=== PATIENT | male | born 1970 | race Caucasian/White ===

== ENCOUNTER 2016-10-22 16:24 | Inpatient (IN) | payer OTHER ==
[2016-10-22] MEDS ORDERED: ACETAMINOPHEN TAB 500 MG TAB PO STA (17:19)
[2016-10-22] MEDS ORDERED: ONDANSETRON 4 MG/2 ML VIAL IVP STA (17:50)
--- NOTE | 2016-10-22 17:52 | ED ---
General Adult HPI - General Source: patient, RN notes reviewed Mode of arrival: wheelchair Limitations: no limitations <Edelmira Short - Last Filed: 10/22/16 20:03> <Anderson Wiggins - Last Filed: 10/22/16 20:09> - General Chief complaint: Extremity Injury, Lower Stated complaint: Right Leg Swelling Time Seen by Provider: 10/22/16 17:19 - History of Present Illness Initial comments: Patient is a 46-year-old male since emergency room for evaluation of right fifth toe infection. Patient states he noticed a small white spot on the side of his toe a few days ago. Patient states about a week ago he noticed redness and swelling going up his right leg. Patient states yesterday like took off his shoes and noticed the entire top layer of skin had peeled off of his toe. Patient states that the pain has gotten worse today. Patient states he has swelling and redness radiating up his leg. Patient states he has been having on and off fevers. Patient denies taking anything for his fever. Patient does state he has diabetes type 2. Patient states he is having 5 out of 10 pain. Patient states he is nauseous but denies vomiting. Patient denies chest pain or shortness of breath. Patient denies abdominal pain. (Edelmira Short) - Related Data Home Medications Medication Instructions Recorded Confirmed Insulin Aspart [NovoLOG] 40 unit SQ BID 10/22/16 10/22/16 Insulin Glargine [Lantus] 50 unit SQ HS 10/22/16 10/22/16 Lisinopril [Zestril] 10 mg PO DAILY 10/22/16 10/22/16 oxyCODONE-APAP 10-325MG [Percocet 1 tab PO TID PRN 10/22/16 10/22/16 10-325 mg] traZODone HCL 150 mg PO HS 10/22/16 10/22/16 Previous Rx's Medication Instructions Recorded Pioglitazone [Actos] 45 mg PO DAILY 30 Days 02/28/14 Zolpidem [Ambien] 10 mg PO HS 30 Days 02/28/14 Allergies Allergy/AdvReac Type Severity Reaction Status Date / Time Penicillins Allergy Swelling Verified 10/22/16 17:32 Review of Systems ROS Other: All systems not noted in ROS Statement are negative. <Edelmira Short - Last Filed: 10/22/16 20:03> ROS Other: All systems not noted in ROS Statement are negative. <Anderson Wiggins - Last Filed: 10/22/16 20:09> ROS Statement: Those systems with pertinent positive or pertinent negative responses have been documented in the HPI. Past Medical History Past Medical History: Diabetes Mellitus, Hypertension History of Any Multi-Drug Resistant Organisms: None Reported Past Surgical History: Back Surgery Additional Past Surgical History / Comment(s): rt knee Past Psychological History: Anxiety, Bipolar, Depression Smoking Status: Never smoker Past Alcohol Use History: None Reported Past Drug Use History: None Reported <Edelmira Short - Last Filed: 10/22/16 20:03> General Exam Limitations: no limitations General appearance: alert, in no apparent distress Head exam: Present: atraumatic, normocephalic, normal inspection Eye exam: Present: normal appearance ENT exam: Present: normal exam Neck exam: Present: normal inspection Respiratory exam: Present: normal lung sounds bilaterally. Absent: respiratory distress Cardiovascular Exam: Present: normal rhythm, tachycardia, normal heart sounds Right Foot/Toe exam: Absent: normal inspection (Maceration of skin of fifth toe with erythema and edema radiating into the foot, upper leg. Slight lymphangitis on the medial portion of the leg.) Neurovascular tendon exam: Absent: pulse deficit ( 2+ dorsal pedal pulse) Back exam: Present: normal inspection Neurological exam: Present: alert, oriented X3, CN II-XII intact Psychiatric exam: Present: normal affect, normal mood Skin exam: Present: warm, dry <Edelmira Short - Last Filed: 10/22/16 20:03> <Anderson Wiggins - Last Filed: 10/22/16 20:09> - General Exam Comments Initial Comments: Sitting in exam room, no acute distress. (Edelmira Short) Medical Decision Making - Lab Data Result diagrams: 10/22/16 18:01 10/22/16 18:01 - Radiology Data Radiology results: report reviewed, image reviewed <Edelmira Short - Last Filed: 10/22/16 20:03> - Lab Data Result diagrams: 10/22/16 18:01 10/22/16 18:01 <Anderson Wiggins - Last Filed: 10/22/16 20:09> - Medical Decision Making Patient is a 46-year-old male presents to the emergency room for evaluation of right fifth toe infection and right leg cellulitis. WBC elevated. Patient will be started on vancomycin and Levaquin. Patient will be admitted. (Edelmira Short) The patient is seen and examined. All diagnostics are reviewed. It is felt as though he would require admission to the hospital and he is agreeable. The case is discussed with the PA and I agree with the findings as documented. Case will be discussed with medicine in the near future. (Anderson Wiggins) - Lab Data Lab Results 10/22/16 10/22/16 10/22/16 Range/Units 18:01 18:01 18:01 WBC 20.1 H (3.8-10.6) k/uL RBC 3.55 L (4.30-5.90) m/uL Hgb 10.5 L (13.0-17.5) gm/dL Hct 30.9 L (39.0-53.0) % MCV 87.0 (80.0-100.0) fL MCH 29.5 (25.0-35.0) pg MCHC 34.0 (31.0-37.0) g/dL RDW 13.4 (11.5-15.5) % Plt Count 225 (150-450) k/uL Neutrophils % 90 % Lymphocytes % 5 % Monocytes % 4 % Eosinophils % 0 % Basophils % 0 % Neutrophils # 18.0 H (1.3-7.7) k/uL Lymphocytes # 0.9 L (1.0-4.8) k/uL Monocytes # 0.8 (0-1.0) k/uL Eosinophils # 0.0 (0-0.7) k/uL Basophils # 0.0 (0-0.2) k/uL PT (9.0-12.0) sec INR (<1.2) APTT (22.0-30.0) sec Sodium 137 (137-145) mmol/L Potassium 4.2 (3.5-5.1) mmol/L Chloride 101 (98-107) mmol/L Carbon Dioxide 25 (22-30) mmol/L Anion Gap 11 mmol/L BUN 32 H (9-20) mg/dL Creatinine 1.40 H (0.66-1.25) mg/dL Est GFR (MDRD) Af Amer >60 (>60 ml/min/1.73 sqM) Est GFR (MDRD) Non-Af 55 (>60 ml/min/1.73 sqM) Glucose 89 (74-99) mg/dL Plasma Lactic Acid Pratik 0.9 (0.7-2.0) mmol/L Calcium 8.7 (8.4-10.2) mg/dL Total Bilirubin 1.3 (0.2-1.3) mg/dL AST 18 (17-59) U/L ALT 36 (21-72) U/L Alkaline Phosphatase 94 (38-126) U/L Total Protein 6.6 (6.3-8.2) g/dL Albumin 3.4 L (3.5-5.0) g/dL 10/22/16 Range/Units 18:01 WBC (3.8-10.6) k/uL RBC (4.30-5.90) m/uL Hgb (13.0-17.5) gm/dL Hct (39.0-53.0) % MCV (80.0-100.0) fL MCH (25.0-35.0) pg MCHC (31.0-37.0) g/dL RDW (11.5-15.5) % Plt Count (150-450) k/uL Neutrophils % % Lymphocytes % % Monocytes % % Eosinophils % % Basophils % % Neutrophils # (1.3-7.7) k/uL Lymphocytes # (1.0-4.8) k/uL Monocytes # (0-1.0) k/uL Eosinophils # (0-0.7) k/uL Basophils # (0-0.2) k/uL PT 11.8 (9.0-12.0) sec INR 1.2 H (<1.2) APTT 27.8 (22.0-30.0) sec Sodium (137-145) mmol/L Potassium (3.5-5.1) mmol/L Chloride (98-107) mmol/L Carbon Dioxide (22-30) mmol/L Anion Gap mmol/L BUN (9-20) mg/dL Creatinine (0.66-1.25) mg/dL Est GFR (MDRD) Af Amer (>60 ml/min/1.73 sqM) Est GFR (MDRD) Non-Af (>60 ml/min/1.73 sqM) Glucose (74-99) mg/dL Plasma Lactic Acid Pratik (0.7-2.0) mmol/L Calcium (8.4-10.2) mg/dL Total Bilirubin (0.2-1.3) mg/dL AST (17-59) U/L ALT (21-72) U/L Alkaline Phosphatase (38-126) U/L Total Protein (6.3-8.2) g/dL Albumin (3.5-5.0) g/dL Disposition Decision Date: 10/22/16 <Edelmira Short - Last Filed: 10/22/16 20:03> <Anderson Wiggins - Last Filed: 10/22/16 20:09> Clinical Impression: Cellulitis of right leg Disposition: ADMITTED IP TO THIS [facility] Condition: Stable Referrals: Alejandro Atwood Jr, [Primary Care Provider] - 1-2 days
[2016-10-22] MEDS ORDERED: IV VANCOMYCIN PER PHARMACY 1 EACH MISC MISCELLANE PRN (18:05)
[2016-10-22] MEDS ORDERED: VANCOMYCIN 2,000 MG in SODIUM CHLORIDE 0.9% 500 ML IVPB STA (18:08)
[2016-10-22] MEDS: SODIUM CHLORIDE 0.9% 500 ML IV SCH ×3 (18:13→22:31)
[2016-10-22 18:16] LABS: Basophils % (A) 0 %; CH 28.7; CHCM 33.1; Eosinophils % (A) 0 %; HCT 30.9 % (39.0-53.0); HDW 2.52; HGB 10.5 gm/dL (13.0-17.5); Luc # (Auto) 0.28; Luc % (Auto) 1; Lymphocytes # (A) 0.9 k/uL (1.0-4.8); Lymphocytes % (A) 5 %; MCH 29.5 pg (25.0-35.0); Mean Platelet Volume 7.8; Monocytes # (A) 0.8 k/uL (0-1.0); Monocytes % (A) 4 %; Neutrophils % (A) 90 %; RBC 3.55 m/uL (4.30-5.90); RDW 13.4 % (11.5-15.5); WBC 20.1 k/uL (3.8-10.6); WBC (Perox) 20.49
[2016-10-22 18:23] LABS: ALT 36 U/L (21-72); AST 18 U/L (17-59); Alkaline Phosphatase 94 U/L (38-126); Anion Gap 11 mmol/L; Blood Urea Nitrogen 32 mg/dL (9-20); Calcium 8.7 mg/dL (8.4-10.2); Carbon Dioxide 25 mmol/L (22-30); Chloride 101 mmol/L (98-107); Glucose 89 mg/dL (74-99); Non-African American GFR(MDRD) 55 (>60 ml/min/1.73 sqM); Potassium 4.2 mmol/L (3.5-5.1); Sodium 137 mmol/L (137-145); Total Bilirubin 1.3 mg/dL (0.2-1.3); Total Protein 6.6 g/dL (6.3-8.2)
[2016-10-22 18:38] LABS: INR 1.2 (<1.2); Partial Thromboplastin Time 27.8 sec (22.0-30.0); Prothrombin Time 11.8 sec (9.0-12.0)
--- NOTE | 2016-10-22 18:46 | XR ---
EXAMINATION TYPE: XR foot complete RT DATE OF EXAM: 10/22/2016 COMPARISON: 11/17/2011 HISTORY: Pain and swelling TECHNIQUE: 3 views FINDINGS: There is bandaging at the tip of the fifth toe with evidence of soft tissue volume loss rel ated to the distal phalanx of the fifth toe. The underlying skeletal structures appear intact. Examination of the remainder of the foot is negative for fracture or malalignment or radiopaque forei gn body. There is diffuse soft tissue swelling. There is no soft tissue emphysema. No focal bony oste openia. Multifocal mild and moderate osteoarthritis changes are appreciated. IMPRESSION: Soft tissue swelling noted.
[2016-10-22] MEDS ORDERED: LEVOFLOXACIN 750MG-D5W PMX 750 MG in DEXTROSE/WATER 1 150ML.BAG IVPB STA (19:28)
[2016-10-22] MEDS ORDERED: KETOROLAC 30 MG/ML 1 ML VIAL IVP STA (19:44)
[2016-10-22] MEDS ORDERED: MORPHINE SULFATE 4 MG/ML SYRINGE IV PRN (19:54)
[2016-10-22] MEDS ORDERED: NALOXONE 0.4 MG/ML 1 ML VIAL IV PRN (19:54)
[2016-10-22] MEDS ORDERED: HYDROcodone/APAP 5-325MG 1 EACH TAB PO PRN (19:54)
[2016-10-22] MEDS ORDERED: KETOROLAC 30 MG/ML 1 ML VIAL IVP PRN (19:54)
[2016-10-22 21:27] LABS: Appearance,Urine Clear (Clear); Bacteria,Urine Occasional /hpf; Bilirubin,Urine Negative (Negative); Glucose,Urine (UA) Negative (Negative); Granular Casts,Urine 4 /lpf (0); Ketones,Urine Negative (Negative); Leukocyte Esterase,Urine Trace (Negative); Nitrite,Urine Negative (Negative); PH, Urine 5.5 (5.0-8.0); Particle Count 8936; Protein,Urine 1+ (Negative); RBC,Urine <1 /hpf (0-5); Specific Gravity,Urine 1.017 (1.001-1.035); Squamous Epithelial Cell,Urine 1 /hpf (0-4); UA Billing (MACRO vs. MICRO) MICRO; Urobilinogen,Urine <2.0 mg/dL (<2.0); WBC,Urine 3 /hpf (0-5)
[2016-10-22 21:37] LABS: Glucose,Whole Blood 139 mg/dL (75-99)
[2016-10-22 22:04] LABS: Hemoglobin A1C 7.7 % (4.2-6.1)
[2016-10-22] MEDS: SODIUM CHLORIDE 0.9% 1,000 ML IV SCH (22:30)
[2016-10-22] MEDS: INSULIN LISPRO (humaLOG) 300 UNIT/3 ML VIAL SQ SCH (22:32)
[2016-10-22 22:50] VITALS: BMI 46.7
[2016-10-22] MEDS: ZOLPIDEM 10 MG TAB PO SCH (22:58)
[2016-10-22] MEDS: traZODone HCL 50 MG TAB PO SCH (22:58)
[2016-10-23] MEDS: SODIUM CHLORIDE 0.9% 1,000 ML IV SCH ×2 (07:15→14:17)
[2016-10-23 07:22] LABS: Glucose,Whole Blood 149 mg/dL (75-99)
[2016-10-23] MEDS: LISINOPRIL 10 MG TAB PO SCH (07:33)
[2016-10-23] MEDS: VANCOMYCIN 2,000 MG in SODIUM CHLORIDE 0.9% 500 ML IVPB SCH ×2 (07:33→23:07)
[2016-10-23] MEDS: INSULIN LISPRO (humaLOG) 300 UNIT/3 ML VIAL SQ SCH ×4 (07:33→21:33)
[2016-10-23] MEDS: PIOGLITAZONE 45 MG TAB PO SCH (07:33)
[2016-10-23 08:44] LABS: Basophils % (A) 0 %; CH 28.7; CHCM 31.9; Eosinophils # (A) 0.1 k/uL (0-0.7); Eosinophils % (A) 0 %; HCT 30.3 % (39.0-53.0); HDW 2.47; HGB 9.7 gm/dL (13.0-17.5); Luc # (Auto) 0.17; Luc % (Auto) 1; Lymphocytes # (A) 0.7 k/uL (1.0-4.8); Lymphocytes % (A) 4 %; MCV 90.6 fL (80.0-100.0); Mean Platelet Volume 7.8; Monocytes # (A) 0.5 k/uL (0-1.0); Monocytes % (A) 3 %; Neutrophils # (A) 16.2 k/uL (1.3-7.7); Neutrophils % (A) 92 %; RBC 3.35 m/uL (4.30-5.90); RDW 13.4 % (11.5-15.5); WBC 17.7 k/uL (3.8-10.6); WBC (Perox) 17.89
[2016-10-23 08:55] LABS: Chloride 105 mmol/L (98-107); Glucose 201 mg/dL (74-99); Potassium 4.2 mmol/L (3.5-5.1); Sodium 136 mmol/L (137-145); Total Protein 5.4 g/dL (6.3-8.2)
[2016-10-23 08:58] LABS: ALT 24 U/L (21-72); AST 14 U/L (17-59); Alkaline Phosphatase 83 U/L (38-126); Blood Urea Nitrogen 29 mg/dL (9-20); Calcium 7.9 mg/dL (8.4-10.2); Carbon Dioxide 24 mmol/L (22-30); Non-African American GFR(MDRD) >60 (>60 ml/min/1.73 sqM)
[2016-10-23] MEDS ORDERED: IV VANCOMYCIN PER PHARMACY 1 EACH MISC MISCELLANE SCH (09:00)
[2016-10-23 10:10] LABS: Anion Gap 7 mmol/L
[2016-10-23 12:30] LABS: Glucose,Whole Blood 273 mg/dL (75-99)
--- NOTE | 2016-10-23 13:52 | P.HPIM ---
History of Present Illness H&P Date: 10/23/16 Chief Complaint: Left toe infection Kvng is a pleasant 46-year-old white male well-known to me. He has type 2 diabetes, insulin-dependent. His sugars have not been well controlled. He reports that there is small white blister on his right number fifth toe. Indicates again worse when he took off his shoes yesterday was the entire top layer of skin and peeled off and his sock was wet indicates there was redness and the reading up his leg. To the emergency room physician he been having fevers off and on. He tells me that he's been also having some nausea as well. He denies any chest pains, pressures, shortness of breath, nausea, or vomiting. His MAXIMUM TEMPERATURE overnight was 101.7F at 1922 last night Review of Systems All systems: negative Past Medical History Past Medical History: Diabetes Mellitus, Hypertension History of Any Multi-Drug Resistant Organisms: None Reported Past Surgical History: Back Surgery Additional Past Surgical History / Comment(s): rt knee Past Psychological History: Anxiety, Bipolar, Depression Smoking Status: Never smoker Medications and Allergies Home Medications Medication Instructions Recorded Confirmed Type Insulin Aspart [NovoLOG] 40 unit SQ BID 10/22/16 10/22/16 History Insulin Glargine [Lantus] 50 unit SQ HS 10/22/16 10/22/16 History Lisinopril [Zestril] 10 mg PO DAILY 10/22/16 10/22/16 History oxyCODONE-APAP 10-325MG [Percocet 1 tab PO TID PRN 10/22/16 10/22/16 History 10-325 mg] traZODone HCL 150 mg PO HS 10/22/16 10/22/16 History Allergies Allergy/AdvReac Type Severity Reaction Status Date / Time Penicillins Allergy Swelling Verified 10/22/16 17:32 Physical Exam Vitals: Vital Signs Temp Pulse Pulse Resp BP BP Pulse Ox 10/23/16 07:00 99.8 F H 107 H 21 136/63 91 L 10/22/16 23:00 98.4 F 89 16 135/72 95 10/22/16 21:31 98.8 F 96 16 119/56 92 L 10/22/16 21:02 100.8 F H 94 18 132/57 93 L 10/22/16 19:22 101.7 F H 99 20 132/62 93 L 10/22/16 19:19 101 F H 98 20 145/66 93 L 10/22/16 16:49 101.3 F H 110 H 17 175/78 95 Intake and Output 10/22/16 10/23/16 10/23/16 22:59 06:59 14:59 Other: Voiding Method Toilet # Voids 1 1 Weight 139.5 kg GENERAL: Well-appearing, well-nourished and in no acute distress. HEAD: Atraumatic, normocephalic. EYES: Pupils equal round and reactive to light, extraocular movements intact, sclera anicteric, conjunctiva are normal. ENT:nares patent, oropharynx clear without exudates. Moist mucous membranes. NECK: Normal range of motion, supple without lymphadenopathy or JVD, no thyromegaly LUNGS: Breath sounds clear to auscultation bilaterally and equal. No wheezes rales or rhonchi. HEART: Regular rate and rhythm without murmurs, rubs or gallops.S1S2 Normal ABDOMEN: Soft, nontender, normoactive bowel sounds. No guarding, no rebound. No masses appreciated. Mild truncal obesity EXTREMITIES: To the right #5 digit, there is circumferential yellow fibrinous slough and macerated tissue. There is minimal erythema extending up his leg. NEUROLOGICAL: Cranial nerves II through XII grossly intact. Normal speech, normal gait. PSYCH: Normal mood, normal affect. Results CBC & Chem 7: 10/23/16 08:08 10/23/16 08:08 Labs: Abnormal Lab Results - Last 24 Hours (Table) 10/22/16 10/22/16 10/22/16 Range/Units 18:01 18:01 18:01 WBC 20.1 H (3.8-10.6) k/uL RBC 3.55 L (4.30-5.90) m/uL Hgb 10.5 L (13.0-17.5) gm/dL Hct 30.9 L (39.0-53.0) % Neutrophils # 18.0 H (1.3-7.7) k/uL Lymphocytes # 0.9 L (1.0-4.8) k/uL INR 1.2 H (<1.2) Sodium (137-145) mmol/L BUN 32 H (9-20) mg/dL Creatinine 1.40 H (0.66-1.25) mg/dL Glucose (74-99) mg/dL POC Glucose (mg/dL) (75-99) mg/dL Hemoglobin A1c (4.2-6.1) % Calcium (8.4-10.2) mg/dL AST (17-59) U/L Total Protein (6.3-8.2) g/dL Albumin 3.4 L (3.5-5.0) g/dL Urine Protein (Negative) Urine Blood (Negative) Ur Leukocyte Esterase (Negative) Urine Bacteria (None) /hpf 10/22/16 10/22/16 10/22/16 Range/Units 18:01 21:03 21:35 WBC (3.8-10.6) k/uL RBC (4.30-5.90) m/uL Hgb (13.0-17.5) gm/dL Hct (39.0-53.0) % Neutrophils # (1.3-7.7) k/uL Lymphocytes # (1.0-4.8) k/uL INR (<1.2) Sodium (137-145) mmol/L BUN (9-20) mg/dL Creatinine (0.66-1.25) mg/dL Glucose (74-99) mg/dL POC Glucose (mg/dL) 139 H (75-99) mg/dL Hemoglobin A1c 7.7 H (4.2-6.1) % Calcium (8.4-10.2) mg/dL AST (17-59) U/L Total Protein (6.3-8.2) g/dL Albumin (3.5-5.0) g/dL Urine Protein 1+ H (Negative) Urine Blood Trace H (Negative) Ur Leukocyte Esterase Trace H (Negative) Urine Bacteria Occasional H (None) /hpf 10/23/16 10/23/16 10/23/16 Range/Units 07:14 08:08 08:08 WBC 17.7 H (3.8-10.6) k/uL RBC 3.35 L (4.30-5.90) m/uL Hgb 9.7 L (13.0-17.5) gm/dL Hct 30.3 L (39.0-53.0) % Neutrophils # 16.2 H (1.3-7.7) k/uL Lymphocytes # 0.7 L (1.0-4.8) k/uL INR (<1.2) Sodium 136 L (137-145) mmol/L BUN 29 H (9-20) mg/dL Creatinine 1.26 H (0.66-1.25) mg/dL Glucose 201 H (74-99) mg/dL POC Glucose (mg/dL) 149 H (75-99) mg/dL Hemoglobin A1c (4.2-6.1) % Calcium 7.9 L (8.4-10.2) mg/dL AST 14 L (17-59) U/L Total Protein 5.4 L (6.3-8.2) g/dL Albumin 2.7 L (3.5-5.0) g/dL Urine Protein (Negative) Urine Blood (Negative) Ur Leukocyte Esterase (Negative) Urine Bacteria (None) /hpf 10/23/16 Range/Units 12:20 WBC (3.8-10.6) k/uL RBC (4.30-5.90) m/uL Hgb (13.0-17.5) gm/dL Hct (39.0-53.0) % Neutrophils # (1.3-7.7) k/uL Lymphocytes # (1.0-4.8) k/uL INR (<1.2) Sodium (137-145) mmol/L BUN (9-20) mg/dL Creatinine (0.66-1.25) mg/dL Glucose (74-99) mg/dL POC Glucose (mg/dL) 273 H (75-99) mg/dL Hemoglobin A1c (4.2-6.1) % Calcium (8.4-10.2) mg/dL AST (17-59) U/L Total Protein (6.3-8.2) g/dL Albumin (3.5-5.0) g/dL Urine Protein (Negative) Urine Blood (Negative) Ur Leukocyte Esterase (Negative) Urine Bacteria (None) /hpf Microbiology - Last 24 Hours (Table) 10/22/16 21:03 Urine Culture - Preliminary Urine,Voided Comments: Foot x-ray reviewed, no osteomyelitis Thrombosis Risk Factor Assmnt - DVT/VTE Prophylaxis DVT/VTE Prophylaxis: Pharmacologic Prophylaxis ordered - Choose All That Apply Any of the Below Risk Factors Present?: Yes Each Factor Represents 1 point: Age 41-60 years, Obesity (BMI >25), Swollen legs (current) Thrombosis Risk Factor Assessment Total Risk Factor Score: 3 Thrombosis Risk Factor Assessment Level: Moderate Risk Assessment and Plan Plan: Right #5 toe digit cellulitis with abscess/Leo grade 2 diabetic ulcer: He will continue on Levaquin and vancomycin, I will surgically debride the wound today. I'll obtain tissue cultures. We will obtain an MALORIE when available. Insulin dependent diabetes mellitus: He'll continue on his insulin scale, Accu- Cheks before meals and at bedtime, glargine 50 units at bedtime Hypertension: He'll continue on his lisinopril. Insomnia: He can continue on trazodone. GI Prophylaxis: We'll start him on Pepcid DVT prophylaxis: We'll start him on Lovenox 40 units subcutaneous I will surgically debride the wound, obtain tissue cultures, apply Aquacel silver to the wound, obtain an MALORIE, continue his antibiotics, and reevaluate him in the a.m. Once is afebrile 24 hours, plan on him going home on Bactrim, pending tissue cultures.
--- NOTE | 2016-10-23 13:54 | P.WCSRGD ---
Wound Ctr Surgical Debridement PREOPERATIVE DIAGNOSES: Leo grade 2 diabetic ulcer right #5 digit POSTOPERATIVE DIAGNOSES: same PROCEDURE: Excisional surgical debridement, tissue culture DESCRIPTION: The full-thickness ulcer to right #5 digit measuring 4 x 4 x 0.2 cm was debrided into the subcutaneous tissues today to remove yellow fibrinous slough and devitalized tissue from the wound. After debridement, small piece was obtained for tissue culture. For post debridement measurements see today's nursing note.There are obvious signs of infection today. There are no other materials in the wound that he would inhibit healing or promote adjacent tissue breakdown. EXTENT OF NECROTIC TISSUE: Large DEGREE OF EPITHELIALIZATION: sMall CHARACTER OF WOUND AFTER DEBRIDEMINT: bloody and granular INSTRUMENTATION: scalpel, pickups BLEEDING: Minimal and controlled with pressure ANESTHESIA: 2% lidocaine gel applied to the ulcer DRESSING: AQUACEL ag Patient tolerated today's procedure well. The patient will be reevaluated in 1 day
[2016-10-23] MEDS: FAMOTIDINE 20 MG TAB PO SCH (14:16)
[2016-10-23] MEDS: ENOXAPARIN 40 MG/0.4 ML SYRINGE SQ SCH (14:16)
[2016-10-23 17:41] LABS: Glucose,Whole Blood 279 mg/dL (75-99)
[2016-10-23 20:34] LABS: Glucose,Whole Blood 296 mg/dL (75-99)
[2016-10-23] MEDS ORDERED: LEVOFLOXACIN 750MG-D5W PMX 750 MG in DEXTROSE/WATER 1 150ML.BAG IVPB SCH (21:00)
[2016-10-23] MEDS: ZOLPIDEM 10 MG TAB PO SCH (21:32)
[2016-10-23] MEDS: traZODone HCL 50 MG TAB PO SCH (21:32)
[2016-10-23] MEDS: INSULIN GLARGINE 100 UNIT/ML 10 ML VIAL SQ SCH (21:33)
[2016-10-24] MEDS: SODIUM CHLORIDE 0.9% 1,000 ML IV SCH ×3 (03:21→21:35)
[2016-10-24] MEDS: ACETAMINOPHEN TAB 500 MG TAB PO PRN (05:14)
[2016-10-24 07:27] LABS: Glucose,Whole Blood 184 mg/dL (75-99)
[2016-10-24] MEDS: PIOGLITAZONE 45 MG TAB PO SCH (07:40)
[2016-10-24] MEDS: ENOXAPARIN 40 MG/0.4 ML SYRINGE SQ SCH (07:40)
[2016-10-24] MEDS: LISINOPRIL 10 MG TAB PO SCH (07:40)
[2016-10-24] MEDS: INSULIN LISPRO (humaLOG) 300 UNIT/3 ML VIAL SQ SCH ×4 (07:40→21:37)
[2016-10-24] MEDS: FAMOTIDINE 20 MG TAB PO SCH (07:40)
[2016-10-24 10:41] LABS: Basophils % (A) 0 %; CH 28.8; CHCM 31.8; Eosinophils # (A) 0.1 k/uL (0-0.7); Eosinophils % (A) 1 %; HCT 29.8 % (39.0-53.0); HDW 2.52; HGB 9.5 gm/dL (13.0-17.5); Luc # (Auto) 0.19; Luc % (Auto) 1; Lymphocytes % (A) 6 %; MCH 28.9 pg (25.0-35.0); MCHC 31.8 g/dL (31.0-37.0); MCV 91.1 fL (80.0-100.0); Monocytes # (A) 0.5 k/uL (0-1.0); Monocytes % (A) 3 %; Neutrophils % (A) 88 %; RBC 3.27 m/uL (4.30-5.90); RDW 13.6 % (11.5-15.5); WBC 15.8 k/uL (3.8-10.6); WBC (Perox) 15.73
[2016-10-24 11:01] LABS: Anion Gap 7 mmol/L; Blood Urea Nitrogen 22 mg/dL (9-20); Calcium 8.2 mg/dL (8.4-10.2); Carbon Dioxide 24 mmol/L (22-30); Chloride 109 mmol/L (98-107); Glucose 215 mg/dL (74-99); Non-African American GFR(MDRD) >60 (>60 ml/min/1.73 sqM); Potassium 4.4 mmol/L (3.5-5.1); Sodium 140 mmol/L (137-145)
--- NOTE | 2016-10-24 11:46 | P.PN ---
Subjective Kvng is a pleasant 46-year-old white male well-known to me. He has type 2 diabetes, insulin-dependent. His sugars have not been well controlled. He reports that there is small white blister on his right number fifth toe. Indicates again worse when he took off his shoes yesterday was the entire top layer of skin and peeled off and his sock was wet indicates there was redness and the reading up his leg. To the emergency room physician he been having fevers off and on. He tells me that he's been also having some nausea as well. He denies any chest pains, pressures, shortness of breath, nausea, or vomiting. His MAXIMUM TEMPERATURE overnight was 101.7F at 1922 last night 2016: Overnight Kvng spiked another fever. MAXIMUM TEMPERATURE is 100.8F at 2300 10/23/2016 he denies any chest pains, pressures, nausea, vomiting, pain in his extremities. He is currently on Levaquin and vancomycin. Objective - Vital Signs Vital signs: Vital Signs Temp 97.3 F L 10/24/16 07:00 Pulse 92 10/24/16 07:00 Resp 21 10/24/16 07:00 BP 134/80 10/24/16 07:00 Pulse Ox 94 L 10/24/16 07:00 Intake & Output 10/23/16 10/24/16 10/24/16 18:59 06:59 18:59 Intake Total 1758 Balance 1758 Intake: Intake, IV Titration 1638 Amount Levofloxacin 750Mg-D5w 150 Pmx 750 mg In Dextrose/ Water 1 150ml.bag @ 100 mls/hr IVPB Q24H [facility] Rx#: [id number] Sodium Chloride 0.9% 1, 988 000 ml @ 100 mls/hr IV . Q10H [facility] Rx#:[id number] Vancomycin 2,000 mg In 500 Sodium Chloride 0.9% 500 ml @ 167 mls/hr IVPB Q16H [facility] Rx#:[id number] Oral 120 Other: Voiding Method Toilet Toilet Toilet # Voids 1 3 - Exam GENERAL: Well-appearing, well-nourished and in no acute distress. NECK: Normal range of motion, supple without lymphadenopathy or JVD, no thyromegaly LUNGS: Breath sounds clear to auscultation bilaterally and equal. No wheezes rales or rhonchi. HEART: Regular rate and rhythm without murmurs, rubs or gallops.S1S2 Normal ABDOMEN: Soft, nontender, normoactive bowel sounds. No guarding, no rebound. No masses appreciated. Mild truncal obesity EXTREMITIES: Testing is intact. Nursing staff indicating Aquacel Silver's on the wound. Periwound erythema is now resolved. NEUROLOGICAL: Cranial nerves II through XII grossly intact. Normal speech, normal gait. PSYCH: Normal mood, normal affect. - Labs CBC & Chem 7: 10/24/16 10:29 10/24/16 10:29 Labs: Abnormal Lab Results - Last 24 Hours (Table) 10/23/16 10/23/16 10/23/16 Range/Units 12:20 17:32 20:20 WBC (3.8-10.6) k/uL RBC (4.30-5.90) m/uL Hgb (13.0-17.5) gm/dL Hct (39.0-53.0) % Neutrophils # (1.3-7.7) k/uL Chloride (98-107) mmol/L BUN (9-20) mg/dL Glucose (74-99) mg/dL POC Glucose (mg/dL) 273 H 279 H 296 H (75-99) mg/dL Calcium (8.4-10.2) mg/dL 10/24/16 10/24/16 10/24/16 Range/Units 07:05 10:29 10:29 WBC 15.8 H (3.8-10.6) k/uL RBC 3.27 L (4.30-5.90) m/uL Hgb 9.5 L (13.0-17.5) gm/dL Hct 29.8 L (39.0-53.0) % Neutrophils # 14.0 H (1.3-7.7) k/uL Chloride 109 H (98-107) mmol/L BUN 22 H (9-20) mg/dL Glucose 215 H (74-99) mg/dL POC Glucose (mg/dL) 184 H (75-99) mg/dL Calcium 8.2 L (8.4-10.2) mg/dL Microbiology - Last 24 Hours (Table) 10/23/16 13:05 Gram Stain - Preliminary Foot - Right Tissue Culture - Preliminary Strep agalactiae - (group b) 10/22/16 21:03 Urine Culture - Final Urine,Voided 10/22/16 18:01 Blood Culture - Preliminary Blood No Growth after 24 hours Assessment and Plan Plan: Right #5 toe digit cellulitis with abscess/Leo grade 2 diabetic ulcer: He will continue on Levaquin and vancomycin, and in a consult for Dr. Mckeon and weight is him afebrile 24 hours before discharge. xray showed cellulitis, no bony destruction. Insulin dependent diabetes mellitus: He'll continue on his insulin scale, Accu- Cheks before meals and at bedtime, glargine 50 units at bedtime Hypertension: He'll continue on his lisinopril. Insomnia: He can continue on trazodone. Bipolar disorder:: I will restart his Abilify and Lexapro. GI Prophylaxis: We'll start him on Pepcid DVT prophylaxis: We'll start him on Lovenox 40 units subcutaneous Aquacel silver, weight on tissue culture taken yesterday, weight on consult and recommendations, a possible vascular surgery consult may be needed..
[2016-10-24 11:58] LABS: Glucose,Whole Blood 259 mg/dL (75-99)
[2016-10-24] MEDS: ESCITALOPRAM 10 MG TAB PO SCH (12:21)
[2016-10-24] MEDS: VANCOMYCIN 2,000 MG in SODIUM CHLORIDE 0.9% 500 ML IVPB SCH (15:02)
[2016-10-24 17:26] LABS: Glucose,Whole Blood 257 mg/dL (75-99)
[2016-10-24 21:02] LABS: Glucose,Whole Blood 201 mg/dL (75-99)
[2016-10-24] MEDS: ARIPiprazole 5 MG TAB PO SCH (21:35)
[2016-10-24] MEDS: INSULIN GLARGINE 100 UNIT/ML 10 ML VIAL SQ SCH (21:35)
[2016-10-24] MEDS: ZOLPIDEM 10 MG TAB PO SCH (21:35)
[2016-10-24] MEDS: traZODone HCL 50 MG TAB PO SCH (21:55)
[2016-10-25 02:20] LABS: Glucose,Whole Blood 160 mg/dL (75-99)
[2016-10-25] MEDS: ACETAMINOPHEN TAB 500 MG TAB PO PRN ×2 (04:03→12:48)
[2016-10-25] MEDS ORDERED: VANCOMYCIN TROUGH DUE 1 EACH MISC MISCELLANE ONE (07:00)
[2016-10-25 07:18] LABS: Glucose,Whole Blood 132 mg/dL (75-99)
[2016-10-25 08:23] LABS: Basophils # (A) 0.1 k/uL (0-0.2); Basophils % (A) 1 %; CH 28.7; CHCM 32.1; Eosinophils # (A) 0.1 k/uL (0-0.7); Eosinophils % (A) 1 %; HCT 30.2 % (39.0-53.0); HDW 2.68; HGB 9.8 gm/dL (13.0-17.5); Luc # (Auto) 0.45; Luc % (Auto) 3; Lymphocytes # (A) 1.3 k/uL (1.0-4.8); Lymphocytes % (A) 9 %; MCH 29.2 pg (25.0-35.0); MCHC 32.5 g/dL (31.0-37.0); MCV 89.8 fL (80.0-100.0); Mean Platelet Volume 7.1; Monocytes # (A) 0.4 k/uL (0-1.0); Monocytes % (A) 3 %; Neutrophils # (A) 11.6 k/uL (1.3-7.7); Neutrophils % (A) 83 %; RBC 3.37 m/uL (4.30-5.90); RDW 13.3 % (11.5-15.5); WBC 13.9 k/uL (3.8-10.6); WBC (Perox) 13.98
[2016-10-25] MEDS: VANCOMYCIN 2,000 MG in SODIUM CHLORIDE 0.9% 500 ML IVPB SCH (08:24)
[2016-10-25] MEDS: PIOGLITAZONE 45 MG TAB PO SCH (08:25)
[2016-10-25] MEDS: ENOXAPARIN 40 MG/0.4 ML SYRINGE SQ SCH (08:25)
[2016-10-25] MEDS: FAMOTIDINE 20 MG TAB PO SCH (08:25)
[2016-10-25] MEDS: LISINOPRIL 10 MG TAB PO SCH (08:25)
[2016-10-25] MEDS: ESCITALOPRAM 10 MG TAB PO SCH (08:25)
[2016-10-25] MEDS: INSULIN LISPRO (humaLOG) 300 UNIT/3 ML VIAL SQ SCH ×4 (08:26→21:26)
[2016-10-25] MEDS: SODIUM CHLORIDE 0.9% 1,000 ML IV SCH ×2 (08:26→17:50)
[2016-10-25 08:33] LABS: Anion Gap 8 mmol/L; Blood Urea Nitrogen 16 mg/dL (9-20); Calcium 8.4 mg/dL (8.4-10.2); Carbon Dioxide 23 mmol/L (22-30); Chloride 111 mmol/L (98-107); Glucose 118 mg/dL (74-99); Non-African American GFR(MDRD) >60 (>60 ml/min/1.73 sqM); Potassium 4.3 mmol/L (3.5-5.1); Sodium 142 mmol/L (137-145)
[2016-10-25] MEDS ORDERED: ARIPiprazole 5 MG TAB PO SCH (09:00)
--- NOTE | 2016-10-25 09:24 | P.PN ---
Subjective Kvng is a pleasant 46-year-old white male well-known to me. He has type 2 diabetes, insulin-dependent. His sugars have not been well controlled. He reports that there is small white blister on his right number fifth toe. Indicates again worse when he took off his shoes yesterday was the entire top layer of skin and peeled off and his sock was wet indicates there was redness and the reading up his leg. To the emergency room physician he been having fevers off and on. He tells me that he's been also having some nausea as well. He denies any chest pains, pressures, shortness of breath, nausea, or vomiting. His MAXIMUM TEMPERATURE overnight was 101.7F at 1922 last night 10/24/2016: Overnight Kvng spiked another fever. MAXIMUM TEMPERATURE is 100.8 F at 2300 10/23/2016 he denies any chest pains, pressures, nausea, vomiting, pain in his extremities. He is currently on Levaquin and vancomycin. 10/25/2016: Kvng is been afebrile over the past 24 hours. He remains on vancomycin. He has no significant complaints today. His Levaquin was discontinued, as it interacted with most of his psych medications. His cultures prelim positive for group B strep. So with Dr. Mckeon, infectious disease, is pending. His MALORIE is pending. States now, he was clipping his toenails, several days before this started. Objective - Vital Signs Vital signs: Vital Signs Temp 99.1 F 10/25/16 07:00 Pulse 93 10/25/16 07:00 Resp 20 10/25/16 07:00 BP 138/63 10/25/16 07:00 Pulse Ox 93 L 10/25/16 07:45 Intake & Output 10/24/16 10/25/16 10/25/16 18:59 06:59 18:59 Output Total 800 Balance -800 Output: Urine 800 Other: Voiding Method Toilet Toilet # Voids 3 1 - Exam GENERAL: Well-appearing, well-nourished and in no acute distress. NECK: Normal range of motion, supple without lymphadenopathy or JVD, no thyromegaly LUNGS: Breath sounds clear to auscultation bilaterally and equal. No wheezes rales or rhonchi. HEART: Regular rate and rhythm without murmurs, rubs or gallops.S1S2 Normal ABDOMEN: Soft, nontender, normoactive bowel sounds. No guarding, no rebound. No masses appreciated. Mild truncal obesity EXTREMITIES: Right #5 toe shows erythematous with moderate amount of yellow fibrin slough and a moderate amount of red granulation tissue. Dressing type is Aquacel silver NEUROLOGICAL:. Cranial nerves II through XII grossly intact. Normal speech, normal gait. PSYCH: Normal mood, normal affect. - Labs CBC & Chem 7: 10/25/16 07:28 10/25/16 07:28 Labs: Abnormal Lab Results - Last 24 Hours (Table) 10/24/16 10/24/16 10/24/16 Range/Units 10:29 10:29 11:38 WBC 15.8 H (3.8-10.6) k/uL RBC 3.27 L (4.30-5.90) m/uL Hgb 9.5 L (13.0-17.5) gm/dL Hct 29.8 L (39.0-53.0) % Neutrophils # 14.0 H (1.3-7.7) k/uL Chloride 109 H (98-107) mmol/L BUN 22 H (9-20) mg/dL Glucose 215 H (74-99) mg/dL POC Glucose (mg/dL) 259 H (75-99) mg/dL Calcium 8.2 L (8.4-10.2) mg/dL 10/24/16 10/24/16 10/25/16 Range/Units 17:06 21:00 02:08 WBC (3.8-10.6) k/uL RBC (4.30-5.90) m/uL Hgb (13.0-17.5) gm/dL Hct (39.0-53.0) % Neutrophils # (1.3-7.7) k/uL Chloride (98-107) mmol/L BUN (9-20) mg/dL Glucose (74-99) mg/dL POC Glucose (mg/dL) 257 H 201 H 160 H (75-99) mg/dL Calcium (8.4-10.2) mg/dL 10/25/16 10/25/16 10/25/16 Range/Units 07:11 07:28 07:28 WBC 13.9 H (3.8-10.6) k/uL RBC 3.37 L (4.30-5.90) m/uL Hgb 9.8 L (13.0-17.5) gm/dL Hct 30.2 L (39.0-53.0) % Neutrophils # 11.6 H (1.3-7.7) k/uL Chloride 111 H (98-107) mmol/L BUN (9-20) mg/dL Glucose 118 H (74-99) mg/dL POC Glucose (mg/dL) 132 H (75-99) mg/dL Calcium (8.4-10.2) mg/dL Microbiology - Last 24 Hours (Table) 10/22/16 18:01 Blood Culture - Preliminary Blood No Growth after 48 hours 10/23/16 13:05 Gram Stain - Preliminary Foot - Right Tissue Culture - Preliminary Strep agalactiae - (group b) Assessment and Plan Plan: Right #5 toe digit cellulitis with abscess/Leo grade 2 diabetic ulcer: He will continue on vancomycin, consult for Dr. Mckeon pending. xray showed cellulitis, no bony destruction. Culture now showing Streptococcus agalactia Insulin dependent diabetes mellitus: He'll continue on his insulin scale, Accu- Cheks before meals and at bedtime, glargine 50 units at bedtime Hypertension: He'll continue on his lisinopril. Insomnia: He can continue on trazodone. Bipolar disorder: Abilify and Lexapro. GI Prophylaxis: cont Pepcid DVT prophylaxis: We'll start him on Lovenox 40 units subcutaneous continueAquacel silver,await malorie, consult recommendations, possibl;e d/c today
[2016-10-25] MEDS ORDERED: cefTRIAXone 2,000 MG in SODIUM CHLORIDE 0.9% 100 ML IVPB SCH (10:00)
[2016-10-25 12:40] LABS: Glucose,Whole Blood 157 mg/dL (75-99)
[2016-10-25] MEDS: ONDANSETRON 4 MG/2 ML VIAL IVP PRN (12:48)
[2016-10-25] MEDS ORDERED: DIPH,PERTUS(ACELL)TETVAC-LF 0.5 ML VIAL IM ONE (15:00)
--- NOTE | 2016-10-25 15:13 | P.CONS ---
History of Present Illness - Reason for Consult Consult date: 10/25/16 Right foot wound - History of Present Illness This is a 46-year-old male presented to [facility] emergency center on October 22 for a right foot infection. Patient states that he had redness and swelling on the top of his foot and ankle and [facility] up his calf for about one week and gradually orsening and becoming more sore. He does state that about one and half weeks prior to this, he was trimming his toenails and because of chronic back problems he was unable to see his toes well and may have cut her toe versus the nail. On of last week he went shopping with his mother and when he came home he pulled his sock off which was wet. He looked at his foot in the skin had from his toe. He was having chills on Tuesday night which continued into and night the patient went to work on night as normally scheduled anyways. He then came into [facility] emergency center on Tuesday. Patient diabetes mellitus type 2 with current hemoglobin A1c of 7.7 which is an improvement from 11 previously. On presentation, patient had temperature 101.3 and white count of 20.1. He was given Levaquin 1 dose and started on vancomycin [facility]. He has undergone a bedside debridement by Dr. Atwood. Right foot culture is showing Streptococcus agalactia. Patient is agreeable to follow with Dr. Atwood in the wound healing Center after discharge. Review of Systems All systems: negative Constitutional: Reports chills, Reports fever, Reports sweats Eyes: denies blurred vision, denies pain Ears, nose, mouth and throat: Denies headache, Denies sore throat Cardiovascular: Denies chest pain, Denies shortness of breath Respiratory: Denies cough Gastrointestinal: Denies abdominal pain, Denies diarrhea, Denies nausea, Denies vomiting Musculoskeletal: Denies myalgias Integumentary: Reports color changes, Reports darkening of skin, Reports wounds , Denies pruritus, Denies rash Neurological: Denies numbness, Denies weakness Psychiatric: Denies anxiety, Denies depression Endocrine: Denies fatigue, Denies weight change Past Medical History Past Medical History: Diabetes Mellitus, Hypertension History of Any Multi-Drug Resistant Organisms: None Reported Past Surgical History: Back Surgery Additional Past Surgical History / Comment(s): rt knee arthroscopic 2, L5/S1 surgery Past Psychological History: Anxiety, Bipolar, Depression Smoking Status: Never smoker Additional Past Alcohol Use History / Comment(s): Patient is a lifelong nonsmoker. He denies any medical marijuana, marijuana, street drug or alcohol use. He currently lives with his mother and there are 3 dogs and a cat in the home. 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 Medications and Allergies Home Medications Medication Instructions Recorded Confirmed Type Insulin Aspart [NovoLOG] 40 unit SQ BID 10/22/16 10/22/16 History Insulin Glargine [Lantus] 50 unit SQ HS 10/22/16 10/22/16 History Lisinopril [Zestril] 10 mg PO DAILY 10/22/16 10/22/16 History oxyCODONE-APAP 10-325MG [Percocet 1 tab PO TID PRN 10/22/16 10/22/16 History 10-325 mg] traZODone HCL 150 mg PO HS 10/22/16 10/22/16 History Allergies Allergy/AdvReac Type Severity Reaction Status Date / Time Penicillins Allergy Swelling Verified 10/22/16 17:32 Physical Exam Vitals: Vital Signs Temp Pulse Resp BP Pulse Ox 10/25/16 07:45 93 L 10/25/16 07:00 99.1 F 93 20 138/63 94 L 10/24/16 23:00 99.0 F 99 19 129/54 96 10/24/16 15:00 98.9 F 110 H 21 150/67 93 L Intake and Output 10/24/16 10/25/16 10/25/16 22:59 06:59 14:59 Output Total 800 Balance -800 Output: Urine 800 Other: Voiding Method Toilet Toilet # Voids 1 Gen: This is a morbidly obese 46-year-old male who was found sitting up in a chair with his foot in a dependent position. He is complaining of nausea for which she has been medicated at the time of evaluation. HEENT: Head is atraumatic, normocephalic. Pupils equal, round. Sclerae is anicteric. Conjunctiva pink. His members of the mouth are moist. NECK: Supple. No JVD. No lymphadenopathy. No thyromegaly. LUNGS: Clear to auscultation. No wheezes or rhonchi. No intercostal retractions. HEART: Regular rate and rhythm. No murmur. ABDOMEN: Soft. Bowel sounds are present. No masses. No tenderness. EXTREMITIES: Dressing in place to the right foot which was not removed for evaluation. NEUROLOGICAL: Patient is awake, alert and oriented x3. Cranial nerves 2 through 12 are grossly intact. Results Results: Laboratory Results WBC 13.9 k/uL (3.8-10.6) H 10/25/16 07:28 RBC 3.37 m/uL (4.30-5.90) L 10/25/16 07:28 Hgb 9.8 gm/dL (13.0-17.5) L 10/25/16 07:28 Hct 30.2 % (39.0-53.0) L 10/25/16 07:28 MCV 89.8 fL (80.0-100.0) 10/25/16 07:28 MCH 29.2 pg (25.0-35.0) 10/25/16 07:28 MCHC 32.5 g/dL (31.0-37.0) 10/25/16 07:28 RDW 13.3 % (11.5-15.5) 10/25/16 07:28 Plt Count 240 k/uL (150-450) 10/25/16 07:28 Neutrophils % 83 % 10/25/16 07:28 Lymphocytes % 9 % 10/25/16 07:28 Monocytes % 3 % 10/25/16 07:28 Eosinophils % 1 % 10/25/16 07:28 Basophils % 1 % 10/25/16 07:28 Neutrophils # 11.6 k/uL (1.3-7.7) H 10/25/16 07:28 Lymphocytes # 1.3 k/uL (1.0-4.8) 10/25/16 07:28 Monocytes # 0.4 k/uL (0-1.0) 10/25/16 07:28 Eosinophils # 0.1 k/uL (0-0.7) 10/25/16 07:28 Basophils # 0.1 k/uL (0-0.2) 10/25/16 07:28 PT 11.8 sec (9.0-12.0) 10/22/16 18:01 INR 1.2 (<1.2) H 10/22/16 18:01 APTT 27.8 sec (22.0-30.0) 10/22/16 18:01 Sodium 142 mmol/L (137-145) 10/25/16 07:28 Potassium 4.3 mmol/L (3.5-5.1) 10/25/16 07:28 Chloride 111 mmol/L (98-107) H 10/25/16 07:28 Carbon Dioxide 23 mmol/L (22-30) 10/25/16 07:28 Anion Gap 8 mmol/L 10/25/16 07:28 BUN 16 mg/dL (9-20) 10/25/16 07:28 Creatinine 1.06 mg/dL (0.66-1.25) 10/25/16 07:28 Est GFR (MDRD) Af Amer >60 (>60 ml/min/1.73 sqM) 10/25/16 07:28 Est GFR (MDRD) Non-Af >60 (>60 ml/min/1.73 sqM) 10/25/16 07:28 Glucose 118 mg/dL (74-99) H 10/25/16 07:28 POC Glucose (mg/dL) 157 mg/dL (75-99) H 10/25/16 12:15 POC Glu [employer] FIORDALIZA Mikala Sanderson 10/25/16 12:[address] Glu mg/dL 174 mg/dL 10/22/16 18:01 Hemoglobin A1c 7.7 % (4.2-6.1) H 10/22/16 18:01 Plasma Lactic Acid Pratik 0.9 mmol/L (0.7-2.0) 10/22/16 18:01 Calcium 8.4 mg/dL (8.4-10.2) 10/25/16 07:28 Total Bilirubin 1.0 mg/dL (0.2-1.3) 10/23/16 08:08 AST 14 U/L (17-59) L 10/23/16 08:08 ALT 24 U/L (21-72) 10/23/16 08:08 Alkaline Phosphatase 83 U/L (38-126) 10/23/16 08:08 Total Protein 5.4 g/dL (6.3-8.2) L 10/23/16 08:08 Albumin 2.7 g/dL (3.5-5.0) L 10/23/16 08:08 Urine Color Yellow 10/22/16 21:03 Urine Appearance Clear (Clear) 10/22/16 21:03 Urine pH 5.5 (5.0-8.0) 10/22/16 21:03 Ur Specific [place] 1.017 (1.001-1.035) 10/22/16 21:03 Urine Protein 1+ (Negative) H 10/22/16 21:03 Urine Glucose (UA) Negative (Negative) 10/22/16 21:03 Urine Ketones Negative (Negative) 10/22/16 21:03 Urine Blood Trace (Negative) H 10/22/16 21:03 Urine Nitrite Negative (Negative) 10/22/16 21:03 Urine Bilirubin Negative (Negative) 10/22/16 21:03 Urine Urobilinogen <2.0 mg/dL (<2.0) 10/22/16 21:03 Ur Leukocyte Esterase Trace (Negative) H 10/22/16 21:03 Urine RBC <1 /hpf (0-5) 10/22/16 21:03 Urine WBC 3 /hpf (0-5) 10/22/16 21:03 Ur Squamous Epith Cells 1 /hpf (0-4) 10/22/16 21:03 Urine Bacteria Occasional /hpf (None) H 10/22/16 21:03 Hyaline Casts 1 /lpf (0-2) 10/22/16 21:03 Granular Casts 4 /lpf (0) 10/22/16 21:03 Vancomycin Trough 14.2 ug/mL 10/25/16 07:28 CBC & Chem 7: 10/25/16 07:28 10/25/16 07:28 Labs: Abnormal Lab Results - Last 24 Hours (Table) 10/24/16 10/24/16 10/25/16 Range/Units 17:06 21:00 02:08 WBC (3.8-10.6) k/uL RBC (4.30-5.90) m/uL Hgb (13.0-17.5) gm/dL Hct (39.0-53.0) % Neutrophils # (1.3-7.7) k/uL Chloride (98-107) mmol/L Glucose (74-99) mg/dL POC Glucose (mg/dL) 257 H 201 H 160 H (75-99) mg/dL 10/25/16 10/25/16 10/25/16 Range/Units 07:11 07:28 07:28 WBC 13.9 H (3.8-10.6) k/uL RBC 3.37 L (4.30-5.90) m/uL Hgb 9.8 L (13.0-17.5) gm/dL Hct 30.2 L (39.0-53.0) % Neutrophils # 11.6 H (1.3-7.7) k/uL Chloride 111 H (98-107) mmol/L Glucose 118 H (74-99) mg/dL POC Glucose (mg/dL) 132 H (75-99) mg/dL 10/25/16 Range/Units 12:15 WBC (3.8-10.6) k/uL RBC (4.30-5.90) m/uL Hgb (13.0-17.5) gm/dL Hct (39.0-53.0) % Neutrophils # (1.3-7.7) k/uL Chloride (98-107) mmol/L Glucose (74-99) mg/dL POC Glucose (mg/dL) 157 H (75-99) mg/dL Microbiology - Last 24 Hours (Table) 10/22/16 18:01 Blood Culture - Preliminary Blood No Growth after 48 hours Assessment and Plan Plan: This is a 46-year-old male who presents to hospital with diabetic ulcer on the right foot status post debridement and wound care being managed by Dr. Atwood. Wound culture showing Streptococcus and galactorrhea. He has been on vancomycin which will be switched to ertapenem and his tetanus status will be updated. Patient will require tight glucose control for healing. Patient is planning to follow-up with Dr. Atwood in the wound healing Center. Further recommendations as patient progresses. The above dictated assessment and findings were discussed with Dr. Mckeon. The impression and plan of care have been directed as dictated. Chichi Diaz nurse practitioner acting as scribe for Dr. Mckeon.
[2016-10-25] MEDS: ERTAPENEM 1 GM in SODIUM CHLORIDE 0.9% 50 ML IVPB SCH (16:16)
[2016-10-25 17:17] LABS: Glucose,Whole Blood 125 mg/dL (75-99)
--- NOTE | 2016-10-25 19:49 | P.CON ---
Consult Note - . Consult date: 10/25/16 Assessment/Plan:: This is a 46-year-old male presented to [facility] emergency center on October 22 for a right foot infection. Patient states that he had redness and swelling on the top of his foot and ankle and group home up his calf for about one week and gradually orsening and becoming more sore. He does state that about one and half weeks prior to this, he was trimming his toenails and because of chronic back problems he was unable to see his toes well and may have cut her toe versus the nail. On of last week he went shopping with his mother and when he came home he pulled his sock off which was wet. He looked at his foot in the skin had from his toe. He was having chills on Tuesday night which continued into and night the patient went to work on night as normally scheduled anyways. He then came into [facility] emergency center on Tuesday. Patient diabetes mellitus type 2 with current hemoglobin A1c of 7.7 which is an improvement from 11 previously. On presentation, patient had temperature 101.3 and white count of 20.1. He was given Levaquin 1 dose and started on vancomycin and admitted to the [facility] floor. He has undergone a bedside debridement by Dr. Atwood. Right foot culture is showing Streptococcus agalactia. Patient is agreeable to follow with Dr. Atwood in the wound healing Center after discharge. Please see the consult note is dictated by nurse practitioner Mrs. Chichi Diaz. This pleasant 46-year-old gentleman who has a history of obesity is working quite hard in the outpatient setting to improve his diabetes care. Despite that he has had difficulty with the onset of a diabetic foot infection to the right foot fifth toe. Unclear if he had a distinct trauma but is developed a significant infectious process. He has had his bedside debridement as noted. Cultures are process. He bone scan has been requested to ensure there is not an underlying bony infection. It is related to the patient the significant difference between a skin and soft tissue infection and underlying osteomyelitis. For now local wound care, elevation, glucose control, adequate protein intake, multivitamin and offloading shall be done well above data is pending. Given that it is a diabetic foot infection antibiotic therapy was changed to Invanz which had also transitioned well to a course of outpatient therapy if needed. If osteomyelitis is found would plan a course of outpatient intravenous antibiotic therapy. He will follow the wound center. I agree with evaluation, assessment and plan as dictated by nurse practitioner Mrs. Chichi Diaz.
[2016-10-25] MEDS: ARIPiprazole 5 MG TAB PO SCH (20:32)
[2016-10-25] MEDS: traZODone HCL 50 MG TAB PO SCH (20:32)
[2016-10-25 21:17] LABS: Glucose,Whole Blood 179 mg/dL (75-99)
[2016-10-25] MEDS: INSULIN GLARGINE 100 UNIT/ML 10 ML VIAL SQ SCH (21:25)
[2016-10-25] MEDS: ZOLPIDEM 10 MG TAB PO SCH (21:29)
[2016-10-26 02:40] LABS: Glucose,Whole Blood 155 mg/dL (75-99)
[2016-10-26] MEDS: SODIUM CHLORIDE 0.9% 1,000 ML IV SCH ×3 (04:31→23:14)
[2016-10-26 07:41] LABS: Glucose,Whole Blood 124 mg/dL (75-99)
[2016-10-26 09:06] LABS: Anion Gap 7 mmol/L; Blood Urea Nitrogen 14 mg/dL (9-20); Calcium 8.2 mg/dL (8.4-10.2); Carbon Dioxide 25 mmol/L (22-30); Chloride 109 mmol/L (98-107); Glucose 129 mg/dL (74-99); Non-African American GFR(MDRD) >60 (>60 ml/min/1.73 sqM); Potassium 4.4 mmol/L (3.5-5.1); Sodium 141 mmol/L (137-145)
[2016-10-26] MEDS: INSULIN LISPRO (humaLOG) 300 UNIT/3 ML VIAL SQ SCH ×4 (09:17→21:10)
[2016-10-26] MEDS: LISINOPRIL 10 MG TAB PO SCH (09:19)
[2016-10-26] MEDS: ESCITALOPRAM 10 MG TAB PO SCH (09:19)
[2016-10-26] MEDS: PIOGLITAZONE 45 MG TAB PO SCH (09:19)
[2016-10-26] MEDS: ENOXAPARIN 40 MG/0.4 ML SYRINGE SQ SCH (09:19)
[2016-10-26] MEDS: FAMOTIDINE 20 MG TAB PO SCH (09:19)
--- NOTE | 2016-10-26 09:44 | P.PN ---
Subjective Kvng is a pleasant 46-year-old white male well-known to me. He has type 2 diabetes, insulin-dependent. His sugars have not been well controlled. He reports that there is small white blister on his right number fifth toe. Indicates again worse when he took off his shoes yesterday was the entire top layer of skin and peeled off and his sock was wet indicates there was redness and the reading up his leg. To the emergency room physician he been having fevers off and on. He tells me that he's been also having some nausea as well. He denies any chest pains, pressures, shortness of breath, nausea, or vomiting. His MAXIMUM TEMPERATURE overnight was 101.7F at 1922 last night 10/24/2016: Overnight Kvng spiked another fever. MAXIMUM TEMPERATURE is 100.8 F at 2300 10/23/2016 he denies any chest pains, pressures, nausea, vomiting, pain in his extremities. He is currently on Levaquin and vancomycin. 10/25/2016: Kvng is been afebrile over the past 24 hours. He remains on vancomycin. He has no significant complaints today. His Levaquin was discontinued, as it interacted with most of his psych medications. His cultures prelim positive for group B strep. So with Dr. Mckeon, infectious disease, is pending. His MALORIE is pending. States now, he was clipping his toenails, several days before this started. 10/26/2016: pt seen and examined. Consult noted reviewed. Pt still afebrile. Bone scan pending. MALORIE not done and reordered for today. Pt without c/o, but continues to have low pulse ox at night. is a LOUD snorer. Objective - Vital Signs Vital signs: Vital Signs Temp 98.5 F 10/26/16 07:00 Pulse 97 10/26/16 07:00 Resp 20 10/26/16 07:00 BP 140/71 10/26/16 07:00 Pulse Ox 95 10/26/16 07:00 Intake & Output 10/25/16 10/26/16 10/26/16 18:59 06:59 18:59 Intake Total 450 Output Total 400 Balance 50 Intake: Oral 450 Output: Urine 400 Other: # Voids 3 1 # Bowel Movements 1 - Exam GENERAL: Well-appearing, well-nourished and in no acute distress. NECK: Normal range of motion, supple without lymphadenopathy or JVD, no thyromegaly LUNGS: Breath sounds clear to auscultation bilaterally and equal. No wheezes rales or rhonchi. HEART: Regular rate and rhythm without murmurs, rubs or gallops.S1S2 Normal ABDOMEN: Soft, nontender, normoactive bowel sounds. No guarding, no rebound. No masses appreciated. Mild truncal obesity EXTREMITIES: Right #5 toe shows erythematous with moderate amount of yellow fibrin slough and a moderate amount of red granulation tissue. Dressing type is Aquacel silver, improved from one day ago NEUROLOGICAL:. Cranial nerves II through XII grossly intact. Normal speech, normal gait. PSYCH: Normal mood, normal affect. - Labs CBC & Chem 7: 10/25/16 07:28 10/26/16 08:09 Labs: Abnormal Lab Results - Last 24 Hours (Table) 10/25/16 10/25/16 10/25/16 Range/Units 12:15 17:16 21:08 Chloride (98-107) mmol/L Glucose (74-99) mg/dL POC Glucose (mg/dL) 157 H 125 H 179 H (75-99) mg/dL Calcium (8.4-10.2) mg/dL 10/26/16 10/26/16 10/26/16 Range/Units 02:31 07:25 08:09 Chloride 109 H (98-107) mmol/L Glucose 129 H (74-99) mg/dL POC Glucose (mg/dL) 155 H 124 H (75-99) mg/dL Calcium 8.2 L (8.4-10.2) mg/dL Microbiology - Last 24 Hours (Table) 10/22/16 18:01 Blood Culture - Preliminary Blood No Growth after 72 hours 10/23/16 13:05 Gram Stain - Preliminary Foot - Right Tissue Culture - Preliminary Strep agalactiae - (group b) Presumptive Staph aureus Diphtheroid species Diphtheroid species#2 Assessment and Plan Plan: Right #5 toe digit cellulitis with abscess/Leo grade 3 diabetic ulcer: He will continue on vancomycin,+ TISSUE CULTURE, wait on bone scan and MALORIE, ID recommendations for home abx Insulin dependent diabetes mellitus: He'll continue on his insulin scale, Accu- Cheks before meals and at bedtime, glargine 50 units at bedtime Hypertension: He'll continue on his lisinopril. Insomnia: He can continue on trazodone. Bipolar disorder: Abilify and Lexapro. GI Prophylaxis: cont Pepcid DVT prophylaxiscontinue Lovenox 40 units subcutaneous continue Aquacel silver,await MALORIE, Bone Scan, ID abx recommendations, D/C this PM?
[2016-10-26] MEDS: MULTIVITAMINS, THERA 1 EACH TAB PO SCH (12:47)
[2016-10-26 12:51] LABS: Glucose,Whole Blood 131 mg/dL (75-99)
--- NOTE | 2016-10-26 16:27 | NM ---
EXAMINATION TYPE: NM bone 3 phase DATE OF EXAM: 10/26/2016 COMPARISON: NONE HISTORY: Right foot pain and swelling rule out osteomyelitis. Triple phase bone scintigraphy was performed following the injection of25.9 mCi Tc 99m MDP. Immediat e images and 7 hours post injection images acquired. FINDINGS: There is increased radiotracer accumulation to the right foot predominantly laterally and along the m idline on the angiographic and blood pool phases of the study. On the delayed images there is increas ed uptake noted about the right mid foot with mild focal uptake noted at the base of the fifth proxim al phalanx and adjacent cuboid. Osteomyelitis is not excluded. There is intense uptake about the left ankle and left mid foot likely related to prior trauma or degenerative in nature. IMPRESSION: I cannot exclude osteomyelitis at the base of the proximal phalanx fifth right toe and adjacent cuboi d. Correlate clinically.
[2016-10-26] MEDS: ERTAPENEM 1 GM in SODIUM CHLORIDE 0.9% 50 ML IVPB SCH (16:39)
[2016-10-26 17:19] LABS: Glucose,Whole Blood 143 mg/dL (75-99)
[2016-10-26] MEDS: ONDANSETRON 4 MG/2 ML VIAL IVP PRN (18:18)
[2016-10-26] MEDS ORDERED: hydrALAZINE HCL 25 MG TAB PO PRN (19:37)
[2016-10-26] MEDS: ARIPiprazole 5 MG TAB PO SCH (20:18)
[2016-10-26] MEDS: traZODone HCL 50 MG TAB PO SCH (21:09)
[2016-10-26] MEDS: ZOLPIDEM 10 MG TAB PO SCH (21:09)
[2016-10-26 21:12] LABS: Glucose,Whole Blood 144 mg/dL (75-99)
[2016-10-26] MEDS: INSULIN GLARGINE 100 UNIT/ML 10 ML VIAL SQ SCH (21:28)
[2016-10-27 02:08] LABS: Glucose,Whole Blood 116 mg/dL (75-99)
[2016-10-27 07:27] LABS: Glucose,Whole Blood 100 mg/dL (75-99)
[2016-10-27] MEDS: INSULIN LISPRO (humaLOG) 300 UNIT/3 ML VIAL SQ SCH ×4 (08:19→21:18)
[2016-10-27] MEDS: ONDANSETRON 4 MG/2 ML VIAL IVP PRN (08:31)
[2016-10-27] MEDS: ACETAMINOPHEN TAB 500 MG TAB PO PRN ×2 (08:32→15:23)
[2016-10-27 09:04] LABS: Anion Gap 9 mmol/L; Blood Urea Nitrogen 13 mg/dL (9-20); Calcium 8.5 mg/dL (8.4-10.2); Carbon Dioxide 24 mmol/L (22-30); Chloride 110 mmol/L (98-107); Glucose 88 mg/dL (74-99); Non-African American GFR(MDRD) >60 (>60 ml/min/1.73 sqM); Potassium 4.6 mmol/L (3.5-5.1); Sodium 143 mmol/L (137-145)
[2016-10-27] MEDS ORDERED: LIDOCAINE 2% INJ 20 MG/ML SQ ONE (09:04)
--- NOTE | 2016-10-27 09:27 | IR ---
PICC LINE PLACEMENT: HISTORY: Infection requiring long-term antibiotic therapy PROCEDURE: Ultrasound and fluoroscopic guidance of PICC line placement. COMPLICATIONS: None ANESTHESIA: 1. 1% Lidocaine locally. FINDINGS/TECHNIQUE: The procedure was explained to the patient. The risks, complications, benefits and alternatives were discussed and any questions were answered. Informed consent was obtained. The patient was placed supine on the fluoroscopic table and prepped and draped in the usual sterile fash ion. Utilizing a 21 gauge needle and sonographic and fluoroscopic guidance, access in the left basi lic vein was achieved and there is placement of a 0.018 guidewire. The vein is patent. A 4-F sheath was placed over the guidewire. The guidewire and dilator were removed and a 4-F. PICC line was plac ed through the sheath with the tip at the level of the SVC. The sheath was removed, the catheter was flushed and sutured into position. The patient was stable throughout the procedure and remained sta ble upon discharge from the Department of Radiology. The vein puncture was patent under ultrasound. A huerta scale image was obtained to document patency of the vein punctured. All elements of the maximal barrier technique were utilized. FLUOROSCOPY TIME: 0.2 minute IMPRESSION: Successful PICC line placement under ultrasound and fluoroscopic guidance.
[2016-10-27] MEDS: PIOGLITAZONE 45 MG TAB PO SCH (09:37)
[2016-10-27] MEDS: FAMOTIDINE 20 MG TAB PO SCH (09:37)
[2016-10-27] MEDS: LISINOPRIL 10 MG TAB PO SCH (09:37)
[2016-10-27] MEDS: ESCITALOPRAM 10 MG TAB PO SCH (09:37)
[2016-10-27] MEDS: SODIUM CHLORIDE 0.9% 1,000 ML IV SCH ×2 (09:38→21:44)
[2016-10-27] MEDS: amLODIPine 5 MG TAB PO SCH (10:30)
[2016-10-27 11:56] LABS: Glucose,Whole Blood 108 mg/dL (75-99)
[2016-10-27] MEDS: MULTIVITAMINS, THERA 1 EACH TAB PO SCH (12:03)
--- NOTE | 2016-10-27 14:02 | P.DS ---
Providers Date of admission: 10/22/16 20:09 Expected date of discharge: 10/27/16 Attending physician: Alejandro Atwood Consults: 10/24/16 11:47 Consult Physician Routine Consulting Provider: Fernandez Mckeon Consult Reason/Comments: dm foot ulcer with cellulitis Do you want consulting provider notified?: Yes Primary care physician: [facility] Course: Kvng is a pleasant 46-year-old white male well-known to me. He has type 2 diabetes, insulin-dependent. His sugars have not been well controlled. He reports that there is small white blister on his right number fifth toe. Indicates again worse when he took off his shoes yesterday was the entire top layer of skin and peeled off and his sock was wet indicates there was redness and the reading up his leg. To the emergency room physician he been having fevers off and on. He tells me that he's been also having some nausea as well. He denies any chest pains, pressures, shortness of breath, nausea, or vomiting. His MAXIMUM TEMPERATURE overnight was 101.7F at 1922 last night 10/24/2016: Overnight Kvng spiked another fever. MAXIMUM TEMPERATURE is 100.8 F at 2300 10/23/2016 he denies any chest pains, pressures, nausea, vomiting, pain in his extremities. He is currently on Levaquin and vancomycin. 10/25/2016: Kvng is been afebrile over the past 24 hours. He remains on vancomycin. He has no significant complaints today. His Levaquin was discontinued, as it interacted with most of his psych medications. His cultures prelim positive for group B strep. Consult with Dr. Mckeon, infectious disease, is pending. His MALORIE is pending. States now, he was clipping his toenails, several days before this started. 10/26/2016: pt seen and examined. Consult noted reviewed. Pt still afebrile. Bone scan pending. MALORIE not done and reordered for today. Pt without c/o, but continues to have low pulse ox at night. is a LOUD snorer. 10/27/2016: MALORIE was done but not scanned into the computer. Normal results. Bone scan odered by Dr Mckeon was + and a PICC line was placed. He is to receive INVANZ. His BP was still elevated today and Amlodipine was added. Patient Condition at Discharge: Stable Plan - Discharge Summary New Discharge Prescriptions: New Ertapenem [INVanz] 1 gm IVPB Q24H #42 bag amLODIPine [Norvasc] 5 mg PO DAILY #90 tab ARIPiprazole [Abilify] 5 mg PO HS tab Escitalopram [Lexapro] 10 mg PO DAILY tab Lisinopril [Zestril] 10 mg PO DAILY #90 tab Continue Pioglitazone [Actos] 45 mg PO DAILY 30 Days Zolpidem [Ambien] 10 mg PO HS 30 Days Insulin Glargine [Lantus] 50 unit SQ HS traZODone HCL 150 mg PO HS oxyCODONE-APAP 10-325MG [Percocet 10-325 mg] 1 tab PO TID PRN PRN Reason: Pain Lisinopril [Zestril] 10 mg PO DAILY Insulin Aspart [NovoLOG] 40 unit SQ BID Discharge Medication List Pioglitazone [Actos] 45 mg PO DAILY 30 Days 02/28/14 [Rx] Zolpidem [Ambien] 10 mg PO HS 30 Days 02/28/14 [Rx] Insulin Aspart [NovoLOG] 40 unit SQ BID 10/22/16 [History] Insulin Glargine [Lantus] 50 unit SQ HS 10/22/16 [History] Lisinopril [Zestril] 10 mg PO DAILY 10/22/16 [History] oxyCODONE-APAP 10-325MG [Percocet 10-325 mg] 1 tab PO TID PRN 10/22/16 [History] traZODone HCL 150 mg PO HS 10/22/16 [History] Ertapenem [INVanz] 1 gm IVPB Q24H #42 bag 10/26/16 [Rx] ARIPiprazole [Abilify] 5 mg PO HS tab 10/27/16 [Rx] Escitalopram [Lexapro] 10 mg PO DAILY tab 10/27/16 [Rx] Lisinopril [Zestril] 10 mg PO DAILY #90 tab 10/27/16 [Rx] amLODIPine [Norvasc] 5 mg PO DAILY #90 tab 10/27/16 [Rx] Follow up Appointment(s)/Referral(s): Alejandro Atwood Jr, [Primary Care Provider] - 1-2 days [facility] [NON-STAFF] - 1 Week Ambulatory/Diagnostic Orders: Basic Metabolic Panel [LAB.AMB] Location: Determined By Patient Complete Blood Count w/diff [LAB.AMB] Location: Determined By Patient Miscellaneous Lab Order [LAB.AMB] Location: Determined By Patient Patient Instructions/Handouts: Type 2 Diabetes in Adults (DC) Activity/Diet/Wound Care/Special Instructions: Home IV infusion Invanz 1 GM IV daily to start 10/28/2016. To be provided by [facility] [phone]. Discharge Disposition: HOME WITH HOME HEALTH SERVICES
[2016-10-27] MEDS: ERTAPENEM 1 GM in SODIUM CHLORIDE 0.9% 50 ML IVPB SCH (15:23)
[2016-10-27 16:52] LABS: Glucose,Whole Blood 129 mg/dL (75-99)
[2016-10-27] MEDS: INSULIN GLARGINE 100 UNIT/ML 10 ML VIAL SQ SCH (21:17)
[2016-10-27] MEDS: ARIPiprazole 5 MG TAB PO SCH (21:18)
[2016-10-27] MEDS: traZODone HCL 50 MG TAB PO SCH (21:18)
[2016-10-27] MEDS: ZOLPIDEM 10 MG TAB PO SCH (21:18)
[2016-10-27 21:22] LABS: Glucose,Whole Blood 180 mg/dL (75-99)
--- NOTE | 2016-10-27 22:54 | P.PN ---
Subjective Principal diagnosis: Right diabetic foot infection This is a 46-year-old male presented to [facility] emergency center on October 22 for a right foot infection. Patient states that he had redness and swelling on the top of his foot and ankle and residential up his calf for about one week and gradually orsening and becoming more sore. He does state that about one and half weeks prior to this, he was trimming his toenails and because of chronic back problems he was unable to see his toes well and may have cut her toe versus the nail. On of last week he went shopping with his mother and when he came home he pulled his sock off which was wet. He looked at his foot in the skin had from his toe. He was having chills on Tuesday night which continued into and night the patient went to work on night as normally scheduled anyways. He then came into [facility] emergency center on Tuesday. Patient diabetes mellitus type 2 with current hemoglobin A1c of 7.7 which is an improvement from 11 previously. On presentation, patient had temperature 101.3 and white count of 20.1. He was given Levaquin 1 dose and started on vancomycin [facility]. He has undergone a bedside debridement by Dr. Atwood. Right foot culture is showing Streptococcus agalactia. Patient is agreeable to follow with Dr. Atwood in the wound healing Center after discharge. The bone scan has come back as positive for osteomyelitis. PICC line has been requested. Outpatient intravenous antibiotic therapy arranged with [facility].. Objective - Vital Signs Vital signs: Vital Signs Temp 97.6 F 10/27/16 15:00 Pulse 97 10/27/16 15:00 Resp 20 10/27/16 16:00 BP 147/67 10/27/16 15:00 Pulse Ox 94 L 10/27/16 15:00 Intake & Output 10/27/16 10/27/16 10/28/16 06:59 18:59 06:59 Intake Total 400 440 Balance 400 440 Weight 139.5 kg Intake: Oral 400 440 Other: Voiding Method Toilet # Voids 2 2 1 # Bowel Movements 0 - Exam Gen: This is a morbidly obese 46-year-old male who was found sitting up in a chair with his foot in a dependent position. He is complaining of nausea for which she has been medicated at the time of evaluation. HEENT: Head is atraumatic, normocephalic. Pupils equal, round. Sclerae is anicteric. Conjunctiva pink. His members of the mouth are moist. NECK: Supple. No JVD. No lymphadenopathy. No thyromegaly. LUNGS: Clear to auscultation. No wheezes or rhonchi. No intercostal retractions. HEART: Regular rate and rhythm. No murmur. ABDOMEN: Soft. Bowel sounds are present. No masses. No tenderness. EXTREMITIES: Right fifth toe shows evidence of ulceration and infection and swelling. Erythema on the dorsum of the foot is present and improved NEUROLOGICAL: Patient is awake, alert and oriented x3. - Labs CBC & Chem 7: 10/25/16 07:28 10/27/16 07:47 Labs: Abnormal Lab Results - Last 24 Hours (Table) 10/27/16 10/27/16 10/27/16 Range/Units 02:07 07:15 07:47 Chloride 110 H (98-107) mmol/L POC Glucose (mg/dL) 116 H 100 H (75-99) mg/dL 10/27/16 10/27/16 10/27/16 Range/Units 11:55 16:51 21:17 Chloride (98-107) mmol/L POC Glucose (mg/dL) 108 H 129 H 180 H (75-99) mg/dL Microbiology - Last 24 Hours (Table) 10/22/16 18:01 Blood Culture - Preliminary Blood No Growth after 120 hours Laboratory Results WBC 13.9 k/uL (3.8-10.6) H 10/25/16 07:28 RBC 3.37 m/uL (4.30-5.90) L 10/25/16 07:28 Hgb 9.8 gm/dL (13.0-17.5) L 10/25/16 07:28 Hct 30.2 % (39.0-53.0) L 10/25/16 07:28 MCV 89.8 fL (80.0-100.0) 10/25/16 07:28 MCH 29.2 pg (25.0-35.0) 10/25/16 07:28 MCHC 32.5 g/dL (31.0-37.0) 10/25/16 07:28 RDW 13.3 % (11.5-15.5) 10/25/16 07:28 Plt Count 240 k/uL (150-450) 10/25/16 07:28 Neutrophils % 83 % 10/25/16 07:28 Lymphocytes % 9 % 10/25/16 07:28 Monocytes % 3 % 10/25/16 07:28 Eosinophils % 1 % 10/25/16 07:28 Basophils % 1 % 10/25/16 07:28 Neutrophils # 11.6 k/uL (1.3-7.7) H 10/25/16 07:28 Lymphocytes # 1.3 k/uL (1.0-4.8) 10/25/16 07:28 Monocytes # 0.4 k/uL (0-1.0) 10/25/16 07:28 Eosinophils # 0.1 k/uL (0-0.7) 10/25/16 07:28 Basophils # 0.1 k/uL (0-0.2) 10/25/16 07:28 PT 11.8 sec (9.0-12.0) 10/22/16 18:01 INR 1.2 (<1.2) H 10/22/16 18:01 APTT 27.8 sec (22.0-30.0) 10/22/16 18:01 Sodium 143 mmol/L (137-145) 10/27/16 07:47 Potassium 4.6 mmol/L (3.5-5.1) 10/27/16 07:47 Chloride 110 mmol/L (98-107) H 10/27/16 07:47 Carbon Dioxide 24 mmol/L (22-30) 10/27/16 07:47 Anion Gap 9 mmol/L 10/27/16 07:47 BUN 13 mg/dL (9-20) 10/27/16 07:47 Creatinine 1.05 mg/dL (0.66-1.25) 10/27/16 07:47 Est GFR (MDRD) Af Amer >60 (>60 ml/min/1.73 sqM) 10/27/16 07:47 Est GFR (MDRD) Non-Af >60 (>60 ml/min/1.73 sqM) 10/27/16 07:47 Glucose 88 mg/dL (74-99) 10/27/16 07:47 POC Glucose (mg/dL) 180 mg/dL (75-99) H 10/27/16 21:17 POC Glu Microbiology Laboratory Manager ID Ramona Elias 10/27/16 21:[address] Glu mg/dL 174 mg/dL 10/22/16 18:01 Hemoglobin A1c 7.7 % (4.2-6.1) H 10/22/16 18:01 Plasma Lactic Acid Pratik 0.9 mmol/L (0.7-2.0) 10/22/16 18:01 Calcium 8.5 mg/dL (8.4-10.2) 10/27/16 07:47 Total Bilirubin 1.0 mg/dL (0.2-1.3) 10/23/16 08:08 AST 14 U/L (17-59) L 10/23/16 08:08 ALT 24 U/L (21-72) 10/23/16 08:08 Alkaline Phosphatase 83 U/L (38-126) 10/23/16 08:08 Total Protein 5.4 g/dL (6.3-8.2) L 10/23/16 08:08 Albumin 2.7 g/dL (3.5-5.0) L 10/23/16 08:08 Urine Color Yellow 10/22/16 21:03 Urine Appearance Clear (Clear) 10/22/16 21:03 Urine pH 5.5 (5.0-8.0) 10/22/16 21:03 Ur Specific [place] 1.017 (1.001-1.035) 10/22/16 21:03 Urine Protein 1+ (Negative) H 10/22/16 21:03 Urine Glucose (UA) Negative (Negative) 10/22/16 21:03 Urine Ketones Negative (Negative) 10/22/16 21:03 Urine Blood Trace (Negative) H 10/22/16 21:03 Urine Nitrite Negative (Negative) 10/22/16 21:03 Urine Bilirubin Negative (Negative) 10/22/16 21:03 Urine Urobilinogen <2.0 mg/dL (<2.0) 10/22/16 21:03 Ur Leukocyte Esterase Trace (Negative) H 10/22/16 21:03 Urine RBC <1 /hpf (0-5) 10/22/16 21:03 Urine WBC 3 /hpf (0-5) 10/22/16 21:03 Ur Squamous Epith Cells 1 /hpf (0-4) 10/22/16 21:03 Urine Bacteria Occasional /hpf (None) H 10/22/16 21:03 Hyaline Casts 1 /lpf (0-2) 10/22/16 21:03 Granular Casts 4 /lpf (0) 10/22/16 21:03 Vancomycin Trough 14.2 ug/mL 10/25/16 07:28 Microbiology 10/22/16 18:01 Blood Blood Culture - Preliminary No Growth after 120 hours 10/23/16 13:05 Foot - Right Gram Stain - Final 10/23/16 13:05 Foot - Right Tissue Culture - Final Strep agalactiae - (group b) Staphylococcus aureus Diphtheroid species Diphtheroid species#2 10/22/16 21:03 Urine,Voided Urine Culture - Final Assessment and Plan (1) Diabetic ulcer of right foot associated with diabetes mellitus due to underlying condition, with necrosis of bone Narrative/Plan: This pleasant 46-year-old gentleman who has a history of obesity is working quite hard in the outpatient setting to improve his diabetes care. Despite that he has had difficulty with the onset of a diabetic foot infection to the right foot fifth toe. Unclear if he had a distinct trauma but is developed a significant infectious process. He has had his bedside debridement as noted. Cultures are process. He bone scan has been requested to ensure there is not an underlying bony infection. It is related to the patient the significant difference between a skin and soft tissue infection and underlying osteomyelitis. For now local wound care, elevation, glucose control, adequate protein intake, multivitamin and offloading shall be done well above data is pending. Given that it is a diabetic foot infection antibiotic therapy was changed to Invanz which had also transitioned well to a course of outpatient therapy Bone scan is positive for osteomyelitis. We'll plan outpatient intravenous antibiotic therapy with Invanz PICC line has been requested. Home tomorrow. Local wound care as of the silver dressing every Tuesday. Is in need of an offloading boot. Status: Acute
[2016-10-28] MEDS: SODIUM CHLORIDE 0.9% 1,000 ML IV SCH ×2 (06:09→15:27)
[2016-10-28 07:25] LABS: Glucose,Whole Blood 171 mg/dL (75-99)
[2016-10-28] MEDS: amLODIPine 5 MG TAB PO SCH (07:34)
[2016-10-28] MEDS: ENOXAPARIN 40 MG/0.4 ML SYRINGE SQ SCH (07:34)
[2016-10-28] MEDS: FAMOTIDINE 20 MG TAB PO SCH (07:34)
[2016-10-28] MEDS: PIOGLITAZONE 45 MG TAB PO SCH (07:34)
[2016-10-28] MEDS: INSULIN LISPRO (humaLOG) 300 UNIT/3 ML VIAL SQ SCH ×4 (07:34→20:48)
[2016-10-28] MEDS: LISINOPRIL 10 MG TAB PO SCH (07:34)
[2016-10-28] MEDS: ESCITALOPRAM 10 MG TAB PO SCH (07:34)
[2016-10-28] MEDS: MULTIVITAMINS, THERA 1 EACH TAB PO SCH (11:46)
[2016-10-28 12:26] LABS: Glucose,Whole Blood 161 mg/dL (75-99)
[2016-10-28] MEDS: ERTAPENEM 1 GM in SODIUM CHLORIDE 0.9% 50 ML IVPB SCH (15:27)
--- NOTE | 2016-10-28 15:50 | CDI ---
In responding to this query, please exercise your independent professional judgment. The [employer] Coding Staff and Clinical Documentation Specialists appreciate your assistance in clarifying documentation, maintaining compliance with coding guidelines, accurately documenting patients condition and capturing severity of illness. The fact that a question is asked does not imply that any particular answer is desired or expected. Communication forms are a method of clarifying documentation and are not made part of the Legal Health Record. Thank you in advance for your clarification. Last Revision, June 2015 Aure Lambert [address] [place] [address] Documentation Clarification Form Date: 10/28/2016 3:42:00 PM From: Alyssia Medina CCS, CCDS Admit Date: 10/22/2016 8:09:00 PM Patient Name: Kvng Knox Visit Number: [id number] Discharge Date: Dr. Fernandez Mckeon: Osteomyelitis has been documented in the 10/27 infectious disease progress note and also on the 10/26 bone scan. Labs: WBC 20.1, neut 18.0^ X-Ray Results: Bone Scan: postive for osteomyelitis at the proximal phalanx fifth right toe & adjacent cuboid. Treatment: Excisional debridement of subcutaneous tissue & necrotic bone of right fifth toe. IV antibiotics. Clinical Indicators: 46 yo male, IDDM II uncontrolled, obesity, hypertension. In your professional opinion, please specify the following: Acuity: o Acute o Chronic o Subacute o Unable to Determine Cause: o Viral (specify organism if know) o Bacterial (specify organism if know) o Other (please specify) o Unable to Determine Please document in your progress notes and discharge summary in order to capture severity of illness and risk of mortality. Include clinical findings that support your diagnosis. FYI: Press F11 to launch patient chart MTDD
[2016-10-28 17:04] LABS: Glucose,Whole Blood 187 mg/dL (75-99)
[2016-10-28] MEDS: traZODone HCL 50 MG TAB PO SCH (20:48)
[2016-10-28] MEDS: ARIPiprazole 5 MG TAB PO SCH (20:48)
[2016-10-28] MEDS: INSULIN GLARGINE 100 UNIT/ML 10 ML VIAL SQ SCH (20:52)
[2016-10-28] MEDS: ZOLPIDEM 10 MG TAB PO SCH (20:53)
[2016-10-28 20:57] LABS: Glucose,Whole Blood 149 mg/dL (75-99)
--- NOTE | 2016-10-28 21:17 | P.PN ---
Subjective Principal diagnosis: Right diabetic foot infection This is a 46-year-old male presented to [facility] emergency center on October 22 for a right foot infection. Patient states that he had redness and swelling on the top of his foot and ankle and group home up his calf for about one week and gradually orsening and becoming more sore. He does state that about one and half weeks prior to this, he was trimming his toenails and because of chronic back problems he was unable to see his toes well and may have cut her toe versus the nail. On of last week he went shopping with his mother and when he came home he pulled his sock off which was wet. He looked at his foot in the skin had from his toe. He was having chills on Tuesday night which continued into and night the patient went to work on night as normally scheduled anyways. He then came into [facility] emergency center on Tuesday. Patient diabetes mellitus type 2 with current hemoglobin A1c of 7.7 which is an improvement from 11 previously. On presentation, patient had temperature 101.3 and white count of 20.1. He was given Levaquin 1 dose and started on vancomycin [facility] He has undergone a bedside debridement by Dr. Atwood. Right foot culture is showing Streptococcus agalactia. Patient is agreeable to follow with Dr. Atwood in the wound healing Center after discharge. The bone scan has come back as positive for osteomyelitis. PICC line has been placed. Outpatient intravenous antibiotic therapy arranged with [facility].. Objective - Vital Signs Vital signs: Vital Signs Temp 97.9 F 10/28/16 15:00 Pulse 89 10/28/16 15:00 Resp 18 10/28/16 15:00 BP 166/89 10/28/16 15:00 Pulse Ox 96 10/28/16 15:00 Intake & Output 10/28/16 10/28/16 10/29/16 06:59 18:59 06:59 Other: Voiding Method Toilet Toilet # Voids 1 5 - Exam Gen: This is a morbidly obese 46-year-old male who was found sitting up in a chair with his foot in a dependent position. He is complaining of nausea for which she has been medicated at the time of evaluation. HEENT: Head is atraumatic, normocephalic. Pupils equal, round. Sclerae is anicteric. Conjunctiva pink. His members of the mouth are moist. NECK: Supple. No JVD. No lymphadenopathy. No thyromegaly. LUNGS: Clear to auscultation. No wheezes or rhonchi. No intercostal retractions. HEART: Regular rate and rhythm. No murmur. ABDOMEN: Soft. Bowel sounds are present. No masses. No tenderness. EXTREMITIES: Right fifth toe shows evidence of ulceration and infection and swelling. Erythema on the dorsum of the foot is present and improved NEUROLOGICAL: Patient is awake, alert and oriented x3. - Labs CBC & Chem 7: 10/25/16 07:28 10/27/16 07:47 Labs: Abnormal Lab Results - Last 24 Hours (Table) 10/27/16 10/28/16 10/28/16 Range/Units 21:17 07:10 12:22 POC Glucose (mg/dL) 180 H 171 H 161 H (75-99) mg/dL 10/28/16 10/28/16 Range/Units 17:02 20:40 POC Glucose (mg/dL) 187 H 149 H (75-99) mg/dL Microbiology - Last 24 Hours (Table) 10/22/16 18:01 Blood Culture - Final Blood No Growth after 144 hours Laboratory Results WBC 13.9 k/uL (3.8-10.6) H 10/25/16 07:28 RBC 3.37 m/uL (4.30-5.90) L 10/25/16 07:28 Hgb 9.8 gm/dL (13.0-17.5) L 10/25/16 07:28 Hct 30.2 % (39.0-53.0) L 10/25/16 07:28 MCV 89.8 fL (80.0-100.0) 10/25/16 07:28 MCH 29.2 pg (25.0-35.0) 10/25/16 07:28 MCHC 32.5 g/dL (31.0-37.0) 10/25/16 07:28 RDW 13.3 % (11.5-15.5) 10/25/16 07:28 Plt Count 240 k/uL (150-450) 10/25/16 07:28 Neutrophils % 83 % 10/25/16 07:28 Lymphocytes % 9 % 10/25/16 07:28 Monocytes % 3 % 10/25/16 07:28 Eosinophils % 1 % 10/25/16 07:28 Basophils % 1 % 10/25/16 07:28 Neutrophils # 11.6 k/uL (1.3-7.7) H 10/25/16 07:28 Lymphocytes # 1.3 k/uL (1.0-4.8) 10/25/16 07:28 Monocytes # 0.4 k/uL (0-1.0) 10/25/16 07:28 Eosinophils # 0.1 k/uL (0-0.7) 10/25/16 07:28 Basophils # 0.1 k/uL (0-0.2) 10/25/16 07:28 PT 11.8 sec (9.0-12.0) 10/22/16 18:01 INR 1.2 (<1.2) H 10/22/16 18:01 APTT 27.8 sec (22.0-30.0) 10/22/16 18:01 Sodium 143 mmol/L (137-145) 10/27/16 07:47 Potassium 4.6 mmol/L (3.5-5.1) 10/27/16 07:47 Chloride 110 mmol/L (98-107) H 10/27/16 07:47 Carbon Dioxide 24 mmol/L (22-30) 10/27/16 07:47 Anion Gap 9 mmol/L 10/27/16 07:47 BUN 13 mg/dL (9-20) 10/27/16 07:47 Creatinine 1.05 mg/dL (0.66-1.25) 10/27/16 07:47 Est GFR (MDRD) Af Amer >60 (>60 ml/min/1.73 sqM) 10/27/16 07:47 Est GFR (MDRD) Non-Af >60 (>60 ml/min/1.73 sqM) 10/27/16 07:47 Glucose 88 mg/dL (74-99) 10/27/16 07:47 POC Glucose (mg/dL) 149 mg/dL (75-99) H 10/28/16 20:40 POC Glu Multifocal Lens Assembler ID Rosa Wlofe 10/28/16 20:[address] Glu mg/dL 174 mg/dL 10/22/16 18:01 Hemoglobin A1c 7.7 % (4.2-6.1) H 10/22/16 18:01 Plasma Lactic Acid Pratik 0.9 mmol/L (0.7-2.0) 10/22/16 18:01 Calcium 8.5 mg/dL (8.4-10.2) 10/27/16 07:47 Total Bilirubin 1.0 mg/dL (0.2-1.3) 10/23/16 08:08 AST 14 U/L (17-59) L 10/23/16 08:08 ALT 24 U/L (21-72) 10/23/16 08:08 Alkaline Phosphatase 83 U/L (38-126) 10/23/16 08:08 Total Protein 5.4 g/dL (6.3-8.2) L 10/23/16 08:08 Albumin 2.7 g/dL (3.5-5.0) L 10/23/16 08:08 Urine Color Yellow 10/22/16 21:03 Urine Appearance Clear (Clear) 10/22/16 21:03 Urine pH 5.5 (5.0-8.0) 10/22/16 21:03 Ur Specific [place] 1.017 (1.001-1.035) 10/22/16 21:03 Urine Protein 1+ (Negative) H 10/22/16 21:03 Urine Glucose (UA) Negative (Negative) 10/22/16 21:03 Urine Ketones Negative (Negative) 10/22/16 21:03 Urine Blood Trace (Negative) H 10/22/16 21:03 Urine Nitrite Negative (Negative) 10/22/16 21:03 Urine Bilirubin Negative (Negative) 10/22/16 21:03 Urine Urobilinogen <2.0 mg/dL (<2.0) 10/22/16 21:03 Ur Leukocyte Esterase Trace (Negative) H 10/22/16 21:03 Urine RBC <1 /hpf (0-5) 10/22/16 21:03 Urine WBC 3 /hpf (0-5) 10/22/16 21:03 Ur Squamous Epith Cells 1 /hpf (0-4) 10/22/16 21:03 Urine Bacteria Occasional /hpf (None) H 10/22/16 21:03 Hyaline Casts 1 /lpf (0-2) 10/22/16 21:03 Granular Casts 4 /lpf (0) 10/22/16 21:03 Vancomycin Trough 14.2 ug/mL 10/25/16 07:28 Microbiology 10/22/16 18:01 Blood Blood Culture - Final No Growth after 144 hours 10/23/16 13:05 Foot - Right Gram Stain - Final 10/23/16 13:05 Foot - Right Tissue Culture - Final Strep agalactiae - (group b) Staphylococcus aureus Diphtheroid species Diphtheroid species#2 10/22/16 21:03 Urine,Voided Urine Culture - Final Assessment and Plan (1) Diabetic ulcer of right foot associated with diabetes mellitus due to underlying condition, with necrosis of bone Narrative/Plan: This pleasant 46-year-old gentleman who has a history of obesity is working quite hard in the outpatient setting to improve his diabetes care. Despite that he has had difficulty with the onset of a diabetic foot infection to the right foot fifth toe. Unclear if he had a distinct trauma but is developed a significant infectious process. He has had his bedside debridement as noted. Cultures are process. He bone scan has been requested to ensure there is not an underlying bony infection. It is related to the patient the significant difference between a skin and soft tissue infection and underlying osteomyelitis. For now local wound care, elevation, glucose control, adequate protein intake, multivitamin and offloading shall be done well above data is pending. Given that it is a diabetic foot infection antibiotic therapy was changed to Invanz which had also transitioned well to a course of outpatient therapy Bone scan is positive for osteomyelitis. plan outpatient intravenous antibiotic therapy with Invanz PICC line has been requested. Home once arrangements complete. Local wound care as of the silver dressing every Tuesday. Is in need of an offloading boot. Follow upin [facility] next week. Status: Acute
[2016-10-29] MEDS: SODIUM CHLORIDE 0.9% 1,000 ML IV SCH (04:47)
[2016-10-29 07:06] LABS: Glucose,Whole Blood 126 mg/dL (75-99)
[2016-10-29] MEDS: INSULIN LISPRO (humaLOG) 300 UNIT/3 ML VIAL SQ SCH ×3 (07:20→17:01)
[2016-10-29] MEDS: MULTIVITAMINS, THERA 1 EACH TAB PO SCH (07:36)
[2016-10-29] MEDS: LISINOPRIL 10 MG TAB PO SCH (07:36)
[2016-10-29] MEDS: ESCITALOPRAM 10 MG TAB PO SCH (07:36)
[2016-10-29] MEDS: FAMOTIDINE 20 MG TAB PO SCH (07:36)
[2016-10-29] MEDS: PIOGLITAZONE 45 MG TAB PO SCH (07:36)
[2016-10-29] MEDS: amLODIPine 5 MG TAB PO SCH (07:37)
[2016-10-29] MEDS: ENOXAPARIN 40 MG/0.4 ML SYRINGE SQ SCH (07:37)
[2016-10-29 11:46] LABS: Glucose,Whole Blood 186 mg/dL (75-99)
[2016-10-29 15:02] VITALS: BP 165/84; PULSE 93; RESP 16; TEMP 97.2
[2016-10-29] MEDS: ERTAPENEM 1 GM in SODIUM CHLORIDE 0.9% 50 ML IVPB SCH (15:08)
--- NOTE | 2016-11-03 11:27 | P.ARTDOP ---
Arterial Doppler LOWER EXTREMITY ARTERIAL DOPPLER: DATE OF SERVICE: 10/26/2016 Reason for study: Right foot ulcer. Doppler waveforms: Multiphasic bilaterally throughout. Pulse volume recording: Normal configuration. Pressure gradients: None. Ankle-brachial indices: Greater than 1 bilaterally. Toe pressures: [] on the right, [] on the left Impression: Normal study.
== END 2016-10-29 17:01 | disposition home health service (06) | DRG 623 ==
LOC: EC 16:24 → 4MS4W 20:09
PROVIDERS: ADMIT Family Medicine; ATTEND Family Medicine
PROC: B548ZZA Ultrasonography of Superior Vena Cava, Guidance (ICD-10-PCS; principal; 2016-10-22)
PROC: B5181ZA Fluoroscopy of Superior Vena Cava using Low Osmolar Contrast, Guidance (ICD-10-PCS; principal; 2016-10-22)
PROC: 02HV33Z Insertion of Infusion Device into Superior Vena Cava, Percutaneous Approach (ICD-10-PCS; principal; 2016-10-22)
PROC: 0HBMXZZ Excision of Right Foot Skin, External Approach (ICD-10-PCS; 2016-10-23)
DX: E11.621 Type 2 diabetes mellitus with foot ulcer (principal); L03.115 Cellulitis of right lower limb; M86.9 Osteomyelitis, unspecified; L97.514 Non-pressure chronic ulcer of other part of right foot with necrosis of bone; I10 Essential (primary) hypertension; G47.00 Insomnia, unspecified; E11.69 Type 2 diabetes mellitus with other specified complication; Z79.4 Long term (current) use of insulin; Z79.899 Other long term (current) drug therapy; B95.1 Streptococcus, group B, as the cause of diseases classified elsewhere; F31.9 Bipolar disorder, unspecified
CPT/HCPCS: 36415; 36569; 76937; 77001; 78315; 80048; 80053; 80202; 81001; 83036; 83605; 85025; 85610; 85730; 87040; 87070; 87077; 87086; 87186; 87205; 90715; 93923; 96361; 96365; 96366; 96375; 99285

== ENCOUNTER 2017-06-17 15:14 | Inpatient (IN) | payer OTHER ==
[2017-06-17 16:56] LABS: Albumin 3.2 g/dL (3.5-5.0); Calcium 9.1 mg/dL (8.4-10.2); Potassium 5.1 mmol/L (3.5-5.1); Total Bilirubin 0.9 mg/dL (0.2-1.3); Total Protein 6.7 g/dL (6.3-8.2)
[2017-06-17 16:57] LABS: Basophils % (A) 0 %; Eosinophils # (A) 0.1 k/uL (0-0.7); Eosinophils % (A) 1 %; HCT 31.2 % (39.0-53.0); HGB 10.4 gm/dL (13.0-17.5); Lymphocytes # (A) 1.4 k/uL (1.0-4.8); Lymphocytes % (A) 7 %; MCH 28.5 pg (25.0-35.0); MCHC 33.2 g/dL (31.0-37.0); MCV 85.9 fL (80.0-100.0); Mean Platelet Volume 8.3; Monocytes # (A) 0.9 k/uL (0-1.0); Monocytes % (A) 5 %; Neutrophils % (A) 87 %; Platelet Count 295 k/uL (150-450); RBC 3.64 m/uL (4.30-5.90); WBC 20.7 k/uL (3.8-10.6)
[2017-06-17] MEDS ORDERED: LEVOFLOXACIN 750MG-D5W PMX 750 MG in DEXTROSE/WATER 1 150ML.BAG IVPB STA (17:00)
[2017-06-17] MEDS ORDERED: VANCOMYCIN IV PER PHARMACY 1 EACH MISC MISCELLANE PRN (17:00)
[2017-06-17] MEDS ORDERED: VANCOMYCIN 2,250 MG in SODIUM CHLORIDE 0.9% 500 ML IVPB STA (17:10)
[2017-06-17] MEDS ORDERED: SODIUM CHLORIDE 0.9% 2,000 ML IV ONE (17:33)
--- NOTE | 2017-06-17 17:40 | ED ---
Lower Extremity Injury HPI - General Chief Complaint: Extremity Injury, Lower Stated Complaint: Foot pain Time Seen by Provider: 06/17/17 16:12 Source: patient, RN notes reviewed, old records reviewed Mode of arrival: wheelchair Limitations: no limitations - History of Present Illness Initial Comments: This patient is a 47-year-old male presents emergency department today chief complaint of left foot pain, swelling, and infection between the third fourth and fifth toes. He reports that he started no subcu weeks ago when his sock got "bunched up in a shoe". Patient reports that he has noticed a foul odor from the foot for the past few days. Patient reports he has a history of diabetes, he does not check his blood sugar. Patient reports that he hasn't neuropathy. He had an infection previously on the right toes and had to follow- up with Dr. Mckeon and received IV antibiotics through PICC line. Patient reports that his entire left leg is starting to swell and become red and warm. He denies any fever or chills. Denies any chest pain, shortness of breath, abdominal pain. - Related Data Home Medications Medication Instructions Recorded Confirmed oxyCODONE-APAP 10-325MG [Percocet 1 tab PO TID PRN 10/22/16 06/17/17 10-325 mg] ARIPiprazole [Abilify] 5 mg PO DAILY 06/17/17 06/17/17 Ascorbic Acid [Vitamin C] 1,000 mg PO DAILY 06/17/17 06/17/17 Cholecalciferol [Vitamin D3] 1,000 unit PO DAILY 06/17/17 06/17/17 Insulin Detemir [Levemir] 60 unit SQ HS 06/17/17 06/17/17 Multivitamins, Thera [Multivitamin 1 tab PO DAILY 06/17/17 06/17/17 (formulary)] Vitamin B Complex 1 cap PO DAILY 06/17/17 06/17/17 Vitamin E 100 unit PO DAILY 06/17/17 06/17/17 metFORMIN HCL [Glucophage] 500 mg PO BID 06/17/17 06/17/17 Previous Rx's Medication Instructions Recorded Zolpidem [Ambien] 10 mg PO HS 30 Days tablet 02/28/14 Escitalopram [Lexapro] 10 mg PO DAILY tab 10/27/16 Lisinopril [Zestril] 10 mg PO DAILY #90 tab 10/27/16 amLODIPine [Norvasc] 5 mg PO DAILY #90 tab 10/27/16 Allergies Allergy/AdvReac Type Severity Reaction Status Date / Time Penicillins Allergy Swelling Verified 06/17/17 16:38 Review of Systems ROS Statement: Those systems with pertinent positive or pertinent negative responses have been documented in the HPI. ROS Other: All systems not noted in ROS Statement are negative. Past Medical History Past Medical History: Diabetes Mellitus, Hypertension History of Any Multi-Drug Resistant Organisms: None Reported Past Surgical History: Back Surgery Additional Past Surgical History / Comment(s): rt knee arthroscopic 2, L5/S1 surgery Past Psychological History: Anxiety, Bipolar, Depression Smoking Status: Never smoker Past Alcohol Use History: None Reported Past Drug Use History: None Reported - Past Family History Mother Family Medical History: Coronary Artery Disease (CAD), Diabetes Mellitus, Hypertension Father History Unknown: Yes Son(s) Family Medical History: No Reported History General Exam - General Exam Comments Initial Comments: This patient is a 47-year-old male. Patient does not appear to be in any acute distress. Limitations: no limitations General appearance: alert, in no apparent distress Head exam: Present: atraumatic, normocephalic, normal inspection Eye exam: Present: normal appearance ENT exam: Present: normal exam, mucous membranes moist Neck exam: Present: normal inspection. Absent: tenderness, meningismus, lymphadenopathy Respiratory exam: Present: normal lung sounds bilaterally. Absent: respiratory distress, wheezes, rales, rhonchi, stridor Cardiovascular Exam: Present: regular rate, normal rhythm, normal heart sounds. Absent: systolic murmur, diastolic murmur, rubs, gallop, clicks Extremities exam: Present: full ROM, normal capillary refill. Absent: normal inspection, tenderness, pedal edema, joint swelling, calf tenderness Left Knee exam: Present: normal inspection, full ROM Lower Leg exam: Present: tenderness, swelling, erythema. Absent: normal inspection Ankle exam: Present: tenderness, swelling, erythema. Absent: normal inspection Foot/Toe exam: Present: full ROM, swelling, erythema. Absent: normal inspection (Patient has significant abscess and erythema surrounding the toes 2 through 5. Evidence of what appears to be an abscess over the dorsum of the foot between toes 4 and 5. Culture obtained.) Neurovascular tendon exam: Present: no vascular compromise Gait: observed and normal Back exam: Present: normal inspection Neurological exam: Present: alert, oriented X3, CN II-XII intact Psychiatric exam: Present: normal affect, normal mood Skin exam: Present: warm, dry, intact, normal color. Absent: rash Course Vital Signs 06/17/17 06/17/17 15:29 19:07 Temperature 98.1 F 98.5 F Pulse Rate 104 H 110 H Respiratory 18 18 Rate Blood Pressure 141/67 117/56 O2 Sat by Pulse 97 96 Oximetry - Reevaluation(s) Reevaluation #1: 06/17/17 17:40 Patient is sepsis criteria with elevated heart rate, evidence of infection white blood count of 20,000. Levaquin was started and vancomycin will be obtained. Lactic acid obtained, and started on saline bolus. Medical Decision Making - Medical Decision Making This patient is a 47-year-old male presents emergency department today chief complaint of left foot pain has been worse with swelling over the past week. Patient reports that the pain started a few weeks ago when he noticed some irritation over his toes. Between his toes 4 and 5 patient does have significant swelling and what appears to be an abscess. I did obtain a culture. Patient meet sepsis criteria with a heart rate of over 100 bpm, white blood cell count of 20,000 and source of infection. Patient has significant swelling and cellulitis extending over the foot and the leg. Patient was started on IV Levaquin and vancomycin. X-ray of the foot is evidence of osteomyelitis between the fourth and fifth toes. Patient reports he is in significant pain but does report neuropathy in bilateral lower extremities. He denies any other symptoms such as chest pain shortness of breath. At this time patient was informed that he will be admitted for IV antibiotics, consult to vascular surgeon and infectious disease. Dr. Salvador discussed this with Dr. Gonzalez. - Lab Data Result diagrams: 06/17/17 16:25 06/17/17 16:25 Lab Results 06/17/17 06/17/17 06/17/17 Range/Units 16:25 16:25 16:28 WBC 20.7 H (3.8-10.6) k/uL RBC 3.64 L (4.30-5.90) m/uL Hgb 10.4 L (13.0-17.5) gm/dL Hct 31.2 L (39.0-53.0) % MCV 85.9 (80.0-100.0) fL MCH 28.5 (25.0-35.0) pg MCHC 33.2 (31.0-37.0) g/dL RDW 13.0 (11.5-15.5) % Plt Count 295 (150-450) k/uL Neutrophils % 87 % Lymphocytes % 7 % Monocytes % 5 % Eosinophils % 1 % Basophils % 0 % Neutrophils # 18.0 H (1.3-7.7) k/uL Lymphocytes # 1.4 (1.0-4.8) k/uL Monocytes # 0.9 (0-1.0) k/uL Eosinophils # 0.1 (0-0.7) k/uL Basophils # 0.0 (0-0.2) k/uL Sodium 135 L (137-145) mmol/L Potassium 5.1 (3.5-5.1) mmol/L Chloride 98 (98-107) mmol/L Carbon Dioxide 25 (22-30) mmol/L Anion Gap 12 mmol/L BUN 35 H (9-20) mg/dL Creatinine 1.30 H (0.66-1.25) mg/dL Est GFR (CKD-EPI)AfAm 76 (>60 ml/min/1.73 sqM) Est GFR (CKD-EPI)NonAf 66 (>60 ml/min/1.73 sqM) Glucose 250 H (74-99) mg/dL Plasma Lactic Acid Pratik 1.1 (0.7-2.0) mmol/L Calcium 9.1 (8.4-10.2) mg/dL Total Bilirubin 0.9 (0.2-1.3) mg/dL AST 23 (17-59) U/L ALT 26 (21-72) U/L Alkaline Phosphatase 95 (38-126) U/L Total Protein 6.7 (6.3-8.2) g/dL Albumin 3.2 L (3.5-5.0) g/dL 06/17/17 18:52 EKG shows normal sinus rhythm, possible congenital heart. No jugular 100 bpm. GA interval 150 ms. QRS duration 78 ms. QT QTc is 3:30/425 ms. - Radiology Data Radiology results: report reviewed No evidence of DVT within the left leg. There are prominent left inguinal lymph nodes noted. Destructive changes within the third and fourth toes consistent with osteomyelitis. This is a change compared old exams. Sclerotic changes and spur formation within the mid foot consistent with neuropathy pathic arthropathy. Disposition Clinical Impression: Cellulitis of left foot, Toe osteomyelitis, left, Diabetes, Hypertension, Sepsis Disposition: ADMITTED IP TO THIS HOSP Condition: Stable Referrals: Alejandro Atwood Jr, [Primary Care Provider] - 1-2 days Time of Disposition: 19:39
--- NOTE | 2017-06-17 18:32 | US ---
EXAMINATION TYPE: US venous doppler duplex LE LT DATE OF EXAM: 06/17/2017 5:52 PM COMPARISON: NONE CLINICAL HISTORY: Swelling and redness left leg. SIDE PERFORMED: Left TECHNIQUE: The lower extremity deep venous system is examined utilizing real time linear array sonog yolis with graded compression, doppler sonography and color-flow sonography. VESSELS IMAGED: External Iliac Vein (EIV) Common Femoral Vein Deep Femoral Vein Greater Saphenous Vein * Femoral Vein Popliteal Vein Small Saphenous Vein * Proximal Calf Veins (* superficial vessels) Left Leg: Appears negative for DVT. Within the left groin, there is two hypoechoic areas visualized, largest measuring 3.4 x 1.6 x 3.4 cm- probable lymph node. IMPRESSION: No evidence of deep venous thrombosis in the left leg. There are prominent left inguinal lymph nodes.
--- NOTE | 2017-06-17 18:55 | XR ---
EXAMINATION TYPE: XR foot complete LT DATE OF EXAM: 06/17/2017 COMPARISON: 11/17/2011 HISTORY: Foot wounds. Pain. TECHNIQUE: 3 views FINDINGS: There are plantar and Achilles calcaneal spurs. There is extensive sclerosis and spurring i n the mid foot involving multiple tarsal bones. The metatarsals are intact. There is destructive change involving the middle and distal phalanx of the middle toe. There is simil ar change in the fourth toe. IMPRESSION: Destructive changes in the third and fourth toes consistent with osteomyelitis. This is a change compared to old exam. Sclerotic changes and spur formation in the mid foot consistent with neuropathic arthropathy.
[2017-06-17] MEDS ORDERED: NALOXONE 0.4 MG/ML 1 ML VIAL IV PRN (19:42)
[2017-06-17] MEDS ORDERED: MORPHINE SULFATE 4 MG/ML SYRINGE IV PRN (19:42)
[2017-06-17] MEDS ORDERED: ONDANSETRON 4 MG/2 ML VIAL IVP PRN (19:42)
[2017-06-17] MEDS ORDERED: HYDROcodone/APAP 5-325MG 1 EACH TAB PO PRN (19:42)
[2017-06-17] MEDS ORDERED: IBUPROFEN 400 MG TAB PO PRN (19:42)
[2017-06-17] MEDS ORDERED: KETOROLAC 30 MG/ML 1 ML VIAL IVP PRN (19:42)
[2017-06-17] MEDS ORDERED: ACETAMINOPHEN TAB 325 MG TAB PO PRN (19:42)
[2017-06-17] MEDS ORDERED: INSULIN ASPART 100 UNIT/ML 1 ML 10 ML VIAL SQ STA (20:17)
[2017-06-17 20:46] VITALS: BMI 45.7
[2017-06-17 21:44] LABS: Glucose,Whole Blood 301 mg/dL (75-99)
[2017-06-17] MEDS: metFORMIN 500 MG TAB PO SCH (22:43)
[2017-06-17] MEDS ORDERED: INSULIN REGULAR 100 UNIT in SODIUM CHLORIDE 0.9% 100 ML IV SCH (22:45)
[2017-06-17] MEDS: ZOLPIDEM 10 MG TAB PO SCH (22:53)
[2017-06-17] MEDS: SODIUM CHLORIDE 0.9% 1,000 ML IV SCH (22:53)
[2017-06-17 23:13] LABS: Glucose,Whole Blood 321 mg/dL (75-99)
[2017-06-17 23:52] LABS: Glucose,Whole Blood 305 mg/dL (75-99)
[2017-06-18 00:15] LABS: Glucose,Whole Blood 304 mg/dL (75-99)
[2017-06-18 00:48] LABS: Glucose,Whole Blood 245 mg/dL (75-99)
[2017-06-18 02:40] LABS: Glucose,Whole Blood 164 mg/dL (75-99)
[2017-06-18] MEDS: INSULIN REGULAR 100 UNIT in SODIUM CHLORIDE 0.9% 100 ML IV SCH (02:40)
[2017-06-18 04:50] LABS: Glucose,Whole Blood 111 mg/dL (75-99)
[2017-06-18 05:30] LABS: Hemoglobin A1C 8.7 % (4.0-6.0)
[2017-06-18 05:37] LABS: Glucose,Whole Blood 132 mg/dL (75-99)
[2017-06-18] MEDS: VANCOMYCIN 2,000 MG in SODIUM CHLORIDE 0.9% 500 ML IVPB SCH ×2 (05:57→18:03)
[2017-06-18] MEDS: SODIUM CHLORIDE 0.9% 1,000 ML IV SCH ×3 (06:04→20:34)
[2017-06-18 07:32] LABS: Glucose,Whole Blood 139 mg/dL (75-99)
[2017-06-18] MEDS: B COMPLEX-VIT C-VIT E-ZINC 1 EACH TAB PO SCH (08:08)
[2017-06-18] MEDS: ESCITALOPRAM 10 MG TAB PO SCH (08:08)
[2017-06-18] MEDS: amLODIPine 5 MG TAB PO SCH (08:08)
[2017-06-18] MEDS: ARIPiprazole 5 MG TAB PO SCH (08:08)
[2017-06-18] MEDS: LISINOPRIL 10 MG TAB PO SCH (08:09)
[2017-06-18] MEDS: VITAMIN E (DL,TOCOPHERYL ACET) 400 UNIT CAP PO SCH (08:09)
[2017-06-18] MEDS: metFORMIN 500 MG TAB PO SCH ×2 (08:09→20:33)
[2017-06-18 08:11] LABS: Basophils % (A) 0 %; Eosinophils # (A) 0.2 k/uL (0-0.7); Eosinophils % (A) 1 %; HCT 28.3 % (39.0-53.0); HGB 9.3 gm/dL (13.0-17.5); Lymphocytes # (A) 1.1 k/uL (1.0-4.8); Lymphocytes % (A) 8 %; MCH 28.3 pg (25.0-35.0); MCHC 32.7 g/dL (31.0-37.0); MCV 86.4 fL (80.0-100.0); Mean Platelet Volume 7.1; Monocytes # (A) 0.5 k/uL (0-1.0); Monocytes % (A) 4 %; Neutrophils # (A) 11.5 k/uL (1.3-7.7); Neutrophils % (A) 85 %; Platelet Count 279 k/uL (150-450); RBC 3.28 m/uL (4.30-5.90); RDW 13.1 % (11.5-15.5); WBC 13.5 k/uL (3.8-10.6)
[2017-06-18 08:34] LABS: Anion Gap 8 mmol/L; Blood Urea Nitrogen 23 mg/dL (9-20); Calcium 8.2 mg/dL (8.4-10.2); Carbon Dioxide 26 mmol/L (22-30); Chloride 105 mmol/L (98-107); Glucose 130 mg/dL (74-99); Potassium 5.1 mmol/L (3.5-5.1); Sodium 139 mmol/L (137-145)
[2017-06-18] MEDS: INSULIN ASPART 100 UNIT/ML 1 ML 10 ML VIAL SQ SCH ×3 (09:00→18:05)
[2017-06-18] MEDS: oxyCODONE-APAP 10-325MG 1 EACH TAB PO PRN (09:32)
[2017-06-18 09:42] LABS: Glucose,Whole Blood 165 mg/dL (75-99)
[2017-06-18] MEDS: CHOLECALCIFEROL 1,000 UNIT TAB PO SCH (11:25)
[2017-06-18] MEDS: ASCORBIC ACID 500 MG TAB PO SCH (11:25)
[2017-06-18] MEDS: MULTIVITAMINS, THERA 1 EACH TAB PO SCH (11:25)
[2017-06-18 11:32] LABS: Glucose,Whole Blood 150 mg/dL (75-99)
--- NOTE | 2017-06-18 11:55 | CONS ---
DATE OF CONSULTATION: 06/18/2017 This patient is a 47-year-old gentleman. He came last night to the emergency room with history of left foot pain, swelling and foul smell. He had these symptoms for the last 2 weeks. He did not go to the hospital or to any physician. Patient has no history of trauma. Patient had a similar infection in the right foot which was treated with IV antibiotic. He has been admitted and we are consulted for vascular evaluation. MEDICAL HISTORY: Patient has history of diabetes and hypertension. PHYSICAL EXAMINATION: NECK: Supple. Trachea is central. CHEST: Clear on auscultation. First and second sounds normal. ABDOMEN: Soft. Brachial, radial and femoral pulses are present. Dorsal pedis is palpable. Left foot has swelling on the dorsal aspect of the foot, and on the plantar aspect of the foot there is infection involving the base of the third and fourth toes. The fourth toe has a tendon exposed and there is a foul odor noted. On the third toe , on the distal phalanx the nail bed is exposed with swelling and redness. The patient had a venous ultrasound which was negative for DVT. An x-ray of the foot showed destruction changes in the third and fourth toes consistent with osteomyelitis. There is change compared to the previous exam. ASSESSMENT AND PLAN: Infected gangrene, left foot, involving the third and fourth toes. Fourth has exposed tendon. Third toe has an infected nail bed exposed. This also involves the plantar aspect of the foot. I have discussed this with the patient. Definitely patient will need fourth toe amputation because of exposed tendon and there is a possibility of the third toe. I talked to him in detail. Patient will need some debridement on the plantar aspect of the foot. Risks and complications were discussed, including nonhealing infection. The patient understands. I will discuss with Dr. Mckeon. TRICIA / LELEN: [id number] / FERMIN
[2017-06-18 15:37] LABS: Glucose,Whole Blood 172 mg/dL (75-99)
[2017-06-18] MEDS: MEROPENEM 1 GM in SODIUM CHLORIDE 0.9% 100 ML IVPB SCH ×2 (16:46→23:43)
[2017-06-18 17:27] LABS: Glucose,Whole Blood 131 mg/dL (75-99)
--- NOTE | 2017-06-18 18:38 | P.HPIM ---
History of Present Illness H&P Date: 06/18/17 Chief Complaint: Diabetic ulcer with osteomyelitis fourth and fifth toe left foot This patient is a 47-year-old male well-known to our practice, who is significantly noncompliant who commonly takes his mother's insulin so he doesn' t have to come into the office. This patient developed a sore which quickly developed into a foul smelling purulent ulcer on the fifth digit which quickly spread to the fourth digit Patient hemoglobin A1c is commonly in the area of 11-12 regular basis, as of late is it is actually been somewhat improved and last A1c was 10, Patient has been placed on Lantus in the evening with NovoLog coverage. Patient also has hypertension that has been fairly well controlled on lisinopril hydrochlorothiazide and Norvasc Review of Systems Constitutional: Reports chills Cardiovascular: Reports decreased exercise tolerance Respiratory: Reports as per HPI Gastrointestinal: Reports abdominal pain (Consistent with intermittent gastroparesis) Integumentary: Reports foot/leg ulcers (Fourth and fifth digits of left foot), Reports sores Neurological: Reports paresthesias (Diabetic neuropathy bilateral lower extremes ) Past Medical History Past Medical History: Diabetes Mellitus, Hypertension History of Any Multi-Drug Resistant Organisms: None Reported Past Surgical History: Back Surgery Additional Past Surgical History / Comment(s): rt knee arthroscopic 2, L5/S1 surgery Past Psychological History: Anxiety, Bipolar, Depression Smoking Status: Never smoker Past Alcohol Use History: None Reported Additional Past Alcohol Use History / Comment(s): Patient is a lifelong nonsmoker. He denies any medical marijuana, marijuana, street drug or alcohol use. He currently lives with his mother and there are 3 dogs and a cat in the home. 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 Past Drug Use History: None Reported - Past Family History Mother Family Medical History: Coronary Artery Disease (CAD), Diabetes Mellitus, Hypertension Father History Unknown: Yes Son(s) Family Medical History: No Reported History Medications and Allergies Home Medications Medication Instructions Recorded Confirmed Type RX: Zolpidem [Ambien] 10 mg PO HS 30 Days tablet 02/28/14 06/17/17 Rx RX: oxyCODONE-APAP 10-325MG 1 tab PO TID PRN 10/22/16 06/17/17 History [Percocet 10-325 mg] RX: Escitalopram [Lexapro] 10 mg PO DAILY tab 10/27/16 06/17/17 Rx RX: Lisinopril [Zestril] 10 mg PO DAILY #90 tab 10/27/16 06/17/17 Rx RX: amLODIPine [Norvasc] 5 mg PO DAILY #90 tab 10/27/16 06/17/17 Rx Ascorbic Acid [Vitamin C] 1,000 mg PO DAILY 06/17/17 06/17/17 History Cholecalciferol [Vitamin D3] 1,000 unit PO DAILY 06/17/17 06/17/17 History Insulin Aspart [NovoLOG] 40 units SQ BID 06/17/17 06/17/17 History Insulin Detemir [Levemir] 60 unit SQ BID 06/17/17 06/17/17 History Multivitamins, Thera [Multivitamin 1 tab PO DAILY 06/17/17 06/17/17 History (formulary)] RX: ARIPiprazole [Abilify] 5 mg PO DAILY 06/17/17 06/17/17 History RX: Vitamin B Complex 1 cap PO DAILY 06/17/17 06/17/17 History RX: Vitamin E 100 unit PO DAILY 06/17/17 06/17/17 History metFORMIN HCL [Glucophage] 500 mg PO HS 06/17/17 06/17/17 History Allergies Allergy/AdvReac Type Severity Reaction Status Date / Time Penicillins Allergy Swelling Verified 06/17/17 16:38 Physical Exam Osteopathic Statement: *. No significant issues noted on an osteopathic structural exam other than those noted in the History and Physical/Consult. Vitals: Vital Signs Temp Pulse Pulse Resp BP BP Pulse Ox 06/18/17 15:00 97.5 F L 90 20 109/59 94 L 06/18/17 07:00 98.6 F 94 20 102/48 93 L 06/17/17 21:00 99.0 F 99 18 134/81 95 06/17/17 20:10 100.2 F H 94 18 124/58 100 06/17/17 19:07 98.5 F 110 H 18 117/56 96 Intake and Output 06/18/17 06/18/17 06/18/17 06:59 14:59 22:59 Intake Total 332.183 11.851 20.0 Balance 332.183 11.851 20.0 Intake: Intake, IV Titration 32.183 11.851 20.0 Amount Insulin Regular 100 unit 22.958 In Sodium Chloride 0.9% 100 ml @ Titrate IV .Q0M KAYCE Rx#:[id number] Insulin Regular 100 unit 9.225 11.851 20.0 In Sodium Chloride 0.9% 100 ml @ Titrate IV .Q0M KAYCE Rx#:[id number] Oral 300 Other: # Voids 2 2 Weight 136.5 kg 136.5 kg Patient Weight 06/19/17 07:59 Weight 136.5 kg General: [Patient awake, alert and oriented times 3. Patient in no acute distress.] HEENT: [PERRL. EOMI. No pharyngeal erythema or exudate.] Neck: [No adenopathy.] Cardiac: [Heart regular in rate and rhythm. No S3. No S4. No clicks, rubs. No murmur.] Lungs: [Clear to auscultation bilaterally.] Abdomen: [No mass. No organomegaly. Bowel sounds presnt and normoactive in all 4 quadrants.] Extremes: Significant edema left foot with significant cyanosis of the left fifth and fourth digits wounds or ulcers are exudative foul smelling : [] Musculoskeletal: [No joint erythema, edema or tenderness.] Skin: [No rash.] Neurologic: [No lateralizing deficits. CN II - XII grossly intact.] Lymphatic: [No adenopathy.] Results CBC & Chem 7: 06/18/17 07:53 06/18/17 07:53 Labs: Abnormal Lab Results - Last 24 Hours (Table) 06/17/17 06/17/17 06/17/17 Range/Units 21:07 23:00 23:32 WBC (3.8-10.6) k/uL RBC (4.30-5.90) m/uL Hgb (13.0-17.5) gm/dL Hct (39.0-53.0) % Neutrophils # (1.3-7.7) k/uL BUN (9-20) mg/dL Glucose (74-99) mg/dL POC Glucose (mg/dL) 301 H 321 H 305 H (75-99) mg/dL Calcium (8.4-10.2) mg/dL 06/18/17 06/18/17 06/18/17 Range/Units 00:02 00:27 02:30 WBC (3.8-10.6) k/uL RBC (4.30-5.90) m/uL Hgb (13.0-17.5) gm/dL Hct (39.0-53.0) % Neutrophils # (1.3-7.7) k/uL BUN (9-20) mg/dL Glucose (74-99) mg/dL POC Glucose (mg/dL) 304 H 245 H 164 H (75-99) mg/dL Calcium (8.4-10.2) mg/dL 06/18/17 06/18/17 06/18/17 Range/Units 04:38 05:33 07:31 WBC (3.8-10.6) k/uL RBC (4.30-5.90) m/uL Hgb (13.0-17.5) gm/dL Hct (39.0-53.0) % Neutrophils # (1.3-7.7) k/uL BUN (9-20) mg/dL Glucose (74-99) mg/dL POC Glucose (mg/dL) 111 H 132 H 139 H (75-99) mg/dL Calcium (8.4-10.2) mg/dL 06/18/17 06/18/17 06/18/17 Range/Units 07:53 07:53 09:29 WBC 13.5 H (3.8-10.6) k/uL RBC 3.28 L (4.30-5.90) m/uL Hgb 9.3 L (13.0-17.5) gm/dL Hct 28.3 L (39.0-53.0) % Neutrophils # 11.5 H (1.3-7.7) k/uL BUN 23 H (9-20) mg/dL Glucose 130 H (74-99) mg/dL POC Glucose (mg/dL) 165 H (75-99) mg/dL Calcium 8.2 L (8.4-10.2) mg/dL 06/18/17 06/18/17 06/18/17 Range/Units 11:30 15:29 17:25 WBC (3.8-10.6) k/uL RBC (4.30-5.90) m/uL Hgb (13.0-17.5) gm/dL Hct (39.0-53.0) % Neutrophils # (1.3-7.7) k/uL BUN (9-20) mg/dL Glucose (74-99) mg/dL POC Glucose (mg/dL) 150 H 172 H 131 H (75-99) mg/dL Calcium (8.4-10.2) mg/dL Microbiology - Last 24 Hours (Table) 06/17/17 17:20 Gram Stain - Preliminary Toe - Left Fourth Wound Culture - Preliminary Thrombosis Risk Factor Assmnt - Choose All That Apply Any of the Below Risk Factors Present?: Yes Each Factor Represents 1 point: Age 41-60 years, Obesity (BMI >25) Other Risk Factors: No Other congenital or acquired thrombophilia - If yes, enter type in comment: No Thrombosis Risk Factor Assessment Total Risk Factor Score: 2 Thrombosis Risk Factor Assessment Level: Low Risk Assessment and Plan (1) Cellulitis of left foot Current Visit: Yes Status: Acute Code(s): L03.116 - CELLULITIS OF LEFT LOWER LIMB SNOMED Code(s): 231679097 (2) Sepsis Current Visit: Yes Status: Acute Code(s): A41.9 - SEPSIS, UNSPECIFIED ORGANISM SNOMED Code(s): 25420351 (3) Toe osteomyelitis, left Current Visit: Yes Status: Acute Code(s): M86.9 - OSTEOMYELITIS, UNSPECIFIED SNOMED Code(s): 96856877 (4) Diabetes Current Visit: Yes Status: Chronic Code(s): E11.9 - TYPE 2 DIABETES MELLITUS WITHOUT COMPLICATIONS SNOMED Code(s): 21396533 (5) Hypertension Current Visit: Yes Status: Chronic Code(s): I10 - ESSENTIAL (PRIMARY) HYPERTENSION SNOMED Code(s): 52239742 (6) Diabetic ulcer of right foot associated with diabetes mellitus due to underlying condition, with necrosis of bone Current Visit: No Status: Acute Code(s): E08.621 - DIABETES MELLITUS DUE TO UNDERLYING CONDITION W FOOT ULCER; L97.514 - NON-PRS CHRONIC ULCER OTH PRT RIGHT FOOT W NECROSIS OF BONE SNOMED Code(s): 677973785 Plan: Patient placed on Lantus in the evening and then a sliding scale Patient is currently nothing by mouth after midnight OB undergoing amputation of the fifth and possibly the fourth digit by Dr. Ho vascular surgery We'll reevaluate patient in the morning Time with Patient: Greater than 30
[2017-06-18 19:49] LABS: Glucose,Whole Blood 210 mg/dL (75-99)
[2017-06-18] MEDS: ZOLPIDEM 10 MG TAB PO SCH (20:36)
[2017-06-18] MEDS ORDERED: INSULIN ASPART 40 UNIT SQ SCH (21:00)
[2017-06-18 21:34] LABS: Glucose,Whole Blood 225 mg/dL (75-99)
--- NOTE | 2017-06-18 23:21 | P.CONS ---
History of Present Illness - Reason for Consult Consult date: 06/18/17 - Chief Complaint Wound left foot - History of Present Illness 47-year-old male who is a known history of prior right diabetic foot infection was cared for in the wound center in the past presents to Hospital with the relatively sudden onset of significant swelling drainage which is followed odor to his left foot. The patient believes that he may have inadvertently placed a folded up sock into his shoe, and then unknowingly was wearing the shoe for several days before the onset of the wounds to the third and fourth toes which then developed into draining wounds. Despite some local care at home they were not improving. He has a dense neuropathy in the does not have much pain. He now presents to the emergency center with evidence of the gangrenous changes to the foot and required admission. He is denying high- grade fevers chills or rigors but does feel poorly and blood sugars are elevated Review of Systems HEENT:Denies headache or acute visual change. Denies sinus or mouth discomforts. Denies neck stiffness or pain. Denies significant oral cavity pain. Denies difficulty on swallowing. Lungs: Denies significant shortness of breath, cough, sputum production, or hemoptysis. Cardiovascular: Denies significant shortness of breath, chest pain, chest wall pain, orthopnea, dyspnea on exertion, syncope Gastrointestinal:Denies nausea, vomiting, diarrhea, constipation, hematemesis, melena, hematochezia. No no significant change of bowel habit noticed. Musculoskeletal: denies significant myalgias or arthralgias. Denies new back pain. Skin: As per the HPI is evidence of the ulcerations to the left foot Neuro: Denies headache or visual change. Denies any new onset weakness or difficulty with ambulation. Denies falls or seizures. Psychiatric:Denies anxiety or depression. Endocrine: Denies significant fatigue, denies significant weight loss or weight gain. Past Medical History Past Medical History: Diabetes Mellitus, Hypertension History of Any Multi-Drug Resistant Organisms: None Reported Past Surgical History: Back Surgery Additional Past Surgical History / Comment(s): rt knee arthroscopic 2, L5/S1 surgery Past Psychological History: Anxiety, Bipolar, Depression Additional Psychological History / Comment(s): Patient is a lifelong nonsmoker. He denies any medical marijuana, marijuana, street drug or alcohol use. He currently lives with his mother and there are 3 dogs and a cat in the home. 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 Has adult children. Smoking Status: Never smoker Past Alcohol Use History: None Reported Additional Past Alcohol Use History / Comment(s): Patient is a lifelong nonsmoker. He denies any medical marijuana, marijuana, street drug or alcohol use. He currently lives with his mother and there are 3 dogs and a cat in the home. 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 Past Drug Use History: None Reported - Past Family History Mother Family Medical History: Coronary Artery Disease (CAD), Diabetes Mellitus, Hypertension Father History Unknown: Yes Son(s) Family Medical History: No Reported History Medications and Allergies Home Medications and Allergies Comment(s): Current Medications Acetaminophen (Tylenol Tab) 650 mg PO Q6HR PRN PRN Reason: Mild Pain or Fever > 100.5 Last Admin: 06/17/17 20:12 Dose: 650 mg Hydrocodone Bitart/Acetaminophen (Davis 5-325) 1 each PO Q4HR PRN PRN Reason: Moderate Pain Amlodipine Besylate (Norvasc) 5 mg PO DAILY [facility] Last Admin: 06/18/17 08:08 Dose: 5 mg Aripiprazole (Abilify) 5 mg PO DAILY [facility] Last Admin: 06/18/17 08:08 Dose: 5 mg Ascorbic Acid (Vitamin C) 1,000 mg PO DAILY@1200 [facility] Last Admin: 06/18/17 11:25 Dose: 1,000 mg Cholecalciferol (Vitamin D3) 1,000 unit PO DAILY@1200 [facility] Last Admin: 06/18/17 11:25 Dose: 1,000 unit Escitalopram Oxalate (Lexapro) 10 mg PO DAILY [facility] Last Admin: 06/18/17 08:08 Dose: 10 mg Vancomycin HCl 2,000 mg/ (Sodium Chloride) 500 mls @ 167 mls/hr IVPB Q12H [facility] Last Admin: 06/18/17 18:03 Dose: 167 mls/hr Sodium Chloride (Saline 0.9%) 1,000 mls @ 120 mls/hr IV .Q8H20M [facility] Last Admin: 06/18/17 20:34 Dose: 120 mls/hr Insulin Human Regular 100 unit (/ Sodium Chloride) 101 mls @ 0 mls/hr IV .Q0M [facility]; Titrate PRN Reason: Protocol Last Titration: 06/18/17 21:22 Dose: 6.5 mls/hr, 6.5 mls/hr Meropenem 1 gm/ Sodium (Chloride) 100 mls @ 100 mls/hr IVPB Q8HR [facility] Last Admin: 06/18/17 16:46 Dose: 100 mls/hr Ibuprofen (Motrin) 400 mg PO Q6HR PRN PRN Reason: Mild Pain or Fever > 100.5 Insulin Aspart (Novolog) 18 unit 0.13 unit/kg (18 unit) SQ AC-TID [facility] Last Admin: 06/18/17 18:05 Dose: Not Given Ketorolac Tromethamine (Toradol) 30 mg IVP Q6HR PRN PRN Reason: Moderate Pain Stop: 06/22/17 19:43 Lisinopril (Zestril) 10 mg PO DAILY [facility] Last Admin: 06/18/17 08:09 Dose: 10 mg Metformin HCl (Glucophage) 500 mg PO BID [facility] Last Admin: 06/18/17 20:33 Dose: 500 mg Morphine Sulfate (Morphine Sulfate (Inj)) 4 mg IV Q4HR PRN PRN Reason: Severe Pain Multivitamins (Theragran) 1 each PO DAILY@1200 [facility] Last Admin: 06/18/17 11:25 Dose: 1 each Naloxone HCl (Narcan) 0.2 mg IV Q2M PRN PRN Reason: Opioid Reversal Ondansetron HCl (Zofran) 4 mg IVP Q8HR PRN PRN Reason: Nausea And Vomiting Oxycodone/Acetaminophen (Percocet 10-325) 1 each PO TID PRN PRN Reason: Pain SEVERE Last Admin: 06/18/17 09:32 Dose: 1 each Vitamin B Complex/Vit C/Vit E/Zinc (Z-Bec) 1 each PO DAILY [facility] Last Admin: 06/18/17 08:08 Dose: 1 each Vitamin E (Vitamin E) 400 unit PO DAILY [facility] Last Admin: 06/18/17 08:09 Dose: 400 unit Zolpidem Tartrate (Ambien) 10 mg PO HS [facility] Last Admin: 06/18/17 20:36 Dose: 10 mg Home Medications Medication Instructions Recorded Confirmed Type Zolpidem [Ambien] 10 mg PO HS 30 Days tablet 02/28/14 06/17/17 Rx oxyCODONE-APAP 10-325MG [Percocet 1 tab PO TID PRN 10/22/16 06/17/17 History 10-325 mg] Escitalopram [Lexapro] 10 mg PO DAILY tab 10/27/16 06/17/17 Rx Lisinopril [Zestril] 10 mg PO DAILY #90 tab 10/27/16 06/17/17 Rx amLODIPine [Norvasc] 5 mg PO DAILY #90 tab 10/27/16 06/17/17 Rx ARIPiprazole [Abilify] 5 mg PO DAILY 06/17/17 06/17/17 History Ascorbic Acid [Vitamin C] 1,000 mg PO DAILY 06/17/17 06/17/17 History Cholecalciferol [Vitamin D3] 1,000 unit PO DAILY 06/17/17 06/17/17 History Insulin Aspart [NovoLOG] 40 units SQ BID 06/17/17 06/17/17 History Insulin Detemir [Levemir] 60 unit SQ BID 06/17/17 06/17/17 History Multivitamins, Thera [Multivitamin 1 tab PO DAILY 06/17/17 06/17/17 History (formulary)] Vitamin B Complex 1 cap PO DAILY 06/17/17 06/17/17 History Vitamin E 100 unit PO DAILY 06/17/17 06/17/17 History metFORMIN HCL [Glucophage] 500 mg PO HS 06/17/17 06/17/17 History Allergies Allergy/AdvReac Type Severity Reaction Status Date / Time Penicillins Allergy Swelling Verified 06/17/17 16:38 Physical Exam Vitals: Vital Signs Temp Pulse Resp BP Pulse Ox 06/18/17 15:00 97.5 F L 90 20 109/59 94 L 06/18/17 07:00 98.6 F 94 20 102/48 93 L Intake and Output 06/18/17 06/18/17 06/19/17 14:59 22:59 07:59 Intake Total .85 32.267 Balance 11.851 32.267 Intake: Intake, IV Titration 11.85 32.267 Amount Insulin Regular 100 unit 11.851 32.267 In Sodium Chloride 0.9% 100 ml @ Titrate IV .Q0M [facility] Rx#:[id number] Other: # Voids 2 Weight 136.5 kg Patient Weight 06/19/17 07:59 Weight 136.5 kg 47-year-old male who suffers from obesity but is comfortable at this time HEENT: Anicteric conjunctiva are pink and moist nasal mucosa grossly intact without significant lesions, there is no thrush. Poor dentition for age Neck: The neck is supple without significant lymphadenopathy or thyromegaly. Lungs: Good bilateral air entry without significant crackles or wheezing. There is no significant bronchial sounds. There is no egophony or dullness. Heart: Regular rate and rhythm with an audible S1-S2, no S3 no S4. There is no significant murmur click or rub, PMI was nondisplaced. Abdomen: Positive bowel sounds soft and nontender without palpable masses or organomegaly. There was no guarding or rebound. Extremities: The upper extremities have excellent pulses they are symmetric, no significant petechiae or telangiectasia. No splinter hemorrhages were noted. Lower extremities have evidence of some chronic venous stasis and chronic changes from his diabetes. No open ulcerations to the right foot are seen Left foot has evidence of the significant changes with the diabetic foot ulcerations involving the third and fourth toes with necrosis exposed tendon possibly exposed bone gangrenous change with foul odor. It does penetrate into the foot itself especially at the third and fourth metatarsal head area on the plantar surface. Fifth toe to has some swelling. The foot itself is swollen compared to the right and there some mild erythematous symptoms the left leg also. There is no significant lymphadenopathy to the left inguinal area and no other abnormal lymph nodes are noted Neuro: Awake alert oriented to person place and time. There are no acute new gross focal sensory motor deficits except he does have dense neuropathy to the bilateral feet. Results CBC & Chem 7: 06/18/17 07:53 06/18/17 07:53 Labs: Abnormal Lab Results - Last 24 Hours (Table) 06/17/17 06/17/17 06/17/17 Range/Units 16:25 23:00 23:32 WBC (3.8-10.6) k/uL RBC (4.30-5.90) m/uL Hgb (13.0-17.5) gm/dL Hct (39.0-53.0) % Neutrophils # (1.3-7.7) k/uL BUN (9-20) mg/dL Glucose (74-99) mg/dL POC Glucose (mg/dL) 321 H 305 H (75-99) mg/dL Hemoglobin A1c 8.7 H (4.0-6.0) % Calcium (8.4-10.2) mg/dL 06/18/17 06/18/17 06/18/17 Range/Units 00:02 00:27 02:30 WBC (3.8-10.6) k/uL RBC (4.30-5.90) m/uL Hgb (13.0-17.5) gm/dL Hct (39.0-53.0) % Neutrophils # (1.3-7.7) k/uL BUN (9-20) mg/dL Glucose (74-99) mg/dL POC Glucose (mg/dL) 304 H 245 H 164 H (75-99) mg/dL Hemoglobin A1c (4.0-6.0) % Calcium (8.4-10.2) mg/dL 06/18/17 06/18/17 06/18/17 Range/Units 04:38 05:33 07:31 WBC (3.8-10.6) k/uL RBC (4.30-5.90) m/uL Hgb (13.0-17.5) gm/dL Hct (39.0-53.0) % Neutrophils # (1.3-7.7) k/uL BUN (9-20) mg/dL Glucose (74-99) mg/dL POC Glucose (mg/dL) 111 H 132 H 139 H (75-99) mg/dL Hemoglobin A1c (4.0-6.0) % Calcium (8.4-10.2) mg/dL 06/18/17 06/18/17 06/18/17 Range/Units 07:53 07:53 09:29 WBC 13.5 H (3.8-10.6) k/uL RBC 3.28 L (4.30-5.90) m/uL Hgb 9.3 L (13.0-17.5) gm/dL Hct 28.3 L (39.0-53.0) % Neutrophils # 11.5 H (1.3-7.7) k/uL BUN 23 H (9-20) mg/dL Glucose 130 H (74-99) mg/dL POC Glucose (mg/dL) 165 H (75-99) mg/dL Hemoglobin A1c (4.0-6.0) % Calcium 8.2 L (8.4-10.2) mg/dL 06/18/17 06/18/17 06/18/17 Range/Units 11:30 15:29 17:25 WBC (3.8-10.6) k/uL RBC (4.30-5.90) m/uL Hgb (13.0-17.5) gm/dL Hct (39.0-53.0) % Neutrophils # (1.3-7.7) k/uL BUN (9-20) mg/dL Glucose (74-99) mg/dL POC Glucose (mg/dL) 150 H 172 H 131 H (75-99) mg/dL Hemoglobin A1c (4.0-6.0) % Calcium (8.4-10.2) mg/dL 06/18/17 06/18/17 Range/Units 19:39 21:21 WBC (3.8-10.6) k/uL RBC (4.30-5.90) m/uL Hgb (13.0-17.5) gm/dL Hct (39.0-53.0) % Neutrophils # (1.3-7.7) k/uL BUN (9-20) mg/dL Glucose (74-99) mg/dL POC Glucose (mg/dL) 210 H 225 H (75-99) mg/dL Hemoglobin A1c (4.0-6.0) % Calcium (8.4-10.2) mg/dL Microbiology - Last 24 Hours (Table) 06/17/17 17:20 Gram Stain - Preliminary Toe - Left Fourth Wound Culture - Preliminary Strep agalactiae - (group b) 06/17/17 16:25 Blood Culture - Preliminary Blood No Growth after 24 hours Laboratory Results WBC 13.5 k/uL (3.8-10.6) H 06/18/17 07:53 RBC 3.28 m/uL (4.30-5.90) L 06/18/17 07:53 Hgb 9.3 gm/dL (13.0-17.5) L 06/18/17 07:53 Hct 28.3 % (39.0-53.0) L 06/18/17 07:53 MCV 86.4 fL (80.0-100.0) 06/18/17 07:53 MCH 28.3 pg (25.0-35.0) 06/18/17 07:53 MCHC 32.7 g/dL (31.0-37.0) 06/18/17 07:53 RDW 13.1 % (11.5-15.5) 06/18/17 07:53 Plt Count 279 k/uL (150-450) 06/18/17 07:53 Neutrophils % 85 % 06/18/17 07:53 Lymphocytes % 8 % 06/18/17 07:53 Monocytes % 4 % 06/18/17 07:53 Eosinophils % 1 % 06/18/17 07:53 Basophils % 0 % 06/18/17 07:53 Neutrophils # 11.5 k/uL (1.3-7.7) H 06/18/17 07:53 Lymphocytes # 1.1 k/uL (1.0-4.8) 06/18/17 07:53 Monocytes # 0.5 k/uL (0-1.0) 06/18/17 07:53 Eosinophils # 0.2 k/uL (0-0.7) 06/18/17 07:53 Basophils # 0.0 k/uL (0-0.2) 06/18/17 07:53 Sodium 139 mmol/L (137-145) 06/18/17 07:53 Potassium 5.1 mmol/L (3.5-5.1) 06/18/17 07:53 Chloride 105 mmol/L (98-107) 06/18/17 07:53 Carbon Dioxide 26 mmol/L (22-30) 06/18/17 07:53 Anion Gap 8 mmol/L 06/18/17 07:53 BUN 23 mg/dL (9-20) H 06/18/17 07:53 Creatinine 0.99 mg/dL (0.66-1.25) 06/18/17 07:53 Est GFR (CKD-EPI)AfAm >90 (>60 ml/min/1.73 sqM) 06/18/17 07:53 Est GFR (CKD-EPI)NonAf >90 (>60 ml/min/1.73 sqM) 06/18/17 07:53 Glucose 130 mg/dL (74-99) H 06/18/17 07:53 POC Glucose (mg/dL) 225 mg/dL (75-99) H 06/18/17 21:21 POC Glu [employer] Advisor ID Madelin Salas 06/18/17 21:[address] Glu mg/dL 203 06/17/17 16:25 Hemoglobin A1c 8.7 % (4.0-6.0) H 06/17/17 16:25 Plasma Lactic Acid Pratik 1.1 mmol/L (0.7-2.0) 06/17/17 16:28 Calcium 8.2 mg/dL (8.4-10.2) L 06/18/17 07:53 Total Bilirubin 0.9 mg/dL (0.2-1.3) 06/17/17 16:25 AST 23 U/L (17-59) 06/17/17 16:25 ALT 26 U/L (21-72) 06/17/17 16:25 Alkaline Phosphatase 95 U/L (38-126) 06/17/17 16:25 Total Protein 6.7 g/dL (6.3-8.2) 06/17/17 16:25 Albumin 3.2 g/dL (3.5-5.0) L 06/17/17 16:25 Microbiology 06/17/17 17:20 Toe - Left Fourth Gram Stain - Preliminary 06/17/17 17:20 Toe - Left Fourth Wound Culture - Preliminary Strep agalactiae - (group b) 06/17/17 16:25 Blood Blood Culture - Preliminary No Growth after 24 hours Assessment and Plan (1) Cellulitis of left foot Narrative/Plan: 47-year-old male who suffers from obesity and diabetes mellitus type 2 that is not well controlled presents with significant swelling of the left foot at the third and fourth toes with open ulcerations exposed tendons gangrenous change with foul odor. The patient has been seen by surgery nurse plans for the surgical debridement and amputation in the morning for the gangrenous toes, at this time unclear the extensive debridement that was required on the plantar surface given the findings. Likely will have open ulcerations that will require wound care possibly wound VAC. It will require outpatient intravenous antibiotic therapy. Blood cultures pending meropenem has been added given his known penicillin ALLERGY. He is up-to-date on his tetanus vaccine. We'll take a multivitamin and have him enhance protein intake. We'll have offloading to the foot for quite some time which will impact his ability to work. Fortunately he is comfortable this time but is so because of his neuropathy. The significant leukocytosis at admission is partially on the basis of his significant sepsis from the gangrenous change to his foot. Current Visit: Yes Status: Acute Code(s): L03.116 - CELLULITIS OF LEFT LOWER LIMB SNOMED Code(s): 160560344 (2) Toe osteomyelitis, left Current Visit: Yes Status: Acute Code(s): M86.9 - OSTEOMYELITIS, UNSPECIFIED SNOMED Code(s): 14521304 (3) Sepsis Current Visit: Yes Status: Acute Code(s): A41.9 - SEPSIS, UNSPECIFIED ORGANISM SNOMED Code(s): 92364022
[2017-06-19 00:09] LABS: Glucose,Whole Blood 126 mg/dL (75-99)
[2017-06-19 00:34] LABS: Glucose,Whole Blood 131 mg/dL (75-99)
[2017-06-19 03:30] LABS: Glucose,Whole Blood 148 mg/dL (75-99)
[2017-06-19 05:10] LABS: Glucose,Whole Blood 148 mg/dL (75-99)
[2017-06-19] MEDS: SODIUM CHLORIDE 0.9% 1,000 ML IV SCH ×3 (05:34→21:30)
[2017-06-19] MEDS: VANCOMYCIN 2,000 MG in SODIUM CHLORIDE 0.9% 500 ML IVPB SCH ×2 (05:36→17:54)
[2017-06-19 06:33] LABS: Glucose,Whole Blood 140 mg/dL (75-99)
[2017-06-19] MEDS: INSULIN ASPART 100 UNIT/ML 1 ML 10 ML VIAL SQ SCH ×4 (07:39→21:27)
[2017-06-19] MEDS: MEROPENEM 1 GM in SODIUM CHLORIDE 0.9% 100 ML IVPB SCH ×3 (08:35→23:31)
[2017-06-19] MEDS: ESCITALOPRAM 10 MG TAB PO SCH (08:37)
[2017-06-19] MEDS: LISINOPRIL 10 MG TAB PO SCH (08:37)
[2017-06-19] MEDS: B COMPLEX-VIT C-VIT E-ZINC 1 EACH TAB PO SCH (08:37)
[2017-06-19] MEDS: VITAMIN E (DL,TOCOPHERYL ACET) 400 UNIT CAP PO SCH (08:37)
[2017-06-19] MEDS: ARIPiprazole 5 MG TAB PO SCH (08:37)
[2017-06-19] MEDS: amLODIPine 5 MG TAB PO SCH (08:37)
[2017-06-19] MEDS: metFORMIN 500 MG TAB PO SCH ×2 (08:37→21:26)
[2017-06-19] MEDS ORDERED: PROPOFOL 10 MG/ML 20 ML VIAL IV ONE (09:15)
[2017-06-19] MEDS ORDERED: KETAMINE 10 MG/ML 20 ML VIAL ONE (09:15)
[2017-06-19] MEDS ORDERED: GLYCOPYRROLATE 0.2 MG/ML 2 ML VIAL ONE (09:15)
[2017-06-19] MEDS ORDERED: HYDROmorphone (PF) 1 MG/ML ONE (09:15)
[2017-06-19] MEDS ORDERED: MIDAZOLAM 2 MG/2 ML VIAL ONE (09:15)
[2017-06-19] MEDS ORDERED: SODIUM CHLORIDE 0.9% 1,000 ML IV ONE (09:15)
[2017-06-19] MEDS ORDERED: LIDOCAINE 1% INJ 10MG/ML (20 ML MDV) SQ ONE (09:15)
[2017-06-19 10:15] LABS: Glucose,Whole Blood 122 mg/dL (75-99)
[2017-06-19] MEDS: INSULIN REGULAR 100 UNIT in SODIUM CHLORIDE 0.9% 100 ML IV SCH (10:25)
[2017-06-19 11:21] LABS: Glucose,Whole Blood 120 mg/dL (75-99)
--- NOTE | 2017-06-19 11:43 | OP ---
OPERATIVE REPORT PREOP DIAGNOSIS: Wet gangrene of the 3rd and 4th toe involving the plantar and dorsal aspect of the foot. OPERATION: Amputation of the left foot involving the 3rd and 4th toe with the wound debridement on the plantar and dorsal aspect of the foot. ANESTHESIA: Local anesthesia with IV sedation. This patient has history of infection to the left foot for the last 2 weeks. The patient came to the emergency room and found to have tendons exposed of the 4th toe and also there is a deep ulcer noted at the inner involving the 3rd distal phalanx and there is no infection noted on the plantar aspect of the left foot. Left foot was prepped and draped per usual sterile manner. Incision made on the dorsal aspect of the foot that went circumferentially around the 3rd and 4th toe and incision was extended to the plantar aspect of the foot, deepened through skin, fat, fascia and tendons were divided. The periosteum elevator was used to elevate the periosteum from the proximal phalanx. There also noted some necrotic tissue on the plantar aspect which was also include along with the specimen. Using bone cutter we divided the proximal phalanx and specimens were removed. After that, at the base of the wound there was some unhealthy tissue which was also excised by sharp knife. Bleeding points were controlled and also we used 4-0 Prolene to control the bleeding. Hemostasis was well controlled and the wound was copiously irrigated with saline and Betadine and hydrogen peroxide. No active bleeding was noted. Half-inch gauze was packed to the wound and dressing applied. The patient was transferred to recovery room in satisfactory condition. MMODL / IJN: [id number] /
[2017-06-19] MEDS: ASCORBIC ACID 500 MG TAB PO SCH (11:48)
[2017-06-19] MEDS: MULTIVITAMINS, THERA 1 EACH TAB PO SCH (11:48)
[2017-06-19] MEDS: CHOLECALCIFEROL 1,000 UNIT TAB PO SCH (11:48)
[2017-06-19 12:09] LABS: Anion Gap 8 mmol/L; Blood Urea Nitrogen 15 mg/dL (9-20); Calcium 8.6 mg/dL (8.4-10.2); Carbon Dioxide 28 mmol/L (22-30); Chloride 105 mmol/L (98-107); Glucose 122 mg/dL (74-99); Potassium 4.6 mmol/L (3.5-5.1); Sodium 141 mmol/L (137-145)
--- NOTE | 2017-06-19 15:25 | P.PN ---
Subjective Progress Note Date: 06/19/17 Principal diagnosis: There is a 47-year-old male known diabetic noncompliant patient who developed sepsis secondary to diabetic ulcers formed on the left fourth and fifth toe Underwent successful amputation of the fourth and fifth toe per Dr. Wilman Ho this morning Objective - Vital Signs Vital signs: Vital Signs Temp 97.7 F 06/19/17 10:06 Pulse 98 06/19/17 10:37 Resp 20 06/19/17 10:37 BP 158/73 06/19/17 10:30 Pulse Ox 94 L 06/19/17 10:37 Intake & Output 06/18/17 06/19/17 06/19/17 17:59 06:59 18:59 Intake Total 450 Output Total 50 Balance 400 Weight Intake: IV 450 Intake, IV Titration Amount Insulin Regular 100 unit In Sodium Chloride 0.9% 100 ml @ Titrate IV .Q0M [facility] Rx#:[id number] Oral Output: Estimated Blood Loss 50 Other: # Voids - Exam General: [Patient awake, alert and oriented times 3. Patient in no acute distress.] HEENT: [PERRL. EOMI. No pharyngeal erythema or exudate.] Neck: [No adenopathy.] Cardiac: [Heart regular in rate and rhythm. No S3. No S4. No clicks, rubs. No murmur.] Lungs: [Clear to auscultation bilaterally.] Abdomen: [No mass. No organomegaly. Bowel sounds presnt and normoactive in all 4 quadrants.] Extremes: Swelling with post op amputation of fourth and fifth digits of the left foot patient tolerated well afebrile currently on IV antibiotics and consultation with infectious disease : [] Musculoskeletal: [No joint erythema, edema or tenderness.] Skin: [No rash.] Neurologic: [No lateralizing deficits. CN II - XII grossly intact.] Lymphatic: [No adenopathy.] - Labs CBC & Chem 7: 06/18/17 07:53 06/19/17 11:32 Labs: Abnormal Lab Results - Last 24 Hours (Table) 06/17/17 06/18/17 06/18/17 Range/Units 16:25 15:29 17:25 Glucose (74-99) mg/dL POC Glucose (mg/dL) 172 H 131 H (75-99) mg/dL Hemoglobin A1c 8.7 H (4.0-6.0) % 06/18/17 06/18/17 06/18/17 Range/Units 19:39 21:21 23:46 Glucose (74-99) mg/dL POC Glucose (mg/dL) 210 H 225 H 126 H (75-99) mg/dL Hemoglobin A1c (4.0-6.0) % 06/19/17 06/19/17 06/19/17 Range/Units 00:25 03:18 04:38 Glucose (74-99) mg/dL POC Glucose (mg/dL) 131 H 148 H 148 H (75-99) mg/dL Hemoglobin A1c (4.0-6.0) % 06/19/17 06/19/17 06/19/17 Range/Units 06:22 10:10 11:18 Glucose (74-99) mg/dL POC Glucose (mg/dL) 140 H 122 H 120 H (75-99) mg/dL Hemoglobin A1c (4.0-6.0) % 06/19/17 Range/Units 11:32 Glucose 122 H (74-99) mg/dL POC Glucose (mg/dL) (75-99) mg/dL Hemoglobin A1c (4.0-6.0) % Microbiology - Last 24 Hours (Table) 06/17/17 17:20 Gram Stain - Preliminary Toe - Left Fourth Wound Culture - Preliminary Strep agalactiae - (group b) 06/17/17 16:25 Blood Culture - Preliminary Blood No Growth after 24 hours Assessment and Plan (1) Cellulitis of left foot Current Visit: Yes Status: Acute Code(s): L03.116 - CELLULITIS OF LEFT LOWER LIMB SNOMED Code(s): 549778891 (2) Sepsis Current Visit: Yes Status: Acute Code(s): A41.9 - SEPSIS, UNSPECIFIED ORGANISM SNOMED Code(s): 92481678 (3) Toe osteomyelitis, left Current Visit: Yes Status: Acute Code(s): M86.9 - OSTEOMYELITIS, UNSPECIFIED SNOMED Code(s): 75631517 (4) Diabetes Current Visit: Yes Status: Chronic Code(s): E11.9 - TYPE 2 DIABETES MELLITUS WITHOUT COMPLICATIONS SNOMED Code(s): 55264355 (5) Hypertension Current Visit: Yes Status: Chronic Code(s): I10 - ESSENTIAL (PRIMARY) HYPERTENSION SNOMED Code(s): 25645962 (6) Diabetic ulcer of right foot associated with diabetes mellitus due to underlying condition, with necrosis of bone Current Visit: No Status: Acute Code(s): E08.621 - DIABETES MELLITUS DUE TO UNDERLYING CONDITION W FOOT ULCER; L97.514 - NON-PRS CHRONIC ULCER OTH PRT RIGHT FOOT W NECROSIS OF BONE SNOMED Code(s): 972982290 Plan: Patient placed on Lantus in the evening and then a sliding scale Patient is status post amputation of the fourth and fifth digit of the left foot tolerated procedure well is significantly improved from yesterday We'll reevaluate patient in the morning Time with Patient: Greater than 30
[2017-06-19] MEDS: oxyCODONE-APAP 10-325MG 1 EACH TAB PO PRN (16:31)
[2017-06-19 17:23] LABS: Glucose,Whole Blood 270 mg/dL (75-99)
[2017-06-19 20:56] LABS: Glucose,Whole Blood 317 mg/dL (75-99)
[2017-06-19] MEDS ORDERED: INSULIN DETEMIR 100 UNIT/ML 10 ML VIAL SQ SCH (21:00)
[2017-06-19] MEDS: ZOLPIDEM 10 MG TAB PO SCH (21:26)
[2017-06-20] MEDS ORDERED: VANCOMYCIN TROUGH DUE 1 EACH MISC MISCELLANE ONE (05:00)
[2017-06-20 05:49] LABS: Anion Gap 6 mmol/L; Blood Urea Nitrogen 17 mg/dL (9-20); Calcium 8.5 mg/dL (8.4-10.2); Carbon Dioxide 28 mmol/L (22-30); Chloride 104 mmol/L (98-107); Glucose 203 mg/dL (74-99); Potassium 5.6 mmol/L (3.5-5.1); Sodium 138 mmol/L (137-145)
[2017-06-20] MEDS: VANCOMYCIN 2,000 MG in SODIUM CHLORIDE 0.9% 500 ML IVPB SCH (06:09)
[2017-06-20] MEDS: SODIUM CHLORIDE 0.9% 1,000 ML IV SCH ×3 (06:09→22:06)
[2017-06-20] MEDS: LISINOPRIL 10 MG TAB PO SCH (07:49)
[2017-06-20] MEDS: VITAMIN E (DL,TOCOPHERYL ACET) 400 UNIT CAP PO SCH (07:49)
[2017-06-20] MEDS: ARIPiprazole 5 MG TAB PO SCH (07:49)
[2017-06-20] MEDS: amLODIPine 5 MG TAB PO SCH (07:50)
[2017-06-20] MEDS: ESCITALOPRAM 10 MG TAB PO SCH (07:50)
[2017-06-20] MEDS: INSULIN ASPART 100 UNIT/ML 1 ML 10 ML VIAL SQ SCH ×4 (07:50→22:00)
[2017-06-20] MEDS: metFORMIN 500 MG TAB PO SCH ×2 (07:50→22:01)
[2017-06-20] MEDS: B COMPLEX-VIT C-VIT E-ZINC 1 EACH TAB PO SCH (07:50)
[2017-06-20 07:57] LABS: Glucose,Whole Blood 210 mg/dL (75-99)
[2017-06-20] MEDS: MEROPENEM 1 GM in SODIUM CHLORIDE 0.9% 100 ML IVPB SCH ×3 (09:19→23:42)
[2017-06-20] MEDS: MULTIVITAMINS, THERA 1 EACH TAB PO SCH (11:04)
[2017-06-20] MEDS: ASCORBIC ACID 500 MG TAB PO SCH (11:04)
[2017-06-20] MEDS: CHOLECALCIFEROL 1,000 UNIT TAB PO SCH (11:04)
[2017-06-20 11:50] LABS: Glucose,Whole Blood 156 mg/dL (75-99)
--- NOTE | 2017-06-20 13:24 | P.PN ---
Subjective Progress Note Date: 06/20/17 06/18/2017-Note per Dr. Atwood This patient is a 47-year-old male well-known to our practice, who is significantly noncompliant who commonly takes his mother's insulin so he doesn' t have to come into the office. This patient developed a sore which quickly developed into a foul smelling purulent ulcer on the fifth digit which quickly spread to the fourth digit Patient hemoglobin A1c is commonly in the area of 11-12 regular basis, as of late is it is actually been somewhat improved and last A1c was 10, Patient has been placed on Lantus in the evening with NovoLog coverage. Patient also has hypertension that has been fairly well controlled on lisinopril hydrochlorothiazide and Norvasc 06/19/2017-Note per Dr. Atwood There is a 47-year-old male known diabetic noncompliant patient who developed sepsis secondary to diabetic ulcers formed on the left fourth and fifth toe Underwent successful amputation of the fourth and fifth toe per Dr. Wilman Ho this morning 06/20/2017 Patient seen and examined at the bedside with Dr. Atwood. patient originally presented to the emergency room on 06/17/2017 with a chief complaint of left foot pain, swelling, and followed her. Patient stated the symptoms lasted for approximately 2 weeks. on 06/19/2017, patient underwent amputation of the left third and fourth toe with wound debridement of the plantar and dorsal aspect of the foot with Dr. Davis. Dr. Mckeon remains on consult. Blood cultures are negative at the 48 hour isaiah. Wound culture is positive for Strep agalactiae ( group b). Patient remains on Vanco q12 hours and meropenem 1 gram every 8 hours. Anticipate need for PICC line for IV antibiotics. Potassium is elevated at 5.6 this morning. Blood sugars are elevated and ranging from 203-270. Objective - Vital Signs Vital signs: Vital Signs Temp 98.0 F 06/20/17 06:43 Pulse 95 06/20/17 06:43 Resp 20 06/20/17 06:43 BP 148/71 06/20/17 06:43 Pulse Ox 93 L 06/20/17 06:43 Intake & Output 06/19/17 06/20/17 06/20/17 18:59 06:59 18:59 Intake Total 450 Output Total 50 Balance 400 Intake: IV 450 Output: Estimated Blood Loss 50 Other: # Voids 2 1 # Bowel Movements 1 - Exam GENERAL: This is a 47-year-old male in no apparent distress at the time of examination. Pleasant and cooperative. HEENT: Head is atraumatic, normocephalic. Pupils are equal, round, and reactive to light. Sclerae anicteric. Conjunctivae are clear. Mucus membranes of the mouth are moist. Neck is supple. RESPIRATORY: Clear to ausculation. No wheezes, rales, or rhonchi. No use of accessory muscles. Patient maintaining oxygen saturation greater than 92%. No chest wall tenderness is noted on palpation or with deep breathing. CARDIOVASCULAR: Regular rate and rhythm. S1 and S2 noted. No systolic or diastolic murmur auscultated. No JVD noted. No S3 or S4 noted. GASTROINTESTINAL: No distention noted. Abdomen soft and round. Normal active bowel sounds auscultated x 4 quadrants. No pain or tenderness noted upon palpation. INTEGUMENTARY: dressing to left foot clean dry and intact.No cyanosis. No jaundice. No rashes noted. No cellulitis noted. EXTREMITIES: 1+ peripheral pulses. No evidence of peripheral edema. No calf tenderness noted. NEUROLOGIC: Cranial nerves II-XII intact. PSYCHIATRIC: Awake, alert, and oriented X 3. Appropriate affect. Intact judgement and insight. - Labs CBC & Chem 7: 06/18/17 07:53 06/20/17 05:13 Labs: Abnormal Lab Results - Last 24 Hours (Table) 06/19/17 06/19/17 06/19/17 Range/Units 11:18 11:32 17:21 Potassium (3.5-5.1) mmol/L Glucose 122 H (74-99) mg/dL POC Glucose (mg/dL) 120 H 270 H (75-99) mg/dL 06/19/17 06/20/17 06/20/17 Range/Units 20:48 05:13 07:23 Potassium 5.6 H (3.5-5.1) mmol/L Glucose 203 H (74-99) mg/dL POC Glucose (mg/dL) 317 H 210 H (75-99) mg/dL Microbiology - Last 24 Hours (Table) 06/19/17 10:00 Gram Stain - Preliminary Foot - Left Tissue Culture - Preliminary Strep agalactiae - (group b) 06/17/17 17:20 Gram Stain - Final Toe - Left Fourth Wound Culture - Final Strep agalactiae - (group b) 06/17/17 16:25 Blood Culture - Preliminary Blood No Growth after 48 hours 06/19/17 10:00 Anaerobic Culture - Preliminary Foot - Left Assessment and Plan Plan: ASSESSMENT: Infected gangrene of left foot, involving third and fourth toes, wound cultures positive for strep agalactiae (group b), s/p amputation 06/19/2017 Sepsis, present on admission, secondary to above Diabetes mellitus, type II, hemoglobin A1c 8.7% Essential hypertension Chronic back pain Morbid obesity: BMI 45.8 Hyperkalemia PLAN: Vascular surgery on consult. Appreciate recommendations and input Infectious disease on consult. Appreciate recommendations and input Antibiotic regimen per Dr. Mckeon: Currently on vancomycin and meropenem Anticipate need for PICC line insertion Monitor blood glucose. Increase levemir to 45units at HS Monitor potassium. Recheck labs tomorrow AM Home meds as appropriate Monitor labs GI prophylaxis: Protonix 40 mg PO Daily DVT prophylaxis: Heparin 5000 units subcu every 12 hours Monitor vital signs and address as appropriate Discharge planning: Patient to return home when stable Further recommendations pending patient's course Nurse practitioner note has been reviewed by physician. Signing provider agrees with the documented findings, assessment, and plan of care.
[2017-06-20 16:59] LABS: Glucose,Whole Blood 220 mg/dL (75-99)
[2017-06-20] MEDS: VANCOMYCIN 1,750 MG in SODIUM CHLORIDE 0.9% 250 ML IVPB SCH (18:18)
[2017-06-20] MEDS ORDERED: INSULIN DETEMIR 100 UNIT/ML 10 ML VIAL SQ SCH (21:00)
[2017-06-20 21:05] LABS: Glucose,Whole Blood 253 mg/dL (75-99)
[2017-06-20] MEDS: ZOLPIDEM 10 MG TAB PO SCH (22:01)
[2017-06-20] MEDS: HEPARIN SODIUM,PORCINE 5,000 UNIT/ML 1 ML VIAL SQ SCH (22:03)
--- NOTE | 2017-06-20 23:49 | P.PN ---
Subjective Progress Note Date: 06/20/17 Principal diagnosis: Diabetic foot 47-year-old male who is a known history of prior right diabetic foot infection was cared for in the wound center in the past presents to Hospital with the relatively sudden onset of significant swelling drainage which is followed odor to his left foot. The patient believes that he may have inadvertently placed a folded up sock into his shoe, and then unknowingly was wearing the shoe for several days before the onset of the wounds to the third and fourth toes which then developed into draining wounds. Despite some local care at home they were not improving. He has a dense neuropathy in the does not have much pain. He now presents to the emergency center with evidence of the gangrenous changes to the foot and required admission. He is denying high- grade fevers chills or rigors but does feel poorly and blood sugars are elevated 06/20/2017 the patient is now status post surgical intervention which involve amputation of the third and fourth toes as well as the metatarsal heads, open wound is present now after the debridement. The postoperative dressing was changed by the surgeon without excessive bleeding being noted Objective - Vital Signs Vital signs: Vital Signs Temp 97.2 F L 06/20/17 23:00 Pulse 92 06/20/17 23:00 Resp 18 06/20/17 23:11 BP 180/79 06/20/17 23:00 Pulse Ox 94 L 06/20/17 23:00 Intake & Output 06/20/17 06/20/17 06/21/17 06:59 18:59 06:59 Other: # Voids 1 1 - Exam 47-year-old male who suffers from obesity but is comfortable at this time HEENT: Anicteric conjunctiva are pink and moist nasal mucosa grossly intact without significant lesions, there is no thrush. Poor dentition for age Neck: The neck is supple without significant lymphadenopathy or thyromegaly. Lungs: Good bilateral air entry without significant crackles or wheezing. There is no significant bronchial sounds. There is no egophony or dullness. Heart: Regular rate and rhythm with an audible S1-S2, no S3 no S4. There is no significant murmur click or rub, PMI was nondisplaced. Abdomen: Positive bowel sounds soft and nontender without palpable masses or organomegaly. There was no guarding or rebound. Extremities: The upper extremities have excellent pulses they are symmetric, no significant petechiae or telangiectasia. No splinter hemorrhages were noted. Lower extremities have evidence of some chronic venous stasis and chronic changes from his diabetes. No open ulcerations to the right foot are seen Left foot has evidence of the significant changes with the diabetic foot with no evidence of the amputation of toes 3 and 4, foot swelling seems to be improved ascending erythema is improved There is no significant lymphadenopathy to the left inguinal area and no other abnormal lymph nodes are noted Neuro: Awake alert oriented to person place and time. There are no acute new gross focal sensory motor deficits except he does have dense neuropathy to the bilateral feet. - Labs CBC & Chem 7: 06/18/17 07:53 06/20/17 05:13 Labs: Abnormal Lab Results - Last 24 Hours (Table) 06/20/17 06/20/17 06/20/17 Range/Units 05:13 07:23 11:46 Potassium 5.6 H (3.5-5.1) mmol/L Glucose 203 H (74-99) mg/dL POC Glucose (mg/dL) 210 H 156 H (75-99) mg/dL 06/20/17 06/20/17 Range/Units 16:57 21:03 Potassium (3.5-5.1) mmol/L Glucose (74-99) mg/dL POC Glucose (mg/dL) 220 H 253 H (75-99) mg/dL Microbiology - Last 24 Hours (Table) 06/17/17 16:25 Blood Culture - Preliminary Blood No Growth after 72 hours 06/19/17 10:00 Gram Stain - Preliminary Foot - Left Tissue Culture - Preliminary Strep agalactiae - (group b) 06/17/17 17:20 Gram Stain - Final Toe - Left Fourth Wound Culture - Final Strep agalactiae - (group b) Laboratory Results WBC 13.5 k/uL (3.8-10.6) H 06/18/17 07:53 RBC 3.28 m/uL (4.30-5.90) L 06/18/17 07:53 Hgb 9.3 gm/dL (13.0-17.5) L 06/18/17 07:53 Hct 28.3 % (39.0-53.0) L 06/18/17 07:53 MCV 86.4 fL (80.0-100.0) 06/18/17 07:53 MCH 28.3 pg (25.0-35.0) 06/18/17 07:53 MCHC 32.7 g/dL (31.0-37.0) 06/18/17 07:53 RDW 13.1 % (11.5-15.5) 06/18/17 07:53 Plt Count 279 k/uL (150-450) 06/18/17 07:53 Neutrophils % 85 % 06/18/17 07:53 Lymphocytes % 8 % 06/18/17 07:53 Monocytes % 4 % 06/18/17 07:53 Eosinophils % 1 % 06/18/17 07:53 Basophils % 0 % 06/18/17 07:53 Neutrophils # 11.5 k/uL (1.3-7.7) H 06/18/17 07:53 Lymphocytes # 1.1 k/uL (1.0-4.8) 06/18/17 07:53 Monocytes # 0.5 k/uL (0-1.0) 06/18/17 07:53 Eosinophils # 0.2 k/uL (0-0.7) 06/18/17 07:53 Basophils # 0.0 k/uL (0-0.2) 06/18/17 07:53 Sodium 138 mmol/L (137-145) 06/20/17 05:13 Potassium 5.6 mmol/L (3.5-5.1) H 06/20/17 05:13 Chloride 104 mmol/L (98-107) 06/20/17 05:13 Carbon Dioxide 28 mmol/L (22-30) 06/20/17 05:13 Anion Gap 6 mmol/L 06/20/17 05:13 BUN 17 mg/dL (9-20) 06/20/17 05:13 Creatinine 0.87 mg/dL (0.66-1.25) 06/20/17 05:13 Est GFR (CKD-EPI)AfAm >90 (>60 ml/min/1.73 sqM) 06/20/17 05:13 Est GFR (CKD-EPI)NonAf >90 (>60 ml/min/1.73 sqM) 06/20/17 05:13 Glucose 203 mg/dL (74-99) H 06/20/17 05:13 POC Glucose (mg/dL) 253 mg/dL (75-99) H 06/20/17 21:03 POC Glu Environmental Remed[employer] Consultant Charmaine Navarro 06/20/17 21:[address] Glu mg/dL 203 06/17/17 16:25 Hemoglobin A1c 8.7 % (4.0-6.0) H 06/17/17 16:25 Plasma Lactic Acid Pratik 1.1 mmol/L (0.7-2.0) 06/17/17 16:28 Calcium 8.5 mg/dL (8.4-10.2) 06/20/17 05:13 Total Bilirubin 0.9 mg/dL (0.2-1.3) 06/17/17 16:25 AST 23 U/L (17-59) 06/17/17 16:25 ALT 26 U/L (21-72) 06/17/17 16:25 Alkaline Phosphatase 95 U/L (38-126) 06/17/17 16:25 Total Protein 6.7 g/dL (6.3-8.2) 06/17/17 16:25 Albumin 3.2 g/dL (3.5-5.0) L 06/17/17 16:25 Vancomycin Trough 23.1 ug/mL 06/20/17 05:13 Microbiology 06/17/17 16:25 Blood Blood Culture - Preliminary No Growth after 72 hours 06/19/17 10:00 Foot - Left Gram Stain - Preliminary 06/19/17 10:00 Foot - Left Tissue Culture - Preliminary Strep agalactiae - (group b) 06/17/17 17:20 Toe - Left Fourth Gram Stain - Final 06/17/17 17:20 Toe - Left Fourth Wound Culture - Final Strep agalactiae - (group b) 06/19/17 10:00 Foot - Left Anaerobic Culture - Preliminary Assessment and Plan (1) Cellulitis of left foot Narrative/Plan: 47-year-old male who suffers from obesity and diabetes mellitus type 2 that is not well controlled presents with significant swelling of the left foot at the third and fourth toes with open ulcerations exposed tendons gangrenous change with foul odor. The patient has been seen by surgery nurse plans for the surgical debridement and amputation in the morning for the gangrenous toes, at this time unclear the extensive debridement that was required on the plantar surface given the findings. Likely will have open ulcerations that will require wound care possibly wound VAC. It will require outpatient intravenous antibiotic therapy. Blood cultures pending meropenem has been added given his known penicillin ALLERGY. He is up-to-date on his tetanus vaccine. We'll take a multivitamin and have him enhance protein intake. We'll have offloading to the foot for quite some time which will impact his ability to work. Fortunately he is comfortable this time but is so because of his neuropathy. The significant leukocytosis at admission is partially on the basis of his significant sepsis from the gangrenous change to his foot. 06/20/2017 reveals the 47 year old gentleman who has a history of diabetes is developed gangrene to the third and fourth toes to the left foot. Now status post amputation and debridement of the foot. Local wound care is in process. We'll likely be a good candidate for negative pressure therapy that is the wound VAC. Request a PICC line to be placed and will start to work on and by therapy discharge likely with Invanz given the group B streptococcus isolated in the diabetes. Patient is willing to come in the outpatient clinic if needed. Current Visit: Yes Status: Acute Code(s): L03.116 - CELLULITIS OF LEFT LOWER LIMB SNOMED Code(s): 995390527 (2) Toe osteomyelitis, left Current Visit: Yes Status: Acute Code(s): M86.9 - OSTEOMYELITIS, UNSPECIFIED SNOMED Code(s): 54900276 (3) Sepsis Current Visit: Yes Status: Acute Code(s): A41.9 - SEPSIS, UNSPECIFIED ORGANISM SNOMED Code(s): 87468634
[2017-06-21] MEDS: SODIUM CHLORIDE 0.9% 1,000 ML IV SCH ×3 (06:29→22:53)
[2017-06-21] MEDS: VANCOMYCIN 1,750 MG in SODIUM CHLORIDE 0.9% 250 ML IVPB SCH ×2 (06:29→18:33)
[2017-06-21 07:13] LABS: Glucose,Whole Blood 227 mg/dL (75-99)
[2017-06-21] MEDS: INSULIN ASPART 100 UNIT/ML 1 ML 10 ML VIAL SQ SCH ×4 (07:55→21:31)
[2017-06-21] MEDS: HEPARIN SODIUM,PORCINE 5,000 UNIT/ML 1 ML VIAL SQ SCH ×2 (07:55→21:32)
[2017-06-21] MEDS: VITAMIN E (DL,TOCOPHERYL ACET) 400 UNIT CAP PO SCH (07:56)
[2017-06-21] MEDS: PANTOPRAZOLE 40 MG TABLET PO SCH (07:56)
[2017-06-21] MEDS: ESCITALOPRAM 10 MG TAB PO SCH (07:56)
[2017-06-21] MEDS: B COMPLEX-VIT C-VIT E-ZINC 1 EACH TAB PO SCH (07:56)
[2017-06-21] MEDS: amLODIPine 5 MG TAB PO SCH (07:57)
[2017-06-21] MEDS: ARIPiprazole 5 MG TAB PO SCH (07:57)
[2017-06-21] MEDS: metFORMIN 500 MG TAB PO SCH ×2 (07:57→21:31)
[2017-06-21] MEDS: LISINOPRIL 10 MG TAB PO SCH (07:57)
[2017-06-21 09:05] LABS: ALT 24 U/L (21-72); AST 18 U/L (17-59); Alkaline Phosphatase 91 U/L (38-126); Anion Gap 9 mmol/L; Blood Urea Nitrogen 15 mg/dL (9-20); Calcium 9.1 mg/dL (8.4-10.2); Carbon Dioxide 32 mmol/L (22-30); Chloride 100 mmol/L (98-107); Glucose 188 mg/dL (74-99); Potassium 5.1 mmol/L (3.5-5.1); Sodium 141 mmol/L (137-145); Total Bilirubin 0.4 mg/dL (0.2-1.3); Total Protein 6.4 g/dL (6.3-8.2)
[2017-06-21] MEDS: MEROPENEM 1 GM in SODIUM CHLORIDE 0.9% 100 ML IVPB SCH ×3 (09:16→23:22)
[2017-06-21 10:14] LABS: Basophils % (A) 0 %; Eosinophils # (A) 0.2 k/uL (0-0.7); Eosinophils % (A) 2 %; HCT 31.1 % (39.0-53.0); HGB 10.2 gm/dL (13.0-17.5); Hypochromasia Slight; Lymphocytes # (A) 1.4 k/uL (1.0-4.8); Lymphocytes % (A) 14 %; MCH 28.5 pg (25.0-35.0); MCHC 32.8 g/dL (31.0-37.0); MCV 86.9 fL (80.0-100.0); Mean Platelet Volume 7.3; Monocytes # (A) 0.4 k/uL (0-1.0); Monocytes % (A) 3 %; Neutrophils # (A) 8.2 k/uL (1.3-7.7); Neutrophils % (A) 79 %; Platelet Count 316 k/uL (150-450); RBC 3.58 m/uL (4.30-5.90); RDW 13.5 % (11.5-15.5); WBC 10.3 k/uL (3.8-10.6)
[2017-06-21] MEDS: oxyCODONE-APAP 10-325MG 1 EACH TAB PO PRN (11:12)
[2017-06-21] MEDS: CHOLECALCIFEROL 1,000 UNIT TAB PO SCH (11:13)
[2017-06-21] MEDS: MULTIVITAMINS, THERA 1 EACH TAB PO SCH (11:13)
[2017-06-21] MEDS: ASCORBIC ACID 500 MG TAB PO SCH (11:13)
[2017-06-21] MEDS ORDERED: LIDOCAINE 2% INJ 20 MG/ML SQ ONE (12:30)
--- NOTE | 2017-06-21 12:53 | IR ---
PICC LINE PLACEMENT: HISTORY: Infection requiring long-term antibiotic therapy PROCEDURE: Ultrasound and fluoroscopic guidance of PICC line placement. COMPLICATIONS: None ANESTHESIA: 1. 1% Lidocaine locally. FINDINGS/TECHNIQUE: The procedure was explained to the patient. The risks, complications, benefits and alternatives were discussed and any questions were answered. Informed consent was obtained. The patient was placed supine on the fluoroscopic table and prepped and draped in the usual sterile critical access hospital ion. Utilizing a 21 gauge needle and sonographic and fluoroscopic guidance, access in the vein was achieved and there is placement of a 0.018 guidewire. The vein is patent. A 4-F sheath was placed o jody the guidewire. The guidewire and dilator were removed and a 4-F. PICC line was placed through th e sheath with the tip at the level of the SVC. The sheath was removed, the catheter was flushed and sutured into position. The patient was stable throughout the procedure and remained stable upon disc harge from the Department of Radiology. The vein puncture was patent under ultrasound. A huerta scale image was obtained to document patency of the vein punctured. All elements of the maximal barrier technique were utilized. FLUOROSCOPY TIME: 0.2 minute, one image submitted IMPRESSION: Successful PICC line placement under ultrasound and fluoroscopic guidance.
[2017-06-21 13:32] LABS: Glucose,Whole Blood 150 mg/dL (75-99)
--- NOTE | 2017-06-21 14:19 | P.PN ---
Subjective Progress Note Date: 06/21/17 06/18/2017-Note per Dr. Atwood This patient is a 47-year-old male well-known to our practice, who is significantly noncompliant who commonly takes his mother's insulin so he doesn' t have to come into the office. This patient developed a sore which quickly developed into a foul smelling purulent ulcer on the fifth digit which quickly spread to the fourth digit Patient hemoglobin A1c is commonly in the area of 11-12 regular basis, as of late is it is actually been somewhat improved and last A1c was 10, Patient has been placed on Lantus in the evening with NovoLog coverage. Patient also has hypertension that has been fairly well controlled on lisinopril hydrochlorothiazide and Norvasc 06/19/2017-Note per Dr. Atwood There is a 47-year-old male known diabetic noncompliant patient who developed sepsis secondary to diabetic ulcers formed on the left fourth and fifth toe Underwent successful amputation of the fourth and fifth toe per Dr. Wilman Ho this morning 06/20/2017 Patient seen and examined at the bedside with Dr. Atwood. patient originally presented to the emergency room on 06/17/2017 with a chief complaint of left foot pain, swelling, and followed her. Patient stated the symptoms lasted for approximately 2 weeks. on 06/19/2017, patient underwent amputation of the left third and fourth toe with wound debridement of the plantar and dorsal aspect of the foot with Dr. Davis. Dr. Mckeon remains on consult. Blood cultures are negative at the 48 hour isaiah. Wound culture is positive for Strep agalactiae ( group b). Patient remains on Vanco q12 hours and meropenem 1 gram every 8 hours. Anticipate need for PICC line for IV antibiotics. Potassium is elevated at 5.6 this morning. Blood sugars are elevated and ranging from 203-270. 06/21/2017 Patient seen and examined at the bedside. Patient is postop day #2 amputation of left third and fourth toe. Patient is scheduled for PICC line insertion today. Dr. Mckeon is on consult. Patient to be discharged on Invanz 1 g every 24 hours for 42 days. Wound VAC has been ordered to patient's left foot. Patient's blood sugars remain elevated and ranging from 156-253. Potassium is slightly elevated at 5.1, but down from 5.6 yesterday. Patient is afebrile. Blood pressure this morning is elevated at 155/71 but has not consistently been elevated. Previous reading of 180/79 and 122/50. Objective - Vital Signs Vital signs: Vital Signs Temp 97.9 F 06/21/17 07:00 Pulse 93 06/21/17 07:00 Resp 18 06/21/17 07:00 BP 155/71 06/21/17 07:00 Pulse Ox 96 06/21/17 07:00 Intake & Output 06/20/17 06/21/17 06/21/17 18:59 06:59 18:59 Other: # Voids 1 2 - Exam GENERAL: This is a 47-year-old male in no apparent distress at the time of examination. Pleasant and cooperative. HEENT: Head is atraumatic, normocephalic. Pupils are equal, round, and reactive to light. Sclerae anicteric. Conjunctivae are clear. Mucus membranes of the mouth are moist. Neck is supple. RESPIRATORY: Clear to ausculation. No wheezes, rales, or rhonchi. No use of accessory muscles. Patient maintaining oxygen saturation greater than 92%. No chest wall tenderness is noted on palpation or with deep breathing. CARDIOVASCULAR: Regular rate and rhythm. S1 and S2 noted. No systolic or diastolic murmur auscultated. No JVD noted. No S3 or S4 noted. GASTROINTESTINAL: No distention noted. Abdomen soft and round. Normal active bowel sounds auscultated x 4 quadrants. No pain or tenderness noted upon palpation. INTEGUMENTARY: dressing to left foot clean dry and intact.No cyanosis. No jaundice. No rashes noted. No cellulitis noted. EXTREMITIES: 1+ peripheral pulses. No evidence of peripheral edema. No calf tenderness noted. NEUROLOGIC: Cranial nerves II-XII intact. PSYCHIATRIC: Awake, alert, and oriented X 3. Appropriate affect. Intact judgement and insight. - Labs CBC & Chem 7: 06/21/17 08:14 06/21/17 08:14 Labs: Abnormal Lab Results - Last 24 Hours (Table) 06/20/17 06/20/17 06/21/17 Range/Units 16:57 21:03 07:11 RBC (4.30-5.90) m/uL Hgb (13.0-17.5) gm/dL Hct (39.0-53.0) % Neutrophils # (1.3-7.7) k/uL Carbon Dioxide (22-30) mmol/L Glucose (74-99) mg/dL POC Glucose (mg/dL) 220 H 253 H 227 H (75-99) mg/dL Albumin (3.5-5.0) g/dL 06/21/17 06/21/17 Range/Units 08:14 08:14 RBC 3.58 L (4.30-5.90) m/uL Hgb 10.2 L (13.0-17.5) gm/dL Hct 31.1 L (39.0-53.0) % Neutrophils # 8.2 H (1.3-7.7) k/uL Carbon Dioxide 32 H (22-30) mmol/L Glucose 188 H (74-99) mg/dL POC Glucose (mg/dL) (75-99) mg/dL Albumin 3.0 L (3.5-5.0) g/dL Microbiology - Last 24 Hours (Table) 06/17/17 16:25 Blood Culture - Preliminary Blood No Growth after 72 hours 06/19/17 10:00 Gram Stain - Preliminary Foot - Left Tissue Culture - Preliminary Strep agalactiae - (group b) Assessment and Plan Plan: ASSESSMENT: Infected gangrene of left foot, involving third and fourth toes, wound cultures positive for strep agalactiae (group b), s/p amputation 06/19/2017 Sepsis, present on admission, secondary to above Diabetes mellitus, type II, hemoglobin A1c 8.7% Essential hypertension Chronic back pain Morbid obesity: BMI 45.8 Hyperkalemia PLAN: Vascular surgery on consult. Appreciate recommendations and input Infectious disease on consult. Appreciate recommendations and input Antibiotic regimen per Dr. Mckeon: Currently on vancomycin and meropenem Patient scheduled for PICC line insertion today Wound VAC ordered per vascular surgery Monitor blood glucose. Resume patient's home dose of Levemir 60 units twice a day Monitor potassium. Recheck labs tomorrow AM Home meds as appropriate Monitor labs GI prophylaxis: Protonix 40 mg PO Daily DVT prophylaxis: Heparin 5000 units subcu every 12 hours Monitor vital signs and address as appropriate Discharge planning: Patient to return home when stable Further recommendations pending patient's course Possible discharge within the next 24-48 hours Nurse practitioner note has been reviewed by physician. Signing provider agrees with the documented findings, assessment, and plan of care.
[2017-06-21 17:49] LABS: Glucose,Whole Blood 186 mg/dL (75-99)
[2017-06-21 20:55] LABS: Glucose,Whole Blood 250 mg/dL (75-99)
[2017-06-21] MEDS: ZOLPIDEM 10 MG TAB PO SCH (21:31)
[2017-06-21] MEDS: INSULIN DETEMIR 100 UNIT/ML 10 ML VIAL SQ SCH (22:52)
[2017-06-22] MEDS: VANCOMYCIN 1,750 MG in SODIUM CHLORIDE 0.9% 250 ML IVPB SCH ×2 (06:04→18:17)
[2017-06-22] MEDS: SODIUM CHLORIDE 0.9% 1,000 ML IV SCH (06:04)
[2017-06-22 07:40] LABS: Glucose,Whole Blood 172 mg/dL (75-99)
[2017-06-22] MEDS: INSULIN ASPART 100 UNIT/ML 1 ML 10 ML VIAL SQ SCH ×5 (08:23→22:24)
[2017-06-22] MEDS: HEPARIN SODIUM,PORCINE 5,000 UNIT/ML 1 ML VIAL SQ SCH ×2 (08:24→22:38)
[2017-06-22] MEDS: VITAMIN E (DL,TOCOPHERYL ACET) 400 UNIT CAP PO SCH (08:24)
[2017-06-22] MEDS: INSULIN DETEMIR 100 UNIT/ML 10 ML VIAL SQ SCH ×2 (08:24→22:37)
[2017-06-22] MEDS: metFORMIN 500 MG TAB PO SCH ×2 (08:25→22:37)
[2017-06-22] MEDS: B COMPLEX-VIT C-VIT E-ZINC 1 EACH TAB PO SCH (08:25)
[2017-06-22] MEDS: ESCITALOPRAM 10 MG TAB PO SCH (08:25)
[2017-06-22] MEDS: amLODIPine 5 MG TAB PO SCH (08:25)
[2017-06-22] MEDS: PANTOPRAZOLE 40 MG TABLET PO SCH (08:25)
[2017-06-22] MEDS: ARIPiprazole 5 MG TAB PO SCH (08:25)
[2017-06-22] MEDS: LISINOPRIL 10 MG TAB PO SCH (08:25)
[2017-06-22] MEDS: MEROPENEM 1 GM in SODIUM CHLORIDE 0.9% 100 ML IVPB SCH ×2 (09:02→15:38)
[2017-06-22 09:40] LABS: Basophils % (A) 0 %; Eosinophils # (A) 0.2 k/uL (0-0.7); Eosinophils % (A) 2 %; HCT 32.2 % (39.0-53.0); HGB 10.3 gm/dL (13.0-17.5); Lymphocytes # (A) 1.4 k/uL (1.0-4.8); Lymphocytes % (A) 12 %; MCH 27.7 pg (25.0-35.0); MCV 86.4 fL (80.0-100.0); Mean Platelet Volume 7.1; Monocytes # (A) 0.4 k/uL (0-1.0); Monocytes % (A) 3 %; Neutrophils % (A) 81 %; Platelet Count 333 k/uL (150-450); RBC 3.72 m/uL (4.30-5.90); WBC 12.3 k/uL (3.8-10.6)
--- NOTE | 2017-06-22 09:44 | PN ---
PROGRESS NOTE This is a 47-year-old gentleman who came with wet gangrene of the left foot 3rd and 4th toes. The patient went with ray amputation. We kept the wound opened. Patient is getting IV antibiotic under care of Dr. Mckeon. We have been using Aquacel Silver. Today I have changed the dressing. There is still some slough present. We will change to Santyl cream daily and continue with IV antibiotic. Patient will go home if it is okay with Infectious Disease. Then, I will follow in the wound clinic on Tuesday. We will continue with Santyl cream and IV antibiotic. MMODL / IJN: [id number] /
[2017-06-22] MEDS: COLLAGENASE 250 UNIT/GM OINTMENT 30 GM TUBE TOPICAL SCH (09:58)
[2017-06-22 10:08] LABS: ALT 26 U/L (21-72); AST 20 U/L (17-59); Alkaline Phosphatase 82 U/L (38-126); Anion Gap 7 mmol/L; Blood Urea Nitrogen 17 mg/dL (9-20); Calcium 9.1 mg/dL (8.4-10.2); Carbon Dioxide 32 mmol/L (22-30); Chloride 101 mmol/L (98-107); Glucose 226 mg/dL (74-99); Sodium 140 mmol/L (137-145); Total Bilirubin 0.4 mg/dL (0.2-1.3); Total Protein 6.2 g/dL (6.3-8.2)
[2017-06-22] MEDS ORDERED: amLODIPine 5 MG TAB PO STA (10:45)
[2017-06-22] MEDS ORDERED: SODIUM POLYSTYRENE SULFONATE 15 GM/60 ML BOTTLE PO STA (10:50)
--- NOTE | 2017-06-22 10:52 | P.PN ---
Subjective Progress Note Date: 06/22/17 06/18/2017-Note per Dr. Atwood This patient is a 47-year-old male well-known to our practice, who is significantly noncompliant who commonly takes his mother's insulin so he doesn' t have to come into the office. This patient developed a sore which quickly developed into a foul smelling purulent ulcer on the fifth digit which quickly spread to the fourth digit Patient hemoglobin A1c is commonly in the area of 11-12 regular basis, as of late is it is actually been somewhat improved and last A1c was 10, Patient has been placed on Lantus in the evening with NovoLog coverage. Patient also has hypertension that has been fairly well controlled on lisinopril hydrochlorothiazide and Norvasc 06/19/2017-Note per Dr. Atwood There is a 47-year-old male known diabetic noncompliant patient who developed sepsis secondary to diabetic ulcers formed on the left fourth and fifth toe Underwent successful amputation of the fourth and fifth toe per Dr. Wilman Ho this morning 06/20/2017 Patient seen and examined at the bedside with Dr. Atwood. patient originally presented to the emergency room on 06/17/2017 with a chief complaint of left foot pain, swelling, and followed her. Patient stated the symptoms lasted for approximately 2 weeks. on 06/19/2017, patient underwent amputation of the left third and fourth toe with wound debridement of the plantar and dorsal aspect of the foot with Dr. Davis. Dr. Mckeon remains on consult. Blood cultures are negative at the 48 hour isaiah. Wound culture is positive for Strep agalactiae ( group b). Patient remains on Vanco q12 hours and meropenem 1 gram every 8 hours. Anticipate need for PICC line for IV antibiotics. Potassium is elevated at 5.6 this morning. Blood sugars are elevated and ranging from 203-270. 06/21/2017 Patient seen and examined at the bedside. Patient is postop day #2 amputation of left third and fourth toe. Patient is scheduled for PICC line insertion today. Dr. Mckeon is on consult. Patient to be discharged on Invanz 1 g every 24 hours for 42 days. Wound VAC has been ordered to patient's left foot. Patient's blood sugars remain elevated and ranging from 156-253. Potassium is slightly elevated at 5.1, but down from 5.6 yesterday. Patient is afebrile. Blood pressure this morning is elevated at 155/71 but has not consistently been elevated. Previous reading of 180/79 and 122/50. 06/22/2017 Patient seen and examined at the bedside. Patient underwent PICC line insertion yesterday. Patient is to be discharged on Invanz 1 g every 24 hours for 42 days. Case management is working on [employer]. Patient was originally supposed to have a wound VAC placed to his left foot. However, his wound is been reevaluated and he is to apply Santyl daily. The patient is to follow-up with Dr. Ho on Tuesday and he will reevaluate the patient's wound and determine if a wound VAC is appropriate at that time. Patients blood sugars have remained elevated ranging from 172 to 250. He is on a NovoLog sliding scale. His Levemir was increased to 60 units twice a day yesterday which is the patients home dose. Objective - Vital Signs Vital signs: Vital Signs Temp 97.0 F L 06/22/17 06:07 Pulse 98 06/22/17 06:07 Resp 18 06/22/17 06:07 BP 140/63 06/22/17 06:07 Pulse Ox 93 L 06/22/17 06:07 Intake & Output 06/21/17 06/22/17 06/22/17 18:59 06:59 18:59 Intake Total 350 300 100 Balance 350 300 100 Intake: Intake, IV Titration 350 100 Amount Meropenem 1 gm In Sodium 100 100 Chloride 0.9% 100 ml @ 100 mls/hr IVPB Q8HR [facility] Rx#:[id number] Vancomycin 1,750 mg In 250 Sodium Chloride 0.9% 250 ml @ 125 mls/hr IVPB Q12H [facility] Rx#:[id number] Oral 300 Other: Voiding Method Toilet # Voids 1 - Exam GENERAL: This is a 47-year-old male in no apparent distress at the time of examination. Pleasant and cooperative. HEENT: Head is atraumatic, normocephalic. Pupils are equal, round, and reactive to light. Sclerae anicteric. Conjunctivae are clear. Mucus membranes of the mouth are moist. Neck is supple. RESPIRATORY: Clear to ausculation. No wheezes, rales, or rhonchi. No use of accessory muscles. Patient maintaining oxygen saturation greater than 92%. No chest wall tenderness is noted on palpation or with deep breathing. CARDIOVASCULAR: Regular rate and rhythm. S1 and S2 noted. No systolic or diastolic murmur auscultated. No JVD noted. No S3 or S4 noted. GASTROINTESTINAL: No distention noted. Abdomen soft and round. Normal active bowel sounds auscultated x 4 quadrants. No pain or tenderness noted upon palpation. INTEGUMENTARY: dressing to left foot clean dry and intact. No cyanosis. No jaundice. No rashes noted. No cellulitis noted. EXTREMITIES: 1+ peripheral pulses. +1-2 lower extremity edema. No calf tenderness noted. NEUROLOGIC: Cranial nerves II-XII intact. PSYCHIATRIC: Awake, alert, and oriented X 3. Appropriate affect. Intact judgement and insight. - Labs CBC & Chem 7: 06/22/17 09:11 06/22/17 09:11 Labs: Abnormal Lab Results - Last 24 Hours (Table) 06/21/17 06/21/17 06/21/17 Range/Units 12:55 17:33 20:52 WBC (3.8-10.6) k/uL RBC (4.30-5.90) m/uL Hgb (13.0-17.5) gm/dL Hct (39.0-53.0) % Neutrophils # (1.3-7.7) k/uL Potassium (3.5-5.1) mmol/L Carbon Dioxide (22-30) mmol/L Glucose (74-99) mg/dL POC Glucose (mg/dL) 150 H 186 H 250 H (75-99) mg/dL Total Protein (6.3-8.2) g/dL Albumin (3.5-5.0) g/dL 06/22/17 06/22/17 06/22/17 Range/Units 07:36 09:11 09:11 WBC 12.3 H (3.8-10.6) k/uL RBC 3.72 L (4.30-5.90) m/uL Hgb 10.3 L (13.0-17.5) gm/dL Hct 32.2 L (39.0-53.0) % Neutrophils # 10.0 H (1.3-7.7) k/uL Potassium 6.0 H (3.5-5.1) mmol/L Carbon Dioxide 32 H (22-30) mmol/L Glucose 226 H (74-99) mg/dL POC Glucose (mg/dL) 172 H (75-99) mg/dL Total Protein 6.2 L (6.3-8.2) g/dL Albumin 3.0 L (3.5-5.0) g/dL Microbiology - Last 24 Hours (Table) 06/17/17 16:25 Blood Culture - Preliminary Blood No Growth after 96 hours 06/19/17 10:00 Gram Stain - Preliminary Foot - Left Tissue Culture - Preliminary Strep agalactiae - (group b) Alpha Hemolytic Streptococcus Diphtheroid species Assessment and Plan Plan: ASSESSMENT: Infected gangrene of left foot, involving third and fourth toes, wound cultures positive for strep agalactiae (group b), s/p amputation 06/19/2017 Sepsis, present on admission, secondary to above, improving Diabetes mellitus, type II, hemoglobin A1c 8.7% Essential hypertension Chronic back pain Morbid obesity: BMI 45.8 Hyperkalemia, likely secondary to hyperglycemia with possible component from CONSUELO inhibitor PLAN: Vascular surgery on consult. Appreciate recommendations and input Rob daily to surgical site. Patient to see Dr. Ho on Tuesday to reevaluate wound and determine if wound VAC as appropriate Infectious disease on consult. Appreciate recommendations and input Antibiotic regimen per Dr. Mckeon: Currently on vancomycin and meropenem Patient to be discharged home on Invanz 1 g daily for 42 days Monitor blood glucose Continue NovoLog sliding scale Continue patient's home dose of Levemir 60 units twice a day Resume patient's home dose of NovoLog 40 units BID Hold lisinopril Increase Norvasc to 10 mg daily Kayexalate 30 g by mouth 1 dose Repeat potassium tomorrow morning Home meds as appropriate Monitor labs GI prophylaxis: Protonix 40 mg PO Daily DVT prophylaxis: Heparin 5000 units subcu every 12 hours Monitor vital signs and address as appropriate Discharge planning: Patient to return home when stable Further recommendations pending patient's course Possible discharge within the next 24-48 hours Nurse practitioner note has been reviewed by physician. Signing provider agrees with the documented findings, assessment, and plan of care.
[2017-06-22] MEDS: ASCORBIC ACID 500 MG TAB PO SCH (11:11)
[2017-06-22] MEDS: CHOLECALCIFEROL 1,000 UNIT TAB PO SCH (11:11)
[2017-06-22] MEDS: MULTIVITAMINS, THERA 1 EACH TAB PO SCH (11:12)
[2017-06-22 12:28] LABS: Glucose,Whole Blood 306 mg/dL (75-99)
[2017-06-22 17:26] LABS: Glucose,Whole Blood 188 mg/dL (75-99)
[2017-06-22 20:49] LABS: Glucose,Whole Blood 88 mg/dL (75-99)
[2017-06-22] MEDS: ZOLPIDEM 10 MG TAB PO SCH (22:37)
[2017-06-22 23:34] VITALS: RESP 18
[2017-06-23] MEDS: MEROPENEM 1 GM in SODIUM CHLORIDE 0.9% 100 ML IVPB SCH ×2 (00:01→08:09)
--- NOTE | 2017-06-23 00:15 | P.PN ---
Subjective Progress Note Date: 06/22/17 Principal diagnosis: Diabetic foot 47-year-old male who is a known history of prior right diabetic foot infection was cared for in the wound center in the past presents to Hospital with the relatively sudden onset of significant swelling drainage which is followed odor to his left foot. The patient believes that he may have inadvertently placed a folded up sock into his shoe, and then unknowingly was wearing the shoe for several days before the onset of the wounds to the third and fourth toes which then developed into draining wounds. Despite some local care at home they were not improving. He has a dense neuropathy in the does not have much pain. He now presents to the emergency center with evidence of the gangrenous changes to the foot and required admission. He is denying high- grade fevers chills or rigors but does feel poorly and blood sugars are elevated 06/20/2017 the patient is now status post surgical intervention which involve amputation of the third and fourth toes as well as the metatarsal heads, open wound is present now after the debridement. The postoperative dressing was changed by the surgeon without excessive bleeding being noted 06/22/2017 patient has had further improvement. PICC line has been placed for his outpatient intravenous antibiotic therapy. Vascular surgery history is dressing and Santyl was applied. The patient is comfortable and looks forward to discharge home likely tomorrow to complete his course of antibiotic therapy. Objective - Vital Signs Vital signs: Vital Signs Temp 97.3 F L 06/22/17 23:00 Pulse 98 06/22/17 23:00 Resp 18 06/22/17 23:00 BP 148/87 06/22/17 23:00 Pulse Ox 98 06/22/17 23:00 Intake & Output 06/22/17 06/22/17 06/23/17 06:59 18:59 06:59 Intake Total 300 1400 500 Balance 300 1400 500 Intake: Intake, IV Titration 200 Amount Meropenem 1 gm In Sodium 200 Chloride 0.9% 100 ml @ 100 mls/hr IVPB Q8HR [facility] Rx#:[id number] Oral 300 1200 500 Other: Voiding Method Toilet Toilet # Voids 1 2 2 - Exam 47-year-old male who suffers from obesity but is comfortable at this time HEENT: Anicteric conjunctiva are pink and moist nasal mucosa grossly intact without significant lesions, there is no thrush. Poor dentition for age Neck: The neck is supple without significant lymphadenopathy or thyromegaly. Lungs: Good bilateral air entry without significant crackles or wheezing. There is no significant bronchial sounds. There is no egophony or dullness. Heart: Regular rate and rhythm with an audible S1-S2, no S3 no S4. There is no significant murmur click or rub, PMI was nondisplaced. Abdomen: Positive bowel sounds soft and nontender without palpable masses or organomegaly. There was no guarding or rebound. Extremities: The upper extremities have excellent pulses they are symmetric, no significant petechiae or telangiectasia. No splinter hemorrhages were noted. Lower extremities have evidence of some chronic venous stasis and chronic changes from his diabetes. No open ulcerations to the right foot are seen Left foot has evidence of the significant changes with the diabetic foot with evidence of the amputation of toes 3 and 4, foot swelling seems to be improved ascending erythema is improved There is no significant lymphadenopathy to the left inguinal area and no other abnormal lymph nodes are noted Neuro: Awake alert oriented to person place and time. There are no acute new gross focal sensory motor deficits except he does have dense neuropathy to the bilateral feet. - Labs CBC & Chem 7: 06/22/17 09:11 06/22/17 09:11 Labs: Abnormal Lab Results - Last 24 Hours (Table) 06/22/17 06/22/17 06/22/17 Range/Units 07:36 09:11 09:11 WBC 12.3 H (3.8-10.6) k/uL RBC 3.72 L (4.30-5.90) m/uL Hgb 10.3 L (13.0-17.5) gm/dL Hct 32.2 L (39.0-53.0) % Neutrophils # 10.0 H (1.3-7.7) k/uL Potassium 6.0 H (3.5-5.1) mmol/L Carbon Dioxide 32 H (22-30) mmol/L Glucose 226 H (74-99) mg/dL POC Glucose (mg/dL) 172 H (75-99) mg/dL Total Protein 6.2 L (6.3-8.2) g/dL Albumin 3.0 L (3.5-5.0) g/dL 06/22/17 06/22/17 Range/Units 12:21 17:24 WBC (3.8-10.6) k/uL RBC (4.30-5.90) m/uL Hgb (13.0-17.5) gm/dL Hct (39.0-53.0) % Neutrophils # (1.3-7.7) k/uL Potassium (3.5-5.1) mmol/L Carbon Dioxide (22-30) mmol/L Glucose (74-99) mg/dL POC Glucose (mg/dL) 306 H 188 H (75-99) mg/dL Total Protein (6.3-8.2) g/dL Albumin (3.5-5.0) g/dL Microbiology - Last 24 Hours (Table) 06/17/17 16:25 Blood Culture - Preliminary Blood No Growth after 120 hours 06/19/17 10:00 Gram Stain - Final Foot - Left Tissue Culture - Final Strep agalactiae - (group b) Alpha Hemolytic Streptococcus Coagulase Negative Staph Diphtheroid species Laboratory Results WBC 12.3 k/uL (3.8-10.6) H 06/22/17 09:11 RBC 3.72 m/uL (4.30-5.90) L 06/22/17 09:11 Hgb 10.3 gm/dL (13.0-17.5) L 06/22/17 09:11 Hct 32.2 % (39.0-53.0) L 06/22/17 09:11 MCV 86.4 fL (80.0-100.0) 06/22/17 09:11 MCH 27.7 pg (25.0-35.0) 06/22/17 09:11 MCHC 32.0 g/dL (31.0-37.0) 06/22/17 09:11 RDW 13.0 % (11.5-15.5) 06/22/17 09:11 Plt Count 333 k/uL (150-450) 06/22/17 09:11 Neutrophils % 81 % 06/22/17 09:11 Lymphocytes % 12 % 06/22/17 09:11 Monocytes % 3 % 06/22/17 09:11 Eosinophils % 2 % 06/22/17 09:11 Basophils % 0 % 06/22/17 09:11 Neutrophils # 10.0 k/uL (1.3-7.7) H 06/22/17 09:11 Lymphocytes # 1.4 k/uL (1.0-4.8) 06/22/17 09:11 Monocytes # 0.4 k/uL (0-1.0) 06/22/17 09:11 Eosinophils # 0.2 k/uL (0-0.7) 06/22/17 09:11 Basophils # 0.0 k/uL (0-0.2) 06/22/17 09:11 Hypochromasia Slight 06/21/17 08:14 Sodium 140 mmol/L (137-145) 06/22/17 09:11 Potassium 6.0 mmol/L (3.5-5.1) H 06/22/17 09:11 Chloride 101 mmol/L (98-107) 06/22/17 09:11 Carbon Dioxide 32 mmol/L (22-30) H 06/22/17 09:11 Anion Gap 7 mmol/L 06/22/17 09:11 BUN 17 mg/dL (9-20) 06/22/17 09:11 Creatinine 0.89 mg/dL (0.66-1.25) 06/22/17 09:11 Est GFR (CKD-EPI)AfAm >90 (>60 ml/min/1.73 sqM) 06/22/17 09:11 Est GFR (CKD-EPI)NonAf >90 (>60 ml/min/1.73 sqM) 06/22/17 09:11 Glucose 226 mg/dL (74-99) H 06/22/17 09:11 POC Glucose (mg/dL) 88 mg/dL (75-99) 06/22/17 20:44 POC Glu Punching Machine Operator ID Beba Kingston 06/22/17 20:[address] Glu mg/dL 203 06/17/17 16:25 Hemoglobin A1c 8.7 % (4.0-6.0) H 06/17/17 16:25 Plasma Lactic Acid Pratik 1.1 mmol/L (0.7-2.0) 06/17/17 16:28 Calcium 9.1 mg/dL (8.4-10.2) 06/22/17 09:11 Total Bilirubin 0.4 mg/dL (0.2-1.3) 06/22/17 09:11 AST 20 U/L (17-59) 06/22/17 09:11 ALT 26 U/L (21-72) 06/22/17 09:11 Alkaline Phosphatase 82 U/L (38-126) 06/22/17 09:11 Total Protein 6.2 g/dL (6.3-8.2) L 06/22/17 09:11 Albumin 3.0 g/dL (3.5-5.0) L 06/22/17 09:11 Vancomycin Trough 23.1 ug/mL 06/20/17 05:13 Microbiology 06/17/17 16:25 Blood Blood Culture - Preliminary No Growth after 120 hours 06/19/17 10:00 Foot - Left Gram Stain - Final 06/19/17 10:00 Foot - Left Tissue Culture - Final Strep agalactiae - (group b) Alpha Hemolytic Streptococcus Coagulase Negative Staph Diphtheroid species 06/17/17 17:20 Toe - Left Fourth Gram Stain - Final 06/17/17 17:20 Toe - Left Fourth Wound Culture - Final Strep agalactiae - (group b) 06/19/17 10:00 Foot - Left Anaerobic Culture - Preliminary Assessment and Plan (1) Cellulitis of left foot Narrative/Plan: 47-year-old male who suffers from obesity and diabetes mellitus type 2 that is not well controlled presents with significant swelling of the left foot at the third and fourth toes with open ulcerations exposed tendons gangrenous change with foul odor. The patient has been seen by surgery nurse plans for the surgical debridement and amputation in the morning for the gangrenous toes, at this time unclear the extensive debridement that was required on the plantar surface given the findings. Likely will have open ulcerations that will require wound care possibly wound VAC. It will require outpatient intravenous antibiotic therapy. Blood cultures pending meropenem has been added given his known penicillin ALLERGY. He is up-to-date on his tetanus vaccine. We'll take a multivitamin and have him enhance protein intake. We'll have offloading to the foot for quite some time which will impact his ability to work. Fortunately he is comfortable this time but is so because of his neuropathy. The significant leukocytosis at admission is partially on the basis of his significant sepsis from the gangrenous change to his foot. 06/20/2017 reveals the 47 year old gentleman who has a history of diabetes is developed gangrene to the third and fourth toes to the left foot. Now status post amputation and debridement of the foot. Local wound care is in process. We'll likely be a good candidate for negative pressure therapy that is the wound VAC. Request a PICC line to be placed and will start to work on and by therapy discharge likely with Invanz given the group B streptococcus isolated in the diabetes. Patient is willing to come in the outpatient clinic if needed. 06/22/2017 reveals the patient have further improvement. The amputation of the gangrenous toes has occurred and the patient is having improvement. PICC line has been placed and plans are for Invanz for his outpatient intravenous antibiotic therapy they will receive at home. Local wound care will be with Rob for now. He'll follow the wound center on Tuesday which point likely negative therapy pressure will be initiated. He'll also be followed in the wound center by infectious disease for his local wound care and antibiotic therapy. Weekly blood work has been requested. Likely discharge tomorrow. Current Visit: Yes Status: Acute Code(s): L03.116 - CELLULITIS OF LEFT LOWER LIMB SNOMED Code(s): 430273559 (2) Toe osteomyelitis, left Current Visit: Yes Status: Acute Code(s): M86.9 - OSTEOMYELITIS, UNSPECIFIED SNOMED Code(s): 13278488 (3) Sepsis Current Visit: Yes Status: Acute Code(s): A41.9 - SEPSIS, UNSPECIFIED ORGANISM SNOMED Code(s): 50807174
[2017-06-23 02:29] LABS: Glucose,Whole Blood 185 mg/dL (75-99)
[2017-06-23] MEDS ORDERED: VANCOMYCIN TROUGH DUE 1 EACH MISC MISCELLANE ONE (05:00)
[2017-06-23] MEDS: VANCOMYCIN 1,750 MG in SODIUM CHLORIDE 0.9% 250 ML IVPB SCH (05:21)
[2017-06-23 06:26] VITALS: BP 148/93; PULSE 99; TEMP 97.9
[2017-06-23 06:29] LABS: Basophils # (A) 0.1 k/uL (0-0.2); Basophils % (A) 0 %; Eosinophils # (A) 0.2 k/uL (0-0.7); Eosinophils % (A) 2 %; HCT 33.7 % (39.0-53.0); HGB 10.6 gm/dL (13.0-17.5); Lymphocytes # (A) 1.5 k/uL (1.0-4.8); Lymphocytes % (A) 13 %; MCH 26.9 pg (25.0-35.0); MCHC 31.5 g/dL (31.0-37.0); MCV 85.4 fL (80.0-100.0); Monocytes # (A) 0.4 k/uL (0-1.0); Monocytes % (A) 3 %; Neutrophils # (A) 9.3 k/uL (1.3-7.7); Neutrophils % (A) 81 %; Platelet Count 343 k/uL (150-450); RBC 3.94 m/uL (4.30-5.90); RDW 13.1 % (11.5-15.5); WBC 11.6 k/uL (3.8-10.6)
[2017-06-23 06:40] LABS: ALT 30 U/L (21-72); AST 25 U/L (17-59); Albumin 3.1 g/dL (3.5-5.0); Alkaline Phosphatase 81 U/L (38-126); Anion Gap 9 mmol/L; Blood Urea Nitrogen 24 mg/dL (9-20); Calcium 8.9 mg/dL (8.4-10.2); Carbon Dioxide 31 mmol/L (22-30); Chloride 100 mmol/L (98-107); Glucose 167 mg/dL (74-99); Potassium 5.3 mmol/L (3.5-5.1); Sodium 140 mmol/L (137-145); Total Bilirubin 0.4 mg/dL (0.2-1.3); Total Protein 6.4 g/dL (6.3-8.2)
[2017-06-23 08:00] LABS: Glucose,Whole Blood 149 mg/dL (75-99)
[2017-06-23] MEDS: INSULIN ASPART 100 UNIT/ML 1 ML 10 ML VIAL SQ SCH ×3 (08:09→11:52)
[2017-06-23] MEDS: HEPARIN SODIUM,PORCINE 5,000 UNIT/ML 1 ML VIAL SQ SCH (08:10)
[2017-06-23] MEDS: PANTOPRAZOLE 40 MG TABLET PO SCH (08:10)
[2017-06-23] MEDS: INSULIN DETEMIR 100 UNIT/ML 10 ML VIAL SQ SCH (08:10)
[2017-06-23] MEDS: ARIPiprazole 5 MG TAB PO SCH (08:11)
[2017-06-23] MEDS: metFORMIN 500 MG TAB PO SCH (08:11)
[2017-06-23] MEDS: ESCITALOPRAM 10 MG TAB PO SCH (08:11)
[2017-06-23] MEDS: B COMPLEX-VIT C-VIT E-ZINC 1 EACH TAB PO SCH (08:11)
[2017-06-23] MEDS: VITAMIN E (DL,TOCOPHERYL ACET) 400 UNIT CAP PO SCH (08:11)
[2017-06-23] MEDS ORDERED: amLODIPine 10 MG TAB PO SCH (09:00)
--- NOTE | 2017-06-23 11:05 | P.DS ---
Providers Date of admission: 06/17/17 19:37 Expected date of discharge: 06/23/17 Attending physician: Alejandro Atwood Consults: 06/17/17 19:42 Consult Physician Stat Consulting Provider: Fernandez Mckeon Consult Reason/Comments: Left foot osteomyelitis, Cellulitis Do you want consulting provider notified?: Yes, Notify in am Consult Physician Stat Consulting Provider: Gerry Ho Consult Reason/Comments: Left Toes Osteomyleitis, DM Do you want consulting provider notified?: Yes, Notify in am Primary care physician: [facility] Course: 47-year-old male who presented to the emergency room with a chief complaint of left foot pain, edema, and foul-smelling odor. an x-ray of the left foot was completed revealing destructive changes in the third and fourth toes consistent with osteomyelitis. The patient was admitted to the hospital under the care of Dr. Atwood. consultations were placed to vascular surgery and infectious disease. the patient has a history of diabetes mellitus type 2. He is noncompliant and has admitted to using his mother's insulin so he does not have to come to the office and see his primary care physician. He also has a history of hypertension and obesity. The patient underwent amputation of left third and fourth toe with wound debridement of the plantar and dorsal aspect of the foot with Dr. Ho on 06/19/2017. blood cultures have remained negative. Wound culture is positive for Strep agalactiae (group b). Patient was receiving Vanco q12 hours and meropenem 1 gram every [address] Mckeon recommends Invanz 1 g daily at the time of discharge for 42 days.the patient had a PICC line inserted to the left upper extremity. home care and infusion company's have been set up per case management. The patient was originally going to have a wound VAC placed to his left foot but some sloughing was noted. He was started on Santyl daily per Dr. Davis. He is to follow up with Dr. Davis on tuesday to have his wound re-evaluated and determine if wound vac is appropriate at that time. the patient was found to be hyperkalemic during hospitalization with a peak potassium of 6.0. His CONSUELO inhibitor was discontinued. he did receive a dose of Kayexalate. his potassium is down to 5.3. He is to repeat his potassium next week at his follow-up appointment with Dr. Atwood. His Norvasc was increased to 10 mg daily due to his CONSUELO inhibitor been discontinued. the patient was deemed stable for discharge. He is to follow up on an outpatient basis with Dr. Atwood, Dr. Mckeon, and Dr. Ho. DISCHARGE DIAGNOSIS: Infected gangrene of left foot, involving third and fourth toes, wound cultures positive for strep agalactiae (group b), s/p amputation 06/19/2017 Sepsis, present on admission, secondary to above, improved at the time of discharge Diabetes mellitus, type II, hemoglobin A1c 8.7% Medical noncompliance Essential hypertension Chronic back pain Morbid obesity: BMI 45.8 Hyperkalemia, likely secondary to hyperglycemia with possible component from CONSUELO inhibitor, improved at the time of discharge Nurse practitioner note has been reviewed by physician. Signing provider agrees with the documented findings, assessment, and plan of care. Patient Condition at Discharge: Stable Plan - Discharge Summary Discharge Rx Participant: Yes New Discharge Prescriptions: New Ertapenem [INVanz] 1 gm IVPB Q24H #42 bag amLODIPine [Norvasc] 10 mg PO DAILY #30 tab Collagenase [Santyl] 1 applic TOPICAL DAILY #1 tube Continue Zolpidem [Ambien] 10 mg PO HS 30 Days tablet oxyCODONE-APAP 10-325MG [Percocet 10-325 mg] 1 tab PO TID PRN PRN Reason: Pain Escitalopram [Lexapro] 10 mg PO DAILY tab Vitamin B Complex 1 cap PO DAILY Insulin Detemir [Levemir] 60 unit SQ BID ARIPiprazole [Abilify] 5 mg PO DAILY metFORMIN HCL [Glucophage] 500 mg PO HS Cholecalciferol [Vitamin D3] 1,000 unit PO DAILY Ascorbic Acid [Vitamin C] 1,000 mg PO DAILY Vitamin E 100 unit PO DAILY Multivitamins, Thera [Multivitamin (formulary)] 1 tab PO DAILY Insulin Aspart [NovoLOG] 40 units SQ BID Discontinued amLODIPine [Norvasc] 5 mg PO DAILY #90 tab Lisinopril [Zestril] 10 mg PO DAILY #90 tab Discharge Medication List Zolpidem [Ambien] 10 mg PO HS 30 Days tablet 02/28/14 [Rx] oxyCODONE-APAP 10-325MG [Percocet 10-325 mg] 1 tab PO TID PRN 10/22/16 [History] Escitalopram [Lexapro] 10 mg PO DAILY tab 10/27/16 [Rx] ARIPiprazole [Abilify] 5 mg PO DAILY 06/17/17 [History] Ascorbic Acid [Vitamin C] 1,000 mg PO DAILY 06/17/17 [History] Cholecalciferol [Vitamin D3] 1,000 unit PO DAILY 06/17/17 [History] Insulin Aspart [NovoLOG] 40 units SQ BID 06/17/17 [History] Insulin Detemir [Levemir] 60 unit SQ BID 06/17/17 [History] Multivitamins, Thera [Multivitamin (formulary)] 1 tab PO DAILY 06/17/17 [History ] Vitamin B Complex 1 cap PO DAILY 06/17/17 [History] Vitamin E 100 unit PO DAILY 06/17/17 [History] metFORMIN HCL [Glucophage] 500 mg PO HS 06/17/17 [History] Ertapenem [INVanz] 1 gm IVPB Q24H #42 bag 06/20/17 [Rx] Collagenase [Santyl] 1 applic TOPICAL DAILY #1 tube 06/23/17 [Rx] amLODIPine [Norvasc] 10 mg PO DAILY #30 tab 06/23/17 [Rx] Follow up Appointment(s)/Referral(s): Alejandro Atwood Jr, DO [Primary Care Provider] - 1-2 days Gerry Ho MD [STAFF PHYSICIAN] - 06/27/17 (f/u on Tuesday in wound care clinic, keep wound vac off for now) Fernandez Mckeon MD [STAFF PHYSICIAN] - 2 Weeks Ambulatory/Diagnostic Orders: C Reactive Protein [LAB.AMB] Location: Determined By Patient Complete Blood Count w/diff [LAB.AMB] Location: Determined By Patient Comprehensive Metabolic Panel [LAB.AMB] Location: Determined By Patient Erythrocyte Sedimentation Rate [LAB.AMB] Location: Determined By Patient Patient Instructions/Handouts: Osteomyelitis (DC), Type 2 Diabetes in Adults ( DC), Potassium Content of Foods List (DC) Activity/Diet/Wound Care/Special Instructions: [facility] can be reached at . They will be sending antibiotics out and should be received withing 24hrs of discharge for daily antibiotics. Santyl to left incision daily Repeat potassium at follow up appointment with Dr. Atwood next week Discharge Disposition: HOME WITH HOME HEALTH SERVICES
[2017-06-23] MEDS: CHOLECALCIFEROL 1,000 UNIT TAB PO SCH (11:39)
[2017-06-23] MEDS: MULTIVITAMINS, THERA 1 EACH TAB PO SCH (11:39)
[2017-06-23] MEDS: COLLAGENASE 250 UNIT/GM OINTMENT 30 GM TUBE TOPICAL SCH (11:39)
[2017-06-23] MEDS: ASCORBIC ACID 500 MG TAB PO SCH (11:39)
[2017-06-23 11:47] LABS: Glucose,Whole Blood 67 mg/dL (75-99)
[2017-06-23 12:01] LABS: Glucose,Whole Blood 78 mg/dL (75-99)
[2017-06-23] MEDS ORDERED: ERTAPENEM 1 GM in SODIUM CHLORIDE 0.9% 50 ML IVPB SCH (13:00)
[2017-06-23] MEDS ORDERED: VANCOMYCIN 1,750 MG in SODIUM CHLORIDE 0.9% 250 ML IVPB SCH (22:00)
== END 2017-06-23 16:46 | disposition home health service (06) | DRG 854 ==
LOC: EC 15:14 → 4MS4W 19:37
PROVIDERS: ADMIT Family Medicine; ATTEND Family Medicine
PROC: 0Y6U0Z1 Detachment at Left 3rd Toe, High, Open Approach (ICD-10-PCS; principal; 2017-06-20)
PROC: 0Y6W0Z1 Detachment at Left 4th Toe, High, Open Approach (ICD-10-PCS; principal; 2017-06-20)
PROC: 02HV33Z Insertion of Infusion Device into Superior Vena Cava, Percutaneous Approach (ICD-10-PCS; 2017-06-21 07:30)
DX: A41.9 Sepsis, unspecified organism (principal); I96 Gangrene, not elsewhere classified; E11.621 Type 2 diabetes mellitus with foot ulcer; K31.84 Gastroparesis; E11.65 Type 2 diabetes mellitus with hyperglycemia; E66.01 Morbid (severe) obesity due to excess calories; E11.40 Type 2 diabetes mellitus with diabetic neuropathy, unspecified; E11.52 Type 2 diabetes mellitus with diabetic peripheral angiopathy with gangrene; L03.116 Cellulitis of left lower limb; M86.9 Osteomyelitis, unspecified; Z68.42 Body mass index [BMI] 45.0-49.9, adult; F41.9 Anxiety disorder, unspecified; G89.29 Other chronic pain; M54.9 Dorsalgia, unspecified; E11.69 Type 2 diabetes mellitus with other specified complication; L97.524 Non-pressure chronic ulcer of other part of left foot with necrosis of bone; B95.1 Streptococcus, group B, as the cause of diseases classified elsewhere; E11.43 Type 2 diabetes mellitus with diabetic autonomic (poly)neuropathy; I10 Essential (primary) hypertension; F32.9 Major depressive disorder, single episode, unspecified; Z79.84 Long term (current) use of oral hypoglycemic drugs; Z79.899 Other long term (current) drug therapy; Z79.4 Long term (current) use of insulin; Z88.0 Allergy status to penicillin; Z82.49 Family history of ischemic heart disease and other diseases of the circulatory system; Z83.3 Family history of diabetes mellitus; Z91.19 Patient's noncompliance with other medical treatment and regimen
CPT/HCPCS: 36415; 36569; 76937; 77001; 80048; 80053; 80202; 83036; 83605; 85025; 87040; 87070; 87075; 87205; 88305; 88311; 93005; 96365; 96366; 96368; 99285

== ENCOUNTER → 2017-07-15 | Outpatient (CLI) | payer OTHER | END | disposition home or self-care (01) | LOC: LABWHC1 16:48 | PROVIDERS: ATTEND Family Medicine | DX: E11.621 Type 2 diabetes mellitus with foot ulcer (principal); F31.9 Bipolar disorder, unspecified; I10 Essential (primary) hypertension; Z79.4 Long term (current) use of insulin | CPT/HCPCS: 36415; 84132 ==

== ENCOUNTER → 2017-07-17 | Outpatient (CLI) | payer OTHER ==
[2017-07-17 13:15] LABS: Potassium 6.1 mmol/L (3.5-5.1)
== END | disposition home or self-care (01) ==
LOC: LABMAIN 12:22
PROVIDERS: ATTEND Family Medicine
DX: E11.621 Type 2 diabetes mellitus with foot ulcer (principal); I10 Essential (primary) hypertension; F31.9 Bipolar disorder, unspecified; Z79.4 Long term (current) use of insulin
CPT/HCPCS: 36415; 80051

== ENCOUNTER → 2017-07-19 | Outpatient (CLI) | payer OTHER | END | disposition home or self-care (01) | LOC: LABWHC1 13:00 | PROVIDERS: ATTEND Internal Medicine Infectious Disease | DX: E87.5 Hyperkalemia (principal) | CPT/HCPCS: 36415; 84132 ==

== ENCOUNTER 2023-11-04 09:40 | Inpatient (IN) | payer OTHER ==
--- NOTE | 2023-11-04 09:48 | ED ---
General Adult HPI - General Stated complaint: SOB Time Seen by Provider: 11/04/23 09:41 Source: patient, RN/MD, EMS, RN notes reviewed, old records reviewed Mode of arrival: EMS Limitations: no limitations - History of Present Illness Initial comments: Patient is a 53-year-old male present to the emergency department with weakness and fatigue. Onset of symptoms was 4 to 5 days ago. Patient did have a fever at the onset. Patient has been having a cough. Patient complains of mild shortness of breath. At the office patient had low oxygen at 78% and was sent to emergency department by EMS. Patient denies any history of lung disease. Patient has chronic leg swelling that is unchanged. - Related Data Home Medications Medication Instructions Recorded Confirmed oxyCODONE-APAP 10-325MG [Percocet 1 tab PO Q6H PRN 10/22/16 11/04/23 10-325 mg] ARIPiprazole [Abilify] 2 mg PO DAILY 11/04/23 11/04/23 Insulin Glargine-Yfgn 74 units SQ BID 11/04/23 11/04/23 Insulin Lispro 30 units SQ BID 11/04/23 11/04/23 Sertraline [Zoloft] 50 mg PO DAILY 11/04/23 11/04/23 Tirzepatide [Mounjaro] 10 mg SQ TU 11/04/23 11/04/23 hydrALAZINE HCL [Apresoline] 50 mg PO TID 11/04/23 11/04/23 hydroCHLOROthiazide [Hydrodiuril] 25 mg PO DAILY 11/04/23 11/04/23 lisinopriL [Zestril] 5 mg PO DAILY 11/04/23 11/04/23 traZODone HCL 100 mg PO HS 11/04/23 11/04/23 Previous Rx's Medication Instructions Recorded amLODIPine [Norvasc] 10 mg PO DAILY #30 tab 06/23/17 Allergies Allergy/AdvReac Type Severity Reaction Status Date / Time Penicillins Allergy Swelling Verified 11/04/23 11:19 Review of Systems ROS Statement: Those systems with pertinent positive or pertinent negative responses have been documented in the HPI. ROS Other: All systems not noted in ROS Statement are negative. Constitutional: Denies: fever Eyes: Denies: eye pain ENT: Denies: ear pain Respiratory: Reports: as per HPI Cardiovascular: Denies: chest pain Endocrine: Reports: fatigue Gastrointestinal: Denies: abdominal pain Musculoskeletal: Denies: back pain Neurological: Reports: as per HPI. Denies: headache, confusion Past Medical History Past Medical History: Diabetes Mellitus, Hypertension History of Any Multi-Drug Resistant Organisms: None Reported Past Surgical History: Back Surgery Additional Past Surgical History / Comment(s): rt knee arthroscopic 2, L5/S1 surgery. Left 3rd and 4th toe amputation Past Psychological History: Anxiety, Bipolar, Depression Additional Psychological History / Comment(s): Patient is a lifelong nonsmoker. He denies any medical marijuana, marijuana, street drug or alcohol use. He currently lives with his mother and there are 3 dogs and a cat in the home. 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 Has adult children. Past Alcohol Use History: None Reported Additional Past Alcohol Use History / Comment(s): Patient is a lifelong nonsmoker. He denies any medical marijuana, marijuana, street drug or alcohol use. He currently lives with his mother and there are 3 dogs and a cat in the home. 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 Past Drug Use History: None Reported - Past Family History Mother Family Medical History: Coronary Artery Disease (CAD), Diabetes Mellitus, Hypertension Father History Unknown: Yes Son(s) Family Medical History: No Reported History General Exam Limitations: no limitations General appearance: alert Head exam: Present: normocephalic Eye exam: Present: normal appearance Neck exam: Present: normal inspection Respiratory exam: Present: normal lung sounds bilaterally Cardiovascular Exam: Present: regular rate, normal rhythm GI/Abdominal exam: Present: soft. Absent: tenderness Extremities exam: Present: pedal edema Neurological exam: Present: alert Psychiatric exam: Present: normal affect, normal mood Skin exam: Present: pallor Course Vital Signs 11/04/23 11/04/23 11/04/23 09:46 09:48 10:06 Temperature 99.3 F Pulse Rate 99 Respiratory 20 18 18 Rate Blood Pressure 137/45 O2 Sat by Pulse 75 L 87 L 92 L Oximetry Fraction of Inspired Oxygen (FIO2) 11/04/23 11/04/23 10:14 11:00 Temperature Pulse Rate 99 Respiratory 20 18 Rate Blood Pressure 138/47 O2 Sat by Pulse 94 L Oximetry Fraction of 50 Inspired Oxygen (FIO2) EKG Findings - EKG Results: EKG: interpreted by ERMD, sinus rhythm, normal axis, normal QRS, normal ST/T Medical Decision Making - Medical Decision Making Was pt. sent in by a medical professional or institution (ROBERT Holloway, SPLITTING MACHINE OPERATOR, urgent care, hospital, or retirement...) When possible be specific @ -Patient was sent in by Dr. Gonzalez office Did you speak to anyone other than the patient for history (EMS, parent, family, police, friend...)? What history was obtained from this source @ -I did speak with Dr. Atwood prior to patient arrival Did you review nursing and triage notes (agree or disagree)? Why? @ -I reviewed and agree with nursing and triage notes Were old charts reviewed (outside hosp., previous admission, EMS record, old EKG, old radiological studies, urgent care reports/EKG's, retirement records)? Report findings @ -No old charts were reviewed Differential Diagnosis (chest pain, altered mental status, abdominal pain women, abdominal pain men, vaginal bleeding, weakness, fever, dyspnea, syncope, headache, dizziness, GI bleed, back pain, seizure, CVA, palpatations, mental health, musculoskeletal)? @ -Differential Dyspnea: Coronary syndrome, arrhythmia, tamponade, asthma, COPD, pulmonary embolism, pneumonia, pneumothorax, pulmonary effusion, anaphylaxis, diabetic ketoacidosis, flailed chest, pulmonary contusion, diaphragmatic rupture, anemia, wesly romuscular, this is not meant to be an all-inclusive list. EKG interpreted by me (3pts min.). @ -As above X-rays interpreted by me (1pt min.). @ -Chest x-ray shows large right-sided infiltrate with some interstitial changes CT interpreted by me (1pt min.). @ -CT scan of the chest shows diffuse interstitial infiltrates and lymphadenopathy U/S interpreted by me (1pt. min.). @ -None done What testing was considered but not performed or refused? (CT, X-rays, U/S, labs)? Why? @ -None What meds were considered but not given or refused? Why? @ -None Did you discuss the management of the patient with other professionals (professionals i.e. ROBERT Holloway, SPLITTING MACHINE OPERATOR, lab, RT, psych nurse, sr. social media & mobile manager, optical advisor, teacher, alumni relations officer, social work case manager)? Give summary @ -Case again discussed with Dr. Atwood who will admit his patient. Case also discussed with Dr. Eller who will consult for pulmonary Was smoking cessation discussed for >3mins.? @ -No Was critical care preformed (if so, how long)? @ -31 minutes critical care time Were there social determinants of health that impacted care today? How? (Homelessness, low income, unemployed, alcoholism, drug addiction, transportation, low edu. Level, literacy, decrease access to med. care, long-term, rehab)? @ -No Was there de-escalation of care discussed even if they declined (Discuss DNR or withdrawal of care, Hospice)? DNR status @ -No What co-morbidities impacted this encounter? (DM, HTN, Smoking, COPD, CAD, Cancer, CVA, ARF, Chemo, Hep., AIDS, mental health diagnosis, sleep apnea, morbid obesity)? @ -None Was patient admitted / discharged? Hospital course, mention meds given and route, prescriptions, significant lab abnormalities, going to OR and other pertinent info. @ -Patient presents from the clinic with hypoxia. CT scan with diffuse infiltrates. Patient will be admitted. IV antibiotics will be started. Patient is on Ventimask requiring oxygen. Admission orders written. Undiagnosed new problem with uncertain prognosis? @ -No Drug Therapy requiring intensive monitoring for toxicity (Heparin, Nitro, Insulin, Cardizem)? @ -No Were any procedures done? @ -No Diagnosis/symptom? @ -Hypoxia, multifocal pneumonia Acute, or Chronic, or Acute on Chronic? @ -Acute, acute Uncomplicated (without systemic symptoms) or Complicated (systemic symptoms)? @ -Complicated with hypoxia Side effects of treatment? @ -No Exacerbation, Progression, or Severe Exacerbation? @ -No Poses a threat to life or bodily function? How? (Chest pain, USA, OR, pneumonia, PE, COPD, DKA, ARF, appy, cholecystitis, CVA, Diverticulitis, Homicidal, Suicidal, threat to staff... and all critical care pts) @ -Threat to pulmonary function There is concern for possible sepsis diagnosed at 1400. Blood culture and lactic acid and IV antibiotics have all been ordered. - Lab Data Result diagrams: 11/04/23 09:50 11/04/23 09:50 Lab Results 11/04/23 11/04/23 11/04/23 Range/Units 09:50 09:50 09:50 WBC 18.2 H (3.8-10.6) k/uL RBC 3.48 L (4.30-5.90) m/uL Hgb 9.5 L (13.0-17.5) gm/dL Hct 29.9 L (39.0-53.0) % MCV 85.8 (80.0-100.0) fL MCH 27.2 (25.0-35.0) pg MCHC 31.7 (31.0-37.0) g/dL RDW 15.7 H (11.5-15.5) % Plt Count 208 (150-450) k/uL MPV 8.1 Neutrophils % 91 % Lymphocytes % 4 % Monocytes % 3 % Eosinophils % 1 % Basophils % 0 % Neutrophils # 16.5 H (1.3-7.7) k/uL Lymphocytes # 0.8 L (1.0-4.8) k/uL Monocytes # 0.5 (0-1.0) k/uL Eosinophils # 0.2 (0-0.7) k/uL Basophils # 0.0 (0-0.2) k/uL Hypochromasia Slight PT 11.7 (10.0-12.5) sec INR 1.1 (<1.2) APTT 23.4 (22.0-30.0) sec D-Dimer 7.68 H (<0.60) mg/L FEU Sodium 132 L (137-145) mmol/L Potassium 4.1 (3.5-5.1) mmol/L Chloride 102 (98-107) mmol/L Carbon Dioxide 20 L (22-30) mmol/L Anion Gap 10 mmol/L BUN 41 H (9-20) mg/dL Creatinine 1.44 H (0.66-1.25) mg/dL Est GFR (CKD-EPI)AfAm 64 (>60 ml/min/1.73 sqM) Est GFR (CKD-EPI)NonAf 55 (>60 ml/min/1.73 sqM) Glucose 282 H (74-99) mg/dL Plasma Lactic Acid Pratik (0.7-2.0) mmol/L Calcium 8.2 L (8.4-10.2) mg/dL Magnesium 1.8 (1.6-2.3) mg/dL Total Bilirubin 1.2 (0.2-1.3) mg/dL AST 28 (17-59) U/L ALT 22 (4-49) U/L Alkaline Phosphatase 96 (38-126) U/L Troponin I (0.000-0.034) ng/mL NT-Pro-B Natriuret Pep 891 pg/mL Total Protein 5.7 L (6.3-8.2) g/dL Albumin 3.1 L (3.5-5.0) g/dL Influenza Type A (PCR) (Not Detectd) Influenza Type B (PCR) (Not Detectd) RSV (PCR) (Not Detectd) SARS-CoV-2 (PCR) (Not Detectd) 11/04/23 11/04/23 11/04/23 Range/Units 09:50 09:50 09:50 WBC (3.8-10.6) k/uL RBC (4.30-5.90) m/uL Hgb (13.0-17.5) gm/dL Hct (39.0-53.0) % MCV (80.0-100.0) fL MCH (25.0-35.0) pg MCHC (31.0-37.0) g/dL RDW (11.5-15.5) % Plt Count (150-450) k/uL MPV Neutrophils % % Lymphocytes % % Monocytes % % Eosinophils % % Basophils % % Neutrophils # (1.3-7.7) k/uL Lymphocytes # (1.0-4.8) k/uL Monocytes # (0-1.0) k/uL Eosinophils # (0-0.7) k/uL Basophils # (0-0.2) k/uL Hypochromasia PT (10.0-12.5) sec INR (<1.2) APTT (22.0-30.0) sec D-Dimer (<0.60) mg/L FEU Sodium (137-145) mmol/L Potassium (3.5-5.1) mmol/L Chloride (98-107) mmol/L Carbon Dioxide (22-30) mmol/L Anion Gap mmol/L BUN (9-20) mg/dL Creatinine (0.66-1.25) mg/dL Est GFR (CKD-EPI)AfAm (>60 ml/min/1.73 sqM) Est GFR (CKD-EPI)NonAf (>60 ml/min/1.73 sqM) Glucose (74-99) mg/dL Plasma Lactic Acid Pratik 1.1 (0.7-2.0) mmol/L Calcium (8.4-10.2) mg/dL Magnesium (1.6-2.3) mg/dL Total Bilirubin (0.2-1.3) mg/dL AST (17-59) U/L ALT (4-49) U/L Alkaline Phosphatase (38-126) U/L Troponin I 0.129 H* (0.000-0.034) ng/mL NT-Pro-B Natriuret Pep pg/mL Total Protein (6.3-8.2) g/dL Albumin (3.5-5.0) g/dL Influenza Type A (PCR) Not Detected (Not Detectd) Influenza Type B (PCR) Not Detected (Not Detectd) RSV (PCR) Not Detected (Not Detectd) SARS-CoV-2 (PCR) Not Detected (Not Detectd) Disposition Clinical Impression: Sepsis, Multifocal pneumonia Disposition: ADMITTED IP TO THIS HOSP Condition: Serious Is patient prescribed a controlled substance at d/c from ED?: No Referrals: Alejandro Atwood Jr, [Primary Care Provider] - 1-2 days Time of Disposition: 14:08
[2023-11-04 10:17] LABS: Basophils % (A) 0 %; Eosinophils # (A) 0.2 k/uL (0-0.7); Eosinophils % (A) 1 %; HCT 29.9 % (39.0-53.0); HGB 9.5 gm/dL (13.0-17.5); Hypochromasia Slight; Lymphocytes # (A) 0.8 k/uL (1.0-4.8); Lymphocytes % (A) 4 %; MCH 27.2 pg (25.0-35.0); MCHC 31.7 g/dL (31.0-37.0); MCV 85.8 fL (80.0-100.0); Mean Platelet Volume 8.1; Monocytes # (A) 0.5 k/uL (0-1.0); Monocytes % (A) 3 %; Neutrophils # (A) 16.5 k/uL (1.3-7.7); Neutrophils % (A) 91 %; Platelet Count 208 k/uL (150-450); RBC 3.48 m/uL (4.30-5.90); RDW 15.7 % (11.5-15.5); WBC 18.2 k/uL (3.8-10.6)
[2023-11-04 10:36] LABS: INR 1.1 (<1.2); Partial Thromboplastin Time 23.4 sec (22.0-30.0); Prothrombin Time 11.7 sec (10.0-12.5)
--- NOTE | 2023-11-04 10:37 | XR ---
EXAMINATION TYPE: XR chest 2V DATE OF EXAM: 11/04/2023 COMPARISON: 02/05/2013 HISTORY: Shortness of breath TECHNIQUE: Frontal and lateral views of the chest are obtained. FINDINGS: Scattered senescent parenchymal changes noted. Hyperinflation compatible with COPD. Patchy infiltrate right upper lobe infiltrate compatible with pneumonia. Heart size is stable. Mediastinal structures are stable and grossly unremarkable. No evidence for hilar prominence. Degenerative changes dorsal spine. IMPRESSION: 1. Patchy infiltrate right upper lobe infiltrate compatible with pneumonia.
[2023-11-04 11:40] LABS: NT-Pro-B-Type Natriuretic Pept 891 pg/mL
[2023-11-04 12:14] LABS: ALT 22 U/L (4-49); AST 28 U/L (17-59); African American GFR (CKD) 64 (>60 ml/min/1.73 sqM); Albumin 3.1 g/dL (3.5-5.0); Alkaline Phosphatase 96 U/L (38-126); Anion Gap 10 mmol/L; Blood Urea Nitrogen 41 mg/dL (9-20); Calcium 8.2 mg/dL (8.4-10.2); Carbon Dioxide 20 mmol/L (22-30); Chloride 102 mmol/L (98-107); Glucose 282 mg/dL (74-99); Magnesium 1.8 mg/dL (1.6-2.3); Non-African American GFR(CKD) 55 (>60 ml/min/1.73 sqM); Potassium 4.1 mmol/L (3.5-5.1); Sodium 132 mmol/L (137-145); Total Bilirubin 1.2 mg/dL (0.2-1.3); Total Protein 5.7 g/dL (6.3-8.2)
--- NOTE | 2023-11-04 13:13 | CT ---
EXAMINATION TYPE: CT angio chest CT DLP: 1306.4 mGycm, Automated exposure control for dose reduction was used. DATE OF EXAM: 11/04/2023 12:51 PM COMPARISON: Chest radiograph from same day. Multiple CTs of the chest with most recent on . CLINICAL INDICATION:Male, 53 years old with history of dyspnea; SOB AND BRITNEY. ELEVATED D-DIMER TECHNIQUE/CONTRAST: CTA scan of the thorax is performed with IV Contrast, patient injected with 85ml mL of Isovue 370, PR P images are created and reviewed these are created on a separate workstation.. FINDINGS: Pulmonary Artery: There is no evidence for a filling defect within the pulmonary vasculature to sugge st acute pulmonary embolism. The pulmonary artery is of normal size. Lungs/Pleura: Multi focal airspace disease is seen. Some of this groundglass and some of more conflue nt. Covid can have this appearance, but farooq can either pathogens. Airway: Large airways are patent. Heart: The heart is mildly enlarged. Vasculature: No evidence of aortic aneurysm. Mediastinum: No gross evidence of adenopathy. Musculoskeletal: No acute osseous abnormalities Soft Tissues: Unremarkable. Lower neck: No significant findings. Upper Abdomen: No significant findings. IMPRESSION: 1. No evidence of pulmonary embolism. 2. Peripheral groundglass and more confluent bilateral pulmonary opacities consistent with atypical p ulmonary infection such as COVID-19. Other pathogens can result in this appearance. 3. Reactive mediastinal lymphadenopathy likely secondary to #2.
[2023-11-04] MEDS ORDERED: PNEUMONIA PROTOCOL UTILIZED 1 EACH MISC PO PRN (14:09)
[2023-11-04] MEDS: AZITHROMYCIN 500 MG in SODIUM CHLORIDE 0.9% 250 ML IVPB STA (14:37)
[2023-11-04] MEDS: SODIUM CHLORIDE 0.9% 1,000 ML IV SCH (14:39)
--- NOTE | 2023-11-04 14:49 | P.CNPUL ---
History of Present Illness Consult date: 11/04/23 Requesting physician: Alejandro Atwood Jr Reason for consult: dyspnea Chief complaint: Shortness of breath. History of present illness: Pulmonary consult dated November 04, 2023. 53-year-old male sent in by Dr. Alejandro Atwood, to be evaluated for shortness of breath. He said shortness of breath since Tuesday, or about 5 days. The patient has a history of obesity, chronic kidney disease, and diabetes. Currently, he is seen in the emergency department, room 17. He is on a 40% Venturi mask. He is not receiving any supplemental IV fluids. The patient apparently has no history of lung disease, and denies tobacco history. Denies any fever or chills. He denies any cough or phlegm production. He denies any chest pain or chest discomfort. Current laboratory data includes a white count 18.2, hemoglobin 9.5, hematocrit 29.9, and a platelet count of 208,000. D-dimer was 7.68. Sodium 132, potassium 4.1, chlorides 102, CO2 20, BUN 41, and creatinine 1.44. Glucose 282. Troponin 0.129. N-terminal proBNP is 891. He tested negative for influenza AMB, RSV, coronavirus. Chest x-ray shows a patchy infiltrate, in the right upper lobe. CTA was negative for pulmonary embolism. CT scan was consistent with bilateral patchy opacities, consistent with pneumonia. Review of Systems REVIEW OF SYSTEMS: CONSTITUTIONAL: [Negative.] NEUROLOGIC: [ Negative.] HEENT: [ Negative.] CARDIAC: [Negative.] PULMONARY: Shortness of breath. GI: [Negative.] : [Negative.] RHEUMATOLOGIC: [ Negative.] IMMUNOLOGIC: [ Negative.] ENDOCRINE: [Negative. ] DERMATOLOGIC: [Negative.] Past Medical History Past Medical History: Diabetes Mellitus, Hypertension History of Any Multi-Drug Resistant Organisms: None Reported Past Surgical History: Back Surgery Additional Past Surgical History / Comment(s): rt knee arthroscopic 2, L5/S1 surgery. Left 3rd and 4th toe amputation Past Psychological History: Anxiety, Bipolar, Depression Additional Psychological History / Comment(s): Patient is a lifelong nonsmoker. He denies any medical marijuana, marijuana, street drug or alcohol use. He currently lives with his mother and there are 3 dogs and a cat in the home. 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 Has adult children. Past Alcohol Use History: None Reported Additional Past Alcohol Use History / Comment(s): Patient is a lifelong nonsmoker. He denies any medical marijuana, marijuana, street drug or alcohol use. He currently lives with his mother and there are 3 dogs and a cat in the home. 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 Past Drug Use History: None Reported - Past Family History Mother Family Medical History: Coronary Artery Disease (CAD), Diabetes Mellitus, Hypertension Father History Unknown: Yes Son(s) Family Medical History: No Reported History Medications and Allergies Home Medications Medication Instructions Recorded Confirmed Type oxyCODONE-APAP 10-325MG [Percocet 1 tab PO Q6H PRN 10/22/16 11/04/23 History 10-325 mg] amLODIPine [Norvasc] 10 mg PO DAILY #30 tab 06/23/17 11/04/23 Rx ARIPiprazole [Abilify] 2 mg PO DAILY 11/04/23 11/04/23 History Insulin Glargine-Yfgn 74 units SQ BID 11/04/23 11/04/23 History Insulin Lispro 30 units SQ BID 11/04/23 11/04/23 History Sertraline [Zoloft] 50 mg PO DAILY 11/04/23 11/04/23 History Tirzepatide [Mounjaro] 10 mg SQ TU 11/04/23 11/04/23 History hydrALAZINE HCL [Apresoline] 50 mg PO TID 11/04/23 11/04/23 History hydroCHLOROthiazide [Hydrodiuril] 25 mg PO DAILY 11/04/23 11/04/23 History lisinopriL [Zestril] 5 mg PO DAILY 11/04/23 11/04/23 History traZODone HCL 100 mg PO HS 11/04/23 11/04/23 History Allergies Allergy/AdvReac Type Severity Reaction Status Date / Time Penicillins Allergy Swelling Verified 11/04/23 11:19 Physical Exam Osteopathic Statement: *. No significant issues noted on an osteopathic structural exam other than those noted in the History and Physical/Consult. Vitals: Vital Signs Temp Pulse Resp BP Pulse Ox FiO2 11/04/23 11:00 99 18 138/47 94 L 50 11/04/23 10:14 20 11/04/23 10:06 18 92 L 11/04/23 09:48 18 87 L 11/04/23 09:46 99.3 F 99 20 137/45 75 L Intake and Output 11/03/23 11/04/23 11/04/23 22:59 06:59 14:59 Other: Weight 153.768 kg No acute distress, oriented 3. 40% mask is noted. No conversational dyspnea, or use of accessory muscles. No audible wheezing. HEENT examination is grossly unremarkable. Mucous membranes are moist. No oral lesions. Neck supple. Full range of motion. No adenopathy thyromegaly or neck vein distention. Cardiovascular examination reveals regular rhythm rate. S1-S2 normal. No S3 or S4. No discernible murmur noted. Heart sounds are distant. Heart rate 90 bpm. Lungs reveal scattered rhonchi. No wheezes or crackles. Breath sounds equal. Saturations are 94% on a 40% Venturi mask. Abdomen obese, without tenderness. No masses. Extremities are intact. No cyanosis or clubbing. Significant lower extremity edema. Skin reveals chronic skin changes to the lower extremities. Neurologic examination is brief but nonfocal. Results - Laboratory Findings CBC and BMP: 11/04/23 09:50 11/04/23 09:50 PT/INR, D-dimer PT 11.7 sec (10.0-12.5) 11/04/23 09:50 INR 1.1 (<1.2) 11/04/23 09:50 D-Dimer 7.68 mg/L FEU (<0.60) H 11/04/23 09:50 Abnormal lab findings: Abnormal Labs 11/04/23 11/04/23 11/04/23 09:50 09:50 09:50 WBC 18.2 H RBC 3.48 L Hgb 9.5 L Hct 29.9 L RDW 15.7 H Neutrophils # 16.5 H Lymphocytes # 0.8 L D-Dimer 7.68 H Sodium 132 L Carbon Dioxide 20 L BUN 41 H Creatinine 1.44 H Glucose 282 H Calcium 8.2 L Troponin I Total Protein 5.7 L Albumin 3.1 L 11/04/23 09:50 WBC RBC Hgb Hct RDW Neutrophils # Lymphocytes # D-Dimer Sodium Carbon Dioxide BUN Creatinine Glucose Calcium Troponin I 0.129 H* Total Protein Albumin - Diagnostic Findings Chest x-ray: image reviewed CT scan - chest: image reviewed Assessment and Plan Assessment: Bilateral community-acquired pneumonia. Acute hypoxemic respiratory failure secondary to bilateral pneumonia. History of diabetes mellitus. History of chronic kidney disease. Morbid obesity. Lifelong non-smoker. Plan: Plan dated November 04, 2023. The patient is seen in the emergency department, room 17. He is on 40% Venturi mask. He has a history of obesity, diabetes, chronic kidney disease. The patient complains of 5 days worth of increasing shortness of breath, and his chest x-ray and CAT scan are abnormal. The chest x-ray shows a patchy opacity in the right upper lobe. The CT scan shows more detailed abnormalities bilaterally. He has bilateral multifocal pneumonia. The patient will be given antibiotics in the form of azithromycin, and Rocephin. The patient will need a procalcitonin level. Will also give the patient some breathing treatments. Time with Patient: Greater than 30
[2023-11-04] MEDS ORDERED: DEXTROSE 50% SYRINGE 50 ML IVP PRN ×2 (15:04)
[2023-11-04] MEDS: PANTOPRAZOLE 40 MG/10 ML VIAL IVP SCH (15:26)
[2023-11-04] MEDS: hydrALAZINE HCL 50 MG TAB PO SCH ×2 (15:27→17:34)
[2023-11-04] MEDS: IPRATROPIUM-ALBUTEROL 3 ML NEB INHALATION SCH (15:36)
--- NOTE | 2023-11-04 15:42 | P.HPIM ---
History of Present Illness H&P Date: 11/04/23 Chief Complaint: Progressive shortness of breath This a 53-year-old gentleman with past medical history significant for morbid obesity, diabetes mellitus, hypertension, chronic back pain, anxiety, bipolar, depression, chronic kidney disease, presented initially to PCPs office with progressive shortness of breath over the last 3 days. In the office, O2 sat was 78%, patient extremely pale and short of breath.He was transferred to the ER. Denies cough. denies fever or chills. denies chest pain, or palpitations. Troponin elevated, 0.129. afebrile, WBC 18.2, hemoglobin 9.5, platelets 208, elevated D-dimer 7.68. CTA reported negative for pulmonary embolism, peripheral groundglass, bilateral pulmonary opacities, reactive mediastinal lymphadenopathy .Viral studies negative. proBNP 891. sodium 132, potassium 4.1, bicarb 20, BUN 41 and creatinine 1.44. Glucose 282. Review of Systems ROS Statement: Those systems with pertinent positive or pertinent negative responses have been documented in the HPI. ROS Other: All systems not noted in ROS Statement are negative. Past Medical History Past Medical History: Diabetes Mellitus, Hypertension History of Any Multi-Drug Resistant Organisms: None Reported Past Surgical History: Back Surgery Additional Past Surgical History / Comment(s): rt knee arthroscopic 2, L5/S1 surgery. Left 3rd and 4th toe amputation Past Psychological History: Anxiety, Bipolar, Depression Additional Psychological History / Comment(s): Patient is a lifelong nonsmoker. He denies any medical marijuana, marijuana, street drug or alcohol use. He currently lives with his mother and there are 3 dogs and a cat in the home. 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 Has adult children. Past Alcohol Use History: None Reported Additional Past Alcohol Use History / Comment(s): Patient is a lifelong nonsmoker. He denies any medical marijuana, marijuana, street drug or alcohol use. He currently lives with his mother and there are 3 dogs and a cat in the home. 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 Past Drug Use History: None Reported - Past Family History Mother Family Medical History: Coronary Artery Disease (CAD), Diabetes Mellitus, Hypertension Father History Unknown: Yes Son(s) Family Medical History: No Reported History Medications and Allergies Home Medications Medication Instructions Recorded Confirmed Type oxyCODONE-APAP 10-325MG [Percocet 1 tab PO Q6H PRN 10/22/16 11/04/23 History 10-325 mg] amLODIPine [Norvasc] 10 mg PO DAILY #30 tab 06/23/17 11/04/23 Rx ARIPiprazole [Abilify] 2 mg PO DAILY 11/04/23 11/04/23 History Insulin Glargine-Yfgn 74 units SQ BID 11/04/23 11/04/23 History Insulin Lispro 30 units SQ BID 11/04/23 11/04/23 History Sertraline [Zoloft] 50 mg PO DAILY 11/04/23 11/04/23 History Tirzepatide [Mounjaro] 10 mg SQ TU 11/04/23 11/04/23 History hydrALAZINE HCL [Apresoline] 50 mg PO TID 11/04/23 11/04/23 History hydroCHLOROthiazide [Hydrodiuril] 25 mg PO DAILY 11/04/23 11/04/23 History lisinopriL [Zestril] 5 mg PO DAILY 11/04/23 11/04/23 History traZODone HCL 100 mg PO HS 11/04/23 11/04/23 History Allergies Allergy/AdvReac Type Severity Reaction Status Date / Time Penicillins Allergy Swelling Verified 11/04/23 11:19 Physical Exam Vitals: Vital Signs Temp Pulse Resp BP Pulse Ox FiO2 11/04/23 11:00 99 18 138/47 94 L 50 11/04/23 10:14 20 11/04/23 10:06 18 92 L 11/04/23 09:48 18 87 L 11/04/23 09:46 99.3 F 99 20 137/45 75 L Intake and Output 11/04/23 11/04/23 11/04/23 06:59 14:59 22:59 Other: Weight 153.768 kg General: [Patient awake, alert and oriented times 3, sitting up on stretcher,no acute distress.] HEENT: [PERRL. EOMI. No pharyngeal erythema or exudate. Pale. Neck: [No adenopathy.] Cardiac: [Heart regular in rate and rhythm. No S3. No S4. No clicks, rubs. No murmur.] Lungs: [equal air entry, coarse, scattered rhonchi Abdomen: [No mass. No organomegaly. Bowel sounds presnt and normoactive in all 4 quadrants.] Extremes: Bilateral lower extremity brawny edema Skin: [Warm and dry Neurologic: [No lateralizing deficits. CN II - XII grossly intact.] Lymphatic: [No adenopathy.] Results CBC & Chem 7: 11/04/23 09:50 11/04/23 09:50 Labs: Abnormal Lab Results - Last 24 Hours (Table) 11/04/23 11/04/23 11/04/23 Range/Units 09:50 09:50 09:50 WBC 18.2 H (3.8-10.6) k/uL RBC 3.48 L (4.30-5.90) m/uL Hgb 9.5 L (13.0-17.5) gm/dL Hct 29.9 L (39.0-53.0) % RDW 15.7 H (11.5-15.5) % Neutrophils # 16.5 H (1.3-7.7) k/uL Lymphocytes # 0.8 L (1.0-4.8) k/uL D-Dimer 7.68 H (<0.60) mg/L FEU Sodium 132 L (137-145) mmol/L Carbon Dioxide 20 L (22-30) mmol/L BUN 41 H (9-20) mg/dL Creatinine 1.44 H (0.66-1.25) mg/dL Glucose 282 H (74-99) mg/dL Calcium 8.2 L (8.4-10.2) mg/dL Troponin I (0.000-0.034) ng/mL Total Protein 5.7 L (6.3-8.2) g/dL Albumin 3.1 L (3.5-5.0) g/dL 11/04/23 Range/Units 09:50 WBC (3.8-10.6) k/uL RBC (4.30-5.90) m/uL Hgb (13.0-17.5) gm/dL Hct (39.0-53.0) % RDW (11.5-15.5) % Neutrophils # (1.3-7.7) k/uL Lymphocytes # (1.0-4.8) k/uL D-Dimer (<0.60) mg/L FEU Sodium (137-145) mmol/L Carbon Dioxide (22-30) mmol/L BUN (9-20) mg/dL Creatinine (0.66-1.25) mg/dL Glucose (74-99) mg/dL Calcium (8.4-10.2) mg/dL Troponin I 0.129 H* (0.000-0.034) ng/mL Total Protein (6.3-8.2) g/dL Albumin (3.5-5.0) g/dL Assessment and Plan Assessment: Bilateral multifocal pneumonia, community-acquired Acute hypoxic respiratory failure secondary to the above Acute on chronic kidney disease, stage III, baseline creatinine in 2018, no newer labs available at this time Elevated troponin, possibly NSTEMI Essential hypertension Diabetes mellitus type 2, A1c pending Chronic back pain Morbid obesity, BMI 52, patient on Mounjaro, reports weight loss of 60 pounds over the last 3 to 4 months. Plan: Continue on current medication regimen ,monitoring and symptomatic treatment. Pulmonary and cardiology consults in place, recommendations pending. Continue ceftriaxone and azithromycin. Aggressive pulmonary toileting with nebulized bronchodilators. Troponin series and echo ordered. The impression and plan of care has been dictated as directed. : I performed a history and examination of this patient, discussed the same with the dictator. I agree with the dictator's note ,documented as a scribe. Any additional findings or plans will be noted.
[2023-11-04] MEDS: CLOTRIMAZOLE 1% CREAM 30 GM TUBE TOPICAL SCH (15:46)
[2023-11-04] MEDS: TRIAMCINOLONE 0.1% CREAM 80 GM TUBE TOPICAL SCH (15:46)
[2023-11-04 16:47] LABS: Glucose,Whole Blood 275 mg/dL (70-110)
[2023-11-04 17:17] LABS: HCT 30.8 % (39.0-53.0); HGB 9.7 gm/dL (13.0-17.5); Hypochromasia Marked; MCH 27.5 pg (25.0-35.0); MCHC 31.6 g/dL (31.0-37.0); Mean Platelet Volume 8.1; Platelet Count 215 k/uL (150-450); RBC 3.54 m/uL (4.30-5.90); RDW 15.6 % (11.5-15.5); WBC 20.6 k/uL (3.8-10.6)
--- NOTE | 2023-11-04 17:23 | CA ---
Transthoracic Echo Report Name: Kvng Knox Age: 53 Gender: M : 1970 Exam Date: 11/04/2023 15:01 Exam Location: [facility] Ht (in): 68 Wt (lb): 338 Ordering Physician: Elda Henry Attending/Referring Phys: Psychiatric Assistant Carli Miller RDCS Procedure CPT: Indications: elevated troponin Cardiac Hx: Technical Quality: Poor, Very technically difficult study Contrast 1: Total Dose (mL): Contrast 2: Total Dose (mL): MEASUREMENTS (Male / Female) Normal Values 2D ECHO LV Diastolic Diameter PLAX 5.4 cm 4.2 - 5.9 / 3.9 - 5.3 cm LV Systolic Diameter PLAX 3.9 cm IVS Diastolic Thickness 1.2 cm 0.6 - 1.0 / 0.6 - 0.9 cm LVPW Diastolic Thickness 1.4 cm 0.6 - 1.0 / 0.6 - 0.9 cm LV Relative Wall Thickness 0.5 RV Internal Dim ED PLAX 2.1 cm LA Systolic Diameter LX 4.9 cm 3.0 - 4.0 / 2.7 - 3.8 cm M-MODE Aortic Root Diameter MM 3.3 cm LA Systolic Diameter MM 4.3 cm LA Ao Ratio MM 1.3 AV Cusp Separation MM 1.8 cm DOPPLER Mitral E Point Velocity 107.8 cm/s Mitral A Point Velocity 119.6 cm/s Mitral E to A Ratio 0.9 MV Deceleration Time 338.3 ms MV E' Velocity 9.1 cm/s Mitral E to MV E' Ratio 11.9 FINDINGS Left Ventricle Left ventricular ejection fraction is estimated at 50-55 %. Mildly increased septal wall thickness. Left ventricular cavity size normal. No obvious regional wall motion abnormalities. Right Ventricle Right ventricle not well visualized. Right Atrium Right atrium not well visualized. Left Atrium Moderately increased left atrial diameter. Mitral Valve Mitral valve not well visualized. Trace mitral regurgitation. Aortic Valve Aortic valve not well visualized. Trileaflet aortic valve. No aortic stenosis. Tricuspid Valve Tricuspid valve not well visualized. Structurally normal tricuspid valve. No tricuspid stenosis. Pulmonic Valve Pulmonic valve not well visualized. No pulmonic stenosis. Pericardium No pericardial or pleural effusion. Aorta Normal size aortic root and proximal ascending aorta. CONCLUSIONS Normal LV function Previewed by: Dr. Ghassan Roberts MD (Electronically Signed) Final Date: 04 November 2023 17:22
[2023-11-04] MEDS: INSULIN ASPART (NovoLOG) 100 UNIT/ML VIAL SQ SCH (17:34)
[2023-11-04 20:23] LABS: Glucose,Whole Blood 244 mg/dL (70-110)
[2023-11-04] MEDS: traZODone HCL 100 MG TAB PO SCH (20:33)
[2023-11-04] MEDS: INSULIN DETEMIR (LEVEMIR) 100 UNIT/ML SYR SQ SCH (20:33)
[2023-11-05 06:12] LABS: Glucose,Whole Blood 172 mg/dL (70-110)
[2023-11-05 06:32] LABS: Basophils % (A) 0 %; Eosinophils # (A) 0.2 k/uL (0-0.7); Eosinophils % (A) 1 %; HCT 28.7 % (39.0-53.0); HGB 8.8 gm/dL (13.0-17.5); Hypochromasia Marked; Lymphocytes # (A) 0.9 k/uL (1.0-4.8); Lymphocytes % (A) 6 %; MCH 26.9 pg (25.0-35.0); MCHC 30.7 g/dL (31.0-37.0); MCV 87.6 fL (80.0-100.0); Monocytes # (A) 1.1 k/uL (0-1.0); Monocytes % (A) 6 %; Neutrophils # (A) 14.6 k/uL (1.3-7.7); Neutrophils % (A) 86 %; Platelet Count 186 k/uL (150-450); RBC 3.28 m/uL (4.30-5.90); RDW 15.9 % (11.5-15.5)
[2023-11-05 07:07] LABS: African American GFR (CKD) 75 (>60 ml/min/1.73 sqM); Anion Gap 4 mmol/L; Blood Urea Nitrogen 31 mg/dL (9-20); Calcium 8.1 mg/dL (8.4-10.2); Carbon Dioxide 27 mmol/L (22-30); Chloride 106 mmol/L (98-107); Glucose 148 mg/dL (74-99); Non-African American GFR(CKD) 65 (>60 ml/min/1.73 sqM); Sodium 137 mmol/L (137-145)
--- NOTE | 2023-11-05 07:19 | XR ---
EXAMINATION TYPE: XR chest 1V portable DATE OF EXAM: 11/05/2023 COMPARISON: 11/04/2023 HISTORY: Pneumonia TECHNIQUE: Single frontal view of the chest is obtained. FINDINGS: There is no change in the partially consolidative opacities present diffusely throughout the right catarino ng. The left lung remains clear. There is no large pleural effusion and no pneumothorax. IMPRESSION: No change in the acute cardiopulmonary disease affecting the right lung.
[2023-11-05] MEDS: AZITHROMYCIN 500 MG TAB PO SCH (07:50)
[2023-11-05] MEDS: SERTRALINE 50 MG TAB PO SCH (07:51)
[2023-11-05] MEDS: ARIPiprazole 2 MG TAB PO SCH (07:51)
[2023-11-05] MEDS: PANTOPRAZOLE 40 MG TABLET PO SCH (07:51)
[2023-11-05] MEDS: amLODIPine 10 MG TAB PO SCH (07:51)
[2023-11-05] MEDS ORDERED: lisinopriL 5 MG TAB PO SCH (09:00)
[2023-11-05] MEDS ORDERED: hydroCHLOROthiazide 25 MG TAB PO SCH (09:00)
--- NOTE | 2023-11-05 10:20 | P.CRDCN ---
History of Present Illness Consult date: 11/05/23 History of present illness: This is a 53-year-old gentleman with a past medical history significant for morbid obesity as well as diabetes and hypertension and dyslipidemia and chronic kidney disease and chronic anemia and significant family history of cardiovascular disease involving a mother who had an open heart surgery in the 40s was referred from his primary care physician to the hospital for further evaluation of shortness of breath. The patient was seen yesterday by Dr. Gonzalez where he was found to be short of breath and he was hypoxic. He was referred to the emergency department where he was found to be hypoxic. No symptoms of chest pain or chest discomfort and no dizziness or lightheadedness and no feeling of heart racing or fluttering and no presyncope or syncope. The shortness of breath started about a week ago with no associated fever or chills. He does have bilateral lower extremity edema which is a chronic according to him. Further investigation was performed including a chest x-ray and that showed possible pneumonia and currently he is on antibiotic. Beside that he underwent an EKG which showed sinus mechanism with no significant ST or T wave abnormalities. The echo showed normal biventricular dimension and systolic function with no evidence of wall motion abnormalities concerning for ischemia. His creatinine is elevated but his GFR is above 60. Hemoglobin is low above 8 and he is known to have chronic kidney disease. Currently he is not experiencing any symptoms of chest pain or chest discomfort. His shortness of breath is slightly better. The examination is remarkable for regular rhythm with a systolic murmur at the right upper sternal border with diminished breathing sounds bilaterally and bilateral lower extremities edema as well noted which is chronic. Assessment Acute hypoxic respiratory failure likely to be multifactorial Pneumonia currently the patient is on antibiotic Evidence of myocardial injury with no evidence of ischemia at this point Preserved LV systolic function on recent echocardiogram Multiple comorbid conditions including diabetes and hypertension and dyslipidemia and obesity Significant family history of cardiovascular disease as described above Plan Consider medical treatment for the abnormal troponin at this point Start the patient on heparin IV Add aspirin to the current medical regimen Add statin to the current medical regimen Increase the dose of beta-raymon with metoprolol Add CONSUELO inhibitor with lisinopril as well The patient might benefit from coronary angiogram as well for definitive diagnosis Follow-up with the patient Past Medical History Past Medical History: Diabetes Mellitus, Hypertension History of Any Multi-Drug Resistant Organisms: None Reported Past Surgical History: Back Surgery Additional Past Surgical History / Comment(s): rt knee arthroscopic 2, L5/S1 surgery. 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 He denies any medical marijuana, marijuana, street drug or alcohol use. He currently lives with his mother and there are 3 dogs and a cat in the home. 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 Has adult children. Smoking Status: Never smoker Past Alcohol Use History: None Reported Additional Past Alcohol Use History / Comment(s): Patient is a lifelong nonsmoker. He denies any medical marijuana, marijuana, street drug or alcohol use. He currently lives with his mother and there are 3 dogs and a cat in the home. 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 Past Drug Use History: None Reported - Past Family History Mother History Unknown: Yes Family Medical History: Coronary Artery Disease (CAD), Diabetes Mellitus, Hypertension Father History Unknown: Yes Son(s) History Unknown: Yes Family Medical History: No Reported History Medications and Allergies Home Medications Medication Instructions Recorded Confirmed Type oxyCODONE-APAP 10-325MG [Percocet 1 tab PO Q6H PRN 10/22/16 11/04/23 History 10-325 mg] amLODIPine [Norvasc] 10 mg PO DAILY #30 tab 06/23/17 11/04/23 Rx ARIPiprazole [Abilify] 2 mg PO DAILY 11/04/23 11/04/23 History Insulin Glargine-Yfgn 74 units SQ BID 11/04/23 11/04/23 History Insulin Lispro 30 units SQ BID 11/04/23 11/04/23 History Sertraline [Zoloft] 50 mg PO DAILY 11/04/23 11/04/23 History Tirzepatide [Mounjaro] 10 mg SQ TU 11/04/23 11/04/23 History hydrALAZINE HCL [Apresoline] 50 mg PO TID 11/04/23 11/04/23 History hydroCHLOROthiazide [Hydrodiuril] 25 mg PO DAILY 11/04/23 11/04/23 History lisinopriL [Zestril] 5 mg PO DAILY 11/04/23 11/04/23 History traZODone HCL 100 mg PO HS 11/04/23 11/04/23 History Allergies Allergy/AdvReac Type Severity Reaction Status Date / Time Penicillins Allergy Swelling Verified 11/04/23 11:19 Physical Exam Vitals: Vital Signs Temp Pulse Pulse Resp BP BP Pulse Ox 11/05/23 09:33 96 11/05/23 09:21 96 11/05/23 07:40 18 11/05/23 07:39 97.8 F 100 18 145/73 93 L 11/05/23 04:46 92 18 130/70 95 11/05/23 00:05 98.5 F 99 18 146/78 95 11/04/23 21:00 95 11/04/23 20:44 97 11/04/23 20:32 99.1 F 98 19 137/77 95 11/04/23 16:09 97.9 F 92 19 126/77 96 11/04/23 15:48 95 20 11/04/23 15:41 94 L 11/04/23 15:37 97 20 11/04/23 15:24 99.3 F 92 18 128/64 90 L 11/04/23 11:00 99 18 138/47 94 L FiO2 11/05/23 09:33 11/05/23 09:21 11/05/23 07:40 11/05/23 07:39 11/05/23 04:46 11/05/23 00:05 11/04/23 21:00 11/04/23 20:44 11/04/23 20:32 50 11/04/23 16:09 50 11/04/23 15:48 11/04/23 15:41 50 11/04/23 15:37 11/04/23 15:24 11/04/23 11:00 50 Intake and Output 11/04/23 11/05/23 11/05/23 22:59 06:59 14:59 Intake Total 128 118 Output Total 700 Balance -572 118 Intake: IV 10 Invasive Line 1 10 Oral 118 118 Output: Urine 700 Other: Voiding Method Urinal Urinal Urinal # Voids 1 # Bowel Movements 1 Weight 153.768 kg 156.4 kg Results 11/05/23 06:15 11/05/23 06:15 Cardiac Enzymes 11/04/23 11/04/23 11/04/23 Range/Units 09:50 09:50 14:44 AST 28 (17-59) U/L Troponin I 0.129 H* 0.119 H* (0.000-0.034) ng/mL 11/04/23 Range/Units 16:56 AST (17-59) U/L Troponin I 0.117 H* (0.000-0.034) ng/mL Coagulation 11/04/23 Range/Units 09:50 PT 11.7 (10.0-12.5) sec APTT 23.4 (22.0-30.0) sec CBC 11/04/23 11/04/23 11/05/23 Range/Units 09:50 16:56 06:15 WBC 18.2 H 20.6 H 17.0 H (3.8-10.6) k/uL RBC 3.48 L 3.54 L 3.28 L (4.30-5.90) m/uL Hgb 9.5 L 9.7 L 8.8 L (13.0-17.5) gm/dL Hct 29.9 L 30.8 L 28.7 L (39.0-53.0) % Plt Count 208 215 186 (150-450) k/uL Comprehensive Metabolic Panel 11/04/23 11/05/23 Range/Units 09:50 06:15 Sodium 132 L 137 (137-145) mmol/L Potassium 4.1 4.0 (3.5-5.1) mmol/L Chloride 102 106 (98-107) mmol/L Carbon Dioxide 20 L 27 (22-30) mmol/L BUN 41 H 31 H (9-20) mg/dL Creatinine 1.44 H 1.26 H (0.66-1.25) mg/dL Glucose 282 H 148 H (74-99) mg/dL Calcium 8.2 L 8.1 L (8.4-10.2) mg/dL AST 28 (17-59) U/L ALT 22 (4-49) U/L Alkaline Phosphatase 96 (38-126) U/L Total Protein 5.7 L (6.3-8.2) g/dL Albumin 3.1 L (3.5-5.0) g/dL Current Medications Generic Name Dose Route Start Last Admin Trade Name Freq PRN Reason Stop Dose Admin Albuterol/Ipratropium 3 ml 11/04/23 16:00 11/05/23 09:20 Ipratropium-Albuterol 3 Ml Neb INHALATION 3 ml RT-QID KAYCE Administration Amlodipine Besylate 10 mg 11/05/23 09:00 11/05/23 07:51 Amlodipine 10 Mg Tab PO 10 mg DAILY KAYCE Administration Aripiprazole 2 mg 11/05/23 09:00 11/05/23 07:51 Aripiprazole 2 Mg Tab PO 2 mg DAILY KAYCE Administration Azithromycin 500 mg 11/05/23 09:00 11/05/23 07:50 Azithromycin 500 Mg Tab PO 11/06/23 09:01 500 mg DAILY KAYCE Administration Protocol Clotrimazole 1 applic 11/04/23 15:30 11/05/23 07:52 Clotrimazole 1% Cream 30 Gm Tube TOPICAL 1 applic BID KAYCE Administration Protocol Dextrose/Water 25 ml 11/04/23 15:04 Dextrose 50% Syringe 50 Ml IVP PER PROTOCOL PRN Hypoglycemia Protocol Dextrose/Water 50 ml 11/04/23 15:04 Dextrose 50% Syringe 50 Ml IVP PER PROTOCOL PRN Hypoglycemia Protocol Hydralazine HCl 50 mg 11/04/23 18:00 11/05/23 07:50 Hydralazine Hcl 50 Mg Tab PO 50 mg QID KAYCE Administration Ceftriaxone Sodium 2 gm/ 50 mls @ 100 mls/hr 11/05/23 09:00 11/05/23 07:51 Sodium Chloride IVPB 100 mls/hr Q24HR KAYCE Administration Protocol Sodium Chloride 1,000 mls @ 100 mls/hr 11/04/23 14:15 11/05/23 07:51 Saline 0.9% IV 100 mls/hr .Q10H KAYCE Administration Insulin Aspart 0 unit 11/04/23 17:30 11/05/23 06:22 Insulin Aspart (Novolog) 100 Unit/Ml Vial SQ 3 unit ACHS KAYCE Administration Protocol Insulin Detemir 74 unit 11/04/23 21:00 11/05/23 06:22 Insulin Detemir (Levemir) 100 Unit/Ml Syr SQ 74 unit BID@0700,2100 KAYCE Administration Miscellaneous Information 1 each 11/04/23 14:09 Pneumonia Protocol Utilized 1 Each Misc PO ONCE PRN Per Protocol Oxycodone/Acetaminophen 1 each 11/04/23 14:11 Oxycodone-Apap 10-325mg 1 Each Tab PO Q6H PRN Pain Pantoprazole Sodium 40 mg 11/05/23 09:00 11/05/23 07:51 Pantoprazole 40 Mg Tablet PO 40 mg DAILY KAYCE Administration Sertraline HCl 50 mg 11/05/23 09:00 11/05/23 07:51 Sertraline 50 Mg Tab PO 50 mg DAILY KAYCE Administration Trazodone HCl 100 mg 11/04/23 21:00 11/04/23 20:33 Trazodone Hcl 100 Mg Tab PO 100 mg HS KAYCE Administration Triamcinolone Acetonide 1 applic 11/04/23 15:30 11/05/23 07:52 Triamcinolone 0.1% Cream 80 Gm Tube TOPICAL 1 applic BID KAYCE Administration Protocol Intake and Output 11/04/23 11/05/23 11/05/23 22:59 06:59 14:59 Intake Total 128 118 Output Total 700 Balance -572 118 Intake: IV 10 Invasive Line 1 10 Oral 118 118 Output: Urine 700 Other: Voiding Method Urinal Urinal Urinal # Voids 1 # Bowel Movements 1 Weight 153.768 kg 156.4 kg 11/05/23 06:15 11/05/23 06:15
--- NOTE | 2023-11-05 10:35 | P.PN ---
Subjective Progress Note Date: 11/05/23 Principal diagnosis: perihilar pneumonia, hypoxia patient is awake alert, vital signs are stable patient is afebrile and O2 sats 93% on high flow cannula at 10 L Objective - Vital Signs Vital signs: Vital Signs Temp 97.8 F 11/05/23 07:39 Pulse 96 11/05/23 09:33 Resp 18 11/05/23 07:40 BP 145/73 11/05/23 07:39 Pulse Ox 93 L 11/05/23 07:39 FiO2 50 11/04/23 20:32 Intake & Output 11/04/23 11/05/23 11/05/23 18:59 06:59 18:59 Intake Total 128 118 Output Total 700 Balance 128 -700 118 Weight 153.768 kg 156.4 kg Intake: IV 10 Invasive Line 1 10 Oral 118 118 Output: Urine 700 Other: Voiding Method Urinal Urinal Urinal # Voids 1 # Bowel Movements 1 - Exam General: [Patient awake, alert and oriented times 3. Patient in no acute distress. morbidly obese HEENT: [PERRL. EOMI. No pharyngeal erythema or exudate.] Neck: [No adenopathy.] Cardiac: [Heart regular in rate and rhythm. No S3. No S4. No clicks, rubs. No murmur.] Lungs: scattered rhonchi Abdomen: [No mass. No organomegaly. Bowel sounds presnt and normoactive in all 4 quadrants.] Extremes: 2+ brawny edema bilaterally, chronic venous stasis dermatitis bilaterally : normal male genitalia Musculoskeletal: [No joint erythema, edema or tenderness.] Skin: bilateral lower extreme edema with venous stasis dermatitis bilaterally Neurologic: [No lateralizing deficits. CN II - XII grossly intact.] diabetic neuropathy bilateral lower extremes Lymphatic: [No adenopathy.] - Labs CBC & Chem 7: 11/05/23 06:15 11/05/23 06:15 Labs: Abnormal Lab Results - Last 24 Hours (Table) 11/04/23 11/04/23 11/04/23 Range/Units 09:50 09:50 09:50 WBC (3.8-10.6) k/uL RBC (4.30-5.90) m/uL Hgb (13.0-17.5) gm/dL Hct (39.0-53.0) % MCHC (31.0-37.0) g/dL RDW (11.5-15.5) % Neutrophils # (1.3-7.7) k/uL Lymphocytes # (1.0-4.8) k/uL Monocytes # (0-1.0) k/uL D-Dimer 7.68 H (<0.60) mg/L FEU Sodium 132 L (137-145) mmol/L Carbon Dioxide 20 L (22-30) mmol/L BUN 41 H (9-20) mg/dL Creatinine 1.44 H (0.66-1.25) mg/dL Glucose 282 H (74-99) mg/dL POC Glucose (mg/dL) (70-110) mg/dL Calcium 8.2 L (8.4-10.2) mg/dL Troponin I 0.129 H* (0.000-0.034) ng/mL Total Protein 5.7 L (6.3-8.2) g/dL Albumin 3.1 L (3.5-5.0) g/dL Procalcitonin (0.02-0.50) ng/mL 11/04/23 11/04/23 11/04/23 Range/Units 09:50 14:44 16:45 WBC (3.8-10.6) k/uL RBC (4.30-5.90) m/uL Hgb (13.0-17.5) gm/dL Hct (39.0-53.0) % MCHC (31.0-37.0) g/dL RDW (11.5-15.5) % Neutrophils # (1.3-7.7) k/uL Lymphocytes # (1.0-4.8) k/uL Monocytes # (0-1.0) k/uL D-Dimer (<0.60) mg/L FEU Sodium (137-145) mmol/L Carbon Dioxide (22-30) mmol/L BUN (9-20) mg/dL Creatinine (0.66-1.25) mg/dL Glucose (74-99) mg/dL POC Glucose (mg/dL) 275 H (70-110) mg/dL Calcium (8.4-10.2) mg/dL Troponin I 0.119 H* (0.000-0.034) ng/mL Total Protein (6.3-8.2) g/dL Albumin (3.5-5.0) g/dL Procalcitonin 2.57 H (0.02-0.50) ng/mL 11/04/23 11/04/23 11/04/23 Range/Units 16:56 16:56 20:12 WBC 20.6 H (3.8-10.6) k/uL RBC 3.54 L (4.30-5.90) m/uL Hgb 9.7 L (13.0-17.5) gm/dL Hct 30.8 L (39.0-53.0) % MCHC (31.0-37.0) g/dL RDW 15.6 H (11.5-15.5) % Neutrophils # (1.3-7.7) k/uL Lymphocytes # (1.0-4.8) k/uL Monocytes # (0-1.0) k/uL D-Dimer (<0.60) mg/L FEU Sodium (137-145) mmol/L Carbon Dioxide (22-30) mmol/L BUN (9-20) mg/dL Creatinine (0.66-1.25) mg/dL Glucose (74-99) mg/dL POC Glucose (mg/dL) 244 H (70-110) mg/dL Calcium (8.4-10.2) mg/dL Troponin I 0.117 H* (0.000-0.034) ng/mL Total Protein (6.3-8.2) g/dL Albumin (3.5-5.0) g/dL Procalcitonin (0.02-0.50) ng/mL 11/05/23 11/05/23 11/05/23 Range/Units 06:03 06:15 06:15 WBC 17.0 H (3.8-10.6) k/uL RBC 3.28 L (4.30-5.90) m/uL Hgb 8.8 L (13.0-17.5) gm/dL Hct 28.7 L (39.0-53.0) % MCHC 30.7 L (31.0-37.0) g/dL RDW 15.9 H (11.5-15.5) % Neutrophils # 14.6 H (1.3-7.7) k/uL Lymphocytes # 0.9 L (1.0-4.8) k/uL Monocytes # 1.1 H (0-1.0) k/uL D-Dimer (<0.60) mg/L FEU Sodium (137-145) mmol/L Carbon Dioxide (22-30) mmol/L BUN 31 H (9-20) mg/dL Creatinine 1.26 H (0.66-1.25) mg/dL Glucose 148 H (74-99) mg/dL POC Glucose (mg/dL) 172 H (70-110) mg/dL Calcium 8.1 L (8.4-10.2) mg/dL Troponin I (0.000-0.034) ng/mL Total Protein (6.3-8.2) g/dL Albumin (3.5-5.0) g/dL Procalcitonin (0.02-0.50) ng/mL Assessment and Plan Assessment: bilateral community-acquired pneumonia Acute hypoxemic respiratory failure secondary to pneumonia Acute on chronic kidney disease stage III Elevated troponin Essential hypertension Type 2 diabetes last A1c in the office was 7. Morbid obesity BMI currently 52, patient is currently on Mounjaro reported weight loss of 60 pounds over the last 3-4 months IV antibiotic therapy including Rocephin and azithromycin Plan: consultation with pulmonary medicine Consultation with cardiology Continue IV antibiotics Continue oxygen support Echo pending Time with Patient: Greater than 30
[2023-11-05] MEDS: HEPARIN SODIUM 1,000 UN/ML (10ML VL) IV ONE (10:55)
[2023-11-05] MEDS: HEPARIN SOD,PORK IN 0.45% NACL 25,000 UNIT in 0.45% NACL 1 250ML.BAG IV SCH (10:55)
[2023-11-05] MEDS: METOPROLOL TARTRATE 25 MG TAB PO SCH (10:56)
[2023-11-05] MEDS: oxyCODONE-APAP 10-325MG 1 EACH TAB PO PRN (10:56)
--- NOTE | 2023-11-05 10:57 | P.PN ---
Subjective Progress Note Date: 11/05/23 53-year-old male sent in by Dr. Alejandro Atwood, to be evaluated for shortness of breath. He said shortness of breath since Tuesday, or about 5 days. The patient has a history of obesity, chronic kidney disease, and diabetes. Currently, he is seen in the emergency department, room 17. He is on a 40% Venturi mask. He is not receiving any supplemental IV fluids. The patient apparently has no history of lung disease, and denies tobacco history. Denies any fever or chills. He denies any cough or phlegm production. He denies any chest pain or chest discomfort. Current laboratory data includes a white count 18.2, hemoglobin 9.5, hematocrit 29.9, and a platelet count of 208,000. D-dimer was 7.68. Sodium 132, potassium 4.1, chlorides 102, CO2 20, BUN 41, and creatinine 1.44. Glucose 282. Troponin 0.129. N-terminal proBNP is 891. He tested negative for influenza AMB, RSV, coronavirus. Chest x-ray shows a patchy infiltrate, in the right upper lobe. CTA was negative for pulmonary embolism. CT scan was consistent with bilateral patchy opacities, consistent with pneumonia. The patient is seen today November 05, 2023 in follow-up on the selective care unit. He is currently sitting up at the bedside. Awake and alert in no acute distress. He is feeling a bit better today compared to yesterday. He is maintaining O2 saturations in the 90s on 10 L high flow nasal cannula. His procalcitonin was 2.57. He is being treated for community-acquired pneumonia with Rocephin and azithromycin. Rest x-ray continues to show patchy consolidation in the right lung base. Left lung is clear. Echocardiogram revealed normal left ventricular systolic function. No significant valvular abnormalities. Count 17.0. Hemoglobin 8.8. Platelets 186. Sodium 137. Potassium 4.0. Bicarb 27. BUN 31. Creatinine 1.26. Glucose 148. Troponins were 0.119, 0.117. Heparin drip initiated. Objective - Vital Signs Vital signs: Vital Signs Temp 97.8 F 11/05/23 07:39 Pulse 96 11/05/23 09:33 Resp 18 11/05/23 07:40 BP 145/73 11/05/23 07:39 Pulse Ox 93 L 11/05/23 07:39 FiO2 50 11/04/23 20:32 Intake & Output 11/04/23 11/05/23 11/05/23 18:59 06:59 18:59 Intake Total 128 118 Output Total 700 Balance 128 -700 118 Weight 153.768 kg 156.4 kg Intake: IV 10 Invasive Line 1 10 Oral 118 118 Output: Urine 700 Other: Voiding Method Urinal Urinal Urinal # Voids 1 # Bowel Movements 1 - Exam GENERAL EXAM: Alert, sent, morbidly obese 53-year-old male patient, on 10 L high flow nasal cannula, fairly comfortable in no apparent distress. HEAD: Normocephalic. EYES: Normal reaction of pupils, equal size. NOSE: Clear with pink turbinates. THROAT: No erythema or exudates. NECK: No masses, no JVD. CHEST: No chest wall deformity. LUNGS: Equal air entry with crackles in the right lung base, diminished. CVS: S1 and S2 normal with no audible murmur, regular rhythm. ABDOMEN: Obese, unable to appreciate organomegaly, normal bowel sounds, no guarding or rigidity. SPINE: No scoliosis or deformity SKIN: No rashes CENTRAL NERVOUS SYSTEM: No focal deficits, tone is normal in all 4 extremities. EXTREMITIES: Changes of chronic venous stasis. Levar wraps to the bilateral lower extremities. No clubbing, no cyanosis. Peripheral pulses are intact. - Labs CBC & Chem 7: 11/05/23 06:15 11/05/23 06:15 Labs: Abnormal Lab Results - Last 24 Hours (Table) 11/04/23 11/04/23 11/04/23 Range/Units 09:50 09:50 09:50 WBC (3.8-10.6) k/uL RBC (4.30-5.90) m/uL Hgb (13.0-17.5) gm/dL Hct (39.0-53.0) % MCHC (31.0-37.0) g/dL RDW (11.5-15.5) % Neutrophils # (1.3-7.7) k/uL Lymphocytes # (1.0-4.8) k/uL Monocytes # (0-1.0) k/uL Sodium 132 L (137-145) mmol/L Carbon Dioxide 20 L (22-30) mmol/L BUN 41 H (9-20) mg/dL Creatinine 1.44 H (0.66-1.25) mg/dL Glucose 282 H (74-99) mg/dL POC Glucose (mg/dL) (70-110) mg/dL Hemoglobin A1c (<=6.0) % Calcium 8.2 L (8.4-10.2) mg/dL Troponin I 0.129 H* (0.000-0.034) ng/mL Total Protein 5.7 L (6.3-8.2) g/dL Albumin 3.1 L (3.5-5.0) g/dL Procalcitonin 2.57 H (0.02-0.50) ng/mL 11/04/23 11/04/23 11/04/23 Range/Units 14:44 16:45 16:56 WBC (3.8-10.6) k/uL RBC (4.30-5.90) m/uL Hgb (13.0-17.5) gm/dL Hct (39.0-53.0) % MCHC (31.0-37.0) g/dL RDW (11.5-15.5) % Neutrophils # (1.3-7.7) k/uL Lymphocytes # (1.0-4.8) k/uL Monocytes # (0-1.0) k/uL Sodium (137-145) mmol/L Carbon Dioxide (22-30) mmol/L BUN (9-20) mg/dL Creatinine (0.66-1.25) mg/dL Glucose (74-99) mg/dL POC Glucose (mg/dL) 275 H (70-110) mg/dL Hemoglobin A1c (<=6.0) % Calcium (8.4-10.2) mg/dL Troponin I 0.119 H* 0.117 H* (0.000-0.034) ng/mL Total Protein (6.3-8.2) g/dL Albumin (3.5-5.0) g/dL Procalcitonin (0.02-0.50) ng/mL 11/04/23 11/04/23 11/05/23 Range/Units 16:56 20:12 06:03 WBC 20.6 H (3.8-10.6) k/uL RBC 3.54 L (4.30-5.90) m/uL Hgb 9.7 L (13.0-17.5) gm/dL Hct 30.8 L (39.0-53.0) % MCHC (31.0-37.0) g/dL RDW 15.6 H (11.5-15.5) % Neutrophils # (1.3-7.7) k/uL Lymphocytes # (1.0-4.8) k/uL Monocytes # (0-1.0) k/uL Sodium (137-145) mmol/L Carbon Dioxide (22-30) mmol/L BUN (9-20) mg/dL Creatinine (0.66-1.25) mg/dL Glucose (74-99) mg/dL POC Glucose (mg/dL) 244 H 172 H (70-110) mg/dL Hemoglobin A1c (<=6.0) % Calcium (8.4-10.2) mg/dL Troponin I (0.000-0.034) ng/mL Total Protein (6.3-8.2) g/dL Albumin (3.5-5.0) g/dL Procalcitonin (0.02-0.50) ng/mL 11/05/23 11/05/23 11/05/23 Range/Units 06:15 06:15 06:15 WBC 17.0 H (3.8-10.6) k/uL RBC 3.28 L (4.30-5.90) m/uL Hgb 8.8 L (13.0-17.5) gm/dL Hct 28.7 L (39.0-53.0) % MCHC 30.7 L (31.0-37.0) g/dL RDW 15.9 H (11.5-15.5) % Neutrophils # 14.6 H (1.3-7.7) k/uL Lymphocytes # 0.9 L (1.0-4.8) k/uL Monocytes # 1.1 H (0-1.0) k/uL Sodium (137-145) mmol/L Carbon Dioxide (22-30) mmol/L BUN 31 H (9-20) mg/dL Creatinine 1.26 H (0.66-1.25) mg/dL Glucose 148 H (74-99) mg/dL POC Glucose (mg/dL) (70-110) mg/dL Hemoglobin A1c 6.4 H (<=6.0) % Calcium 8.1 L (8.4-10.2) mg/dL Troponin I (0.000-0.034) ng/mL Total Protein (6.3-8.2) g/dL Albumin (3.5-5.0) g/dL Procalcitonin (0.02-0.50) ng/mL Assessment and Plan Assessment: Bilateral community-acquired pneumonia. Currently on ceftriaxone and azithromycin Acute hypoxemic respiratory failure secondary to bilateral pneumonia. Currently on 10 L high flow nasal cannula Troponin leak, initiated on heparin drip. Echocardiogram revealed preserved left ventricular systolic function History of diabetes mellitus History of chronic kidney disease Morbid obesity. BMI 52.4 kg/m, maintained on Mounjaro Lifelong non-smoker Plan: The patient was seen and evaluated Chest x-ray, labs and medications reviewed Continue antibiotics, bronchodilators Continue on heparin drip Cardiology consulted Titrate down the FiO2 as tolerated We will continue to follow I have personally seen and examined the patient, performed the documentation and the assessment and plan as written. Number of minutes spent on the visit: 10.
[2023-11-05 11:33] LABS: Glucose,Whole Blood 111 mg/dL (70-110)
[2023-11-05 16:55] LABS: Glucose,Whole Blood 140 mg/dL (70-110)
[2023-11-05 20:10] LABS: Glucose,Whole Blood 187 mg/dL (70-110)
--- NOTE | 2023-11-05 22:21 | P.CONS ---
History of Present Illness - Reason for Consult Consult date: 11/05/23 Pneumonia Requesting physician: Alejandro Atwood Jr - Chief Complaint Increasing shortness of breath x few days - History of Present Illness Patient is a 53-year-old male with a past medical history significant for diabetes mellitus hypertension patient presenting to the hospital for evaluation of weakness and fatigue and this patient symptom has been going on fo r about 4 to 5 days before presentation to the hospital patient did have a fever at the beginning of his symptoms and he also have a cough which has been mild to moderate intensity mostly dry in nature also complaining of increasing shortness of breath that has been progressively getting worse patient was noted to be hypoxic with O2 sat of 70% at his physician office for the patient was sent to the ER on presentation to the hospital patient did have a low-grade fever of 99.3 F patient was tachycardic at 1 point he is not hypotensive or hypoxic currently on a 10 L high flow oxygen patient did have a white count of 20,000 repeat is down to 17,000 BUN and creatinine has been mildly elevated liver enzymes are normal procalcitonin is elevated 2.57 influenza RSV COVID testing was negative urine for Legionella antigen is negative patient did have a chest x-ray patchy infiltrate right upper lobe compatible with pneumonia patient also have a CT angiogram of the chest no evidence of PE reactive adenopathy and also have peripheral groundglass and confluent bilateral opacities consistent with atypical pneumonia, infectious disease was consulted for further management of antibiotic therapy Review of Systems Positive point and negatives has been mentioned in the HPI, complete review of systems was performed and all other systems are negative Past Medical History Past Medical History: Diabetes Mellitus, Hypertension History of Any Multi-Drug Resistant Organisms: None Reported Past Surgical History: Back Surgery Additional Past Surgical History / Comment(s): rt knee arthroscopic 2, L5/S1 surgery. 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 He denies any medical marijuana, marijuana, street drug or alcohol use. He currently lives with his mother and there are 3 dogs and a cat in the home. 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 Has adult children. Smoking Status: Never smoker Past Alcohol Use History: None Reported Additional Past Alcohol Use History / Comment(s): Patient is a lifelong nonsm oker. He denies any medical marijuana, marijuana, street drug or alcohol use. He currently lives with his mother and there are 3 dogs and a cat in the home. 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 Past Drug Use History: None Reported - Past Family History Mother History Unknown: Yes Family Medical History: Coronary Artery Disease (CAD), Diabetes Mellitus, Hypertension Father History Unknown: Yes Son(s) History Unknown: Yes Family Medical History: No Reported History Medications and Allergies Home Medications Medication Instructions Recorded Confirmed Type oxyCODONE-APAP 10-325MG [Percocet 1 tab PO Q6H PRN 10/22/16 11/04/23 History 10-325 mg] amLODIPine [Norvasc] 10 mg PO DAILY #30 tab 06/23/17 11/04/23 Rx ARIPiprazole [Abilify] 2 mg PO DAILY 11/04/23 11/04/23 History Insulin Glargine-Yfgn 74 units SQ BID 11/04/23 11/04/23 History Insulin Lispro 30 units SQ BID 11/04/23 11/04/23 History Sertraline [Zoloft] 50 mg PO DAILY 11/04/23 11/04/23 History Tirzepatide [Mounjaro] 10 mg SQ TU 11/04/23 11/04/23 History hydrALAZINE HCL [Apresoline] 50 mg PO TID 11/04/23 11/04/23 History hydroCHLOROthiazide [Hydrodiuril] 25 mg PO DAILY 11/04/23 11/04/23 History lisinopriL [Zestril] 5 mg PO DAILY 11/04/23 11/04/23 History traZODone HCL 100 mg PO HS 11/04/23 11/04/23 History Allergies Allergy/AdvReac Type Severity Reaction Status Date / Time Penicillins Allergy Swelling Verified 11/04/23 11:19 Physical Exam Vitals: Vital Signs Temp Pulse Pulse Resp BP BP Pulse Ox 11/05/23 09:33 96 11/05/23 09:21 96 11/05/23 07:40 18 11/05/23 07:39 97.8 F 100 18 145/73 93 L 11/05/23 04:46 92 18 130/70 95 11/05/23 00:05 98.5 F 99 18 146/78 95 07/26/24 21:00 95 11/04/23 20:44 97 11/04/23 20:32 99.1 F 98 19 137/77 95 11/04/23 16:09 97.9 F 92 19 126/77 96 11/04/23 15:48 95 20 11/04/23 15:41 94 L 11/04/23 15:37 97 20 11/04/23 15:24 99.3 F 92 18 128/64 90 L FiO2 11/05/23 09:33 11/05/23 09:21 11/05/23 07:40 11/05/23 07:39 11/05/23 04:46 11/05/23 00:05 11/04/23 21:00 11/04/23 20:44 11/04/23 20:32 50 11/04/23 16:09 50 11/04/23 15:48 11/04/23 15:41 50 11/04/23 15:37 11/04/23 15:24 Intake and Output 11/04/23 11/05/23 11/05/23 22:59 06:59 14:59 Intake Total 128 118 Output Total 700 Balance -572 118 Intake: IV 10 Invasive Line 1 10 Oral 118 118 Output: Urine 700 Other: Voiding Method Urinal Urinal Urinal # Voids 1 # Bowel Movements 1 Weight 153.768 kg 156.4 kg GENERAL DESCRIPTION: Middle-aged male up in bed, no distress. No tachypnea or ac cessory muscle of respiration use. HEENT: Shows Pallor , no scleral icterus. Oral mucous membrane is dry. No pharyngeal erythema or thrush NECK: Trachea central, no thyromegaly. LUNGS: Unlabored breathing. Clear to auscultation anteriorly. No wheeze or crackle. HEART: S1, S2, regular rate and rhythm. No loud murmur ABDOMEN: Soft, no tenderness , guarding or rigidity, no organomegaly EXTREMITIES: Diffuse swelling to the leg with dry scaly skin no redness. SKIN: No rash, no masses palpable. NEUROLOGICAL: The patient is awake, alert, oriented x3, mood and affect normal. Results CBC & Chem 7: 11/05/23 06:15 11/05/23 06:15 Labs: Abnormal Lab Results - Last 24 Hours (Table) 11/04/23 11/04/23 11/04/23 Range/Units 09:50 09:50 09:50 WBC (3.8-10.6) k/uL RBC (4.30-5.90) m/uL Hgb (13.0-17.5) gm/dL Hct (39.0-53.0) % MCHC (31.0-37.0) g/dL RDW (11.5-15.5) % Neutrophils # (1.3-7.7) k/uL Lymphocytes # (1.0-4.8) k/uL Monocytes # (0-1.0) k/uL Sodium 132 L (137-145) mmol/L Carbon Dioxide 20 L (22-30) mmol/L BUN 41 H (9-20) mg/dL Creatinine 1.44 H (0.66-1.25) mg/dL Glucose 282 H (74-99) mg/dL POC Glucose (mg/dL) (70-110) mg/dL Hemoglobin A1c (<=6.0) % Calcium 8.2 L (8.4-10.2) mg/dL Troponin I 0.129 H* (0.000-0.034) ng/mL Total Protein 5.7 L (6.3-8.2) g/dL Albumin 3.1 L (3.5-5.0) g/dL Procalcitonin 2.57 H (0.02-0.50) ng/mL 11/04/23 11/04/23 11/04/23 Range/Units 14:44 16:45 16:56 WBC (3.8-10.6) k/uL RBC (4.30-5.90) m/uL Hgb (13.0-17.5) gm/dL Hct (39.0-53.0) % MCHC (31.0-37.0) g/dL RDW (11.5-15.5) % Neutrophils # (1.3-7.7) k/uL Lymphocytes # (1.0-4.8) k/uL Monocytes # (0-1.0) k/uL Sodium (137-145) mmol/L Carbon Dioxide (22-30) mmol/L BUN (9-20) mg/dL Creatinine (0.66-1.25) mg/dL Glucose (74-99) mg/dL POC Glucose (mg/dL) 275 H (70-110) mg/dL Hemoglobin A1c (<=6.0) % Calcium (8.4-10.2) mg/dL Troponin I 0.119 H* 0.117 H* (0.000-0.034) ng/mL Total Protein (6.3-8.2) g/dL Albumin (3.5-5.0) g/dL Procalcitonin (0.02-0.50) ng/mL 11/04/23 11/04/23 11/05/23 Range/Units 16:56 20:12 06:03 WBC 20.6 H (3.8-10.6) k/uL RBC 3.54 L (4.30-5.90) m/uL Hgb 9.7 L (13.0-17.5) gm/dL Hct 30.8 L (39.0-53.0) % MCHC (31.0-37.0) g/dL RDW 15.6 H (11.5-15.5) % Neutrophils # (1.3-7.7) k/uL Lymphocytes # (1.0-4.8) k/uL Monocytes # (0-1.0) k/uL Sodium (137-145) mmol/L Carbon Dioxide (22-30) mmol/L BUN (9-20) mg/dL Creatinine (0.66-1.25) mg/dL Glucose (74-99) mg/dL POC Glucose (mg/dL) 244 H 172 H (70-110) mg/dL Hemoglobin A1c (<=6.0) % Calcium (8.4-10.2) mg/dL Troponin I (0.000-0.034) ng/mL Total Protein (6.3-8.2) g/dL Albumin (3.5-5.0) g/dL Procalcitonin (0.02-0.50) ng/mL 11/05/23 11/05/23 11/05/23 Range/Units 06:15 06:15 06:15 WBC 17.0 H (3.8-10.6) k/uL RBC 3.28 L (4.30-5.90) m/uL Hgb 8.8 L (13.0-17.5) gm/dL Hct 28.7 L (39.0-53.0) % MCHC 30.7 L (31.0-37.0) g/dL RDW 15.9 H (11.5-15.5) % Neutrophils # 14.6 H (1.3-7.7) k/uL Lymphocytes # 0.9 L (1.0-4.8) k/uL Monocytes # 1.1 H (0-1.0) k/uL Sodium (137-145) mmol/L Carbon Dioxide (22-30) mmol/L BUN 31 H (9-20) mg/dL Creatinine 1.26 H (0.66-1.25) mg/dL Glucose 148 H (74-99) mg/dL POC Glucose (mg/dL) (70-110) mg/dL Hemoglobin A1c 6.4 H (<=6.0) % Calcium 8.1 L (8.4-10.2) mg/dL Troponin I (0.000-0.034) ng/mL Total Protein (6.3-8.2) g/dL Albumin (3.5-5.0) g/dL Procalcitonin (0.02-0.50) ng/mL 11/05/23 Range/Units 11:31 WBC (3.8-10.6) k/uL RBC (4.30-5.90) m/uL Hgb (13.0-17.5) gm/dL Hct (39.0-53.0) % MCHC (31.0-37.0) g/dL RDW (11.5-15.5) % Neutrophils # (1.3-7.7) k/uL Lymphocytes # (1.0-4.8) k/uL Monocytes # (0-1.0) k/uL Sodium (137-145) mmol/L Carbon Dioxide (22-30) mmol/L BUN (9-20) mg/dL Creatinine (0.66-1.25) mg/dL Glucose (74-99) mg/dL POC Glucose (mg/dL) 111 H (70-110) mg/dL Hemoglobin A1c (<=6.0) % Calcium (8.4-10.2) mg/dL Troponin I (0.000-0.034) ng/mL Total Protein (6.3-8.2) g/dL Albumin (3.5-5.0) g/dL Procalcitonin (0.02-0.50) ng/mL Assessment and Plan (1) Multifocal pneumonia Current Visit: Yes Status: Acute Code(s): J18.9 - PNEUMONIA, UNSPECIFIED ORGANISM SNOMED Code(s): 241736003 (2) Leukocytosis Current Visit: Yes Status: Acute Code(s): D72.829 - ELEVATED WHITE BLOOD CELL COUNT, UNSPECIFIED SNOMED Code(s): 616698759 Plan: 1patient presented to hospital with increasing shortness of breath and cough in this patient who did have a low-grade fever hypoxemia with evidence of groundglass opacity concerning for pneumonia patient has been ruled out for COVID-19 and did have elevated procalcitonin mostly suggestive of bacterial pneumonia, urine for Legionella antigen has been negative. 2we will try to obtain a sputum for Gram stain culture sensitivity. 3patient also have a swelling to lower extremity with some dry scaly skin but no evidence of any cellulitis. 4penicillin allergy noted in the number of antibiotics safe to use. 5patient to continue with the Rocephin Zithromax while waiting for the workup to be completed. We will follow on clinical condition and cultures to further adjust medication if needed Thank you for this consultation we will follow the patient along with you Dictation was produced using [employer] dictation software. please excuse any grammatical, word or spelling errors. Time with Patient: Greater than 30
[2023-11-06] MEDS: HEPARIN SODIUM 1,000 UN/ML (10ML VL) IV PRN (02:33)
[2023-11-06 06:12] LABS: Glucose,Whole Blood 211 mg/dL (70-110)
[2023-11-06] MEDS: ASPIRIN 81 MG PO SCH (07:55)
[2023-11-06] MEDS: lisinopriL 5 MG TAB PO SCH (07:55)
--- NOTE | 2023-11-06 08:31 | P.PN ---
Subjective Progress Note Date: 11/06/23 This is a 53-year-old gentleman with a past medical history significant for morbid obesity as well as diabetes and hypertension and dyslipidemia and chronic kidney disease and chronic anemia and significant family history of cardiovascular disease involving a mother who had an open heart surgery in the 40s was referred from his primary care physician to the hospital for further evaluation of shortness of breath. The patient was seen yesterday by Dr. Gonzalez where he was found to be short of breath and he was hypoxic. He was referred to the emergency department where he was found to be hypoxic. No symptoms of chest pain or chest discomfort and no dizziness or lightheadedness and no feeling of heart racing or fluttering and no presyncope or syncope. The shortness of breath started about a week ago with no associated fever or chills. He does have bilateral lower extremity edema which is a chronic according to him. Further investigation was performed including a chest x-ray and that showed p ossible pneumonia and currently he is on antibiotic. Beside that he underwent an EKG which showed sinus mechanism with no significant ST or T wave abnormalities. The echo showed normal biventricular dimension and systolic function with no evidence of wall motion abnormalities concerning for ischemia. His creatinine is elevated but his GFR is above 60. Hemoglobin is low above 8 and he is known to have chronic kidney disease. Currently he is not experiencing any symptoms of chest pain or chest discomfort. His shortness of breath is slightly better. The examination is remarkable for regular rhythm with a systolic murmur at the right upper sternal border with diminished breathing sounds bilaterally and bilateral lower extremities edema as well noted which is chronic. November 06, 2023 The patient was seen and evaluated this morning. He is feeling somewhat better. He continues to be hypoxic requiring 10 L of oxygen. No symptoms of chest pain or chest discomfort. The pressure remains elevated and consistent with stage II hypertension with him going to increase his dose of lisinopril to 10 mg p.o. daily. Beside that he is on heparin IV which need to be stopped after 48 hours since starting it. He is on beta-raymon but he is on aspirin but he is on a statin as well. The echo revealed preserved LV systolic function with no significant wall motion abnormalities. I informed the patient that eventually severe underlying coronary artery disease nuclear rule out either invasively or noninvasively but not at this point giving that he still quite hypoxic requiring oxygen at 10 L and getting treated for the pneumonia. The patient is in full understanding and agreement. The examination is remarkable for regular rhythm with diminished breathing sounds bilaterally and bilateral lower extremities edema noted as well. Assessment Acute hypoxic respiratory failure likely to be multifactorial Pneumonia currently the patient is on antibiotic Evidence of myocardial injury with no evidence of ischemia at this point Preserved LV systolic function on recent echocardiogram Multiple comorbid conditions including diabetes and hypertension and dyslipidemia and obesity Significant family history of cardiovascular disease as described above Plan Consider medical treatment for the abnormal troponin at this point Stop the heparin after 48 hours from starting Continue the current medical regimen including aspirin and statin and beta- raymon Increase the dose of lisinopril to get the pressure under control Rule out severe underlying CAD once the patient is better clinically Follow-up with the patient Objective - Vital Signs Vital signs: Vital Signs Temp 97.7 F 11/05/23 20:32 Pulse 90 11/06/23 03:27 Resp 18 11/06/23 03:27 BP 144/71 11/06/23 03:27 Pulse Ox 96 11/06/23 03:27 FiO2 50 11/04/23 20:32 Intake & Output 11/05/23 11/06/23 11/06/23 18:59 06:59 18:59 Intake Total 431.12 116.019 Output Total 400 875 Balance 31.12 -758.981 Weight 159.3 kg Intake: Intake, IV Titration 77.12 116.019 Amount Heparin Sod,Pork in 0.45% 77.12 116.019 NaCl 25,000 unit In 0.45 % NaCl 1 250ml.bag @ 6.39 UNITS/KG/HR 9.994 mls/hr IV .Q24H [facility] Rx#: [id number] Oral 354 Output: Urine 400 875 Other: Voiding Method Urinal Urinal - Labs CBC & Chem 7: 11/05/23 06:15 11/05/23 06:15 Labs: Abnormal Lab Results - Last 24 Hours (Table) 11/05/23 11/05/23 11/05/23 Range/Units 06:15 11:31 16:54 APTT (22.0-30.0) sec POC Glucose (mg/dL) 111 H 140 H (70-110) mg/dL Hemoglobin A1c 6.4 H (<=6.0) % 11/05/23 11/06/23 11/06/23 Range/Units 20:08 01:27 06:11 APTT 30.1 H (22.0-30.0) sec POC Glucose (mg/dL) 187 H 211 H (70-110) mg/dL Hemoglobin A1c (<=6.0) % 11/06/23 Range/Units 07:26 APTT 39.0 H (22.0-30.0) sec POC Glucose (mg/dL) (70-110) mg/dL Hemoglobin A1c (<=6.0) %
[2023-11-06] MEDS: lisinopriL 10 MG TAB PO SCH (09:42)
[2023-11-06 11:32] LABS: Glucose,Whole Blood 188 mg/dL (70-110)
--- NOTE | 2023-11-06 12:05 | P.PN ---
Subjective Progress Note Date: 11/06/23 Principal diagnosis: perihilar pneumonia, hypoxia, preserved cardiac function patient is awake alert, vital signs are stable patient is afebrile and O2 sats 93% on high flow cannula at 10 L,echo demonstrates preserved cardiac function, cardiology's recommendation is medical management at this time once hypoxic episode is stabilized consider other cardiac intervention agreed patiently still requiring high flow oxygen Objective - Vital Signs Vital signs: Vital Signs Temp 97.7 F 11/06/23 08:00 Pulse 90 11/06/23 10:00 Resp 24 11/06/23 08:00 BP 145/69 11/06/23 08:00 Pulse Ox 91 L 11/06/23 08:00 FiO2 50 11/04/23 20:32 Intake & Output 11/05/23 11/06/23 11/06/23 18:59 06:59 18:59 Intake Total 431.12 116.019 56.861 Output Total 400 875 Balance 31.12 -758.981 56.861 Weight 159.3 kg Intake: Intake, IV Titration 77.12 116.019 56.861 Amount Heparin Sod,Pork in 0.45% 77.12 116.019 56.861 NaCl 25,000 unit In 0.45 % NaCl 1 250ml.bag @ 6.39 UNITS/KG/HR 9.994 mls/hr IV .Q24H [facility] Rx#: [id number] Oral 354 Output: Urine 400 875 Other: Voiding Method Urinal Urinal Urinal - Exam General: [Patient awake, alert and oriented times 3. Patient in no acute distress. morbidly obese HEENT: [PERRL. EOMI. No pharyngeal erythema or exudate.] Neck: [No adenopathy.] Cardiac: [Heart regular in rate and rhythm. No S3. No S4. No clicks, rubs. No murmur.] Lungs: scattered rhonchi,air exchange improved today Abdomen: [No mass. No organomegaly. Bowel sounds presnt and normoactive in all 4 quadrants.] Extremes: 2+ brawny edema bilaterally, chronic venous stasis dermatitis bilaterally : normal male genitalia Musculoskeletal: [No joint erythema, edema or tenderness.] Skin: bilateral lower extreme edema with venous stasis dermatitis bilaterally Neurologic: [No lateralizing deficits. CN II - XII grossly intact.] diabetic neuropathy bilateral lower extremes Lymphatic: [No adenopathy.] - Labs CBC & Chem 7: 11/05/23 06:15 11/05/23 06:15 Labs: Abnormal Lab Results - Last 24 Hours (Table) 11/05/23 11/05/23 11/06/23 Range/Units 16:54 20:08 01:27 APTT 30.1 H (22.0-30.0) sec POC Glucose (mg/dL) 140 H 187 H (70-110) mg/dL 11/06/23 11/06/23 11/06/23 Range/Units 06:11 07:26 11:30 APTT 39.0 H (22.0-30.0) sec POC Glucose (mg/dL) 211 H 188 H (70-110) mg/dL Assessment and Plan Assessment: bilateral community-acquired pneumonia Acute hypoxemic respiratory failure secondary to pneumonia Acute on chronic kidney disease stage III Elevated troponin Essential hypertension Type 2 diabetes last A1c in the office was 7. Morbid obesity BMI currently 52, patient is currently on Mounjaro reported weight loss of 60 pounds over the last 3-4 months IV antibiotic therapy including Rocephin and azithromycin Plan: consultation with pulmonary medicine Consultation with cardiology Continue IV antibiotics Continue oxygen support echo demonstrates preserved cardiac function Medical management at this time until oxygen requirements improved Time with Patient: Greater than 30
--- NOTE | 2023-11-06 12:07 | P.PN ---
Subjective Progress Note Date: 11/06/23 Principal diagnosis: Shortness of breath. 53-year-old male sent in by Dr. Alejandro Atwood, to be evaluated for shortness of breath. He said shortness of breath since Tuesday, or about 5 days. The patient has a history of obesity, chronic kidney disease, and diabetes. Currently, he is seen in the emergency department, room 17. He is on a 40% Venturi mask. He is not receiving any supplemental IV fluids. The patient apparently has no history of lung disease, and denies tobacco history. Denies any fever or chills. He denies any cough or phlegm production. He denies any chest pain or chest discomfort. Current laboratory data includes a white count 18.2, hemoglobin 9.5, hematocrit 29.9, and a platelet count of 208,000. D-dimer was 7.68. Sodium 132, potassium 4.1, chlorides 102, CO2 20, BUN 41, and creatinine 1.44. Glucose 282. Troponin 0.129. N-terminal proBNP is 891. He tested negative for influenza AMB, RSV, coronavirus. Chest x-ray shows a patchy infiltrate, in the right upper lobe. CTA was negative for pulmonary embolism. CT scan was consistent with bilateral patchy opacities, consistent with pneumonia. The patient is seen today November 05, 2023 in follow-up on the selective care unit. He is currently sitting up at the bedside. Awake and alert in no acute distress. He is feeling a bit better today compared to yesterday. He is maintaining O2 saturations in the 90s on 10 L high flow nasal cannula. His procalcitonin was 2.57. He is being treated for community-acquired pneumonia with Rocephin and azithromycin. Rest x-ray continues to show patchy consolidation in the right lung base. Left lung is clear. Echocardiogram revealed normal left ventricular systolic function. No significant valvular abnormalities. Count 17.0. Hemoglobin 8.8. Platelets 186. Sodium 137. Potassium 4.0. Bicarb 27. BUN 31. Creatinine 1.26. Glucose 148. Troponins were 0.119, 0.117. Heparin drip initiated. Progress note dated November 06, 2023. Patient is seen today room 371. He continues on nasal O2, high flow, 10 L/min. He is getting saline at 100 cc an hour, and IV heparin. The patient states that he does feel better. He denies any chest pain or chest discomfort. He is short of breath on exertion. That is improved. Labs today include a PTT of 39, and a glucose of 188. No additional labs from today. Objective - Vital Signs Vital signs: Vital Signs Temp 97.7 F 11/06/23 08:00 Pulse 90 11/06/23 10:00 Resp 24 11/06/23 08:00 BP 145/69 11/06/23 08:00 Pulse Ox 91 L 11/06/23 08:00 FiO2 50 11/04/23 20:32 Intake & Output 11/05/23 11/06/23 11/06/23 18:59 06:59 18:59 Intake Total 431.12 116.019 56.861 Output Total 400 875 Balance 31.12 -758.981 56.861 Weight 159.3 kg Intake: Intake, IV Titration 77.12 116.019 56.861 Amount Heparin Sod,Pork in 0.45% 77.12 116.019 56.861 NaCl 25,000 unit In 0.45 % NaCl 1 250ml.bag @ 6.39 UNITS/KG/HR 9.994 mls/hr IV .Q24H [facility] Rx#: [id number] Oral 354 Output: Urine 400 875 Other: Voiding Method Urinal Urinal Urinal - Exam No acute distress, oriented 3. The patient is on 10 L high flow nasal O2. HEENT examination is grossly unremarkable. Mucous membranes are moist. No oral lesions. Neck supple. Full range of motion. No adenopathy thyromegaly or neck vein distention. Cardiovascular examination reveals regular rhythm rate. S1-S2 normal. No S3 or S4. No discernible murmur noted. Lungs reveal basilar crackles. No rhonchi or wheezes. Breath sounds are equal bilaterally. Abdomen soft bowel sounds are heard. No masses or tenderness. Extremities are intact. No cyanosis or clubbing. No lower extremities are edematous, and the legs are wrapped with bandages. Skin is without rash or lesion. Neurologic examination is brief but nonfocal. - Labs CBC & Chem 7: 11/05/23 06:15 11/05/23 06:15 Labs: Abnormal Lab Results - Last 24 Hours (Table) 11/05/23 11/05/23 11/06/23 Range/Units 16:54 20:08 01:27 APTT 30.1 H (22.0-30.0) sec POC Glucose (mg/dL) 140 H 187 H (70-110) mg/dL 11/06/23 11/06/23 11/06/23 Range/Units 06:11 07:26 11:30 APTT 39.0 H (22.0-30.0) sec POC Glucose (mg/dL) 211 H 188 H (70-110) mg/dL Assessment and Plan Assessment: Bilateral community-acquired pneumonia. Acute hypoxemic respiratory failure secondary to bilateral pneumonia. History of diabetes mellitus. Troponin leak, currently on IV heparin. History of chronic kidney disease. Morbid obesity. Lifelong non-smoker. Plan: Plan dated November 04, 2023. The patient is seen in the emergency department, room 17. He is on 40% Venturi mask. He has a history of obesity, diabetes, chronic kidney disease. The patient complains of 5 days worth of increasing shortness of breath, and his chest x-ray and CAT scan are abnormal. The chest x-ray shows a patchy opacity in the right upper lobe. The CT scan shows more detailed abnormalities bilaterally. He has bilateral multifocal pneumonia. The patient will be given antibiotics in the form of azithromycin, and Rocephin. The patient will need a procalcitonin level. Will also give the patient some breathing treatments. Plan dated November 06, 2023. The patient continues on antibiotics. The patient also continues on IV heparin. Currently he is on 10 L high flow nasal O2. Labs, x-rays, and all medications are reviewed. The patient's overall prognosis remains guarded. We will continue to follow the patient, and make recommendations along the way. The patient's procalcitonin level was elevated at 2.57. Time with Patient: Less than 30
[2023-11-06 16:33] LABS: Glucose,Whole Blood 249 mg/dL (70-110)
[2023-11-06 20:02] LABS: Glucose,Whole Blood 271 mg/dL (70-110)
[2023-11-07 06:15] LABS: Glucose,Whole Blood 124 mg/dL (70-110)
--- NOTE | 2023-11-07 08:21 | P.PN ---
Subjective Progress Note Date: 11/06/23 Principal diagnosis: Reason for follow-up is multifocal pneumonia Patient is a 53-year-old male with a past medical history significant for diabetes mellitus hypertension patient presenting to the hospital for evaluation of weakness and fatigue did have hypoxemia elevated white count has been diagnosed with multifocal pneumonia prompting this consultation on today's evaluation that is 11/06/2023,the patient remains to be afebrile, patient is 10 L nasal cannula supplemental oxygen however denies any shortness of breath no chest pain and no worsening cough or sputum production.Patient denies having any nausea or vomiting, no abdominal pain and no diarrhea has been reported. No CBC or BMP was done today sputum not collected Objective - Vital Signs Vital signs: Vital Signs Temp 98.0 F 11/06/23 16:00 Pulse 90 11/06/23 16:13 Resp 18 11/06/23 16:00 BP 148/69 11/06/23 16:00 Pulse Ox 95 11/06/23 16:00 FiO2 50 11/04/23 20:32 Intake & Output 11/05/23 11/06/23 11/06/23 18:59 06:59 18:59 Intake Total 431.12 116.019 56.861 Output Total 400 875 500 Balance 31.12 -758.981 -443.139 Weight 159.3 kg Intake: Intake, IV Titration 77.12 116.019 56.861 Amount Heparin Sod,Pork in 0.45% 77.12 116.019 56.861 NaCl 25,000 unit In 0.45 % NaCl 1 250ml.bag @ 6.39 UNITS/KG/HR 9.994 mls/hr IV .Q24H [facility]AC[facility] Rx#: [id number] Oral 354 Output: Urine 400 875 500 Other: Voiding Method Urinal Urinal Urinal - Exam GENERAL DESCRIPTION: Middle-age male lying in bed in no distress RESPIRATORY SYSTEM: Unlabored breathing , decreased breath sounds at bases HEART: S1 S2 regular rate and rhythm , ABDOMEN: Soft , no tenderness EXTREMITIES: No edema feet - Labs CBC & Chem 7: 11/05/23 06:15 11/05/23 06:15 Labs: Abnormal Lab Results - Last 24 Hours (Table) 11/05/23 11/06/23 11/06/23 Range/Units 20:08 01:27 06:11 APTT 30.1 H (22.0-30.0) sec POC Glucose (mg/dL) 187 H 211 H (70-110) mg/dL 11/06/23 11/06/23 11/06/23 Range/Units 07:26 11:30 15:15 APTT 39.0 H 42.5 H (22.0-30.0) sec POC Glucose (mg/dL) 188 H (70-110) mg/dL 11/06/23 Range/Units 16:31 APTT (22.0-30.0) sec POC Glucose (mg/dL) 249 H (70-110) mg/dL Assessment and Plan (1) Multifocal pneumonia Current Visit: Yes Status: Acute Code(s): J18.9 - PNEUMONIA, UNSPECIFIED ORGANISM SNOMED Code(s): 609955510 (2) Leukocytosis Current Visit: Yes Status: Acute Code(s): D72.829 - ELEVATED WHITE BLOOD CELL COUNT, UNSPECIFIED SNOMED Code(s): 854698994 Plan: 1patient presented to hospital with increasing shortness of breath and cough in this patient who did have a low-grade fever hypoxemia with evidence of groundglass opacity concerning for pneumonia patient has been ruled out for COVID-19 and did have elevated procalcitonin mostly suggestive of bacterial pneumonia, urine for Legionella antigen has been negative. 2nursing staff has been advised try to obtain a sputum for Gram stain culture sensitivity. 3patient to continue with the Rocephin Zithromax while waiting for the workup to be completed. Dictation was produced using [employer] dictation software. please excuse any grammatical, word or spelling errors. Time with Patient: Less than 30
[2023-11-07 11:28] LABS: Glucose,Whole Blood 86 mg/dL (70-110)
--- NOTE | 2023-11-07 12:48 | P.PN ---
Subjective Progress Note Date: 11/07/23 This is a 53-year-old gentleman with a past medical history significant for morbid obesity as well as diabetes and hypertension and dyslipidemia and chronic kidney disease and chronic anemia and significant family history of cardiovascular disease involving a mother who had an open heart surgery in the 4 0s was referred from his primary care physician to the hospital for further evaluation of shortness of breath. The patient was seen yesterday by Dr. Gonzalez where he was found to be short of breath and he was hypoxic. He was referred to the emergency department where he was found to be hypoxic. No symptoms of chest pain or chest discomfort and no dizziness or lightheadedness and no feeling of heart racing or fluttering and no presyncope or syncope. The shortness of breath started about a week ago with no associated fever or chills. He does have bilateral lower extremity edema which is a chronic according to him. Further investigation was performed including a chest x-ray and that showed possible pneumonia and currently he is on antibiotic. Beside that he underwent an EKG which showed sinus mechanism with no significant ST or T wave abnormalities. The echo showed normal biventricular dimension and systolic function with no evidence of wall motion abnormalities concerning for ischemia. His creatinine is elevated but his GFR is above 60. Hemoglobin is low above 8 and he is known to have chronic kidney disease. Currently he is not experiencing any symptoms of chest pain or chest discomfort. His shortness of breath is slightly better. The examination is remarkable for regular rhythm with a systolic murmur at the right upper sternal border with diminished breathing sounds bilaterally and bilateral lower extremities edema as well noted which is chronic. November 06, 2023 The patient was seen and evaluated this morning. He is feeling somewhat better. He continues to be hypoxic requiring 10 L of oxygen. No symptoms of chest pain or chest discomfort. The pressure remains elevated and consistent with stage II hypertension with him going to increase his dose of lisinopril to 10 mg p.o. daily. Beside that he is on heparin IV which need to be stopped after 48 hours since starting it. He is on beta-raymon but he is on aspirin but he is on a statin as well. The echo revealed preserved LV systolic function with no significant wall motion abnormalities. I informed the patient that eventually severe underlying coronary artery disease nuclear rule out either invasively or noninvasively but not at this point giving that he still quite hypoxic requiring oxygen at 10 L and getting treated for the pneumonia. The patient is in full understanding and agreement. The examination is remarkable for regular rhythm with diminished breathing sounds bilaterally and bilateral lower extremities edema noted as well. November 07, 2023 Patient seen and examined at bedside this a.m. Still hypoxic requiring 6L of oxygen supplementation. Denies any chest pain chest pressure. Shortness of breath has improved since yesterday. On examination S1-S2 audible, regular pulses, no significant murmurs appreciated Crackles audible in bilateral lung walsh, diminished breath sounds bilaterally Minimal bilateral lower extremity edema noticed Morbidly obese No focal neurological deficit Assessment Acute hypoxic respiratory failure likely to be multifactorial Pneumonia currently the patient is on antibiotic Evidence of myocardial injury with no evidence of ischemia at this point Preserved LV systolic function on recent echocardiogram Multiple comorbid conditions including diabetes and hypertension and dyslipidemia and obesity Significant family history of cardiovascular disease as described above Plan Consider medical treatment for the abnormal troponin at this point Patient completed 48 hours of IV heparin treatment, will discontinue IV heparin drip. Continue aspirin statin and beta-raymon Current hydralazine. Increase lisinopril to 20 mg daily Rule out severe underlying CAD once patient's hypoxia improves and oxygen requirement reduces to less than 3% Objective - Vital Signs Vital signs: Vital Signs Temp 97.8 F 11/07/23 08:00 Pulse 90 11/07/23 11:24 Resp 20 11/07/23 11:24 BP 177/77 11/07/23 08:00 Pulse Ox 93 L 11/07/23 08:23 FiO2 50 11/04/23 20:32 Intake & Output 11/06/23 11/07/23 11/07/23 18:59 06:59 18:59 Intake Total 474.658 72.203 Output Total 500 900 Balance -25.342 -827.797 Weight 162.4 kg Intake: Intake, IV Titration 234.658 72.203 Amount Heparin Sod,Pork in 0.45% 234.658 72.203 NaCl 25,000 unit In 0.45 % NaCl 1 250ml.bag @ 6.39 UNITS/KG/HR 9.994 mls/hr IV .Q24H [facility] Rx#: [id number] Oral 240 Output: Urine 500 900 Other: Voiding Method Urinal Urinal # Voids 1 - Labs CBC & Chem 7: 11/05/23 06:15 07/27/24 06:15 Labs: Abnormal Lab Results - Last 24 Hours (Table) 11/06/23 11/06/23 11/06/23 Range/Units 15:15 16:31 20:00 APTT 42.5 H (22.0-30.0) sec POC Glucose (mg/dL) 249 H 271 H (70-110) mg/dL 11/06/23 11/07/23 11/07/23 Range/Units 23:41 06:13 07:28 APTT 35.3 H 64.2 H (22.0-30.0) sec POC Glucose (mg/dL) 124 H (70-110) mg/dL
[2023-11-07] MEDS: lisinopriL 10 MG TAB PO STA (12:57)
--- NOTE | 2023-11-07 14:30 | P.PN ---
Subjective Progress Note Date: 11/07/23 53-year-old male sent in by Dr. Alejandro Atwood, to be evaluated for shortness of breath. He said shortness of breath since Tuesday, or about 5 days. The patient has a history of obesity, chronic kidney disease, and diabetes. Currently, he is seen in the emergency department, room 17. He is on a 40% Venturi mask. He is not receiving any supplemental IV fluids. The patient apparently has no history of lung disease, and denies tobacco history. Denies any fever or chills. He denies any cough or phlegm production. He denies any chest pain or chest discomfort. Current laboratory data includes a white count 18.2, hemoglobin 9.5, hematocrit 29.9, and a platelet count of 208,000. D-dimer was 7.68. Sodium 132, potassium 4.1, chlorides 102, CO2 20, BUN 41, and creatinine 1.44. Glucose 282. Troponin 0.129. N-terminal proBNP is 891. He tested negative for influenza AMB, RSV, coronavirus. Chest x-ray shows a patchy infiltrate, in the right upper lobe. CTA was negative for pulmonary embolism. CT scan was consistent with bilateral patchy opacities, consistent with pneumonia. The patient is seen today November 05, 2023 in follow-up on the selective care unit. He is currently sitting up at the bedside. Awake and alert in no acute distress. He is feeling a bit better today compared to yesterday. He is maintaining O2 saturations in the 90s on 10 L high flow nasal cannula. His procalcitonin was 2.57. He is being treated for community-acquired pneumonia with Rocephin and azithromycin. Rest x-ray continues to show patchy consolidation in the right lung base. Left lung is clear. Echocardiogram revealed normal left ventricular systolic function. No significant valvular abnormalities. Count 17.0. Hemoglobin 8.8. Platelets 186. Sodium 137. Potassium 4.0. Bicarb 27. BUN 31. Creatinine 1.26. Glucose 148. Troponins were 0.119, 0.117. Heparin drip initiated. Progress note dated November 06, 2023. Patient is seen today room 371. He continues on nasal O2, high flow, 10 L/min. He is getting saline at 100 cc an hour, and IV heparin. The patient states that he does feel better. He denies any chest pain or chest discomfort. He is short of breath on exertion. That is improved. Labs today include a PTT of 39, and a glucose of 188. No additional labs from today. The patient is seen today November 07, 2023 in follow-up on the selective care unit. Is currently sitting up in a chair at the bedside. Awake and alert in no acute distress. He is maintaining good O2 saturations in the 90s on 8 L high flow nasal cannula. He is improving daily. No worsening shortness of breath, cough or congestion. His procalcitonin was positive at 2.57. He remains on antibiotics in the form of ceftriaxone. Completed azithromycin. Remains on DuoNeb inhalations. He remains on a heparin drip. Glucose 86. Objective - Vital Signs Vital signs: Vital Signs Temp 97.9 F 11/07/23 12:00 Pulse 89 11/07/23 12:00 Resp 18 11/07/23 12:00 BP 146/65 11/07/23 12:00 Pulse Ox 93 L 11/07/23 12:00 FiO2 50 11/04/23 20:32 Intake & Output 11/06/23 11/07/23 11/07/23 18:59 06:59 18:59 Intake Total 474.658 72.203 Output Total 500 900 Balance -25.342 -827.797 Weight 162.4 kg Intake: Intake, IV Titration 234.658 72.203 Amount Heparin Sod,Pork in 0.45% 234.658 72.203 NaCl 25,000 unit In 0.45 % NaCl 1 250ml.bag @ 6.39 UNITS/KG/HR 9.994 mls/hr IV .Q24H [facility] Rx#: [id number] Oral 240 Output: Urine 500 900 Other: Voiding Method Urinal Urinal # Voids 1 - Exam GENERAL EXAM: Alert, pleasant morbidly obese 53-year-old male, up in a chair, on 8 L high flow nasal cannula, comfortable in no apparent distress. HEAD: Normocephalic. EYES: Normal reaction of pupils, equal size. NOSE: Clear with pink turbinates. THROAT: No erythema or exudates. NECK: No masses, no JVD. CHEST: No chest wall deformity. LUNGS: Equal air entry with crackles in the right lung base, diminished. CVS: S1 and S2 normal with no audible murmur, regular rhythm. ABDOMEN: Obese, unable to appreciate organomegaly, normal bowel sounds, no guarding or rigidity. SPINE: No scoliosis or deformity SKIN: No rashes CENTRAL NERVOUS SYSTEM: No focal deficits, tone is normal in all 4 extremities. EXTREMITIES: Changes of chronic venous stasis. Levar wraps to the bilateral lower extremities. No clubbing, no cyanosis. Peripheral pulses are intact. - Labs CBC & Chem 7: 11/05/23 06:15 11/05/23 06:15 Labs: Abnormal Lab Results - Last 24 Hours (Table) 11/06/23 11/06/23 11/06/23 Range/Units 15:15 16:31 20:00 APTT 42.5 H (22.0-30.0) sec POC Glucose (mg/dL) 249 H 271 H (70-110) mg/dL 11/06/23 11/07/23 11/07/23 Range/Units 23:41 06:13 07:28 APTT 35.3 H 64.2 H (22.0-30.0) sec POC Glucose (mg/dL) 124 H (70-110) mg/dL Assessment and Plan Assessment: Bilateral community-acquired pneumonia. Currently on ceftriaxone and completed azithromycin Acute hypoxemic respiratory failure secondary to bilateral pneumonia. Currently on 8 L high flow nasal cannula Troponin leak, initiated on heparin drip. Echocardiogram revealed preserved left ventricular systolic function History of diabetes mellitus History of chronic kidney disease Morbid obesity. BMI 52.4 kg/m, maintained on Mounjaro Lifelong non-smoker Plan: The patient was seen and evaluated Labs and medications reviewed Continue antibiotics, bronchodilators Titrate down the FiO2 as tolerated Follow-up chest x-ray in a.m. We will continue to follow I have personally seen and examined the patient, performed the documentation and the assessment and plan as written. Number of minutes spent on the visit: 10.
--- NOTE | 2023-11-07 14:52 | P.PN ---
Subjective Progress Note Date: 11/07/23 H&P Date: 11/04/23 Chief Complaint: Progressive shortness of breath This a 53-year-old gentleman with past medical history significant for morbid obesity, diabetes mellitus, hypertension, chronic back pain, anxiety, bipolar, depression, chronic kidney disease, presented initially to PCPs office with progressive shortness of breath over the last 3 days. In the office, O2 sat was 78%, patient extremely pale and short of breath.He was transferred to the ER. Denies cough. denies fever or chills. denies chest pain, or palpitations. Troponin elevated, 0.129. afebrile, WBC 18.2, hemoglobin 9.5, platelets 208, elevated D-dimer 7.68. CTA reported negative for pulmonary embolism, peripheral groundglass, bilateral pulmonary opacities, reactive mediastinal lymphadenopathy .Viral studies negative. proBNP 891. sodium 132, potassium 4.1, bicarb 20, BUN 41 and creatinine 1.44. Glucose 282. 11/07/2023 Procalcitonin 2.57, continues on ceftriaxone; azithromycin completed. oxygen recently titrated down from 10 L to 6 L nasal cannula maintaining O2 sats in the low 90s, sitting up in a chair. Heparin drip recently DC'd by cardiology, recommending continuing medical therapy with aspirin statin and beta-raymon. Objective - Vital Signs Vital signs: Vital Signs Temp 97.8 F 11/06/23 21:18 Pulse 88 11/07/23 08:36 Resp 18 11/07/23 08:36 BP 144/75 11/07/23 04:17 Pulse Ox 93 L 11/07/23 08:23 FiO2 50 11/04/23 20:32 Intake & Output 11/06/23 11/07/23 11/07/23 18:59 06:59 18:59 Intake Total 474.658 72.203 Output Total 500 900 Balance -25.342 -827.797 Weight 162.4 kg Intake: Intake, IV Titration 234.658 72.203 Amount Heparin Sod,Pork in 0.45% 234.658 72.203 NaCl 25,000 unit In 0.45 % NaCl 1 250ml.bag @ 6.39 UNITS/KG/HR 9.994 mls/hr IV .Q24H [facility] Rx#: [id number] Oral 240 Output: Urine 500 900 Other: Voiding Method Urinal Urinal - Exam General: [Patient awake, alert and oriented times 3, sitting up in chair,no ac redding distress.] HEENT: [PERRL. EOMI. No pharyngeal erythema or exudate. Neck: Supple, no JVD Cardiac: [Heart regular in rate and rhythm. No S3. No S4. No clicks, rubs. No murmur.] Lungs: [equal air entry, diminished with fine right basilar crackles Abdomen: [Obese, no guarding, no rigidity, positive bowel sounds Extremes: Chronic venous stasis changes ,bilateral lower extremities kera wrapped Skin: [Warm and dry Neurologic: [No lateralizing deficits. CN II - XII grossly intact.] - Labs CBC & Chem 7: 11/05/23 06:15 11/05/23 06:15 Labs: Abnormal Lab Results - Last 24 Hours (Table) 11/06/23 11/06/23 11/06/23 Range/Units 11:30 15:15 16:31 APTT 42.5 H (22.0-30.0) sec POC Glucose (mg/dL) 188 H 249 H (70-110) mg/dL 11/06/23 11/06/23 11/07/23 Range/Units 20:00 23:41 06:13 APTT 35.3 H (22.0-30.0) sec POC Glucose (mg/dL) 271 H 124 H (70-110) mg/dL 11/07/23 Range/Units 07:28 APTT 64.2 H (22.0-30.0) sec POC Glucose (mg/dL) (70-110) mg/dL Assessment and Plan Assessment: Bilateral multifocal pneumonia, community-acquired Acute hypoxic respiratory failure secondary to the above Acute on chronic kidney disease, stage III Elevated troponin, possibly NSTEMI, preserved LV function Essential hypertension Diabetes mellitus type 2, A1c 6.4 Chronic back pain Morbid obesity, BMI 52, patient on Mounjaro, reports weight loss of 60 pounds over the last 3 to 4 months. Plan: Continue on current medication regimen ,monitoring and symptomatic treatment. Maintain aggressive pulmonary toileting with nebulized bronchodi lators, antibiotics. Heparin drip discontinued as per cardiology after 48 hours, maximizing medical therapy regarding abnormal troponin, due to patient's pulmonary status at this time. The impression and plan of care has been dictated as directed. : I performed a history and examination of this patient, discussed the same with the dictator. I agree with the dictator's note ,documented as a scribe. Any additional findings or plans will be noted.
[2023-11-07 16:22] LABS: Glucose,Whole Blood 155 mg/dL (70-110)
[2023-11-07 19:56] LABS: Glucose,Whole Blood 197 mg/dL (70-110)
[2023-11-08 04:17] LABS: Glucose,Whole Blood 80 mg/dL (70-110)
[2023-11-08 05:55] LABS: Glucose,Whole Blood 73 mg/dL (70-110)
[2023-11-08 07:28] LABS: HCT 28.6 % (39.0-53.0); Hypochromasia Marked; MCH 27.1 pg (25.0-35.0); MCHC 31.4 g/dL (31.0-37.0); MCV 86.3 fL (80.0-100.0); Mean Platelet Volume 7.7; Platelet Count 288 k/uL (150-450); RBC 3.31 m/uL (4.30-5.90); RDW 15.6 % (11.5-15.5); WBC 14.1 k/uL (3.8-10.6)
--- NOTE | 2023-11-08 07:47 | XR ---
EXAMINATION TYPE: XR chest 1V portable DATE OF EXAM: 11/08/2023 HISTORY: Shortness of breath. COMPARISON: 11/05/2023 TECHNIQUE: Single view of the chest is submitted. FINDINGS: Demonstrated are scattered senescent parenchymal change. Patchy infiltrate right perihilar and right basilar region unchanged from prior study. The heart is stable. Hilar and mediastinal structures are within normal limits. Degenerative changes are seen of the dorsal spine. IMPRESSION: 1. Patchy infiltrate right perihilar and right basilar region unchanged from prior study.
[2023-11-08] MEDS: lisinopriL 20 MG TAB PO SCH (07:58)
[2023-11-08 08:26] LABS: African American GFR (CKD) >90 (>60 ml/min/1.73 sqM); Anion Gap 6 mmol/L; Blood Urea Nitrogen 15 mg/dL (9-20); Calcium 8.7 mg/dL (8.4-10.2); Carbon Dioxide 25 mmol/L (22-30); Chloride 107 mmol/L (98-107); Glucose 83 mg/dL (74-99); Magnesium 1.6 mg/dL (1.6-2.3); Non-African American GFR(CKD) >90 (>60 ml/min/1.73 sqM); Potassium 4.3 mmol/L (3.5-5.1); Sodium 138 mmol/L (137-145)
[2023-11-08 11:57] LABS: Glucose,Whole Blood 101 mg/dL (70-110)
--- NOTE | 2023-11-08 12:40 | P.PN ---
Subjective Progress Note Date: 11/08/23 H&P Date: 11/04/23 Chief Complaint: Progressive shortness of breath This a 53-year-old gentleman with past medical history significant for morbid obesity, diabetes mellitus, hypertension, chronic back pain, anxiety, bipolar, depression, chronic kidney disease, presented initially to PCPs office with progressive shortness of breath over the last 3 days. In the office, O2 sat was 78%, patient extremely pale and short of breath.He was transferred to the ER. Denies cough. denies fever or chills. denies chest pain, or palpitations. Troponin elevated, 0.129. afebrile, WBC 18.2, hemoglobin 9.5, platelets 208, elevated D-dimer 7.68. CTA reported negative for pulmonary embolism, peripheral groundglass, bilateral pulmonary opacities, reactive mediastinal lymphadenopathy .Viral studies negative. proBNP 891. sodium 132, potassium 4.1, bicarb 20, BUN 41 and creatinine 1.44. Glucose 282. 11/07/2023 Procalcitonin 2.57, continues on ceftriaxone; azithromycin completed. oxygen recently titrated down from 10 L to 6 L nasal cannula maintaining O2 sats in the low 90s, sitting up in a chair. Heparin drip recently DC'd by cardiology, recommending continuing medical therapy with aspirin statin and beta-raymon. 11/08/2023 maintained on ceftriaxone , ambulates bronchodilators .chest x-ray reporting patchy infiltrate right perihilar and right basilar region unchanged from prior study .significant clinical improvement, denies increase in shortness of breath. O2 weaned down to 4 L nasal cannula, maintaining O2 sats in the mid 90s. Afebrile. WBC trending down 14.1. Hemoglobin 9, platelets 288. Electrolytes and renal function within normal limits. Yesterday decreased appetite at breakfast, only consumed 25%; appetite has improved .blood sugars currently 101. Denies chest pain, palpitations. Objective - Vital Signs Vital signs: Vital Signs Temp 97.7 F 11/08/23 08:00 Pulse 84 11/08/23 11:49 Resp 20 11/08/23 11:29 BP 177/84 11/08/23 11:29 Pulse Ox 95 11/08/23 11:29 FiO2 50 11/04/23 20:32 Intake & Output 11/07/23 11/08/23 11/08/23 18:59 06:59 18:59 Intake Total 660 240 360 Balance 660 240 360 Weight 162.6 kg Intake: Oral 660 240 360 Other: Voiding Method Toilet Toilet Urinal # Voids 4 2 1 - Exam General: [Patient awake, alert and oriented times 3, sitting up in chair,no acute distress.] HEENT: [PERRL. EOMI. No pharyngeal erythema or exudate. Neck: Supple, no JVD Cardiac: [Heart regular in rate and rhythm. No S3. No S4. No clicks, rubs. No murmur.] Lungs: [Unlabored, equal air entry, bilateral bases diminished Abdomen: [Obese, no guarding, no rigidity, positive bowel sounds Extremes: Chronic venous stasis changes ,bilateral lower extremities kera wrapped Skin: [Warm and dry Neurologic: [No lateralizing deficits. CN II - XII grossly intact.] - Labs CBC & Chem 7: 11/08/23 06:41 11/08/23 06:41 Labs: Abnormal Lab Results - Last 24 Hours (Table) 11/07/23 11/07/23 11/08/23 Range/Units 16:21 19:52 06:41 WBC 14.1 H (3.8-10.6) k/uL RBC 3.31 L (4.30-5.90) m/uL Hgb 9.0 L (13.0-17.5) gm/dL Hct 28.6 L (39.0-53.0) % RDW 15.6 H (11.5-15.5) % POC Glucose (mg/dL) 155 H 197 H (70-110) mg/dL Assessment and Plan Assessment: Bilateral multifocal pneumonia, community-acquired Acute hypoxic respiratory failure secondary to the above Acute on chronic kidney disease, stage III Elevated troponin, possibly NSTEMI, preserved LV function Essential hypertension Diabetes mellitus type 2, A1c 6.4 Chronic back pain Morbid obesity, BMI 52, patient on Mounjaro, reports weight loss of 60 pounds over the last 3 to 4 months. Plan: Continue on current medication regimen ,monitoring and symptomatic treatment. Blood cultures in progress. Continue on antibiotics. Continue with titration of FiO2 .maintain aggressive pulmonary toileting with nebulized bronchodilators, antibiotics. Maximizing medical therapy regarding abnormal troponin, due to patient's pulmonary status at this time as per cardiology. Discharge planning in progress possibly tomorrow if able to continue weaning off oxygen. The impression and plan of care has been dictated as directed. : I performed a history and examination of this patient, discussed the same with the dictator. I agree with the dictator's note ,documented as a scribe. Any additional findings or plans will be noted.
--- NOTE | 2023-11-08 13:35 | P.PN ---
Subjective Progress Note Date: 11/07/23 Principal diagnosis: Reason for follow-up is multifocal pneumonia Patient is a 53-year-old male with a past medical history significant for diabetes mellitus hypertension patient presenting to the hospital for evaluation of weakness and fatigue did have hypoxemia elevated white count has been diagnosed with multifocal pneumonia prompting this consultation on today's evaluation that is 11/07/2023, the patient continues to be afebrile, the patient is on 4 L current oxygen and breathing comfortably, the Pt denies having any chest pain or any worsening cough, the patient denies having any abdominal pain no vomiting or any diarrhea. No CBC or BMP was done today Objective - Vital Signs Vital signs: Vital Signs Temp 97.8 F 11/07/23 08:00 Pulse 90 11/07/23 11:24 Resp 20 11/07/23 11:24 BP 177/77 11/07/23 08:00 Pulse Ox 93 L 11/07/23 08:23 FiO2 50 11/04/23 20:32 Intake & Output 11/06/23 11/07/23 11/07/23 18:59 06:59 18:59 Intake Total 474.658 72.203 Output Total 500 900 Balance -25.342 -827.797 Weight 162.4 kg Intake: Intake, IV Titration 234.658 72.203 Amount Heparin Sod,Pork in 0.45% 234.658 72.203 NaCl 25,000 unit In 0.45 % NaCl 1 250ml.bag @ 6.39 UNITS/KG/HR 9.994 mls/hr IV .Q24H [facility] Rx#: [id number] Oral 240 Output: Urine 500 900 Other: Voiding Method Urinal Urinal # Voids 1 - Exam GENERAL DESCRIPTION: Middle-age male lying in bed in no distress RESPIRATORY SYSTEM: Unlabored breathing , decreased breath sounds at bases HEART: S1 S2 regular rate and rhythm , ABDOMEN: Soft , no tenderness EXTREMITIES: No edema feet - Labs CBC & Chem 7: 11/08/23 06:41 11/08/23 06:41 Labs: Abnormal Lab Results - Last 24 Hours (Table) 11/06/23 11/06/23 11/06/23 Range/Units 15:15 16:31 20:00 APTT 42.5 H (22.0-30.0) sec POC Glucose (mg/dL) 249 H 271 H (70-110) mg/dL 11/06/23 11/07/23 11/07/23 Range/Units 23:41 06:13 07:28 APTT 35.3 H 64.2 H (22.0-30.0) sec POC Glucose (mg/dL) 124 H (70-110) mg/dL Assessment and Plan (1) Multifocal pneumonia Current Visit: Yes Status: Acute Code(s): J18.9 - PNEUMONIA, UNSPECIFIED ORGANISM SNOMED Code(s): 141795947 (2) Leukocytosis Current Visit: Yes Status: Acute Code(s): D72.829 - ELEVATED WHITE BLOOD CELL COUNT, UNSPECIFIED SNOMED Code(s): 139505298 Plan: 1patient presented to hospital with increasing shortness of breath and cough in this patient who did have a low-grade fever hypoxemia with evidence of groundglass opacity concerning for pneumonia patient has been ruled out for COVID-19 and did have elevated procalcitonin mostly suggestive of bacterial pneumonia, urine for Legionella antigen has been negative. Patient did have procalcitonin 2.57 2did have some clinical improvement we will continue with Rocephin Zithromax and monitor clinical course closely Dictation was produced using [email or web address] dictation software. please excuse any grammatical, word or spelling errors. Time with Patient: Less than 30
--- NOTE | 2023-11-08 13:36 | P.PN ---
Subjective Progress Note Date: 11/08/23 Principal diagnosis: Reason for follow-up is multifocal pneumonia Patient is a 53-year-old male with a past medical history significant for diabetes mellitus hypertension patient presenting to the hospital for evaluation of weakness and fatigue did have hypoxemia elevated white count has been diagnosed with multifocal pneumonia prompting this consultation on today's evaluation that is 11/08/2023, Patient is afebrile patient is currently on 4 L current oxygen and denies having any shortness of breath, the patient denies any chest pain and cough is decreased intensity mostly dry in nature, the patient denies any nausea vomiting did not have any abdominal pain and no diarrhea Patient did have a white count of 14.1 which is down from previous reading of 17 creatinine 0.92 procalcitonin was 2.57 Objective - Vital Signs Vital signs: Vital Signs Temp 97.7 F 11/08/23 08:00 Pulse 84 11/08/23 11:49 Resp 20 11/08/23 11:29 BP 177/84 11/08/23 11:29 Pulse Ox 95 11/08/23 11:29 FiO2 50 11/04/23 20:32 Intake & Output 11/07/23 11/08/23 11/08/23 18:59 06:59 18:59 Intake Total 660 240 360 Balance 660 240 360 Weight 162.6 kg Intake: Oral 660 240 360 Other: Voiding Method Toilet Toilet Urinal # Voids 4 2 1 - Exam GENERAL DESCRIPTION: Middle-age male lying in bed in no distress RESPIRATORY SYSTEM: Unlabored breathing , decreased breath sounds at bases HEART: S1 S2 regular rate and rhythm , ABDOMEN: Soft , no tenderness EXTREMITIES: No edema feet - Labs CBC & Chem 7: 11/08/23 06:41 11/08/23 06:41 Labs: Abnormal Lab Results - Last 24 Hours (Table) 11/07/23 11/07/23 11/08/23 Range/Units 16:21 19:52 06:41 WBC 14.1 H (3.8-10.6) k/uL RBC 3.31 L (4.30-5.90) m/uL Hgb 9.0 L (13.0-17.5) gm/dL Hct 28.6 L (39.0-53.0) % RDW 15.6 H (11.5-15.5) % POC Glucose (mg/dL) 155 H 197 H (70-110) mg/dL Assessment and Plan (1) Multifocal pneumonia Current Visit: Yes Status: Acute Code(s): J18.9 - PNEUMONIA, UNSPECIFIED ORGANISM SNOMED Code(s): 516929290 (2) Leukocytosis Current Visit: Yes Status: Acute Code(s): D72.829 - ELEVATED WHITE BLOOD CELL COUNT, UNSPECIFIED SNOMED Code(s): 018795923 Plan: 1patient presented to hospital with increasing shortness of breath and cough in this patient who did have a low-grade fever hypoxemia with evidence of groundglass opacity concerning for pneumonia patient has been ruled out for COVID-19 and did have elevated procalcitonin mostly suggestive of bacterial pneumonia, urine for Legionella antigen has been negative. Patient did have procalcitonin 2.57 2patient is afebrile and patient white count is trending down, patient to continue with Rocephin in view of clinical response can monitor clinical course closely Dictation was produced using [email or web address] dictation software. please excuse any grammatical, word or spelling errors. Time with Patient: Less than 30
--- NOTE | 2023-11-08 14:25 | P.PN ---
Subjective Progress Note Date: 11/08/23 53-year-old male sent in by Dr. Alejandro Atwood, to be evaluated for shortness of breath. He said shortness of breath since Tuesday, or about 5 days. The patient has a history of obesity, chronic kidney disease, and diabetes. Currently, he is seen in the emergency department, room 17. He is on a 40% Venturi mask. He is not receiving any supplemental IV fluids. The patient apparently has no history of lung disease, and denies tobacco history. Denies any fever or chills. He denies any cough or phlegm production. He denies any chest pain or chest discomfort. Current laboratory data includes a white count 18.2, hemoglobin 9.5, hematocrit 29.9, and a platelet count of 208,000. D-dimer was 7.68. Sodium 132, potassium 4.1, chlorides 102, CO2 20, BUN 41, and creatinine 1.44. Glucose 282. Troponin 0.129. N-terminal proBNP is 891. He tested negative for influenza AMB, RSV, coronavirus. Chest x-ray shows a patchy infiltrate, in the right upper lobe. CTA was negative for pulmonary embolism. CT scan was consistent with bilateral patchy opacities, consistent with pneumonia. The patient is seen today November 05, 2023 in follow-up on the selective care unit. He is currently sitting up at the bedside. Awake and alert in no acute distress. He is feeling a bit better today compared to yesterday. He is maintaining O2 saturations in the 90s on 10 L high flow nasal cannula. His procalcitonin was 2.57. He is being treated for community-acquired pneumonia with Rocephin and azithromycin. Rest x-ray continues to show patchy consolidation in the right lung base. Left lung is clear. Echocardiogram revealed normal left ventricular systolic function. No significant valvular abnormalities. Count 17.0. Hemoglobin 8.8. Platelets 186. Sodium 137. Potassium 4.0. Bicarb 27. BUN 31. Creatinine 1.26. Glucose 148. Troponins were 0.119, 0.117. Heparin drip initiated. Progress note dated November 06, 2023. Patient is seen today room 371. He continues on nasal O2, high flow, 10 L/min. He is getting saline at 100 cc an hour, and IV heparin. The patient states that he does feel better. He denies any chest pain or chest discomfort. He is short of breath on exertion. That is improved. Labs today include a PTT of 39, and a glucose of 188. No additional labs from today. The patient is seen today November 07, 2023 in follow-up on the selective care unit. Is currently sitting up in a chair at the bedside. Awake and alert in no acute distress. He is maintaining good O2 saturations in the 90s on 8 L high flow nasal cannula. He is improving daily. No worsening shortness of breath, cough or congestion. His procalcitonin was positive at 2.57. He remains on antibiotics in the form of ceftriaxone. Completed azithromycin. Remains on DuoNeb inhalations. He remains on a heparin drip. Glucose 86. The patient is seen today November 08, 2023 in follow-up on the selective care unit. He is awake and alert in no acute distress. Sitting up in a chair. Denies any worsening shortness of breath, cough or congestion. Maintaining good O2 saturations in the mid 90s on 4 L/min per nasal cannula. He is afebrile. Hemodynamically stable. Count 14.1. Hemoglobin 9.0. Platelets 288. Sodium 138. Potassium 4.3. Bicarb 25. BUN 15. Creatinine 0.92. Glucose 83. Remains on ceftriaxone. Objective - Vital Signs Vital signs: Vital Signs Temp 97.7 F 11/08/23 08:00 Pulse 84 11/08/23 11:49 Resp 20 11/08/23 11:29 BP 177/84 11/08/23 11:29 Pulse Ox 95 11/08/23 11:29 FiO2 50 11/04/23 20:32 Intake & Output 11/07/23 11/08/23 11/08/23 18:59 06:59 18:59 Intake Total 660 240 360 Balance 660 240 360 Weight 162.6 kg Intake: Oral 660 240 360 Other: Voiding Method Toilet Toilet Urinal # Voids 4 2 1 - Exam GENERAL EXAM: Alert, obese 53-year-old male, up in a chair, on 4 L high flow nasal cannula, in no apparent distress. HEAD: Normocephalic. EYES: Normal reaction of pupils, equal size. NOSE: Clear with pink turbinates. THROAT: No erythema or exudates. NECK: No masses, no JVD. CHEST: No chest wall deformity. LUNGS: Equal air entry with crackles in the right lung base, diminished. CVS: S1 and S2 normal with no audible murmur, regular rhythm. ABDOMEN: Obese, unable to appreciate organomegaly, normal bowel sounds, no guarding or rigidity. SPINE: No scoliosis or deformity SKIN: No rashes CENTRAL NERVOUS SYSTEM: No focal deficits, tone is normal in all 4 extremities. EXTREMITIES: Changes of chronic venous stasis. Levar wraps to the bilateral lower extremities. Peripheral pulses are intact. - Labs CBC & Chem 7: 11/08/23 06:41 11/08/23 06:41 Labs: Abnormal Lab Results - Last 24 Hours (Table) 11/07/23 11/07/23 11/08/23 Range/Units 16:21 19:52 06:41 WBC 14.1 H (3.8-10.6) k/uL RBC 3.31 L (4.30-5.90) m/uL Hgb 9.0 L (13.0-17.5) gm/dL Hct 28.6 L (39.0-53.0) % RDW 15.6 H (11.5-15.5) % POC Glucose (mg/dL) 155 H 197 H (70-110) mg/dL Assessment and Plan Assessment: Bilateral community-acquired pneumonia. Currently on ceftriaxone and completed azithromycin Acute hypoxemic respiratory failure secondary to bilateral pneumonia. Currently on 8 L high flow nasal cannula Troponin leak, initiated on heparin drip. Echocardiogram revealed preserved left ventricular systolic function History of diabetes mellitus History of chronic kidney disease Morbid obesity. BMI 52.4 kg/m, maintained on Mounjaro Lifelong non-smoker Plan: The patient was seen and evaluated Labs and medications reviewed Continue antibiotics, bronchodilators Titrate down the FiO2 as tolerated Follow-up chest x-ray in a.m. Probable discharge in a.m. I have personally seen and examined the patient, performed the documentation and the assessment and plan as written. Number of minutes spent on the visit: 10.
[2023-11-08] MEDS: lisinopriL 20 MG TAB PO STA (14:34)
[2023-11-08] MEDS: FUROSEMIDE 10 MG/ML 2 ML VIAL IV ONE (14:38)
--- NOTE | 2023-11-08 14:39 | P.PN ---
Subjective Progress Note Date: 11/08/23 This is a 53-year-old gentleman with a past medical history significant for morbid obesity as well as diabetes and hypertension and dyslipidemia and chronic kidney disease and chronic anemia and significant family history of cardiovascular disease involving a mother who had an open heart surgery in the 4 0s was referred from his primary care physician to the hospital for further evaluation of shortness of breath. The patient was seen yesterday by Dr. Gonzalez where he was found to be short of breath and he was hypoxic. He was referred to the emergency department where he was found to be hypoxic. No symptoms of chest pain or chest discomfort and no dizziness or lightheadedness and no feeling of heart racing or fluttering and no presyncope or syncope. The shortness of breath started about a week ago with no associated fever or chills. He does have bilateral lower extremity edema which is a chronic according to him. Further investigation was performed including a chest x-ray and that showed possible pneumonia and currently he is on antibiotic. Beside that he underwent an EKG which showed sinus mechanism with no significant ST or T wave abnormalities. The echo showed normal biventricular dimension and systolic function with no evidence of wall motion abnormalities concerning for ischemia. His creatinine is elevated but his GFR is above 60. Hemoglobin is low above 8 and he is known to have chronic kidney disease. Currently he is not experiencing any symptoms of chest pain or chest discomfort. His shortness of breath is slightly better. The examination is remarkable for regular rhythm with a systolic murmur at the right upper sternal border with diminished breathing sounds bilaterally and bilateral lower extremities edema as well noted which is chronic. November 06, 2023 The patient was seen and evaluated this morning. He is feeling somewhat better. He continues to be hypoxic requiring 10 L of oxygen. No symptoms of chest pain or chest discomfort. The pressure remains elevated and consistent with stage II hypertension with him going to increase his dose of lisinopril to 10 mg p.o. daily. Beside that he is on heparin IV which need to be stopped after 48 hours since starting it. He is on beta-raymon but he is on aspirin but he is on a statin as well. The echo revealed preserved LV systolic function with no significant wall motion abnormalities. I informed the patient that eventually severe underlying coronary artery disease nuclear rule out either invasively or noninvasively but not at this point giving that he still quite hypoxic requiring oxygen at 10 L and getting treated for the pneumonia. The patient is in full understanding and agreement. The examination is remarkable for regular rhythm with diminished breathing sounds bilaterally and bilateral lower extremities edema noted as well. November 07, 2023 Patient seen and examined at bedside this a.m. Still hypoxic requiring 6L of oxygen supplementation. Denies any chest pain chest pressure. Shortness of breath has improved since yesterday. On examination S1-S2 audible, regular pulses, no significant murmurs appreciated Crackles audible in bilateral lung walsh, diminished breath sounds bilaterally Minimal bilateral lower extremity edema noticed Morbidly obese No focal neurological deficit Assessment Acute hypoxic respiratory failure likely to be multifactorial Pneumonia currently the patient is on antibiotic Type II NSTEMI, completed 48 hr IV heparin Essential HTN Preserved LV systolic function on recent echocardiogram Multiple comorbid conditions including diabetes and hypertension and dyslipidemia Morbid obesity Significant family history of cardiovascular disease as described above Plan Continue aspirin statin and beta-raymon Current hydralazine 50 mg QID. Increase lisinopril to 40 mg daily Stop Metoprolol 25 mg and start coreg 12.5 mg BID Amlodipine 10mg daily. Give lasix 40mg IV once today and tomorrow. Monitor renal function This time patient reports that he is not able to lay flat in the bed, due to this we have only able to do a heart catheter tomorrow. Rule out severe underlying CAD once patient's hypoxia improves and oxygen requirement reduces to less than 3% Objective - Vital Signs Vital signs: Vital Signs Temp 97.7 F 11/08/23 08:00 Pulse 84 11/08/23 11:49 Resp 20 11/08/23 11:29 BP 177/84 11/08/23 11:29 Pulse Ox 95 11/08/23 11:29 FiO2 50 11/04/23 20:32 Intake & Output 11/07/23 11/08/23 11/08/23 18:59 06:59 18:59 Intake Total 660 240 360 Balance 660 240 360 Weight 162.6 kg Intake: Oral 660 240 360 Other: Voiding Method Toilet Toilet Urinal # Voids 4 2 1 - Labs CBC & Chem 7: 11/08/23 06:41 11/08/23 06:41 Labs: Abnormal Lab Results - Last 24 Hours (Table) 11/07/23 11/07/23 11/08/23 Range/Units 16:21 19:52 06:41 WBC 14.1 H (3.8-10.6) k/uL RBC 3.31 L (4.30-5.90) m/uL Hgb 9.0 L (13.0-17.5) gm/dL Hct 28.6 L (39.0-53.0) % RDW 15.6 H (11.5-15.5) % POC Glucose (mg/dL) 155 H 197 H (70-110) mg/dL
[2023-11-08] MEDS: FUROSEMIDE 10 MG/ML 4 ML VIAL IV SCH (15:12)
[2023-11-08] MEDS: carvediloL 12.5 MG TAB PO SCH (16:49)
[2023-11-08 16:54] LABS: Glucose,Whole Blood 214 mg/dL (70-110)
[2023-11-08 20:48] LABS: Glucose,Whole Blood 291 mg/dL (70-110)
[2023-11-09] MEDS: hydrOXYzine HCL 25 MG TAB PO PRN (01:13)
[2023-11-09 05:56] LABS: Glucose,Whole Blood 164 mg/dL (70-110)
[2023-11-09 05:59] LABS: Basophils % (A) 0 %; Eosinophils # (A) 0.3 k/uL (0-0.7); Eosinophils % (A) 3 %; Hypochromasia Marked; Lymphocytes # (A) 0.8 k/uL (1.0-4.8); Lymphocytes % (A) 8 %; MCH 26.7 pg (25.0-35.0); MCV 86.2 fL (80.0-100.0); Mean Platelet Volume 7.5; Monocytes # (A) 0.6 k/uL (0-1.0); Monocytes % (A) 6 %; Neutrophils # (A) 8.9 k/uL (1.3-7.7); Neutrophils % (A) 83 %; Platelet Count 269 k/uL (150-450); RBC 3.37 m/uL (4.30-5.90); RDW 15.8 % (11.5-15.5); WBC 10.7 k/uL (3.8-10.6)
[2023-11-09 06:07] LABS: African American GFR (CKD) >90 (>60 ml/min/1.73 sqM); Anion Gap 4 mmol/L; Blood Urea Nitrogen 19 mg/dL (9-20); Calcium 8.4 mg/dL (8.4-10.2); Carbon Dioxide 27 mmol/L (22-30); Chloride 104 mmol/L (98-107); Glucose 153 mg/dL (74-99); Non-African American GFR(CKD) >90 (>60 ml/min/1.73 sqM); Potassium 4.2 mmol/L (3.5-5.1); Sodium 135 mmol/L (137-145)
[2023-11-09] MEDS: FUROSEMIDE 10 MG/ML 4 ML VIAL IV ONE (06:17)
--- NOTE | 2023-11-09 07:56 | XR ---
EXAMINATION TYPE: XR chest 1V portable DATE OF EXAM: 11/09/2023 HISTORY: Shortness of breath. COMPARISON: 11/08/2023 TECHNIQUE: Single view of the chest is submitted. FINDINGS: Demonstrated are scattered senescent parenchymal change. Patchy airspace infiltrates throughout the right lung compatible with pneumonia. No significant villareal e appreciated. The heart is stable. Hilar and mediastinal structures are within normal limits. Degenerative changes are seen of the dorsal spine. IMPRESSION: 1. Patchy airspace infiltrates throughout the right lung compatible with pneumonia. No significant c hange appreciated.
[2023-11-09] MEDS: lisinopriL 20 MG TAB PO SCH (08:07)
[2023-11-09 11:33] LABS: Glucose,Whole Blood 89 mg/dL (70-110)
[2023-11-09] MEDS ORDERED: Magnesium Replacement Protocol 1 EACH MISC MISCELLANE PRN (11:53)
[2023-11-09] MEDS: MAGNESIUM SULFATE-D5W PMX 1 GM in DEXTROSE/WATER 1 100ML.BAG IVPB SCH (12:23)
--- NOTE | 2023-11-09 12:24 | P.PN ---
Subjective Progress Note Date: 11/09/23 Principal diagnosis: Reason for follow-up is multifocal pneumonia Patient is a 53-year-old male with a past medical history significant for diabetes mellitus hypertension patient presenting to the hospital for evaluation of weakness and fatigue did have hypoxemia elevated white count has been diagnosed with multifocal pneumonia prompting this consultation on today's evaluation that is 11/09/2023, patient has been afebrile, patient is breathing comfortably and is currently on 4 L current oxygen patient denies having any significant cough no chest pain shortness of breath, patient denies nausea vomiting or diarrhea and no abdominal pain, mention feeling better. Patient white count is normalized to 10.7 creatinine 0.97 no cultures Objective - Vital Signs Vital signs: Vital Signs Temp 97.8 F 11/09/23 08:00 Pulse 88 11/09/23 12:05 Resp 18 11/09/23 11:51 BP 149/71 11/09/23 11:51 Pulse Ox 92 L 11/09/23 11:51 FiO2 50 11/04/23 20:32 Intake & Output 11/08/23 11/09/23 11/09/23 18:59 06:59 18:59 Intake Total 1620 240 658 Output Total 2500 900 2800 Balance -745 -314 -2052 Weight 159.2 kg Intake: Oral 1620 240 658 Output: Urine 2500 900 2800 Other: Voiding Method Toilet Toilet Toilet # Voids 1 3 - Exam GENERAL DESCRIPTION: Middle-age male lying in bed in no distress RESPIRATORY SYSTEM: Unlabored breathing , decreased breath sounds at bases HEART: S1 S2 regular rate and rhythm , ABDOMEN: Soft , no tenderness EXTREMITIES: No edema feet - Labs CBC & Chem 7: 11/09/23 05:45 11/09/23 05:45 Labs: Abnormal Lab Results - Last 24 Hours (Table) 11/08/23 11/08/23 11/09/23 Range/Units 16:51 20:43 05:45 WBC 10.7 H (3.8-10.6) k/uL RBC 3.37 L (4.30-5.90) m/uL Hgb 9.0 L (13.0-17.5) gm/dL Hct 29.0 L (39.0-53.0) % RDW 15.8 H (11.5-15.5) % Neutrophils # 8.9 H (1.3-7.7) k/uL Lymphocytes # 0.8 L (1.0-4.8) k/uL Sodium (137-145) mmol/L Glucose (74-99) mg/dL POC Glucose (mg/dL) 214 H 291 H (70-110) mg/dL Magnesium (1.6-2.3) mg/dL 11/09/23 11/09/23 11/09/23 Range/Units 05:45 05:45 05:55 WBC (3.8-10.6) k/uL RBC (4.30-5.90) m/uL Hgb (13.0-17.5) gm/dL Hct (39.0-53.0) % RDW (11.5-15.5) % Neutrophils # (1.3-7.7) k/uL Lymphocytes # (1.0-4.8) k/uL Sodium 135 L (137-145) mmol/L Glucose 153 H (74-99) mg/dL POC Glucose (mg/dL) 164 H (70-110) mg/dL Magnesium 1.4 L (1.6-2.3) mg/dL Assessment and Plan (1) Multifocal pneumonia Current Visit: Yes Status: Acute Code(s): J18.9 - PNEUMONIA, UNSPECIFIED ORGANISM SNOMED Code(s): 494126521 (2) Leukocytosis Current Visit: Yes Status: Acute Code(s): D72.829 - ELEVATED WHITE BLOOD CELL COUNT, UNSPECIFIED SNOMED Code(s): 103776613 Plan: 1patient presented to hospital with increasing shortness of breath and cough in this patient who did have a low-grade fever hypoxemia with evidence of groundglass opacity concerning for pneumonia patient has been ruled out for COVID-19 and did have elevated procalcitonin mostly suggestive of bacterial pneumonia, urine for Legionella antigen has been negative. Patient did have procalcitonin 2.57 2patient is afebrile and patient white count is almost normalized, patient has shown improvement on Rocephin to finish therapy with oral Ceftin discussed with IT ACCOUNT MANAGER for admitting team Dictation was produced using [employer] dictation software. please excuse any grammatical, word or spelling errors. Time with Patient: Less than 30
--- NOTE | 2023-11-09 13:47 | P.PN ---
Subjective Progress Note Date: 11/09/23 H&P Date: 11/04/23 Chief Complaint: Progressive shortness of breath This a 53-year-old gentleman with past medical history significant for morbid obesity, diabetes mellitus, hypertension, chronic back pain, anxiety, bipolar, depression, chronic kidney disease, presented initially to PCPs office with progressive shortness of breath over the last 3 days. In the office, O2 sat was 78%, patient extremely pale and short of breath.He was transferred to the ER. Denies cough. denies fever or chills. denies chest pain, or palpitations. Troponin elevated, 0.129. afebrile, WBC 18.2, hemoglobin 9.5, platelets 208, elevated D-dimer 7.68. CTA reported negative for pulmonary embolism, peripheral groundglass, bilateral pulmonary opacities, reactive mediastinal lymphadenopathy .Viral studies negative. proBNP 891. sodium 132, potassium 4.1, bicarb 20, BUN 41 and creatinine 1.44. Glucose 282. 11/07/2023 Procalcitonin 2.57, continues on ceftriaxone; azithromycin completed. oxygen recently titrated down from 10 L to 6 L nasal cannula maintaining O2 sats in the low 90s, sitting up in a chair. Heparin drip recently DC'd by cardiology, recommending continuing medical therapy with aspirin statin and beta-raymon. 11/08/2023 maintained on ceftriaxone , ambulates bronchodilators .chest x-ray reporting patchy infiltrate right perihilar and right basilar region unchanged from prior study .significant clinical improvement, denies increase in shortness of breath. O2 weaned down to 4 L nasal cannula, maintaining O2 sats in the mid 90s. Afebrile. WBC trending down 14.1. Hemoglobin 9, platelets 288. Electrolytes and renal function within normal limits. Yesterday decreased appetite at breakfast, only consumed 25%; appetite has improved .blood sugars currently 101. Denies chest pain, palpitations. 11/09/2023 continues on nebulized bronchodilators, antibiotics, maintaining O2 sats in the low 90s on 4 L nasal cannula. Afebrile, WBC nearly normalized, 10.7. Hemoglobin remains at 9, platelets 269. Sodium 135, potassium 4.2, renal function stable. Blood sugars controlled. magnesium 1.4. Objective - Vital Signs Vital signs: Vital Signs Temp 97.8 F 11/09/23 08:00 Pulse 88 07/31/24 12:05 Resp 18 11/09/23 11:51 BP 149/71 11/09/23 11:51 Pulse Ox 92 L 11/09/23 11:51 FiO2 50 11/04/23 20:32 Intake & Output 11/08/23 11/09/23 11/09/23 18:59 06:59 18:59 Intake Total 4967 711 6818 Output Total 2500 900 3100 Balance - Weight 159.2 kg Intake: Oral 2692 766 3254 Output: Urine 2500 900 3100 Other: Voiding Method Toilet Toilet Toilet # Voids 1 3 - Exam General: [Patient awake, alert and oriented times 3, sitting up in chair,no acute distress.] HEENT: [PERRL. EOMI. conjunctiva pink, MMM. Neck: Supple, no JVD Cardiac: [Heart regular in rate and rhythm. Lungs: [Unlabored, equal air entry, bilateral bases diminished Abdomen: [Obese, no guarding, no rigidity, positive bowel sounds Extremes: Chronic venous stasis changes ,bilateral lower extremities kera wrapped Skin: [Warm and dry Neurologic: [No lateralizing deficits. CN II - XII grossly intact.] - Labs CBC & Chem 7: 11/09/23 05:45 11/09/23 05:45 Labs: Abnormal Lab Results - Last 24 Hours (Table) 11/08/23 11/08/23 11/09/23 Range/Units 16:51 20:43 05:45 WBC 10.7 H (3.8-10.6) k/uL RBC 3.37 L (4.30-5.90) m/uL Hgb 9.0 L (13.0-17.5) gm/dL Hct 29.0 L (39.0-53.0) % RDW 15.8 H (11.5-15.5) % Neutrophils # 8.9 H (1.3-7.7) k/uL Lymphocytes # 0.8 L (1.0-4.8) k/uL Sodium (137-145) mmol/L Glucose (74-99) mg/dL POC Glucose (mg/dL) 214 H 291 H (70-110) mg/dL Magnesium (1.6-2.3) mg/dL 11/09/23 11/09/23 11/09/23 Range/Units 05:45 05:45 05:55 WBC (3.8-10.6) k/uL RBC (4.30-5.90) m/uL Hgb (13.0-17.5) gm/dL Hct (39.0-53.0) % RDW (11.5-15.5) % Neutrophils # (1.3-7.7) k/uL Lymphocytes # (1.0-4.8) k/uL Sodium 135 L (137-145) mmol/L Glucose 153 H (74-99) mg/dL POC Glucose (mg/dL) 164 H (70-110) mg/dL Magnesium 1.4 L (1.6-2.3) mg/dL Assessment and Plan Assessment: Bilateral multifocal pneumonia, community-acquired Acute hypoxic respiratory failure secondary to the above Acute on chronic kidney disease, stage III Elevated troponin, possibly NSTEMI, preserved LV function, cardiology following Essential hypertension Diabetes mellitus type 2, A1c 6.4 Chronic back pain Morbid obesity, BMI 52, patient on Mounjaro, reports weight loss of 60 pounds over the last 3 to 4 months. Plan: Continue on current medication regimen ,monitoring and symptomatic treatment. Aggressive pulmonary toileting with nebulized bronchodilators, antibiotics. Discharge planning in progress possibly tomorrow if able to continue weaning off oxygen, pending pulmonary recommendations and clearance. ID recommendations for DC received; Ceftin 500 mg twice daily x 2 days. The impression and plan of care has been dictated as directed. : I performed a history and examination of this patient, discussed the same with the dictator. I agree with the dictator's note ,documented as a scribe. Any additional findings or plans will be noted.
[2023-11-09 16:57] LABS: Glucose,Whole Blood 169 mg/dL (70-110)
--- NOTE | 2023-11-09 17:24 | P.PN ---
Subjective Progress Note Date: 11/09/23 Principal diagnosis: Bilateral community-acquired pneumonia 53-year-old male sent in by Dr. Alejandro Atwodo, to be evaluated for shortness of breath. He said shortness of breath since Tuesday, or about 5 days. The patient has a history of obesity, chronic kidney disease, and diabetes. Currently, he is seen in the emergency department, room 17. He is on a 40% Venturi mask. He is not receiving any supplemental IV fluids. The patient apparently has no history of lung disease, and denies tobacco history. Denies any fever or chills. He denies any cough or phlegm production. He denies any chest pain or chest discomfort. Current laboratory data includes a white count 18.2, hemoglobin 9.5, hematocrit 29.9, and a platelet count of 208,000. D-dimer was 7.68. Sodium 132, potassium 4.1, chlorides 102, CO2 20, BUN 41, and creatinine 1.44. Glucose 282. Troponin 0.129. N-terminal proBNP is 891. He tested negative for influenza AMB, RSV, coronavirus. Chest x-ray shows a patchy infiltrate, in the right upper lobe. CTA was negative for pulmonary embolism. CT scan was consistent with bilateral patchy opacities, consistent with pneumonia. The patient is seen today November 05, 2023 in follow-up on the selective care unit. He is currently sitting up at the bedside. Awake and alert in no acute distress. He is feeling a bit better today compared to yesterday. He is maintaining O2 saturations in the 90s on 10 L high flow nasal cannula. His procalcitonin was 2.57. He is being treated for community-acquired pneumonia with Rocephin and azithromycin. Rest x-ray continues to show patchy consolidation in the right lung base. Left lung is clear. Echocardiogram revealed normal left ventricular systolic function. No significant valvular abnormalities. Count 17.0. Hemoglobin 8.8. Platelets 186. Sodium 137. Potassium 4.0. Bicarb 27. BUN 31. Creatinine 1.26. Glucose 148. Troponins were 0.119, 0.117. Heparin drip initiated. Progress note dated November 06, 2023. Patient is seen today room 371. He continues on nasal O2, high flow, 10 L/min. He is getting saline at 100 cc an hour, and IV heparin. The patient states that he does feel better. He denies any chest pain or chest discomfort. He is short of breath on exertion. That is improved. Labs today include a PTT of 39, and a glucose of 188. No additional labs from today. The patient is seen today November 07, 2023 in follow-up on the selective care unit. Is currently sitting up in a chair at the bedside. Awake and alert in no acute distress. He is maintaining good O2 saturations in the 90s on 8 L high flow nasal cannula. He is improving daily. No worsening shortness of breath, cough or congestion. His procalcitonin was positive at 2.57. He remains on antibiotics in the form of ceftriaxone. Completed azithromycin. Remains on DuoNeb inhalations. He remains on a heparin drip. Glucose 86. The patient is seen today November 08, 2023 in follow-up on the selective care unit. He is awake and alert in no acute distress. Sitting up in a chair. Denies any worsening shortness of breath, cough or congestion. Maintaining good O2 saturations in the mid 90s on 4 L/min per nasal cannula. He is afebrile. Hemodynamically stable. Count 14.1. Hemoglobin 9.0. Platelets 288. Sodium 138. Potassium 4.3. Bicarb 25. BUN 15. Creatinine 0.92. Glucose 83. Remains on ceftriaxone. Patient was seen today on November 08, patient seems to be doing great clinically however his chest x-ray is not showing significant improvement. Patient remains on oxygen at4 L/min with O2 sats of 91%. Clinically better but chest x-ray not much better, may have to consider sending the patient home on oral antibiotics and oxygen, and follow-up on outpatient basis. In addition to antibiotics, patient has been receiving diuretics with excellent response to diuretics, but nonetheless his chest x-ray is about the same Objective - Vital Signs Vital signs: Vital Signs Temp 97.7 F 11/09/23 15:52 Pulse 87 11/09/23 15:52 Resp 18 11/09/23 15:52 BP 165/75 11/09/23 15:52 Pulse Ox 91 L 11/09/23 15:52 FiO2 50 11/04/23 20:32 Intake & Output 11/08/23 11/09/23 11/09/23 18:59 06:59 18:59 Intake Total 2493 248 0773 Output Total 2500 900 4000 Balance -058 -281 -2779 Weight 159.2 kg Intake: Oral 3945 564 2420 Output: Urine 2500 900 4000 Other: Voiding Method Toilet Toilet Toilet # Voids 1 3 - Exam GENERAL EXAM: Revealed a very pleasant 54-year-old in no distress on 4 L nasal cannula HEAD: Normocephalic. EYES: Normal reaction of pupils, equal size. NOSE: Clear with pink turbinates. THROAT: No erythema or exudates. NECK: No masses, no JVD. CHEST: No chest wall deformity. LUNGS: Clear bilaterally no rhonchi no wheezes CVS: S1 and S2 normal with no audible murmur, regular rhythm. ABDOMEN: Obese, unable to appreciate organomegaly, normal bowel sounds, no guarding or rigidity. SKIN: No rashes CENTRAL NERVOUS SYSTEM: No gross focal deficit EXTREMITIES: Changes of chronic venous stasis. Levar wraps to the bilateral lower extremities. Peripheral pulses are intact. - Labs CBC & Chem 7: 11/09/23 05:45 11/09/23 05:45 Labs: Abnormal Lab Results - Last 24 Hours (Table) 11/08/23 11/09/23 11/09/23 Range/Units 20:43 05:45 05:45 WBC 10.7 H (3.8-10.6) k/uL RBC 3.37 L (4.30-5.90) m/uL Hgb 9.0 L (13.0-17.5) gm/dL Hct 29.0 L (39.0-53.0) % RDW 15.8 H (11.5-15.5) % Neutrophils # 8.9 H (1.3-7.7) k/uL Lymphocytes # 0.8 L (1.0-4.8) k/uL Sodium 135 L (137-145) mmol/L Glucose 153 H (74-99) mg/dL POC Glucose (mg/dL) 291 H (70-110) mg/dL Magnesium (1.6-2.3) mg/dL 11/09/23 11/09/23 11/09/23 Range/Units 05:45 05:55 16:54 WBC (3.8-10.6) k/uL RBC (4.30-5.90) m/uL Hgb (13.0-17.5) gm/dL Hct (39.0-53.0) % RDW (11.5-15.5) % Neutrophils # (1.3-7.7) k/uL Lymphocytes # (1.0-4.8) k/uL Sodium (137-145) mmol/L Glucose (74-99) mg/dL POC Glucose (mg/dL) 164 H 169 H (70-110) mg/dL Magnesium 1.4 L (1.6-2.3) mg/dL Assessment and Plan Assessment: Impression: Bilateral community-acquired pneumonia. Currently on ceftriaxone and completed azithromycin Acute hypoxemic respiratory failure secondary to bilateral pneumonia. Currently on 8 L high flow nasal cannula Troponin leak, initiated on heparin drip. Echocardiogram revealed preserved left ventricular systolic function History of diabetes mellitus History of chronic kidney disease Morbid obesity. BMI 52.4 kg/m, maintained on Mounjaro Lifelong non-smoker Recommendation: Continue antibiotic, bronchodilators and diuretics Continue to titrate FiO2 maintaining O2 saturation above 90% Repeat chest x-ray in a.m., Consider discharge home on antibiotics and on oxygen. Should follow-up on outpatient basis if discharged home tomorrow Time with Patient: Less than 30
[2023-11-09 20:02] LABS: Glucose,Whole Blood 334 mg/dL (70-110)
[2023-11-10 06:00] LABS: Glucose,Whole Blood 243 mg/dL (70-110)
--- NOTE | 2023-11-10 08:03 | XR ---
EXAMINATION TYPE: XR chest 1V portable DATE OF EXAM: 11/10/2023 HISTORY: Shortness of breath. COMPARISON: 11/09/2023 TECHNIQUE: Single view of the chest is submitted. FINDINGS: Demonstrated are scattered senescent parenchymal change. Patchy infiltrate throughout the right lung and left lung base may reflect pneumonia. Correlate clini armando. Pulmonary edema is an additional consideration. The heart is stable. Hilar and mediastinal structures are within normal limits. Degenerative changes are seen of the dorsal spine. IMPRESSION: 1. Patchy infiltrate throughout the right lung and left lung base may reflect pneumonia. Correlate c linically. Pulmonary edema is an additional consideration.
[2023-11-10 09:08] VITALS: BMI 52.9
[2023-11-10 11:26] LABS: Glucose,Whole Blood 236 mg/dL (70-110)
[2023-11-10 11:29] VITALS: TEMP 98
[2023-11-10] MEDS: MAGNESIUM SULFATE-D5W PMX 1 GM in DEXTROSE/WATER 1 100ML.BAG IVPB ONE (12:00)
[2023-11-10] MEDS ORDERED: BUMETANIDE 1 MG TAB PO SCH (13:30)
[2023-11-10] MEDS ORDERED: SPIRONOLACTONE 25 MG TAB PO SCH (13:30)
[2023-11-10] MEDS ORDERED: DAPAGLIFLOZIN PROPANEDIOL 10 MG TABLET PO SCH (13:30)
--- NOTE | 2023-11-10 15:14 | P.PN ---
Subjective Progress Note Date: 11/10/23 Principal diagnosis: Bilateral community-acquired pneumonia 53-year-old male sent in by Dr. Alejandro Atwood, to be evaluated for shortness of breath. He said shortness of breath since Tuesday, or about 5 days. The patient has a history of obesity, chronic kidney disease, and diabetes. Currently, he is seen in the emergency department, room 17. He is on a 40% Venturi mask. He is not receiving any supplemental IV fluids. The patient apparently has no history of lung disease, and denies tobacco history. Denies any fever or chills. He denies any cough or phlegm production. He denies any chest pain or chest discomfort. Current laboratory data includes a white count 18.2, hemoglobin 9.5, hematocrit 29.9, and a platelet count of 208,000. D-dimer was 7.68. Sodium 132, potassium 4.1, chlorides 102, CO2 20, BUN 41, and creatinine 1.44. Glucose 282. Troponin 0.129. N-terminal proBNP is 891. He tested negative for influenza AMB, RSV, coronavirus. Chest x-ray shows a patchy infiltrate, in the right upper lobe. CTA was negative for pulmonary embolism. CT scan was consistent with bilateral patchy opacities, consistent with pneumonia. The patient is seen today November 05, 2023 in follow-up on the selective care unit. He is currently sitting up at the bedside. Awake and alert in no acute distress. He is feeling a bit better today compared to yesterday. He is maintaining O2 saturations in the 90s on 10 L high flow nasal cannula. His procalcitonin was 2.57. He is being treated for community-acquired pneumonia with Rocephin and azithromycin. Rest x-ray continues to show patchy consolidation in the right lung base. Left lung is clear. Echocardiogram revealed normal left ventricular systolic function. No significant valvular abnormalities. Count 17.0. Hemoglobin 8.8. Platelets 186. Sodium 137. Potassium 4.0. Bicarb 27. BUN 31. Creatinine 1.26. Glucose 148. Troponins were 0.119, 0.117. Heparin drip initiated. Progress note dated November 06, 2023. Patient is seen today room 371. He continues on nasal O2, high flow, 10 L/min. He is getting saline at 100 cc an hour, and IV heparin. The patient states that he does feel better. He denies any chest pain or chest discomfort. He is short of breath on exertion. That is improved. Labs today include a PTT of 39, and a glucose of 188. No additional labs from today. The patient is seen today November 07, 2023 in follow-up on the selective care unit. Is currently sitting up in a chair at the bedside. Awake and alert in no acute distress. He is maintaining good O2 saturations in the 90s on 8 L high flow nasal cannula. He is improving daily. No worsening shortness of breath, cough or congestion. His procalcitonin was positive at 2.57. He remains on antibiotics in the form of ceftriaxone. Completed azithromycin. Remains on DuoNeb inhalations. He remains on a heparin drip. Glucose 86. The patient is seen today November 08, 2023 in follow-up on the selective care unit. He is awake and alert in no acute distress. Sitting up in a chair. Denies any worsening shortness of breath, cough or congestion. Maintaining good O2 saturations in the mid 90s on 4 L/min per nasal cannula. He is afebrile. Hemodynamically stable. Count 14.1. Hemoglobin 9.0. Platelets 288. Sodium 138. Potassium 4.3. Bicarb 25. BUN 15. Creatinine 0.92. Glucose 83. Remains on ceftriaxone. Patient was seen today on November 08, patient seems to be doing great clinically however his chest x-ray is not showing significant improvement. Patient remains on oxygen at4 L/min with O2 sats of 91%. Clinically better but chest x-ray not much better, may have to consider sending the patient home on oral antibiotics and oxygen, and follow-up on outpatient basis. In addition to antibiotics, patient has been receiving diuretics with excellent response to diuretics, but nonetheless his chest x-ray is about the same Patient was reevaluated today on 11/10/2023, clinically continues to do well, chest x-ray again is not showing much of a change. Patient is now on 3 L nasal cannula with O2 sat is 97%. Patient is comfortable. Remains on antibiotics, remains on diuretics and on bronchodilators WBC count is 11 hemoglobin is 11 basic metabolic profile is normal and renal profile is relatively normal creatinine 1.08 Objective - Vital Signs Vital signs: Vital Signs Temp 98.0 F 11/10/23 08:00 Pulse 81 11/10/23 12:29 Resp 20 11/10/23 08:00 BP 129/75 11/10/23 08:00 Pulse Ox 88 L 11/10/23 09:35 FiO2 50 11/04/23 20:32 Intake & Output 11/09/23 11/10/23 11/10/23 18:59 06:59 18:59 Intake Total 1360 480 Output Total 4000 Balance -2640 480 Weight 158.1 kg 158.1 kg Intake: Oral 1360 480 Output: Urine 4000 Other: Voiding Method Toilet Toilet Toilet - Exam GENERAL EXAM: Revealed a very pleasant 54-year-old in no distress on 3 L nasal cannula HEAD: Normocephalic. EYES: Normal reaction of pupils, equal size. NOSE: Clear with pink turbinates. THROAT: No erythema or exudates. NECK: No masses, no JVD. CHEST: No chest wall deformity. LUNGS: Clear bilaterally no rhonchi no wheezes CVS: S1 and S2 normal with no audible murmur, regular rhythm. ABDOMEN: Obese, unable to appreciate organomegaly, normal bowel sounds, no guarding or rigidity. SKIN: No rashes CENTRAL NERVOUS SYSTEM: No gross focal deficit EXTREMITIES: Changes of chronic venous stasis. Levar wraps to the bilateral lower extremities. Peripheral pulses are intact. - Labs CBC & Chem 7: 11/09/23 05:45 11/09/23 05:45 Labs: Abnormal Lab Results - Last 24 Hours (Table) 11/09/23 11/09/23 11/10/23 Range/Units 16:54 20:01 05:59 POC Glucose (mg/dL) 169 H 334 H 243 H (70-110) mg/dL 11/10/23 Range/Units 11:24 POC Glucose (mg/dL) 236 H (70-110) mg/dL Assessment and Plan Assessment: Impression: Bilateral community-acquired pneumonia. Currently on ceftriaxone and completed azithromycin Acute hypoxemic respiratory failure secondary to bilateral pneumonia. Currently on 8 L high flow nasal cannula Troponin leak, initiated on heparin drip. Echocardiogram revealed preserved left ventricular systolic function History of diabetes mellitus History of chronic kidney disease Morbid obesity. BMI 52.4 kg/m, maintained on Mounjaro Lifelong non-smoker Recommendation: Continue antibiotic, bronchodilators and diuretics Continue to titrate FiO2 maintaining O2 saturation above 90% Chest x-ray from yesterday was reviewed Consider discharging the patient home if cleared by other consultants on antibiotics and on diuretics, and follow-up on outpatient basis Patient may need home O2 Time with Patient: Less than 30
[2023-11-10 16:32] VITALS: BP 134/74; PULSE 90; RESP 18
--- NOTE | 2023-11-10 22:41 | P.PN ---
Subjective Progress Note Date: 11/10/23 This is a 53-year-old gentleman with a past medical history significant for morbid obesity as well as diabetes and hypertension and dyslipidemia and chronic kidney disease and chronic anemia and significant family history of cardiovascular disease involving a mother who had an open heart surgery in the 4 0s was referred from his primary care physician to the hospital for further evaluation of shortness of breath. The patient was seen yesterday by Dr. Gonzalez where he was found to be short of breath and he was hypoxic. He was referred to the emergency department where he was found to be hypoxic. No symptoms of chest pain or chest discomfort and no dizziness or lightheadedness and no feeling of heart racing or fluttering and no presyncope or syncope. The shortness of breath started about a week ago with no associated fever or chills. He does have bilateral lower extremity edema which is a chronic according to him. Further investigation was performed including a chest x-ray and that showed possible pneumonia and currently he is on antibiotic. Beside that he underwent an EKG which showed sinus mechanism with no significant ST or T wave abnormalities. The echo showed normal biventricular dimension and systolic function with no evidence of wall motion abnormalities concerning for ischemia. His creatinine is elevated but his GFR is above 60. Hemoglobin is low above 8 and he is known to have chronic kidney disease. Currently he is not experiencing any symptoms of chest pain or chest discomfort. His shortness of breath is slightly better. The examination is remarkable for regular rhythm with a systolic murmur at the right upper sternal border with diminished breathing sounds bilaterally and bilateral lower extremities edema as well noted which is chronic. November 06, 2023 The patient was seen and evaluated this morning. He is feeling somewhat better. He continues to be hypoxic requiring 10 L of oxygen. No symptoms of chest pain or chest discomfort. The pressure remains elevated and consistent with stage II hypertension with him going to increase his dose of lisinopril to 10 mg p.o. daily. Beside that he is on heparin IV which need to be stopped after 48 hours since starting it. He is on beta-raymon but he is on aspirin but he is on a statin as well. The echo revealed preserved LV systolic function with no significant wall motion abnormalities. I informed the patient that eventually severe underlying coronary artery disease nuclear rule out either invasively or noninvasively but not at this point giving that he still quite hypoxic requiring oxygen at 10 L and getting treated for the pneumonia. The patient is in full understanding and agreement. The examination is remarkable for regular rhythm with diminished breathing sounds bilaterally and bilateral lower extremities edema noted as well. November 07, 2023 Patient seen and examined at bedside this a.m. Still hypoxic requiring 6L of oxygen supplementation. Denies any chest pain chest pressure. Shortness of breath has improved since yesterday. Nov 10, 2023 Patient seen and examined at bedside this a.m. Patient continues to have hypoxia on 5 L of oxygen, he is not able to lay flat in the bed. He is not wanting to stay in the hospital for heart catheterization procedure On examination S1-S2 audible, regular pulses, no significant murmurs appreciated Crackles audible in bilateral lung walsh, diminished breath sounds bilaterally Minimal bilateral lower extremity edema noticed Morbidly obese No focal neurological deficit Assessment Acute hypoxic respiratory failure likely to be multifactorial Pneumonia currently the patient is on antibiotic Type II NSTEMI, completed 48 hr IV heparin Essential HTN Preserved LV systolic function on recent echocardiogram Multiple comorbid conditions including diabetes and hypertension and dyslip idemia Morbid obesity Significant family history of cardiovascular disease as described above Plan Continue aspirin statin and beta-raymon Current hydralazine 50 mg QID. Continue lisinopril to 40 mg daily Continue coreg 12.5 mg BID Amlodipine 10mg daily. Lasix 40 mg daily, Aldactone 25 mg daily, Farxiga 10 mg daily Patient is still hypoxic and is requiring 4 to 5 L of nasal cannula supplemental oxygen. He reports that he cannot lay flat in the bed. Patient is highly eager to go home. I have recommended him to avoid any strenuous activities at home. I would recommend him to follow-up outpatient with Dr. Lara in next 1 to 2 weeks for getting evaluated for ischemic heart disease by a heart catheterization or stress test. Objective - Vital Signs Vital signs: Vital Signs Temp 98.0 F 11/10/23 08:00 Pulse 83 11/10/23 16:09 Resp 18 11/10/23 14:00 BP 134/74 11/10/23 12:00 Pulse Ox 95 11/10/23 12:00 FiO2 50 11/04/23 20:32 Intake & Output 11/10/23 11/10/23 11/11/23 06:59 18:59 06:59 Intake Total 480 Balance 480 Weight 158.1 kg 158.1 kg Intake: Oral 480 Other: Voiding Method Toilet Toilet - Labs CBC & Chem 7: 11/09/23 05:45 11/09/23 05:45 Labs: Abnormal Lab Results - Last 24 Hours (Table) 11/10/23 11/10/23 Range/Units 05:59 11:24 POC Glucose (mg/dL) 243 H 236 H (70-110) mg/dL
--- NOTE | 2023-11-11 15:21 | P.DS ---
Providers Date of admission: 11/04/23 14:09 Expected date of discharge: 11/11/23 Attending physician: Alejandro Atwood Consults: 11/04/23 14:03 Consult Physician Urgent Consulting Provider: Anderson Eller Consult Reason/Comments: dyspnea Do you want consulting provider notified?: Already Contacted 11/04/23 14:08 Consult Physician Urgent Consulting Provider: Paulie Rashid Consult Reason/Comments: cardiac evaluation Do you want consulting provider notified?: Yes 11/05/23 06:00 Consult Physician DAILY Consulting Provider: Héctor Soriano Consult Reason/Comments: Pneumonia Do you want consulting provider notified?: Yes Primary care physician: [facility] Course: Final Diagnoses: Bilateral multifocal pneumonia, community-acquired Acute hypoxic respiratory failure secondary to the above Acute on chronic kidney disease, stage III Elevated troponin, type II NSTEMI, preserved LV function, cardiology following. Follow-up with Dr. Lara in the next 1 to 2 weeks, regarding workup for ischemic heart disease via heart catheterization or stress test. Essential hypertension Diabetes mellitus type 2, A1c 6.4 Chronic back pain Morbid obesity, BMI 52, patient on Mounjaro, reports weight loss of 60 pounds over the last 3 to 4 months. Hospital course:This a 53-year-old gentleman with past medical history significant for morbid obesity, diabetes mellitus, hypertension, chronic back pain, anxiety, bipolar, depression, chronic kidney disease, presented initially to PCPs office with progressive shortness of breath over the last 3 days. In the office, O2 sat was 78%, patient extremely pale and short of breath.He was transferred to the ER. Denies cough. denies fever or chills. denies chest pain, or palpitations. Troponin elevated, 0.129. afebrile, WBC 18.2, hemoglobin 9.5, platelets 208, elevated D-dimer 7.68. CTA reported negative for pulmonary embolism, peripheral groundglass, bilateral pulmonary opacities, reactive mediastinal lymphadenopathy .Viral studies negative. proBNP 891. sodium 132, potassium 4.1, bicarb 20, BUN 41 and creatinine 1.44. Glucose 282. 11/07/2023 Procalcitonin 2.57, continues on ceftriaxone; azithromycin completed. oxygen recently titrated down from 10 L to 6 L nasal cannula maintaining O2 sats in the low 90s, sitting up in a chair. Heparin drip recently DC'd by cardiology, recommending continuing medical therapy with aspirin statin and beta-raymon. 11/08/2023 maintained on ceftriaxone , ambulates bronchodilators .chest x-ray reporting patchy infiltrate right perihilar and right basilar region unchanged from prior study .significant clinical improvement, denies increase in shortness of breath. O2 weaned down to 4 L nasal cannula, maintaining O2 sats in the mid 90s. Afebrile. WBC trending down 14.1. Hemoglobin 9, platelets 288. Electrolytes and renal function within normal limits. Yesterday decreased appetite at breakfast, only consumed 25%; appetite has improved .blood sugars currently 101. Denies chest pain, palpitations. 11/09/2023 continues on nebulized bronchodilators, antibiotics, maintaining O2 sats in the low 90s on 4 L nasal cannula. Afebrile, WBC nearly normalized, 10.7. Hemoglobin remains at 9, platelets 269. Sodium 135, potassium 4.2, renal function stable. Blood sugars controlled. magnesium 1.4. Aggressive pulmonary toileting with nebulized bronchodilators, antibiotics. Discharge planning in progress possibly tomorrow if able to continue weaning off oxygen, pending pulmonary recommendations and clearance. ID recommendations for DC received; Ceftin 500 mg twice daily x 2 days. 11/10/2023 maintained on nebulized bronchodilators, antibiotics and diuretics. Afebrile, WBC 11. Hemoglobin 11, creatinine 1.08. Chest x-ray reported minimal change, maintaining O2 sat in the high 90s on 3 L nasal cannula. Cleared by pulmonary for discharge. Case management arranging home O2 and nebulizer. Patient has been advised to follow-up with pulmonary outpatient. Patient also has been advised to follow-up with cardiology in the next 1 to 2 weeks regarding workup for ischemic heart disease via heart catheterization or stress test pending pulmonary status improvement. Patient will be discharged home today in a stable condition with guarded prognosis. The impression and plan of care has been dictated as directed. : I performed a history and examination of this patient, discussed the same with the dictator. I agree with the dictator's note ,documented as a scribe. Any additional findings or plans will be noted. Patient Condition at Discharge: Stable Plan - Discharge Summary Discharge Rx Participant: No New Discharge Prescriptions: New cefUROXime axetiL [Ceftin] 500 mg PO BID 2 Days #2 tab carvediloL [Coreg*] 12.5 mg PO BID-W/MEALS #60 tab Triamcinolone 0.1% Cream [Kenalog 0.1% Cream] 1 applic TOPICAL BID each Pantoprazole [Protonix] 40 mg PO DAILY #30 tab lisinopriL [Zestril] 40 mg PO DAILY #60 tab Furosemide [Lasix] 40 mg PO DAILY #30 tablet Aspirin 81 mg PO DAILY tab Clotrimazole Cream [Lotrimin Cream] 1 applic TOPICAL BID each Ipratropium-Albuterol Nebulize [Duoneb 0.5 mg-3 mg/3 ml Soln] 3 ml INHALATION RT-QID #120 each hydrOXYzine HCL [Atarax] 25 mg PO TID PRN #10 tab PRN Reason: Insomnia Eplerenone 25 mg PO DAILY #30 tab Dapagliflozin Propanediol [Farxiga] 10 mg PO DAILY 30 Days #30 tablet Continue oxyCODONE-APAP 10-325MG [Percocet 10-325 mg] 1 tab PO Q6H PRN PRN Reason: Pain amLODIPine [Norvasc] 10 mg PO DAILY #30 tab Tirzepatide [Mounjaro] 10 mg SQ TU Insulin Glargine-Yfgn 74 units SQ BID Insulin Lispro 30 units SQ BID Sertraline [Zoloft] 50 mg PO DAILY hydrALAZINE HCL [Apresoline] 50 mg PO TID ARIPiprazole [Abilify] 2 mg PO DAILY traZODone HCL 100 mg PO HS Discontinued lisinopriL [Zestril] 5 mg PO DAILY hydroCHLOROthiazide [Hydrodiuril] 25 mg PO DAILY Discharge Medication List oxyCODONE-APAP 10-325MG [Percocet 10-325 mg] 1 tab PO Q6H PRN 10/22/16 [History] amLODIPine [Norvasc] 10 mg PO DAILY #30 tab 06/23/17 [Rx] ARIPiprazole [Abilify] 2 mg PO DAILY 11/04/23 [History] Insulin Glargine-Yfgn 74 units SQ BID 11/04/23 [History] Insulin Lispro 30 units SQ BID 11/04/23 [History] Sertraline [Zoloft] 50 mg PO DAILY 11/04/23 [History] Tirzepatide [Mounjaro] 10 mg SQ TU 11/04/23 [History] hydrALAZINE HCL [Apresoline] 50 mg PO TID 11/04/23 [History] traZODone HCL 100 mg PO HS 11/04/23 [History] cefUROXime axetiL [Ceftin] 500 mg PO BID 2 Days #2 tab 11/09/23 [Rx] Aspirin 81 mg PO DAILY tab 11/10/23 [Rx] Clotrimazole Cream [Lotrimin Cream] 1 applic TOPICAL BID each 11/10/23 [Rx] Dapagliflozin Propanediol [Farxiga] 10 mg PO DAILY 30 Days #30 tablet 11/10/23 [Rx] Eplerenone 25 mg PO DAILY #30 tab 11/10/23 [Rx] Furosemide [Lasix] 40 mg PO DAILY #30 tablet 11/10/23 [Rx] Ipratropium-Albuterol Nebulize [Duoneb 0.5 mg-3 mg/3 ml Soln] 3 ml INHALATION RT-QID #120 each 11/10/23 [Rx] Pantoprazole [Protonix] 40 mg PO DAILY #30 tab 11/10/23 [Rx] Triamcinolone 0.1% Cream [Kenalog 0.1% Cream] 1 applic TOPICAL BID each 11/10/23 [Rx] carvediloL [Coreg*] 12.5 mg PO BID-W/MEALS #60 tab 11/10/23 [Rx] hydrOXYzine HCL [Atarax] 25 mg PO TID PRN #10 tab 11/10/23 [Rx] lisinopriL [Zestril] 40 mg PO DAILY #60 tab 11/10/23 [Rx] Follow up Appointment(s)/Referral(s): Paulie Rashid MD [STAFF PHYSICIAN] - 10 Days (Office will call you with appointment date and time) Alejandro Atwood Jr, DO [Primary Care Provider] - 11/17/23 10:30 am [facility] [NON-STAFF] - Zay Brian MD [STAFF PHYSICIAN] - 12/08/23 8:45 am Ambulatory/Diagnostic Orders: Complete Blood Count w/diff [LAB.AMB] Time Frame: 3 Days, Location: None Selected Patient Instructions/Handouts: Pneumonia (DC) Activity/Diet/Wound Care/Special Instructions: Nebulizer and home O2 being arranged as per case management Discharge Disposition: HOME WITH HOME HEALTH SERVICES
--- NOTE | 2023-11-11 16:17 | P.PN ---
Subjective Progress Note Date: 11/10/23 Principal diagnosis: Reason for follow-up is multifocal pneumonia Patient is a 53-year-old male with a past medical history significant for diabetes mellitus hypertension patient presenting to the hospital for evaluation of weakness and fatigue did have hypoxemia elevated white count has been diagnosed with multifocal pneumonia prompting this consultation on today's evaluation that is 11/10/2023, Patient is afebrile this morning patient denies having any chest pain shortness of breath or cough, the patient is breathing comfortably and currently on 4 L nasal cannula oxygen, patient denies any abdominal pain no diarrhea no nausea no vomiting, mention feeling bet ter. No CBC for was done today and no cultures Objective - Vital Signs Vital signs: Vital Signs Temp 98.1 F 11/10/23 03:40 Pulse 80 11/10/23 09:41 Resp 18 11/10/23 03:40 BP 118/66 11/10/23 06:28 Pulse Ox 95 11/10/23 09:34 FiO2 50 11/04/23 20:32 Intake & Output 11/09/23 11/10/23 11/10/23 18:59 06:59 18:59 Intake Total 1360 240 Output Total 4000 Balance -2640 240 Weight 158.1 kg 158.1 kg Intake: Oral 1360 240 Output: Urine 4000 Other: Voiding Method Toilet Toilet - Exam GENERAL DESCRIPTION: Middle-age male lying in bed in no distress RESPIRATORY SYSTEM: Unlabored breathing , decreased breath sounds at bases HEART: S1 S2 regular rate and rhythm , ABDOMEN: Soft , no tenderness EXTREMITIES: No edema feet - Labs CBC & Chem 7: 11/09/23 05:45 11/09/23 05:45 Labs: Abnormal Lab Results - Last 24 Hours (Table) 11/09/23 11/09/23 11/09/23 Range/Units 05:45 16:54 20:01 POC Glucose (mg/dL) 169 H 334 H (70-110) mg/dL Magnesium 1.4 L (1.6-2.3) mg/dL 11/10/23 Range/Units 05:59 POC Glucose (mg/dL) 243 H (70-110) mg/dL Magnesium (1.6-2.3) mg/dL Assessment and Plan (1) Multifocal pneumonia Status: Acute Code(s): J18.9 - PNEUMONIA, UNSPECIFIED ORGANISM SNOMED Code(s): 855337266 (2) Leukocytosis Status: Acute Code(s): D72.829 - ELEVATED WHITE BLOOD CELL COUNT, UNSPECIFIED SNOMED Code(s): 394487712 Plan: 1patient presented to hospital with increasing shortness of breath and cough in this patient who did have a low-grade fever hypoxemia with evidence of groundgl ass opacity concerning for pneumonia patient has been ruled out for COVID-19 and did have elevated procalcitonin mostly suggestive of bacterial pneumonia, urine for Legionella antigen has been negative. Patient did have procalcitonin 2.57 2patient is afebrile and patient white count is normalized and the patient showed clinical improvement patient wants to go home we will consider short course of oral Ceftin on discharge once cleared by pulmonary Dictation was produced using [employer] dictation software. please excuse any grammatical, word or spelling errors. Time with Patient: Less than 30
--- NOTE | 2024-01-27 11:21 | CDI ---
Documentation Clarification Form Date: 01/13/2024 02:35:00 PM From: Emerita Nichole RN, CCDS Phone: [phone] Admit Date: 11/04/2023 02:09:00 PM Patient Name: Kvng Knox Visit Number: [id number] Discharge Date: 11/10/2023 06:01:00 PM ATTENTION: The Clinical Documentation Specialists (CDI) and [facility] Coding Staff appreciate your assistance in clarifying documentation. Please respond to the clarification below the line at the bottom and electronically sign. The CDI & [facility] Coding staff will review the response and follow-up if needed. Please note: Queries are made part of the Legal Health Record. If you have any questions, please contact the author of this message via ITS. Doctor Alejandro Atwood Sepsis is documented in the ED note. Based on this information and the findings below, is there an additional diagnosis that is clinically appropriate for this patient? History/Risk Factors: morbid obesity, diabetes mellitus, hypertension, chronic back pain, anxiety, bipolar, depression, chronic kidney disease. Presented initially to PCPs office with progressive shortness of breath over the last 3 days. In the office, O2 sat was 78%, patient extremely pale and short of breath. Clinical Indicators: ED: "There is concern for possible sepsis diagnosed at 1400. Clinical Impression: Sepsis, Multifocal pneumonia." 11/03-11/08 WBC: 18.2-20.6-17.0-14.1-10.7 11/03-11/08 Labs: Cr 1.44-0.97; Procalcitonin 2.57 11/03 CXR: Patchy infiltrate right upper lobe infiltrate compatible with pneumonia. 11/03 Vital signs: Temp 99.3, HR 99, pox 75% Discharge summary: "BL multifocal pneumonia; acute hypoxic respiratory failure; acute on chronic kidney disease stage 3; type II NSTEMI." Treatment: 11/04 ID Consult: "patient presented to hospital with increasing shortness of breath and cough. Did have a low-grade fever and hypoxemia with evidence of groundglass opacity concerning for pneumonia. Patient has been ruled out for COVID-19 and did have elevated procalcitonin mostly suggestive of bacterial pneumonia. Leukocytosis." Antibiotics: IV Azithromycin 500mg x1 on 11/03; IV Rocephin 2gm Q24H 11/03-11/09 IV 0.9 NS @100mL/hr 11/03-11/07 Please clarify the Sepsis diagnosis: [ x] Sepsis, present on admission [ ] Severe Sepsis with organ failure [ ] Sepsis ruled out [ ] Other, please specify [ ] Unable to determine SIRS Criteria: 2 or more of the following may indicate SIRS Temperature < 96.8F (36C) or > 101.0F (38.3C) Heart Rate > 90 bpm Respiratory Rate > 20 breaths/min or PaCO2 < 32 mmHg White Blood Cell Count > 12,000 or < 4,000 cells/mm3 or > 10% bands MTDD
== END 2023-11-10 18:01 | disposition home health service (06) | DRG 871 ==
LOC: EC 09:40 → 3SCARD 14:09
PROVIDERS: ADMIT Family Medicine; ATTEND Family Medicine
DX: A41.9 Sepsis, unspecified organism (principal); I21.A1 Myocardial infarction type 2; J18.8 Other pneumonia, unspecified organism; J96.01 Acute respiratory failure with hypoxia; Z68.43 Body mass index [BMI] 50.0-59.9, adult; E11.22 Type 2 diabetes mellitus with diabetic chronic kidney disease; E66.01 Morbid (severe) obesity due to excess calories; E78.5 Hyperlipidemia, unspecified; F31.9 Bipolar disorder, unspecified; F41.9 Anxiety disorder, unspecified; I25.9 Chronic ischemic heart disease, unspecified; D63.1 Anemia in chronic kidney disease; G89.29 Other chronic pain; N18.30 Chronic kidney disease, stage 3 unspecified; M54.9 Dorsalgia, unspecified; I12.9 Hypertensive chronic kidney disease with stage 1 through stage 4 chronic kidney disease, or unspecified chronic kidney disease; Z79.85 Long-term (current) use of injectable non-insulin antidiabetic drugs; Z79.4 Long term (current) use of insulin; Z79.82 Long term (current) use of aspirin; Z79.899 Other long term (current) drug therapy; Z71.3 Dietary counseling and surveillance; Z28.310 Unvaccinated for COVID-19; Z20.822 Contact with and (suspected) exposure to COVID-19; Z28.21 Immunization not carried out because of patient refusal; Z89.422 Acquired absence of other left toe(s); Z88.0 Allergy status to penicillin
CPT/HCPCS: 36415; 71045; 71046; 71275; 80048; 80053; 83036; 83605; 83735; 83880; 84145; 84484; 85025; 85027; 85379; 85610; 85730; 87040; 87449; 87636; 93005; 93306; 94640; 94760; 96361; 96365; 96375; 99291